=== PATIENT | male | born 1950 | race Caucasian/White ===

== ENCOUNTER 2017-12-26 21:49 | Inpatient (IN) | payer MEDICARE, MEDICAID ==
[2017-12-26 22:31] LABS: % BASOPHILS 0.9 % (0.0-2.0); % EOSINOPHILS 4.1 % (0.0-5.0); % LYMPHOCYTES 33.8 % (20.0-50.0); % MONOCYTES 10.3 % (2.0-10.0); % NEUTROPHILS 50.9 % (40.0-80.0); BASOPHILE ABSOLUTE 0.1 Th/cumm (0-0.2); EOSINOPHILE ABSOLUTE 0.2 Th/cmm (0.1-0.4); HEMATOCRIT 30.4 % (41.0-60); MEAN CORPUSCULAR HEMOGLOBIN 30.3 pg (27.0-31.0); MEAN PLATELET VOLUME 6.5 fl; MONOCYTE ABSOLUTE 0.6 Th/cmm (0.3-1.0); PLATELET COUNT 233 Th/cmm (150-400); RED CELL DISTRIBUTION WIDTH 15.2 % (11.5-20.0); WHITE BLOOD COUNT 5.9 Th/cmm (4.8-10.8)
[2017-12-26 22:47] LABS: ALB/GLOB RATIO 1.4 (1.0-1.8); ALBUMIN 3.8 gm/dL (4.2-5.5); ANION GAP 10.1 (7.0-16.0); BILIRUBIN,TOTAL 0.3 mg/dL (0.3-1.0); CALCIUM SERUM 9.2 mg/dL (8.6-10.3); CARBON DIOXIDE 28.3 mEq/L (21.0-31.0); CREATININE - SERUM 1.6 mg/dL (0.7-1.3); GFR AFRICAN-AMERICAN 55.7 ml/min (>90); GFR NON AFRICAN-AMERICAN 46.1 ml/min; POTASSIUM SERUM 4.4 mEq/L (3.5-5.1); TOTAL PROTEIN,SERUM 6.6 gm/dL (6.0-8.3)
[2017-12-26 22:50] LABS: INR 0.97 (0.5-1.4); PROTHROMBIN TIME (TEST) 10.1 SECONDS (9.5-11.5)
--- NOTE | 2017-12-26 23:07 | ED Physician Chart ---
ED Chief Complaint/HPI - Patient Information Date Seen:: 12/26/17 Time Seen:: 22:00 Chief Complaint:: AGITATION History of Present Illness:: THIS IS A 67 YO CHRONICALLY ILL MALE PSYCH PATIENT THAT WAS SENT HERE FOR AN EVALUATION OF HIS CONDITION BECAUSE HE HAS NOT BEEN COOPERATING AND COMBATIVE WITH THE STAFF. Allergies:: Allergies Allergy/AdvReac Type Severity Reaction Status Date / Time No Known Allergies Allergy Verified 12/26/17 22:44 Vitals:: Vital Signs - 8 hr 12/26/17 21:50 Temp 97.8 F HR 64 RR 20 BP 119/99 O2 Sat % 92 Historian:: EMS, Medical Records Review:: Nurse's Note Reviewed, Transfer documents Reviewed ED Review of Systems - Review of Systems General/Constitutional: No fever, No chills, No weight loss, No weakness, No diaphoresis, No edema, No loss of appetite, Other (THIS PATIENT IS UNABLE TO GIVE A REVIEW OF SYSTEMS.) Skin: No skin lesions, No rash, No bruising Head: No headache, No light-headedness Eyes: No loss of vision, No pain, No diplopia ENT: No earache, No nasal drainage, No sore throat, No tinnitus Neck: No neck pain, No swelling, No thyromegaly, No stiffness, No mass noted Cardio Vascular: No chest pain, No palpitations, No PND, No orthopnea, No edema Pulmonary: No SOB, No cough, No sputum, No wheezing GI: No nausea, No vomiting, No diarrhea, No pain, No melena, No hematochezia, No constipation, No hematemesis G/U: No dysuria, No frequency, No hematuria Musculoskeletal: No bone or joint pain, No back pain, No muscle pain Endocrine: No polyuria, No polydipsia Psychiatric: No prior psych history, No depression, No anxiety, No suicidal ideation Hematopoietic: No bruising, No lymphadenopathy Allergic/Immuno: No urticaria, No angioedema Neurological: No syncope, No focal symptoms, No weakness, No paresthesia, No headache, No seizure, No dizziness, No confusion, No vertigo ED Past Medical History - Past Medical History Obtainable: Yes Past Medical History: HTN, Dementia Family History: None Social History: Non Smoker, No Alcohol, No Drug Use, Care Facility Psychiatricy History: Depression, Schizophrenia, Dementia ED Physical Exam - Physical Examination General/Constitutional: Awake, Well-developed, well-nourished, Alert, No distress, GCS 15, Non-toxic appearing, Ambulatory Head: Atraumatic Eyes: Lids, conjuctiva normal, PERRL, EOMI Skin: Nl inspection, No rash, No skin lesions, No ecchymosis, Well hydrated, No lymphadenopathy ENMT: External ears, nose nl, Nasal exam nl, Lips, teeth, gums nl Neck: Nontender, Full ROM w/o pain, No JVD, No nuchal rigidity, No bruit, No mass, No stridor Respiratory: Nl effort/Exclusion, Clear to Auscultation, No Wheeze/Rhonchi/Rales Cardio Vascular: RRR, No murmur, gallop, rubs, NL S1 S2 GI: No tenderness/rebounding/guarding, No organomegaly, No hernia, Normal BS's, Nondistended, No mass/bruits, No McBurney tenderness : No CVA tenderness Extremities: No tenderness or effusion, Full ROM, normal strength in all extremities, No edema, Normal digits & nails Neuro/Psych: Alert/oriented, DTR's symmetric, Normal sensory exam, Normal motor strength, Judgement/insight normal, Mood normal, Normal gait, No focal deficits Misc: Normal back, No paraspinal tenderness ED Labs/Radiology/EKG Results - Lab Results Results: Laboratory Tests 12/26/17 12/26/17 12/26/17 22:20 22:20 22:20 WBC 5.9 RBC 3.30 L Hgb 10.0 L Hct 30.4 L MCV 92.0 MCH 30.3 MCHC Differential 33.0 RDW 15.2 Plt Count 233 MPV 6.5 Neutrophils % 50.9 Lymphocytes % 33.8 Monocytes % 10.3 H Eosinophils % 4.1 Basophils % 0.9 Sodium 134 L Potassium 4.4 Chloride 100 Carbon Dioxide 28.3 Anion Gap 10.1 BUN 42 H Creatinine 1.6 H Est GFR ( Amer) 55.7 Est GFR (Non-Af Amer) 46.1 BUN/Creatinine Ratio 26.3 Glucose 96 Calcium 9.2 Total Bilirubin 0.3 AST 10 L ALT 8 Alkaline Phosphatase 122 H Troponin I 0.01 Total Protein 6.6 Albumin 3.8 L Globulin 2.8 Albumin/Globulin Ratio 1.4 - Radiology Results Results: CHEST X-RAY = RIGHT MIDDLE LOBE AREA OF [place] - EKG Interpretations EKG Time:: 22:30 Rate & Rhythm: 67, SINUS [place]: RIGHT AXIS Intervals: NO ECTOPY SEEN ED Assessment - Assessment General Assessment: PSYCHOSIS ED Septic Shock - . Is Septic Shock (SBP<90, OR Lactate>4 mmol\L) present?: No - <6hrs of presentation: Vital Signs: Vital Signs - 8 hr 12/26/17 21:50 Temp 97.8 F HR 64 RR 20 BP 119/99 O2 Sat % 92 ED Reassessment (Disposition) - Reassessment Reassessment Condition:: Unchanged - Diagnosis Diagnosis:: PSYCHOSIS - Patient Disposition Discharge/Transfer:: Acute Care w/in this hosp Admitting Medical Physician:: Nica Ho Admitting Psych Physician:: Reilly Aldana Condition at Disposition:: Unchanged ED Discharge Plan - Patient Disposition Admit/Discharge/Transfer: Acute Care w/in this hosp Condition at Disposition: Unchanged
[2017-12-27] MEDS ORDERED: Maalox 30 mL Cup PO PRN (02:44)
[2017-12-27] MEDS ORDERED: Magnesium Hydroxide (MOM) 30 mL UDC PO PRN (02:44)
[2017-12-27 06:32] VITALS: BP 138/78
--- NOTE | 2017-12-27 08:59 | Diagnostic Imaging Report ---
Portable chest x-ray HISTORY: Pain Allowing for portable technique in a poor inspiration, the overall heart size is normal. Atherosclerotic calcification seen in the aorta. Density noted over the right mid chest. Findings may be associated with the ribs and old fractures. Question pleural calcification. No other acute focal pulmonary processes. No hilar or mediastinal abnormalities. IMPRESSION: 1. Density over the right mid chest appears chronic and may be related to old right rib fractures. If necessary, a CT scan would confirm. 2. Atherosclerotic vascular changes
[2017-12-27] MEDS: Ferrous Sulfate 325 MG TAB PO SCH (10:00)
[2017-12-27] MEDS: NIFEdipine 30 mg ER Tab PO SCH (10:00)
[2017-12-27] MEDS: Multivitamin Tab PO SCH (10:35)
[2017-12-27] MEDS: Magnesium Hydroxide (MOM) 30 mL UDC PO SCH (10:36)
--- NOTE | 2017-12-27 16:05 | History & Physical ---
ADMIT DATE: 12/27/2017 HISTORY OF PRESENT ILLNESS: The patient is a 67-year-old male with long history of hypertension, benign prostatic hypertrophy, chronic anemia, dementia, admitted to [facility] for more evaluation and treatment. The patient is a poor historian secondary to his dementia. PAST MEDICAL HISTORY: Significant for hypertension, benign prostatic hypertrophy, chronic anemia, dementia. PAST SURGICAL HISTORY: No recent surgery. ALLERGIES: None. MEDICATIONS: Follow admission reconciliation. SOCIAL HISTORY: No smoking, no alcohol, no drugs. FAMILY HISTORY: Noncontributory. REVIEW OF SYSTEMS: RENAL SYSTEM: No history of chronic renal disorder. CARDIOVASCULAR SYSTEM: He has history of hypertension. ENDOCRINE SYSTEM: No diabetes or thyroid problem. GASTROINTESTINAL SYSTEM: No upper or lower GI bleeding. NEUROLOGICAL SYSTEM: History of dementia. MUSCULOSKELETAL SYSTEM: No muscular dystrophy. HEMATOLOGIC SYSTEM: No bleeding tendencies. GENITOURINARY: No dysuria or hematuria. PHYSICAL EXAMINATION: GENERAL: He is awake, not coherent. VITAL SIGNS: His temperature 97.7, heart rate 63, blood pressure 141/80. HEENT: Normocephalic. Pupils reacting equal to light and accommodation. Sclerae clear. NECK: Supple. Negative for lymphadenopathy, JVD or bruit. CHEST: Bilaterally normal. No rhonchi or wheezing. HEART: S1, S2 normal. No murmur or gallop rhythm. ABDOMEN: Soft, bowel sounds positive. EXTREMITIES: No edema. BACK: Normal. SKIN: Intact. NEUROLOGIC: He is awake, alert, not fully oriented. No focal motor or sensory deficit. Cranial nerves 2-12 is intact. LABORATORY DATA: White blood 5.9, hemoglobin 10, hematocrit 30.4, platelet 233. Sodium 134, potassium 4.4, BUN 42, creatinine 0.6. ASSESSMENT: 1. Hypertension. 2. Benign prostatic hypertrophy. 3. Anemia. 4. Chronic kidney disease. 5. Dementia. PLAN: The patient in the hospital under Dr. Yanez's service. MEDICAL PROBLEMS ADDRESSED DURING HOSPITALIZATION: Dementia. MEDICAL PROBLEMS ADDRESSED AT DISCHARGE: Hypertension, benign prostatic hypertrophy, anemia. The patient is medically stable for activity. Thank you, Dr. Yanez for asking me to see your patient. JOB# [id number]
[2017-12-27] MEDS ORDERED: Non-Formulary Item 1 EA (Melatonin [Melatonin] 3 MG) PO SCH (21:00)
[2017-12-28] MEDS ORDERED: Haloperidol Lactate 5 mg/mL 1mL Vial ONE (07:15)
[2017-12-28] MEDS ORDERED: Haloperidol Lactate 5 mg/mL 1mL Vial IM ONE (07:35)
[2017-12-28] MEDS: Multivitamin Tab PO SCH (10:00)
[2017-12-28] MEDS: Magnesium Hydroxide (MOM) 30 mL UDC PO SCH (10:00)
[2017-12-28] MEDS: Ferrous Sulfate 325 MG TAB PO SCH (10:00)
[2017-12-28] MEDS: NIFEdipine 30 mg ER Tab PO SCH (10:00)
--- NOTE | 2017-12-28 21:29 | Internal Medicine Prog Note ---
Internal Medicine Subjective - Subjective Service Date: 12/28/17 Patient seen and examined:: with staff Patient is:: awake, talking, confused Per staff patient has:: no adverse event Internal Medicine Objective - Results Result Diagrams: 12/26/17 22:20 12/26/17 22:20 Recent Labs: Laboratory Last Values WBC 5.9 Th/cmm (4.8-10.8) 12/26/17 22:20 RBC 3.30 Mil/cmm (3.80-5.80) L 12/26/17 22:20 Hgb 10.0 gm/dL (12-16) L 12/26/17 22:20 Hct 30.4 % (41.0-60) L 12/26/17 22:20 MCV 92.0 fl (80-99) 12/26/17 22:20 MCH 30.3 pg (27.0-31.0) 12/26/17 22:20 MCHC Differential 33.0 pg (28.0-36.0) 12/26/17 22:20 RDW 15.2 % (11.5-20.0) 12/26/17 22:20 Plt Count 233 Th/cmm (150-400) 12/26/17 22:20 MPV 6.5 fl 12/26/17 22:20 Neutrophils % 50.9 % (40.0-80.0) 12/26/17 22:20 Lymphocytes % 33.8 % (20.0-50.0) 12/26/17 22:20 Monocytes % 10.3 % (2.0-10.0) H 12/26/17 22:20 Eosinophils % 4.1 % (0.0-5.0) 12/26/17 22:20 Basophils % 0.9 % (0.0-2.0) 12/26/17 22:20 PT 10.1 SECONDS (9.5-11.5) 12/26/17 22:20 INR 0.97 (0.5-1.4) 12/26/17 22:20 Sodium 134 mEq/L (136-145) L 12/26/17 22:20 Potassium 4.4 mEq/L (3.5-5.1) 12/26/17 22:20 Chloride 100 mEq/L (98-107) 12/26/17 22:20 Carbon Dioxide 28.3 mEq/L (21.0-31.0) 12/26/17 22:20 Anion Gap 10.1 (7.0-16.0) 12/26/17 22:20 BUN 42 mg/dL (7-25) H 12/26/17 22:20 Creatinine 1.6 mg/dL (0.7-1.3) H 12/26/17 22:20 Est GFR ( Amer) 55.7 ml/min (>90) 12/26/17 22:20 Est GFR (Non-Af Amer) 46.1 ml/min 12/26/17 22:20 BUN/Creatinine Ratio 26.3 12/26/17 22:20 Glucose 96 mg/dL (70-105) 12/26/17 22:20 Calcium 9.2 mg/dL (8.6-10.3) 12/26/17 22:20 Total Bilirubin 0.3 mg/dL (0.3-1.0) 12/26/17 22:20 AST 10 U/L (13-39) L 12/26/17 22:20 ALT 8 U/L (7-52) 12/26/17 22:20 Alkaline Phosphatase 122 U/L (34-104) H 12/26/17 22:20 Troponin I 0.01 ng/mL (0.01-0.05) 12/26/17 22:20 Total Protein 6.6 gm/dL (6.0-8.3) 12/26/17 22:20 Albumin 3.8 gm/dL (4.2-5.5) L 12/26/17 22:20 Globulin 2.8 gm/dL 12/26/17 22:20 Albumin/Globulin Ratio 1.4 (1.0-1.8) 12/26/17 22:20 TSH 1.97 uIU/ml (0.34-5.60) 12/26/17 22:20 - Physical Exam Vitals and I&O: Vital Signs Temp 97.5 F 12/28/17 21:12 Pulse 65 12/28/17 21:12 Resp 18 12/28/17 21:12 BP 115/58 12/28/17 21:12 Pulse Ox 95 12/28/17 21:12 Intake & Output 12/28/17 12/28/17 12/29/17 06:59 18:59 06:59 Intake Total 1880 1600 180 Balance 1880 1600 180 Intake: Oral 1880 1600 180 Other: # Voids 2 4 2 # Bowel Movements 1 1 0 Stool Characteristics Formed Active Medications: Current Medications Acetaminophen (Tylenol) 650 mg PO Q4HR PRN PRN Reason: Pain (Mild) Stop: 02/25/18 03:35 Al Hydrox/Mg Hydrox/Simethicone (Maalox) 30 ml PO Q4HR PRN PRN Reason: GI DISTRESS Stop: 02/25/18 02:43 Alprazolam (Xanax) 0.25 mg PO BID DORENE PRN Reason: Protocol Stop: 02/25/18 08:59 Last Admin: 12/28/17 16:21 Dose: 0.25 mg Docusate Sodium (Colace) 100 mg PO BID [facility] Stop: 02/25/18 08:59 Last Admin: 12/28/17 16:22 Dose: 100 mg Ferrous Sulfate (Iron) 325 mg PO DAILY [facility] Stop: 02/25/18 08:59 Last Admin: 12/28/17 10:00 Dose: Not Given Lorazepam (Ativan) 0.5 mg PO Q4HR PRN; Protocol PRN Reason: Anxiety Stop: 01/26/18 02:43 Last Admin: 12/28/17 20:30 Dose: 0.5 mg Magnesium Hydroxide (Milk Of Magnesia) 30 ml PO HS PRN PRN Reason: Constipation Magnesium Hydroxide (Milk Of Magnesia) 30 ml PO DAILY [facility] Stop: 02/25/18 08:59 Last Admin: 12/28/17 10:00 Dose: Not Given Metoprolol Tartrate (Lopressor) 25 mg PO DAILY [facility] Stop: 02/25/18 08:59 Last Admin: 12/28/17 10:00 Dose: 25 mg Multivitamins/Vitamin C (Theragran) 1 tab PO DAILY DORENE Stop: 02/25/18 08:59 Last Admin: 12/28/17 10:00 Dose: 1 tab Nifedipine (Procardia Xl) 30 mg PO DAILY [facility] Stop: 02/25/18 08:59 Last Admin: 12/28/17 10:00 Dose: 30 mg Quetiapine Fumarate (Seroquel) 25 mg PO BID DORENE PRN Reason: Protocol Stop: 02/26/18 11:32 Last Admin: 12/28/17 16:22 Dose: 25 mg Tamsulosin HCl (Flomax) 0.4 mg PO HS DORENE Stop: 02/25/18 20:59 Last Admin: 12/28/17 20:31 Dose: 0.4 mg Zolpidem Tartrate (Ambien) 5 mg PO HS PRN PRN Reason: Insomnia Stop: 02/25/18 02:43 Last Admin: 12/28/17 20:30 Dose: 5 mg General: demented HEENT: NC/AT, PERRLA, EOMI, anicteric sclerae, throat clear Neck: Supple, No JVD, No thyromegaly, +2 carotid pulse wo bruit, No LAD Lungs: CTAB Cardiovascular: RRR, Normal S1, Normal S2, without murmur Abdomen: non-tender, non-distended Extremities: clear Neurological: no change Internal Medicine Assmt/Plan - Assessment Assessment: 1.HTN. 2.BPH. 3.ANEMIA. 4.CKD. 5.DEMENTIA. - Plan Plan: CONTINUE ON CURRENT MEDICATION AND DIET.
--- NOTE | 2017-12-28 23:35 | Psychosocial Evaluation ---
DATE OF SERVICE: 12/27/2017 PSYCHIATRIC INITIAL EVALUATION AND MENTAL STATUS EXAM AGE: 67. SEX: Male. PHYSICIAN: Dr. Aldana. CHIEF COMPLAINT: Agitation and striking odd behavior. HISTORY OF PRESENT ILLNESS: The patient is a 67-year-old male who is admitted to the hospital because of increased agitation and aggressive behavior. The patient also has been confused and disruptive to others. The patient also still was not able to follow any of staff directions [facility] and was transferred to the hospital. The patient is still extremely irritable and is severely agitated and restless. The patient also is unable to follow directions or instructions from the staff. He also has episodes of combative behavior and severe aggression and agitation. He also was not able to follow any of directions. PAST PSYCHIATRIC HISTORY: History of psychosis as well as a history of dementia. The patient has been taking Xanax to calm him down. PAST MEDICAL HISTORY: The patient has history of hypertension and is taking Lasix. Also, has a history of anemia. SOCIAL HISTORY: The patient lives in [facility]. No known alcohol or drug use. ALLERGIES: No known allergies. MENTAL STATUS EXAMINATION: The patient appears older than stated age. Anxious. Irritable mood. Agitated and aggressive behavior. Disorganized thoughts. Unable to answer my questions currently because of agitation and because of irritability. Poor insight and poor judgment. ASSESSMENT: PRIMARY DIAGNOSIS: Unspecified psychosis. TREATMENT PLAN: Continue to monitor his behavior and condition closely. Also, we will start the patient on Seroquel 12.5 mg twice a day and will adjust the dose. ESTIMATED LENGTH OF STAY: 5-7 days. THE PATIENT'S STRENGTHS AND WEAKNESSES: The patient is cooperative with taking his medications. Weakness is his poor impulse control and agitation. AFTER DISCHARGE PLAN: The patient will return to [facility] with plans for outpatient treatment there. ITEM CRITERIA FOR DISCHARGE: Better impulse control and the patient will not be agitated. [facility]# [id number]
--- NOTE | 2017-12-29 00:09 | Progress Notes ---
DATE: SUBJECTIVE: Chart reviewed and the patient interviewed. Also discussed the patient's condition with the staff and reviewed records and labs. The patient remains agitated and in irritable mood. He also is still instigating arguments and fights with others. The patient also this morning has to be given emergency medication because of his agitation and paranoia and because of argumentative with staff and threatening. Otherwise, the patient is compliant with medications and easier to redirect him. ASSESSMENT: The patient is paranoid and still needs close monitoring. TREATMENT PLAN: Continue monitoring behavior and condition closely. Also, continue to work on poor insight and his poor impulse control. JOB# [id number]
[2017-12-29] MEDS: Ferrous Sulfate 325 MG TAB PO SCH (09:20)
[2017-12-29] MEDS: NIFEdipine 30 mg ER Tab PO SCH (09:20)
[2017-12-29] MEDS: Magnesium Hydroxide (MOM) 30 mL UDC PO SCH (09:20)
[2017-12-29] MEDS: Multivitamin Tab PO SCH (09:20)
--- NOTE | 2017-12-29 22:06 | Internal Medicine Prog Note ---
Internal Medicine Subjective - Subjective Service Date: 12/29/17 Patient seen and examined:: without staff Patient is:: awake, talking, confused Per staff patient has:: no adverse event Internal Medicine Objective - Results Result Diagrams: 12/26/17 22:20 12/26/17 22:20 Recent Labs: Laboratory Last Values WBC 5.9 Th/cmm (4.8-10.8) 12/26/17 22:20 RBC 3.30 Mil/cmm (3.80-5.80) L 12/26/17 22:20 Hgb 10.0 gm/dL (12-16) L 12/26/17 22:20 Hct 30.4 % (41.0-60) L 12/26/17 22:20 MCV 92.0 fl (80-99) 12/26/17 22:20 MCH 30.3 pg (27.0-31.0) 12/26/17 22:20 MCHC Differential 33.0 pg (28.0-36.0) 12/26/17 22:20 RDW 15.2 % (11.5-20.0) 12/26/17 22:20 Plt Count 233 Th/cmm (150-400) 12/26/17 22:20 MPV 6.5 fl 12/26/17 22:20 Neutrophils % 50.9 % (40.0-80.0) 12/26/17 22:20 Lymphocytes % 33.8 % (20.0-50.0) 12/26/17 22:20 Monocytes % 10.3 % (2.0-10.0) H 12/26/17 22:20 Eosinophils % 4.1 % (0.0-5.0) 12/26/17 22:20 Basophils % 0.9 % (0.0-2.0) 12/26/17 22:20 PT 10.1 SECONDS (9.5-11.5) 12/26/17 22:20 INR 0.97 (0.5-1.4) 12/26/17 22:20 Sodium 134 mEq/L (136-145) L 12/26/17 22:20 Potassium 4.4 mEq/L (3.5-5.1) 12/26/17 22:20 Chloride 100 mEq/L (98-107) 12/26/17 22:20 Carbon Dioxide 28.3 mEq/L (21.0-31.0) 12/26/17 22:20 Anion Gap 10.1 (7.0-16.0) 12/26/17 22:20 BUN 42 mg/dL (7-25) H 12/26/17 22:20 Creatinine 1.6 mg/dL (0.7-1.3) H 12/26/17 22:20 Est GFR ( Amer) 55.7 ml/min (>90) 12/26/17 22:20 Est GFR (Non-Af Amer) 46.1 ml/min 12/26/17 22:20 BUN/Creatinine Ratio 26.3 12/26/17 22:20 Glucose 96 mg/dL (70-105) 12/26/17 22:20 Calcium 9.2 mg/dL (8.6-10.3) 12/26/17 22:20 Total Bilirubin 0.3 mg/dL (0.3-1.0) 12/26/17 22:20 AST 10 U/L (13-39) L 12/26/17 22:20 ALT 8 U/L (7-52) 12/26/17 22:20 Alkaline Phosphatase 122 U/L (34-104) H 12/26/17 22:20 Troponin I 0.01 ng/mL (0.01-0.05) 12/26/17 22:20 Total Protein 6.6 gm/dL (6.0-8.3) 12/26/17 22:20 Albumin 3.8 gm/dL (4.2-5.5) L 12/26/17 22:20 Globulin 2.8 gm/dL 12/26/17 22:20 Albumin/Globulin Ratio 1.4 (1.0-1.8) 12/26/17 22:20 TSH 1.97 uIU/ml (0.34-5.60) 12/26/17 22:20 - Physical Exam Vitals and I&O: Vital Signs Temp 97.8 F 12/29/17 20:21 Pulse 73 12/29/17 20:21 Resp 20 12/29/17 20:21 BP 146/74 12/29/17 20:21 Pulse Ox 97 12/29/17 20:21 Intake & Output 12/29/17 12/29/17 12/30/17 06:59 18:59 06:59 Intake Total 300 480 Balance 300 480 Intake: Oral 300 480 Other: # Voids 2 2 # Bowel Movements 0 Stool Characteristics Formed Active Medications: Current Medications Acetaminophen (Tylenol) 650 mg PO Q4HR PRN PRN Reason: Pain (Mild) Stop: 02/25/18 03:35 Al Hydrox/Mg Hydrox/Simethicone (Maalox) 30 ml PO Q4HR PRN PRN Reason: GI DISTRESS Stop: 02/25/18 02:43 Alprazolam (Xanax) 0.25 mg PO BID DORENE PRN Reason: Protocol Stop: 02/25/18 08:59 Last Admin: 12/29/17 16:54 Dose: 0.25 mg Docusate Sodium (Colace) 100 mg PO BID [facility] Stop: 02/25/18 08:59 Last Admin: 12/29/17 16:54 Dose: 100 mg Ferrous Sulfate (Iron) 325 mg PO DAILY [facility] Stop: 02/25/18 08:59 Last Admin: 12/29/17 09:20 Dose: 325 mg Lorazepam (Ativan) 0.5 mg PO Q4HR PRN; Protocol PRN Reason: Anxiety Stop: 01/26/18 02:43 Last Admin: 12/29/17 21:12 Dose: 0.5 mg Magnesium Hydroxide (Milk Of Magnesia) 30 ml PO HS PRN PRN Reason: Constipation Magnesium Hydroxide (Milk Of Magnesia) 30 ml PO DAILY [facility] Stop: 02/25/18 08:59 Last Admin: 12/29/17 09:20 Dose: 30 ml Metoprolol Tartrate (Lopressor) 25 mg PO DAILY [facility] Stop: 02/25/18 08:59 Last Admin: 12/29/17 09:20 Dose: 25 mg Multivitamins/Vitamin C (Theragran) 1 tab PO DAILY [facility] Stop: 02/25/18 08:59 Last Admin: 12/29/17 09:20 Dose: 1 tab Nifedipine (Procardia Xl) 30 mg PO DAILY [facility] Stop: 02/25/18 08:59 Last Admin: 12/29/17 09:20 Dose: 30 mg Quetiapine Fumarate (Seroquel) 25 mg PO BID DORENE PRN Reason: Protocol Stop: 02/26/18 11:32 Last Admin: 12/29/17 16:54 Dose: 25 mg Tamsulosin HCl (Flomax) 0.4 mg PO HS DORENE Stop: 02/25/18 20:59 Last Admin: 12/29/17 21:12 Dose: 0.4 mg Zolpidem Tartrate (Ambien) 5 mg PO HS PRN PRN Reason: Insomnia Stop: 02/25/18 02:43 Last Admin: 12/29/17 21:12 Dose: 5 mg General: demented HEENT: NC/AT, PERRLA, EOMI, anicteric sclerae, throat clear Neck: Supple, No JVD, No thyromegaly, +2 carotid pulse wo bruit, No LAD Lungs: CTAB Cardiovascular: RRR, Normal S1, Normal S2, without murmur Abdomen: non-tender, non-distended Extremities: clear Neurological: no change Internal Medicine Assmt/Plan - Assessment Assessment: 1.HTN. 2.BPH. 3.ANEMIA. 4.CKD. 5.DEMENTIA. - Plan Plan: CONTINUE ON CURRENT MEDICATION AND DIET.
[2017-12-30] MEDS: Multivitamin Tab PO SCH (08:29)
[2017-12-30] MEDS: Magnesium Hydroxide (MOM) 30 mL UDC PO SCH (08:29)
[2017-12-30] MEDS: Ferrous Sulfate 325 MG TAB PO SCH (08:30)
[2017-12-30] MEDS: NIFEdipine 30 mg ER Tab PO SCH (08:31)
--- NOTE | 2017-12-30 19:28 | Progress Notes ---
DATE: SUBJECTIVE: Chart reviewed and the patient interviewed. Also discussed the patient's condition with the staff and reviewed records and labs. The patient is still agitated and in irritable mood. The patient is oriented to his self only. He also is still combative and agitated and also staff reporting that he has been yelling profanity and have difficult time listening and following their directions. He also has been striking out and yesterday, the patient has been given Haldol 5 mg and Ativan 1 mg and Benadryl 25 mg. Otherwise, the patient started on Seroquel that was increased to 25 mg twice a day yesterday. ASSESSMENT: The patient is still agitated and in irritable mood and psychotic. TREATMENT PLAN: Continue monitoring his behavior and his condition closely. Also, continue adjusting psychotropic medications and followup. JOB# [id number]
--- NOTE | 2017-12-30 22:18 | Internal Medicine Prog Note ---
Internal Medicine Subjective - Subjective Service Date: 12/30/17 Patient seen and examined:: without staff Patient is:: awake, talking, confused Per staff patient has:: no adverse event Internal Medicine Objective - Results Result Diagrams: 12/26/17 22:20 12/26/17 22:20 Recent Labs: Laboratory Last Values WBC 5.9 Th/cmm (4.8-10.8) 12/26/17 22:20 RBC 3.30 Mil/cmm (3.80-5.80) L 12/26/17 22:20 Hgb 10.0 gm/dL (12-16) L 12/26/17 22:20 Hct 30.4 % (41.0-60) L 12/26/17 22:20 MCV 92.0 fl (80-99) 12/26/17 22:20 MCH 30.3 pg (27.0-31.0) 12/26/17 22:20 MCHC Differential 33.0 pg (28.0-36.0) 12/26/17 22:20 RDW 15.2 % (11.5-20.0) 12/26/17 22:20 Plt Count 233 Th/cmm (150-400) 12/26/17 22:20 MPV 6.5 fl 12/26/17 22:20 Neutrophils % 50.9 % (40.0-80.0) 12/26/17 22:20 Lymphocytes % 33.8 % (20.0-50.0) 12/26/17 22:20 Monocytes % 10.3 % (2.0-10.0) H 12/26/17 22:20 Eosinophils % 4.1 % (0.0-5.0) 12/26/17 22:20 Basophils % 0.9 % (0.0-2.0) 12/26/17 22:20 PT 10.1 SECONDS (9.5-11.5) 12/26/17 22:20 INR 0.97 (0.5-1.4) 12/26/17 22:20 Sodium 134 mEq/L (136-145) L 12/26/17 22:20 Potassium 4.4 mEq/L (3.5-5.1) 12/26/17 22:20 Chloride 100 mEq/L (98-107) 12/26/17 22:20 Carbon Dioxide 28.3 mEq/L (21.0-31.0) 12/26/17 22:20 Anion Gap 10.1 (7.0-16.0) 12/26/17 22:20 BUN 42 mg/dL (7-25) H 12/26/17 22:20 Creatinine 1.6 mg/dL (0.7-1.3) H 12/26/17 22:20 Est GFR ( Amer) 55.7 ml/min (>90) 12/26/17 22:20 Est GFR (Non-Af Amer) 46.1 ml/min 12/26/17 22:20 BUN/Creatinine Ratio 26.3 12/26/17 22:20 Glucose 96 mg/dL (70-105) 12/26/17 22:20 Calcium 9.2 mg/dL (8.6-10.3) 12/26/17 22:20 Total Bilirubin 0.3 mg/dL (0.3-1.0) 12/26/17 22:20 AST 10 U/L (13-39) L 12/26/17 22:20 ALT 8 U/L (7-52) 12/26/17 22:20 Alkaline Phosphatase 122 U/L (34-104) H 12/26/17 22:20 Troponin I 0.01 ng/mL (0.01-0.05) 12/26/17 22:20 Total Protein 6.6 gm/dL (6.0-8.3) 12/26/17 22:20 Albumin 3.8 gm/dL (4.2-5.5) L 12/26/17 22:20 Globulin 2.8 gm/dL 12/26/17 22:20 Albumin/Globulin Ratio 1.4 (1.0-1.8) 12/26/17 22:20 TSH 1.97 uIU/ml (0.34-5.60) 12/26/17 22:20 - Physical Exam Vitals and I&O: Vital Signs Temp 98.2 F 12/30/17 21:24 Pulse 68 12/30/17 21:24 Resp 19 12/30/17 21:24 BP 118/61 12/30/17 21:24 Pulse Ox 97 12/30/17 21:24 Intake & Output 12/30/17 12/30/17 12/31/17 06:59 18:59 06:59 Intake Total 600 1000 480 Balance 600 1000 480 Intake: Oral 600 1000 480 Other: # Voids 2 4 1 # Bowel Movements 0 1 Active Medications: Current Medications Acetaminophen (Tylenol) 650 mg PO Q4HR PRN PRN Reason: Pain (Mild) Stop: 02/25/18 03:35 Al Hydrox/Mg Hydrox/Simethicone (Maalox) 30 ml PO Q4HR PRN PRN Reason: GI DISTRESS Stop: 02/25/18 02:43 Alprazolam (Xanax) 0.25 mg PO BID [facility] PRN Reason: Protocol Stop: 02/25/18 08:59 Last Admin: 12/30/17 16:34 Dose: 0.25 mg Docusate Sodium (Colace) [address] [facility] Stop: 02/25/18 08:59 Last Admin: 12/30/17 16:35 Dose: 100 mg Ferrous Sulfate (Iron) [address] [facility] Stop: 02/25/18 08:59 Last Admin: 12/30/17 08:30 Dose: 325 mg Lorazepam (Ativan) 0.5 mg PO Q4HR PRN; Protocol PRN Reason: Anxiety Stop: 01/26/18 02:43 Last Admin: 12/29/17 21:12 Dose: 0.5 mg Magnesium Hydroxide (Milk Of Magnesia) 30 ml PO HS PRN PRN Reason: Constipation Magnesium Hydroxide (Milk Of Magnesia) [address] [facility] Stop: 02/25/18 08:59 Last Admin: 12/30/17 08:29 Dose: 30 ml Metoprolol Tartrate (Lopressor) [address] [facility] Stop: 02/25/18 08:59 Last Admin: 12/30/17 08:31 Dose: 25 mg Multivitamins/Vitamin C (Theragran) [address] [facility] Stop: 02/25/18 08:59 Last Admin: 12/30/17 08:29 Dose: 1 tab Nifedipine (Procardia Xl) [address] [facility] Stop: 02/25/18 08:59 Last Admin: 12/30/17 08:31 Dose: 30 mg Quetiapine Fumarate (Seroquel) 25 mg PO BID [facility] PRN Reason: Protocol Stop: 02/26/18 11:32 Last Admin: 12/30/17 16:35 Dose: 25 mg Tamsulosin HCl (Flomax) 0.4 mg PO HS [facility] Stop: 02/25/18 20:59 Last Admin: 12/30/17 20:21 Dose: 0.4 mg Zolpidem Tartrate (Ambien) 5 mg PO HS PRN PRN Reason: Insomnia Stop: 02/25/18 02:43 Last Admin: 12/30/17 20:21 Dose: 5 mg General: demented HEENT: NC/AT, PERRLA, EOMI, anicteric sclerae, throat clear Neck: Supple, No JVD, No thyromegaly, +2 carotid pulse wo bruit, No LAD Lungs: CTAB Cardiovascular: RRR, Normal S1, Normal S2, without murmur Abdomen: non-tender, non-distended Extremities: clear Neurological: no change Internal Medicine Assmt/Plan - Assessment Assessment: 1.HTN. 2.BPH. 3.ANEMIA. 4.CKD. 5.DEMENTIA. - Plan Plan: CONTINUE ON CURRENT MEDICATION AND DIET. Nutritional Asmnt/Malnutr-PDOC - Dietary Evaluation Malnutrition Findings (Please click <Entered> for more info): Nutritional Asmnt/Malnutrition Start: 12/30/17 17: 06 Text: Status: Complete Freq: Document 12/30/17 17:06 CHRISTIANE (Rec: 12/30/17 17:11 CHRISTIANE [email or web address]) Nutritional Asmnt/Malnutrition Patient General Information Nutritional Screening Moderate Risk Diagnosis psychosis NOS Pertinent Medical Hx/Surgical Hx HTN, BPH, chronic anemia, dementia Subjective Information Per EMR, PO intake 100% Current Diet Order/ Nutrition Support regular Pertinent Medications coalce, iron, theragran, serqoeul Pertinent Labs 12/26 Na 134, BUN 42, Cr 1.5 Nutritional Hx/Data Height 1.85 m Height (Calculated Centimeters) 185.4 Current Weight (lbs) 83.915 kg Weight (Calculated Kilograms) 83.9 Weight (Calculated Grams) 16571.6 [place] Body Weight 184 Body Mass Index (BMI) 24.4 Weight Status Approriate GI Symptoms GI Symptoms None Last BM 5/6 Difficult in: None Skin Integrity/Comment: intact Current %PO Good (75-100%) Estimated Nutritional Goals BEE in Kcals: Using Current wt Calories/Kcals/Kg 25-30 Kcals Calculated 0890-9946 Protein: Using Current wt Protein g/k.8-1 Protein Calculated 67-84 Fluid: ml 2100-2520ml (1ml/kcal) Nutritional Problem 1. Problem Problem altered nutrition related labs Etiology renal dysfunction Signs/Symptoms: BUN 42, Cr 1.5 Malnutrition Alert Protein-Calorie Malnutrition N/A Is there a minimum of two criteria No selected? Query Text:Check all the applicable criteria. A minimum of two criteria are recommended for diagnosis of either severe or non-severe malnutrition. Intervention/Recommendation Comments 1. Continue with current diet as ordered. Monitor renal labs . 2. Monitor PO intake, wt, labs and skin integrity 3. F/U as moderate risk in 3-5 days, 01/02-01/04 Expected Outcomes/Goals Expected Outcomes/Goals 1. PO intake to meet at least 75% of nutritional needs. 2. Wt stability, skin to remain intact, labs to approach WNL.
[2017-12-31] MEDS: Ferrous Sulfate 325 MG TAB PO SCH (09:07)
[2017-12-31] MEDS: Multivitamin Tab PO SCH (09:07)
[2017-12-31] MEDS: NIFEdipine 30 mg ER Tab PO SCH (09:08)
[2017-12-31] MEDS: Magnesium Hydroxide (MOM) 30 mL UDC PO SCH (09:08)
--- NOTE | 2017-12-31 16:37 | Progress Notes ---
DATE: 12/30/2017 SUBJECTIVE: Chart reviewed and the patient interviewed. Also discussed the patient's condition with the staff and reviewed records and labs. The patient continued to be agitated and he is still pacing up and down the unit. The patient also still needs redirections. Also thought processes are circumstantial with flight of ideas and is still disorganized thoughts. The day before yesterday, the patient was extremely agitated. Because of patient's agitation the patient was given injection of emergency medications to calm him down. He seems to be slightly calmer today and slightly easier to redirections, but he is still responding to stimuli and agitated and needs lots of redirections. ASSESSMENT: The patient is still psychotic and agitated. TREATMENT PLAN: Continue to monitor his behavior and his condition closely. Also, continue to work on his irritability and disorganized thoughts and continue to follow up. JOB# [id number]
--- NOTE | 2017-12-31 21:02 | Internal Medicine Prog Note ---
Internal Medicine Subjective - Subjective Service Date: 12/31/17 Patient seen and examined:: without staff Patient is:: awake, talking, confused Per staff patient has:: no adverse event Internal Medicine Objective - Results Result Diagrams: 12/26/17 22:20 12/26/17 22:20 Recent Labs: Laboratory Last Values WBC 5.9 Th/cmm (4.8-10.8) 12/26/17 22:20 RBC 3.30 Mil/cmm (3.80-5.80) L 12/26/17 22:20 Hgb 10.0 gm/dL (12-16) L 12/26/17 22:20 Hct 30.4 % (41.0-60) L 12/26/17 22:20 MCV 92.0 fl (80-99) 12/26/17 22:20 MCH 30.3 pg (27.0-31.0) 12/26/17 22:20 MCHC Differential 33.0 pg (28.0-36.0) 12/26/17 22:20 RDW 15.2 % (11.5-20.0) 12/26/17 22:20 Plt Count 233 Th/cmm (150-400) 12/26/17 22:20 MPV 6.5 fl 12/26/17 22:20 Neutrophils % 50.9 % (40.0-80.0) 12/26/17 22:20 Lymphocytes % 33.8 % (20.0-50.0) 12/26/17 22:20 Monocytes % 10.3 % (2.0-10.0) H 12/26/17 22:20 Eosinophils % 4.1 % (0.0-5.0) 12/26/17 22:20 Basophils % 0.9 % (0.0-2.0) 12/26/17 22:20 PT 10.1 SECONDS (9.5-11.5) 12/26/17 22:20 INR 0.97 (0.5-1.4) 12/26/17 22:20 Sodium 134 mEq/L (136-145) L 12/26/17 22:20 Potassium 4.4 mEq/L (3.5-5.1) 12/26/17 22:20 Chloride 100 mEq/L (98-107) 12/26/17 22:20 Carbon Dioxide 28.3 mEq/L (21.0-31.0) 12/26/17 22:20 Anion Gap 10.1 (7.0-16.0) 12/26/17 22:20 BUN 42 mg/dL (7-25) H 12/26/17 22:20 Creatinine 1.6 mg/dL (0.7-1.3) H 12/26/17 22:20 Est GFR ( Amer) 55.7 ml/min (>90) 12/26/17 22:20 Est GFR (Non-Af Amer) 46.1 ml/min 12/26/17 22:20 BUN/Creatinine Ratio 26.3 12/26/17 22:20 Glucose 96 mg/dL (70-105) 12/26/17 22:20 Calcium 9.2 mg/dL (8.6-10.3) 12/26/17 22:20 Total Bilirubin 0.3 mg/dL (0.3-1.0) 12/26/17 22:20 AST 10 U/L (13-39) L 12/26/17 22:20 ALT 8 U/L (7-52) 12/26/17 22:20 Alkaline Phosphatase 122 U/L (34-104) H 12/26/17 22:20 Troponin I 0.01 ng/mL (0.01-0.05) 12/26/17 22:20 Total Protein 6.6 gm/dL (6.0-8.3) 12/26/17 22:20 Albumin 3.8 gm/dL (4.2-5.5) L 12/26/17 22:20 Globulin 2.8 gm/dL 12/26/17 22:20 Albumin/Globulin Ratio 1.4 (1.0-1.8) 12/26/17 22:20 TSH 1.97 uIU/ml (0.34-5.60) 12/26/17 22:20 - Physical Exam Vitals and I&O: Vital Signs Temp 96.9 F 12/31/17 19:51 Pulse 67 12/31/17 19:51 Resp 20 12/31/17 19:51 BP 138/70 12/31/17 19:51 Pulse Ox 97 12/31/17 19:51 Intake & Output 12/31/17 12/31/17 01/01/18 06:59 18:59 06:59 Intake Total 660 1200 Balance 660 1200 Intake: Oral 660 1200 Other: # Voids 2 # Bowel Movements 0 1 Active Medications: Current Medications Acetaminophen (Tylenol) 650 mg PO Q4HR PRN PRN Reason: Pain (Mild) Stop: 02/25/18 03:35 Last Admin: 12/31/17 16:44 Dose: 650 mg Al Hydrox/Mg Hydrox/Simethicone (Maalox) 30 ml PO Q4HR PRN PRN Reason: GI DISTRESS Stop: 02/25/18 02:43 Alprazolam (Xanax) 0.25 mg PO BID [facility] PRN Reason: Protocol Stop: 02/25/18 08:59 Last Admin: 12/31/17 16:41 Dose: 0.25 mg Docusate Sodium (Colace) 100 mg PO BID [facility] Stop: 02/25/18 08:59 Last Admin: 12/31/17 16:41 Dose: 100 mg Ferrous Sulfate (Iron) 325 mg PO DAILY [facility] Stop: 02/25/18 08:59 Last Admin: 12/31/17 09:07 Dose: 325 mg Lorazepam (Ativan) 0.5 mg PO Q4HR PRN; Protocol PRN Reason: Anxiety Stop: 01/26/18 02:43 Last Admin: 12/29/17 21:12 Dose: 0.5 mg Magnesium Hydroxide (Milk Of Magnesia) 30 ml PO HS PRN PRN Reason: Constipation Magnesium Hydroxide (Milk Of Magnesia) 30 ml PO DAILY [facility] Stop: 02/25/18 08:59 Last Admin: 12/31/17 09:08 Dose: 30 ml Metoprolol Tartrate (Lopressor) 25 mg PO DAILY [facility] Stop: 02/25/18 08:59 Last Admin: 12/31/17 09:07 Dose: Not Given Multivitamins/Vitamin C (Theragran) 1 tab PO DAILY [facility] Stop: 02/25/18 08:59 Last Admin: 12/31/17 09:07 Dose: 1 tab Nifedipine (Procardia Xl) 30 mg PO DAILY [facility] Stop: 02/25/18 08:59 Last Admin: 12/31/17 09:08 Dose: Not Given Quetiapine Fumarate (Seroquel) 50 mg PO BID [facility] PRN Reason: Protocol Stop: 03/01/18 06:47 Last Admin: 12/31/17 16:41 Dose: 50 mg Tamsulosin HCl (Flomax) 0.4 mg PO HS [facility] Stop: 02/25/18 20:59 Last Admin: 12/30/17 20:21 Dose: 0.4 mg Zolpidem Tartrate (Ambien) 5 mg PO HS PRN PRN Reason: Insomnia Stop: 02/25/18 02:43 Last Admin: 12/30/17 20:21 Dose: 5 mg General: demented HEENT: NC/AT, PERRLA, EOMI, anicteric sclerae, throat clear Neck: Supple, No JVD, No thyromegaly, +2 carotid pulse wo bruit, No LAD Lungs: CTAB Cardiovascular: RRR, Normal S1, Normal S2, without murmur Abdomen: non-tender, non-distended Extremities: clear Neurological: no change Internal Medicine Assmt/Plan - Assessment Assessment: 1.HTN. 2.BPH. 3.ANEMIA. 4.CKD. 5.DEMENTIA. - Plan Plan: CONTINUE ON CURRENT MEDICATION AND DIET. Nutritional Asmnt/Malnutr-PDOC - Dietary Evaluation Malnutrition Findings (Please click <Entered> for more info): Nutritional Asmnt/Malnutrition Start: 12/30/17 17: 06 Text: Status: Complete Freq: Document 12/30/17 17:06 CHRISTIANE (Rec: 12/30/17 17:11 KASSIE [email or web address]) Nutritional Asmnt/Malnutrition Patient General Information Nutritional Screening Moderate Risk Diagnosis psychosis NOS Pertinent Medical Hx/Surgical Hx HTN, BPH, chronic anemia, dementia Subjective Information Per EMR, PO intake 100% Current Diet Order/ Nutrition Support regular Pertinent Medications coalce, iron, theragran, serqoeul Pertinent Labs 12/26 Na 134, BUN 42, Cr 1.5 Nutritional Hx/Data Height 1.85 m Height (Calculated Centimeters) 185.4 Current Weight (lbs) 83.915 kg Weight (Calculated Kilograms) 83.9 Weight (Calculated Grams) 28346.6 [place] Body Weight 184 Body Mass Index (BMI) 24.4 Weight Status Approriate GI Symptoms GI Symptoms None Last BM 5/6 Difficult in: None Skin Integrity/Comment: intact Current %PO Good (75-100%) Estimated Nutritional Goals BEE in Kcals: Using Current wt Calories/Kcals/Kg 25-30 Kcals Calculated 9798-9871 Protein: Using Current wt Protein g/k.8-1 Protein Calculated 67-84 Fluid: ml 2100-2520ml (1ml/kcal) Nutritional Problem 1. Problem Problem altered nutrition related labs Etiology renal dysfunction Signs/Symptoms: BUN 42, Cr 1.5 Malnutrition Alert Protein-Calorie Malnutrition N/A Is there a minimum of two criteria No selected? Query Text:Check all the applicable criteria. A minimum of two criteria are recommended for diagnosis of either severe or non-severe malnutrition. Intervention/Recommendation Comments 1. Continue with current diet as ordered. Monitor renal labs . 2. Monitor PO intake, wt, labs and skin integrity 3. F/U as moderate risk in 3-5 days, 01/02-01/04 Expected Outcomes/Goals Expected Outcomes/Goals 1. PO intake to meet at least 75% of nutritional needs. 2. Wt stability, skin to remain intact, labs to approach WNL.
[2018-01-01] MEDS: Magnesium Hydroxide (MOM) 30 mL UDC PO SCH (08:10)
[2018-01-01] MEDS: NIFEdipine 30 mg ER Tab PO SCH (08:11)
[2018-01-01] MEDS: Ferrous Sulfate 325 MG TAB PO SCH (08:12)
[2018-01-01] MEDS: Multivitamin Tab PO SCH (08:12)
--- NOTE | 2018-01-01 22:05 | Internal Medicine Prog Note ---
Internal Medicine Subjective - Subjective Service Date: 01/01/18 Patient seen and examined:: with staff Patient is:: awake, talking, confused Per staff patient has:: no adverse event Internal Medicine Objective - Results Result Diagrams: 12/26/17 22:20 12/26/17 22:20 Recent Labs: Laboratory Last Values WBC 5.9 Th/cmm (4.8-10.8) 12/26/17 22:20 RBC 3.30 Mil/cmm (3.80-5.80) L 12/26/17 22:20 Hgb 10.0 gm/dL (12-16) L 12/26/17 22:20 Hct 30.4 % (41.0-60) L 12/26/17 22:20 MCV 92.0 fl (80-99) 12/26/17 22:20 MCH 30.3 pg (27.0-31.0) 12/26/17 22:20 MCHC Differential 33.0 pg (28.0-36.0) 12/26/17 22:20 RDW 15.2 % (11.5-20.0) 12/26/17 22:20 Plt Count 233 Th/cmm (150-400) 12/26/17 22:20 MPV 6.5 fl 12/26/17 22:20 Neutrophils % 50.9 % (40.0-80.0) 12/26/17 22:20 Lymphocytes % 33.8 % (20.0-50.0) 12/26/17 22:20 Monocytes % 10.3 % (2.0-10.0) H 12/26/17 22:20 Eosinophils % 4.1 % (0.0-5.0) 12/26/17 22:20 Basophils % 0.9 % (0.0-2.0) 12/26/17 22:20 PT 10.1 SECONDS (9.5-11.5) 12/26/17 22:20 INR 0.97 (0.5-1.4) 12/26/17 22:20 Sodium 134 mEq/L (136-145) L 12/26/17 22:20 Potassium 4.4 mEq/L (3.5-5.1) 12/26/17 22:20 Chloride 100 mEq/L (98-107) 12/26/17 22:20 Carbon Dioxide 28.3 mEq/L (21.0-31.0) 12/26/17 22:20 Anion Gap 10.1 (7.0-16.0) 12/26/17 22:20 BUN 42 mg/dL (7-25) H 12/26/17 22:20 Creatinine 1.6 mg/dL (0.7-1.3) H 12/26/17 22:20 Est GFR ( Amer) 55.7 ml/min (>90) 12/26/17 22:20 Est GFR (Non-Af Amer) 46.1 ml/min 12/26/17 22:20 BUN/Creatinine Ratio 26.3 12/26/17 22:20 Glucose 96 mg/dL (70-105) 12/26/17 22:20 Calcium 9.2 mg/dL (8.6-10.3) 12/26/17 22:20 Total Bilirubin 0.3 mg/dL (0.3-1.0) 12/26/17 22:20 AST 10 U/L (13-39) L 12/26/17 22:20 ALT 8 U/L (7-52) 12/26/17 22:20 Alkaline Phosphatase 122 U/L (34-104) H 12/26/17 22:20 Troponin I 0.01 ng/mL (0.01-0.05) 12/26/17 22:20 Total Protein 6.6 gm/dL (6.0-8.3) 12/26/17 22:20 Albumin 3.8 gm/dL (4.2-5.5) L 12/26/17 22:20 Globulin 2.8 gm/dL 12/26/17 22:20 Albumin/Globulin Ratio 1.4 (1.0-1.8) 12/26/17 22:20 TSH 1.97 uIU/ml (0.34-5.60) 12/26/17 22:20 - Physical Exam Vitals and I&O: Vital Signs Temp 97.2 F 01/01/18 20:00 Pulse 66 01/01/18 20:00 Resp 18 01/01/18 20:00 BP 141/74 01/01/18 20:00 Pulse Ox 99 01/01/18 20:00 Intake & Output 01/01/18 01/01/18 01/02/18 06:59 18:59 06:59 Intake Total 300 1100 Balance 300 1100 Intake: Oral 300 1100 Other: # Voids 2 3 # Bowel Movements 0 Active Medications: Current Medications Acetaminophen (Tylenol) 650 mg PO Q4HR PRN PRN Reason: Pain (Mild) Stop: 02/25/18 03:35 Last Admin: 12/31/17 16:44 Dose: 650 mg Al Hydrox/Mg Hydrox/Simethicone (Maalox) 30 ml PO Q4HR PRN PRN Reason: GI DISTRESS Stop: 02/25/18 02:43 Alprazolam (Xanax) 0.25 mg PO BID [facility] PRN Reason: Protocol Stop: 02/25/18 08:59 Last Admin: 01/01/18 16:05 Dose: 0.25 mg Docusate Sodium (Colace) 100 mg PO BID [facility] Stop: 02/25/18 08:59 Last Admin: 01/01/18 16:05 Dose: 100 mg Ferrous Sulfate (Iron) 325 mg PO DAILY [facility] Stop: 02/25/18 08:59 Last Admin: 01/01/18 08:12 Dose: 325 mg Lorazepam (Ativan) 0.5 mg PO Q4HR PRN; Protocol PRN Reason: Anxiety Stop: 01/26/18 02:43 Last Admin: 01/01/18 13:45 Dose: 0.5 mg Magnesium Hydroxide (Milk Of Magnesia) 30 ml PO HS PRN PRN Reason: Constipation Magnesium Hydroxide (Milk Of Magnesia) 30 ml PO DAILY [facility] Stop: 02/25/18 08:59 Last Admin: 01/01/18 08:10 Dose: 30 ml Metoprolol Tartrate (Lopressor) 25 mg PO DAILY [facility] Stop: 02/25/18 08:59 Last Admin: 01/01/18 08:11 Dose: 25 mg Multivitamins/Vitamin C (Theragran) 1 tab PO DAILY [facility] Stop: 02/25/18 08:59 Last Admin: 01/01/18 08:12 Dose: 1 tab Nifedipine (Procardia Xl) 30 mg PO DAILY [facility] Stop: 02/25/18 08:59 Last Admin: 01/01/18 08:11 Dose: 30 mg Quetiapine Fumarate (Seroquel) 50 mg PO BID [facility] PRN Reason: Protocol Stop: 03/01/18 06:47 Last Admin: 01/01/18 16:05 Dose: 50 mg Tamsulosin HCl (Flomax) 0.4 mg PO HS [facility] Stop: 02/25/18 20:59 Last Admin: 01/01/18 20:52 Dose: 0.4 mg Zolpidem Tartrate (Ambien) 5 mg PO HS PRN PRN Reason: Insomnia Stop: 02/25/18 02:43 Last Admin: 12/30/17 20:21 Dose: 5 mg General: demented HEENT: NC/AT, PERRLA, EOMI, anicteric sclerae, throat clear Neck: Supple, No JVD, No thyromegaly, +2 carotid pulse wo bruit, No LAD Lungs: CTAB Cardiovascular: RRR, Normal S1, Normal S2, without murmur Abdomen: non-tender, non-distended Extremities: clear Neurological: no change Internal Medicine Assmt/Plan - Assessment Assessment: 1.HTN. 2.BPH. 3.ANEMIA. 4.CKD. 5.DEMENTIA. - Plan Plan: CONTINUE ON CURRENT MEDICATION AND DIET. Nutritional Asmnt/Malnutr-PDOC - Dietary Evaluation Malnutrition Findings (Please click <Entered> for more info): Nutritional Asmnt/Malnutrition Start: 12/30/17 17: 06 Text: Status: Complete Freq: Document 12/30/17 17:06 CHRISTIANE (Rec: 12/30/17 17:11 KASSIE [email or web address]) Nutritional Asmnt/Malnutrition Patient General Information Nutritional Screening Moderate Risk Diagnosis psychosis NOS Pertinent Medical Hx/Surgical Hx HTN, BPH, chronic anemia, dementia Subjective Information Per EMR, PO intake 100% Current Diet Order/ Nutrition Support regular Pertinent Medications coalce, iron, theragran, serqoeul Pertinent Labs 12/26 Na 134, BUN 42, Cr 1.5 Nutritional Hx/Data Height 1.85 m Height (Calculated Centimeters) 185.4 Current Weight (lbs) 83.915 kg Weight (Calculated Kilograms) 83.9 Weight (Calculated Grams) 34991.6 [place] Body Weight 184 Body Mass Index (BMI) 24.4 Weight Status Approriate GI Symptoms GI Symptoms None Last BM 5/6 Difficult in: None Skin Integrity/Comment: intact Current %PO Good (75-100%) Estimated Nutritional Goals BEE in Kcals: Using Current wt Calories/Kcals/Kg 25-30 Kcals Calculated 5061-3794 Protein: Using Current wt Protein g/k.8-1 Protein Calculated 67-84 Fluid: ml 2100-2520ml (1ml/kcal) Nutritional Problem 1. Problem Problem altered nutrition related labs Etiology renal dysfunction Signs/Symptoms: BUN 42, Cr 1.5 Malnutrition Alert Protein-Calorie Malnutrition N/A Is there a minimum of two criteria No selected? Query Text:Check all the applicable criteria. A minimum of two criteria are recommended for diagnosis of either severe or non-severe malnutrition. Intervention/Recommendation Comments 1. Continue with current diet as ordered. Monitor renal labs . 2. Monitor PO intake, wt, labs and skin integrity 3. F/U as moderate risk in 3-5 days, 01/02-01/04 Expected Outcomes/Goals Expected Outcomes/Goals 1. PO intake to meet at least 75% of nutritional needs. 2. Wt stability, skin to remain intact, labs to approach WNL.
--- NOTE | 2018-01-02 08:16 | Progress Notes ---
DATE: 12/31/2017 SUBJECTIVE: Chart reviewed and the patient interviewed. Also discussed the patient's condition with the staff and reviewed records and labs. The patient is still confused and forgetful. The patient also still has episodes of agitation and striking out behavior continued. The patient also is impulsive and is still having difficulty following directions. ASSESSMENT: The patient is still agitated and still unpredictable. TREATMENT PLAN: We will increase Seroquel to 50 mg twice a day. Also, continue to work on his agitation and irritability and continue to follow up. JOB# [id number]
[2018-01-02] MEDS: NIFEdipine 30 mg ER Tab PO SCH (09:44)
[2018-01-02] MEDS: Ferrous Sulfate 325 MG TAB PO SCH (09:46)
[2018-01-02] MEDS: Multivitamin Tab PO SCH (09:46)
--- NOTE | 2018-01-02 10:13 | Progress Notes ---
DATE: 01/01/2018 SUBJECTIVE: Chart reviewed and the patient interviewed. Also discussed the patient's condition with the staff and reviewed records and labs. The patient is still having episodes of irritability and anxiety and easily agitated. The patient also is still suspicious and paranoid. He also is interacting minimally with others and when he is agitated and with disorganized thoughts. Also, is still pacing up and down and he is confused. Otherwise, the patient is compliant with taking his medications with no side effects. ASSESSMENT: The patient is still psychotic and agitated. TREATMENT PLAN: Continue to monitor his behavior and his condition closely and continue to follow up. [facility]# [id number]
[2018-01-02] MEDS: Magnesium Hydroxide (MOM) 30 mL UDC PO SCH (17:08)
--- NOTE | 2018-01-02 19:46 | Internal Medicine Prog Note ---
Internal Medicine Subjective - Subjective Service Date: 01/02/18 Patient seen and examined:: with staff (HE FEELS WELL) Patient is:: awake, talking, confused Per staff patient has:: no adverse event Internal Medicine Objective - Results Result Diagrams: 12/26/17 22:20 12/26/17 22:20 Recent Labs: Laboratory Last Values WBC 5.9 Th/cmm (4.8-10.8) 12/26/17 22:20 RBC 3.30 Mil/cmm (3.80-5.80) L 12/26/17 22:20 Hgb 10.0 gm/dL (12-16) L 12/26/17 22:20 Hct 30.4 % (41.0-60) L 12/26/17 22:20 MCV 92.0 fl (80-99) 12/26/17 22:20 MCH 30.3 pg (27.0-31.0) 12/26/17 22: MCHC Differential 33.0 pg (28.0-36.0) 12/26/17 22:20 RDW 15.2 % (11.5-20.0) 12/26/17 22:20 Plt Count 233 Th/cmm (150-400) 12/26/17 22:20 MPV 6.5 fl 12/26/17 22:20 Neutrophils % 50.9 % (40.0-80.0) 12/26/17 22:20 Lymphocytes % 33.8 % (20.0-50.0) 12/26/17 22:20 Monocytes % 10.3 % (2.0-10.0) H 12/26/17 22:20 Eosinophils % 4.1 % (0.0-5.0) 12/26/17 22:20 Basophils % 0.9 % (0.0-2.0) 12/26/17 22:20 PT 10.1 SECONDS (9.5-11.5) 12/26/17 22:20 INR 0.97 (0.5-1.4) 12/26/17 22:20 Sodium 134 mEq/L (136-145) L 12/26/17 22:20 Potassium 4.4 mEq/L (3.5-5.1) 12/26/17 22:20 Chloride 100 mEq/L (98-107) 12/26/17 22:20 Carbon Dioxide 28.3 mEq/L (21.0-31.0) 12/26/17 22:20 Anion Gap 10.1 (7.0-16.0) 12/26/17 22:20 BUN 42 mg/dL (7-25) H 12/26/17 22:20 Creatinine 1.6 mg/dL (0.7-1.3) H 12/26/17 22:20 Est GFR ( Amer) 55.7 ml/min (>90) 12/26/17 22:20 Est GFR (Non-Af Amer) 46.1 ml/min 12/26/17 22:20 BUN/Creatinine Ratio 26.3 12/26/17 22:20 Glucose 96 mg/dL (70-105) 12/26/17 22:20 Calcium 9.2 mg/dL (8.6-10.3) 12/26/17 22:20 Total Bilirubin 0.3 mg/dL (0.3-1.0) 12/26/17 22:20 AST 10 U/L (13-39) L 12/26/17 22:20 ALT 8 U/L (7-52) 12/26/17 22:20 Alkaline Phosphatase 122 U/L (34-104) H 12/26/17 22:20 Troponin I 0.01 ng/mL (0.01-0.05) 12/26/17 22:20 Total Protein 6.6 gm/dL (6.0-8.3) 12/26/17 22:20 Albumin 3.8 gm/dL (4.2-5.5) L 12/26/17 22:20 Globulin 2.8 gm/dL 12/26/17 22:20 Albumin/Globulin Ratio 1.4 (1.0-1.8) 12/26/17 22:20 TSH 1.97 uIU/ml (0.34-5.60) 12/26/17 22:20 - Physical Exam Vitals and I&O: Vital Signs Temp 98.0 F 01/02/18 14:00 Pulse 61 01/02/18 14:00 Resp 18 01/02/18 14:00 BP 134/78 01/02/18 14:00 Pulse Ox 98 01/02/18 14:00 Intake & Output 0501/02/18 01/03/18 06:59 18:59 06:59 Intake Total 150 1200 Balance 150 1200 Intake: Oral 150 1200 Other: # Voids 2 # Bowel Movements 1 Active Medications: Current Medications Acetaminophen (Tylenol) 650 mg PO Q4HR PRN PRN Reason: Pain (Mild) Stop: 02/25/18 03:35 Last Admin: 12/31/17 16:44 Dose: 650 mg Al Hydrox/Mg Hydrox/Simethicone (Maalox) 30 ml PO Q4HR PRN PRN Reason: GI DISTRESS Stop: 02/25/18 02:43 Alprazolam (Xanax) 0.25 mg PO BID [facility] PRN Reason: Protocol Stop: 02/25/18 08:59 Last Admin: 01/02/18 17:08 Dose: 0.25 mg Docusate Sodium (Colace) 100 mg PO BID [facility] Stop: 02/25/18 08:59 Last Admin: 01/02/18 17:08 Dose: Not Given Ferrous Sulfate (Iron) 325 mg PO DAILY [facility] Stop: 02/25/18 08:59 Last Admin: 01/02/18 09:46 Dose: 325 mg Lorazepam (Ativan) 0.5 mg PO Q4HR PRN; Protocol PRN Reason: Anxiety Stop: 01/26/18 02:43 Last Admin: 01/01/18 13:45 Dose: 0.5 mg Magnesium Hydroxide (Milk Of Magnesia) 30 ml PO HS PRN PRN Reason: Constipation Magnesium Hydroxide (Milk Of Magnesia) 30 ml PO DAILY [facility] Stop: 02/25/18 08:59 Last Admin: 01/02/18 17:08 Dose: Not Given Metoprolol Tartrate (Lopressor) 25 mg PO DAILY [facility] Stop: 02/25/18 08:59 Last Admin: 01/02/18 09:46 Dose: 25 mg Multivitamins/Vitamin C (Theragran) 1 tab PO DAILY [facility] Stop: 02/25/18 08:59 Last Admin: 01/02/18 09:46 Dose: 1 tab Nifedipine (Procardia Xl) 30 mg PO DAILY [facility] Stop: 02/25/18 08:59 Last Admin: 01/02/18 09:44 Dose: 30 mg Quetiapine Fumarate (Seroquel) 50 mg PO BID [facility] PRN Reason: Protocol Stop: 03/01/18 06:47 Last Admin: 01/02/18 17:07 Dose: 50 mg Tamsulosin HCl (Flomax) 0.4 mg PO HS [facility] Stop: 02/25/18 20:59 Last Admin: 01/01/18 20:52 Dose: 0.4 mg Zolpidem Tartrate (Ambien) 5 mg PO HS PRN PRN Reason: Insomnia Stop: 02/25/18 02:43 Last Admin: 12/30/17 20:21 Dose: 5 mg General: demented HEENT: NC/AT, PERRLA, EOMI, anicteric sclerae, throat clear Neck: Supple, No JVD, No thyromegaly, +2 carotid pulse wo bruit, No LAD Lungs: CTAB Cardiovascular: RRR, Normal S1, Normal S2, without murmur Abdomen: non-tender, non-distended Extremities: clear Neurological: no change Internal Medicine Assmt/Plan - Assessment Assessment: 1.HTN. 2.BPH. 3.ANEMIA. 4.CKD. 5.DEMENTIA. - Plan Plan: CONTINUE ON CURRENT MEDICATION AND DIET. Nutritional Asmnt/Malnutr-PDOC - Dietary Evaluation Malnutrition Findings (Please click <Entered> for more info): Nutritional Asmnt/Malnutrition Start: 12/30/17 17: 06 Text: Status: Complete Freq: Document 12/30/17 17:06 JERRELL (Rec: 12/30/17 17:11 JORGE ALBERTOG [email or web address]) Nutritional Asmnt/Malnutrition Patient General Information Nutritional Screening Moderate Risk Diagnosis psychosis NOS Pertinent Medical Hx/Surgical Hx HTN, BPH, chronic anemia, dementia Subjective Information Per EMR, PO intake 100% Current Diet Order/ Nutrition Support regular Pertinent Medications coalce, iron, theragran, serqoeul Pertinent Labs 12/26 Na 134, BUN 42, Cr 1.5 Nutritional Hx/Data Height 1.85 m Height (Calculated Centimeters) 185.4 Current Weight (lbs) 83.915 kg Weight (Calculated Kilograms) 83.9 Weight (Calculated Grams) 46827.6 [place] Body Weight 184 Body Mass Index (BMI) 24.4 Weight Status Approriate GI Symptoms GI Symptoms None Last BM 5/6 Difficult in: None Skin Integrity/Comment: intact Current %PO Good (75-100%) Estimated Nutritional Goals BEE in Kcals: Using Current wt Calories/Kcals/Kg 25-30 Kcals Calculated 4744-9566 Protein: Using Current wt Protein g/k.8-1 Protein Calculated 67-84 Fluid: ml 2100-2520ml (1ml/kcal) Nutritional Problem 1. Problem Problem altered nutrition related labs Etiology renal dysfunction Signs/Symptoms: BUN 42, Cr 1.5 Malnutrition Alert Protein-Calorie Malnutrition N/A Is there a minimum of two criteria No selected? Query Text:Check all the applicable criteria. A minimum of two criteria are recommended for diagnosis of either severe or non-severe malnutrition. Intervention/Recommendation Comments 1. Continue with current diet as ordered. Monitor renal labs . 2. Monitor PO intake, wt, labs and skin integrity 3. F/U as moderate risk in 3-5 days, 01/02-01/04 Expected Outcomes/Goals Expected Outcomes/Goals 1. PO intake to meet at least 75% of nutritional needs. 2. Wt stability, skin to remain intact, labs to approach WNL.
--- NOTE | 2018-01-02 23:19 | Progress Notes ---
DATE: 01/02/2018 SUBJECTIVE: This is a patient of mine whom I was seeing at [place]. Apparently he was admitted mistaking onto Dr. Aldana and then transferred [place]. He was referred because of agitation and striking out behavior. The patient has been aggressive, confused, disruptive, unable to follow directions with a history of dementia and psychosis. The patient continues to be paranoid, disruptive, irritable, continues to be unpredictable and impulsive. He is considered a high risk because of his dementia, agitation, and packing behavior. He is confused. He is on fall precaution. He has been compliant with the medication with no side effects, no sedation, no extrapyramidal symptoms. PLAN: He is currently on alprazolam 0.25 mg twice a day, iron 325 mg daily, Ativan 0.5 mg every 4 hours as needed, metoprolol 25 mg daily, multivitamin daily, nifedipine 30 mg daily, and Seroquel with Dr. Aldana initiated and increased the dose on 12/31/2017 to 50 mg twice a day and Flomax 0.4 mg at bedtime with no side effects, no sedation, no nausea, no extrapyramidal symptoms. The patient is diagnosed with psychosis, probably bipolar disorder. No side effects with the medication, no sedation, no nausea, no extrapyramidal symptoms. We will continue to work the patient in group therapy, milieu therapy, and adjust medications as needed. JOB# [id number]
[2018-01-03] MEDS: Multivitamin Tab PO SCH (09:09)
[2018-01-03] MEDS: NIFEdipine 30 mg ER Tab PO SCH (09:10)
[2018-01-03] MEDS: Ferrous Sulfate 325 MG TAB PO SCH (09:10)
[2018-01-03] MEDS: Magnesium Hydroxide (MOM) 30 mL UDC PO SCH (16:51)
--- NOTE | 2018-01-03 17:16 | General Progress Note ---
Subjective - Review of Systems Service Date: 01/03/18 Subjective: awake, sitting no distress Objective - Results Result Diagrams: 12/26/17 22:20 12/26/17 22:20 Recent Labs: Laboratory Last Values WBC 5.9 Th/cmm (4.8-10.8) 12/26/17 22:20 RBC 3.30 Mil/cmm (3.80-5.80) L 12/26/17 22:20 Hgb 10.0 gm/dL (12-16) L 12/26/17 22:20 Hct 30.4 % (41.0-60) L 12/26/17 22:20 MCV 92.0 fl (80-99) 12/26/17 22:20 MCH 30.3 pg (27.0-31.0) 12/26/17 22:20 MCHC Differential 33.0 pg (28.0-36.0) 12/26/17 22:20 RDW 15.2 % (11.5-20.0) 12/26/17 22:20 Plt Count 233 Th/cmm (150-400) 12/26/17 22:20 MPV 6.5 fl 12/26/17 22:20 Neutrophils % 50.9 % (40.0-80.0) 12/26/17 22:20 Lymphocytes % 33.8 % (20.0-50.0) 12/26/17 22:20 Monocytes % 10.3 % (2.0-10.0) H 12/26/17 22:20 Eosinophils % 4.1 % (0.0-5.0) 12/26/17 22:20 Basophils % 0.9 % (0.0-2.0) 12/26/17 22:20 PT 10.1 SECONDS (9.5-11.5) 12/26/17 22:20 INR 0.97 (0.5-1.4) 12/26/17 22:20 Sodium 134 mEq/L (136-145) L 12/26/17 22:20 Potassium 4.4 mEq/L (3.5-5.1) 12/26/17 22:20 Chloride 100 mEq/L (98-107) 12/26/17 22:20 Carbon Dioxide 28.3 mEq/L (21.0-31.0) 12/26/17 22:20 Anion Gap 10.1 (7.0-16.0) 12/26/17 22:20 BUN 42 mg/dL (7-25) H 12/26/17 22:20 Creatinine 1.6 mg/dL (0.7-1.3) H 12/26/17 22:20 Est GFR ( Amer) 55.7 ml/min (>90) 12/26/17 22:20 Est GFR (Non-Af Amer) 46.1 ml/min 12/26/17 22:20 BUN/Creatinine Ratio 26.3 12/26/17 22:20 Glucose 96 mg/dL (70-105) 12/26/17 22:20 Calcium 9.2 mg/dL (8.6-10.3) 12/26/17 22:20 Total Bilirubin 0.3 mg/dL (0.3-1.0) 12/26/17 22:20 AST 10 U/L (13-39) L 12/26/17 22:20 ALT 8 U/L (7-52) 12/26/17 22:20 Alkaline Phosphatase 122 U/L (34-104) H 12/26/17 22:20 Troponin I 0.01 ng/mL (0.01-0.05) 12/26/17 22:20 Total Protein 6.6 gm/dL (6.0-8.3) 12/26/17 22:20 Albumin 3.8 gm/dL (4.2-5.5) L 12/26/17 22:20 Globulin 2.8 gm/dL 12/26/17 22:20 Albumin/Globulin Ratio 1.4 (1.0-1.8) 12/26/17 22:20 TSH 1.97 uIU/ml (0.34-5.60) 12/26/17 22:20 - Physical Exam Vitals and I&O: Vital Signs Temp 97.7 F 01/03/18 15:20 Pulse 65 01/03/18 15:20 Resp 20 01/03/18 15:20 BP 125/77 01/03/18 15:20 Pulse Ox 98 01/03/18 15:20 Intake & Output 01/02/18 01/03/18 01/03/18 18:59 06:59 18:59 Intake Total 0820 848 0221 Output Total 4 Balance 3086 546 9141 Intake: Oral 9242 803 1324 Output: Urine 4 Other: # Voids 2 # Bowel Movements 1 2 Active Medications: Current Medications Acetaminophen (Tylenol) 650 mg PO Q4HR PRN PRN Reason: Pain (Mild) Stop: 02/25/18 03:35 Last Admin: 12/31/17 16:44 Dose: 650 mg Al Hydrox/Mg Hydrox/Simethicone (Maalox) 30 ml PO Q4HR PRN PRN Reason: GI DISTRESS Stop: 02/25/18 02:43 Alprazolam (Xanax) 0.25 mg PO BID [facility] PRN Reason: Protocol Stop: 02/25/18 08:59 Last Admin: 01/03/18 16:51 Dose: 0.25 mg Docusate Sodium (Colace) 100 mg PO BID [facility] Stop: 02/25/18 08:59 Last Admin: 01/03/18 16:52 Dose: Not Given Ferrous Sulfate (Iron) 325 mg PO DAILY [facility] Stop: 02/25/18 08:59 Last Admin: 01/03/18 09:10 Dose: 325 mg Lorazepam (Ativan) 0.5 mg PO Q4HR PRN; Protocol PRN Reason: Anxiety Stop: 01/26/18 02:43 Last Admin: 01/01/18 13:45 Dose: 0.5 mg Magnesium Hydroxide (Milk Of Magnesia) 30 ml PO HS PRN PRN Reason: Constipation Magnesium Hydroxide (Milk Of Magnesia) 30 ml PO DAILY [facility] Stop: 02/25/18 08:59 Last Admin: 01/03/18 16:51 Dose: Not Given Metoprolol Tartrate (Lopressor) 25 mg PO DAILY [facility] Stop: 02/25/18 08:59 Last Admin: 01/03/18 09:10 Dose: 25 mg Multivitamins/Vitamin C (Theragran) 1 tab PO DAILY [facility] Stop: 02/25/18 08:59 Last Admin: 01/03/18 09:09 Dose: 1 tab Nifedipine (Procardia Xl) 30 mg PO DAILY [facility] Stop: 02/25/18 08:59 Last Admin: 01/03/18 09:10 Dose: 30 mg Quetiapine Fumarate (Seroquel) 50 mg PO BID [facility] PRN Reason: Protocol Stop: 03/01/18 06:47 Last Admin: 01/03/18 16:52 Dose: 50 mg Tamsulosin HCl (Flomax) 0.4 mg PO HS [facility] Stop: 02/25/18 20:59 Last Admin: 01/02/18 20:46 Dose: 0.4 mg Zolpidem Tartrate (Ambien) 5 mg PO HS PRN PRN Reason: Insomnia Stop: 02/25/18 02:43 Last Admin: 12/30/17 20:21 Dose: 5 mg General: No acute distress HEENT: Atraumatic, PERRLA, EOMI Neck: Supple, JVD, Thyromegaly Cardiovascular: Regular rate, Normal S1, Normal S2 Lungs: Clear to auscultation Abdomen: Bowel sounds, Soft Assessment/Plan - Assessment Assessment: 1.HTN. 2.BPH. 3.ANEMIA. 4.CKD. 5.DEMENTIA. - Plan Plan: cont current treatment Nutritional Asmnt/Malnutr-PDOC - Dietary Evaluation Malnutrition Findings (Please click <Entered> for more info): Nutritional Asmnt/Malnutrition Start: 12/30/17 17: 06 Text: Status: Complete Freq: Document 12/30/17 17:06 JORGE ALBERTO (Rec: 12/30/17 17:11 [facility] [email or web address]) Nutritional Asmnt/Malnutrition Patient General Information Nutritional Screening Moderate Risk Diagnosis psychosis NOS Pertinent Medical Hx/Surgical Hx HTN, BPH, chronic anemia, dementia Subjective Information Per EMR, PO intake 100% Current Diet Order/ Nutrition Support regular Pertinent Medications coalce, iron, theragran, serqoeul Pertinent Labs 5/ Na 134, BUN 42, Cr 1.5 Nutritional Hx/Data Height 1.85 m Height (Calculated Centimeters) 185.4 Current Weight (lbs) 83.915 kg Weight (Calculated Kilograms) 83.9 Weight (Calculated Grams) 32980.6 [place] Body Weight 184 Body Mass Index (BMI) 24.4 Weight Status Approriate GI Symptoms GI Symptoms None Last BM 5/6 Difficult in: None Skin Integrity/Comment: intact Current %PO Good (75-100%) Estimated Nutritional Goals BEE in Kcals: Using Current wt Calories/Kcals/Kg 25-30 Kcals Calculated 8208-9617 Protein: Using Current wt Protein g/k.8-1 Protein Calculated 67-84 Fluid: ml 2100-2520ml (1ml/kcal) Nutritional Problem 1. Problem Problem altered nutrition related labs Etiology renal dysfunction Signs/Symptoms: BUN 42, Cr 1.5 Malnutrition Alert Protein-Calorie Malnutrition N/A Is there a minimum of two criteria No selected? Query Text:Check all the applicable criteria. A minimum of two criteria are recommended for diagnosis of either severe or non-severe malnutrition. Intervention/Recommendation Comments 1. Continue with current diet as ordered. Monitor renal labs . 2. Monitor PO intake, wt, labs and skin integrity 3. F/U as moderate risk in 3-5 days, 01/02-01/04 Expected Outcomes/Goals Expected Outcomes/Goals 1. PO intake to meet at least 75% of nutritional needs. 2. Wt stability, skin to remain intact, labs to approach WNL.
--- NOTE | 2018-01-03 22:20 | Progress Notes ---
DATE: 01/03/2018 SUBJECTIVE: The patient was seen and evaluated. The patient's chart reviewed. This is Dr. Reese Covering for Dr. Aldana. IDENTIFYING DATA: A 67-year-old male status post CVA with aphasia who was brought in here for confusion, altered mental status, and disruptive behaviors, agitated and aggressive towards others. Overnight, nursing staff reported the patient mostly withdrawn and disengaged in his room. Today on [id number] evaluation, the patient in his room, difficult to understand, but reports good sleep, observed to be irritable, confused, disruptive. disrupt, irritable, agitated. ASSESSMENT AND PLAN: The patient is status post severe CVA induced mood disorder who continues to feel psychotic turmoil. We will continue with primary psychiatrist's treatment plan and goals including Ativan as needed, milk of magnesia, Lopressor, , Procardia, Seroquel 50 mg p.o. b.i.d., Flomax and Ambien as needed. We will obtain more collateral baseline information. JOB# [id number]
[2018-01-04] MEDS: Ferrous Sulfate 325 MG TAB PO SCH (09:30)
[2018-01-04] MEDS: NIFEdipine 30 mg ER Tab PO SCH (09:30)
[2018-01-04] MEDS: Multivitamin Tab PO SCH (09:32)
[2018-01-04] MEDS: Magnesium Hydroxide (MOM) 30 mL UDC PO SCH (09:32)
--- NOTE | 2018-01-04 18:30 | General Progress Note ---
Subjective - Review of Systems Service Date: 01/04/18 Subjective: awake, sitting no distress Objective - Results Result Diagrams: 12/26/17 22:20 12/26/17 22:20 Recent Labs: Laboratory Last Values WBC 5.9 Th/cmm (4.8-10.8) 12/26/17 22:20 RBC 3.30 Mil/cmm (3.80-5.80) L 12/26/17 22:20 Hgb 10.0 gm/dL (12-16) L 12/26/17 22:20 Hct 30.4 % (41.0-60) L 12/26/17 22:20 MCV 92.0 fl (80-99) 12/26/17 22:20 MCH 30.3 pg (27.0-31.0) 12/26/17 22:20 MCHC Differential 33.0 pg (28.0-36.0) 12/26/17 22:20 RDW 15.2 % (11.5-20.0) 12/26/17 22:20 Plt Count 233 Th/cmm (150-400) 12/26/17 22:20 MPV 6.5 fl 12/26/17 22:20 Neutrophils % 50.9 % (40.0-80.0) 12/26/17 22:20 Lymphocytes % 33.8 % (20.0-50.0) 12/26/17 22:20 Monocytes % 10.3 % (2.0-10.0) H 12/26/17 22:20 Eosinophils % 4.1 % (0.0-5.0) 12/26/17 22:20 Basophils % 0.9 % (0.0-2.0) 12/26/17 22:20 PT 10.1 SECONDS (9.5-11.5) 12/26/17 22:20 INR 0.97 (0.5-1.4) 12/26/17 22:20 Sodium 134 mEq/L (136-145) L 12/26/17 22:20 Potassium 4.4 mEq/L (3.5-5.1) 12/26/17 22:20 Chloride 100 mEq/L (98-107) 12/26/17 22:20 Carbon Dioxide 28.3 mEq/L (21.0-31.0) 12/26/17 22:20 Anion Gap 10.1 (7.0-16.0) 12/26/17 22:20 BUN 42 mg/dL (7-25) H 12/26/17 22:20 Creatinine 1.6 mg/dL (0.7-1.3) H 12/26/17 22:20 Est GFR ( Amer) 55.7 ml/min (>90) 12/26/17 22:20 Est GFR (Non-Af Amer) 46.1 ml/min 12/26/17 22:20 BUN/Creatinine Ratio 26.3 12/26/17 22:20 Glucose 96 mg/dL (70-105) 12/26/17 22:20 Calcium 9.2 mg/dL (8.6-10.3) 12/26/17 22:20 Total Bilirubin 0.3 mg/dL (0.3-1.0) 12/26/17 22:20 AST 10 U/L (13-39) L 12/26/17 22:20 ALT 8 U/L (7-52) 12/26/17 22:20 Alkaline Phosphatase 122 U/L (34-104) H 12/26/17 22:20 Troponin I 0.01 ng/mL (0.01-0.05) 12/26/17 22:20 Total Protein 6.6 gm/dL (6.0-8.3) 12/26/17 22:20 Albumin 3.8 gm/dL (4.2-5.5) L 12/26/17 22:20 Globulin 2.8 gm/dL 12/26/17 22:20 Albumin/Globulin Ratio 1.4 (1.0-1.8) 12/26/17 22:20 TSH 1.97 uIU/ml (0.34-5.60) 12/26/17 22:20 - Physical Exam Vitals and I&O: Vital Signs Temp 97.6 F 01/04/18 16:30 Pulse 65 01/04/18 16:30 Resp 20 01/04/18 16:30 BP 146/73 01/04/18 16:30 Pulse Ox 97 01/04/18 16:30 Intake & Output 01/03/18 01/04/18 01/04/18 18:59 06:59 18:59 Intake Total 3557 705 2587 Output Total 4 Balance 4100 236 9363 Intake: Oral 6184 089 2113 Output: Urine 4 Other: # Voids 1 3 # Bowel Movements 2 1 Active Medications: Current Medications Acetaminophen (Tylenol) 650 mg PO Q4HR PRN PRN Reason: Pain (Mild) Stop: 02/25/18 03:35 Last Admin: 12/31/17 16:44 Dose: 650 mg Al Hydrox/Mg Hydrox/Simethicone (Maalox) 30 ml PO Q4HR PRN PRN Reason: GI DISTRESS Stop: 02/25/18 02:43 Alprazolam (Xanax) 0.25 mg PO BID [facility] PRN Reason: Protocol Stop: 02/25/18 08:59 Last Admin: 01/04/18 17:16 Dose: 0.25 mg Docusate Sodium (Colace) 100 mg PO BID [facility] Stop: 02/25/18 08:59 Last Admin: 01/04/18 17:16 Dose: 100 mg Ferrous Sulfate (Iron) 325 mg PO DAILY [facility] Stop: 02/25/18 08:59 Last Admin: 01/04/18 09:30 Dose: 325 mg Lorazepam (Ativan) 0.5 mg PO Q4HR PRN; Protocol PRN Reason: Anxiety Stop: 01/26/18 02:43 Last Admin: 01/01/18 13:45 Dose: 0.5 mg Magnesium Hydroxide (Milk Of Magnesia) 30 ml PO HS PRN PRN Reason: Constipation Magnesium Hydroxide (Milk Of Magnesia) 30 ml PO DAILY [facility] Stop: 02/25/18 08:59 Last Admin: 01/04/18 09:32 Dose: 30 ml Metoprolol Tartrate (Lopressor) 25 mg PO DAILY [facility] Stop: 02/25/18 08:59 Last Admin: 01/04/18 09:32 Dose: 25 mg Multivitamins/Vitamin C (Theragran) 1 tab PO DAILY [facility] Stop: 02/25/18 08:59 Last Admin: 01/04/18 09:32 Dose: 1 tab Nifedipine (Procardia Xl) 30 mg PO DAILY [facility] Stop: 02/25/18 08:59 Last Admin: 01/04/18 09:30 Dose: 30 mg Quetiapine Fumarate (Seroquel) 50 mg PO BID [facility] PRN Reason: Protocol Stop: 03/01/18 06:47 Last Admin: 01/04/18 17:17 Dose: 50 mg Tamsulosin HCl (Flomax) 0.4 mg PO HS [facility] Stop: 02/25/18 20:59 Last Admin: 01/03/18 20:47 Dose: 0.4 mg Zolpidem Tartrate (Ambien) 5 mg PO HS PRN PRN Reason: Insomnia Stop: 02/25/18 02:43 Last Admin: 12/30/17 20:21 Dose: 5 mg General: No acute distress HEENT: Atraumatic, PERRLA, EOMI Neck: Supple, JVD, Thyromegaly Cardiovascular: Regular rate, Normal S1, Normal S2 Lungs: Clear to auscultation Abdomen: Bowel sounds, Soft Assessment/Plan - Assessment Assessment: 1.HTN. 2.BPH. 3.ANEMIA. 4.CKD. 5.DEMENTIA. - Plan Plan: cont current treatment Nutritional Asmnt/Malnutr-PDOC - Dietary Evaluation Malnutrition Findings (Please click <Entered> for more info): Nutritional Asmnt/Malnutrition Start: 12/30/17 17: 06 Text: Status: Complete Freq: Document 12/30/17 17:06 JORGE ALBERTO (Rec: 12/30/17 17:11 [facility] [email or web address]) Nutritional Asmnt/Malnutrition Patient General Information Nutritional Screening Moderate Risk Diagnosis psychosis NOS Pertinent Medical Hx/Surgical Hx HTN, BPH, chronic anemia, dementia Subjective Information Per EMR, PO intake 100% Current Diet Order/ Nutrition Support regular Pertinent Medications coalce, iron, theragran, serqoeul Pertinent Labs 5/ Na 134, BUN 42, Cr 1.5 Nutritional Hx/Data Height 1.85 m Height (Calculated Centimeters) 185.4 Current Weight (lbs) 83.915 kg Weight (Calculated Kilograms) 83.9 Weight (Calculated Grams) 03162.6 [place] Body Weight 184 Body Mass Index (BMI) 24.4 Weight Status Approriate GI Symptoms GI Symptoms None Last BM 5/6 Difficult in: None Skin Integrity/Comment: intact Current %PO Good (75-100%) Estimated Nutritional Goals BEE in Kcals: Using Current wt Calories/Kcals/Kg 25-30 Kcals Calculated 6362-8275 Protein: Using Current wt Protein g/k.8-1 Protein Calculated 67-84 Fluid: ml 2100-2520ml (1ml/kcal) Nutritional Problem 1. Problem Problem altered nutrition related labs Etiology renal dysfunction Signs/Symptoms: BUN 42, Cr 1.5 Malnutrition Alert Protein-Calorie Malnutrition N/A Is there a minimum of two criteria No selected? Query Text:Check all the applicable criteria. A minimum of two criteria are recommended for diagnosis of either severe or non-severe malnutrition. Intervention/Recommendation Comments 1. Continue with current diet as ordered. Monitor renal labs . 2. Monitor PO intake, wt, labs and skin integrity 3. F/U as moderate risk in 3-5 days, 01/02-01/04 Expected Outcomes/Goals Expected Outcomes/Goals 1. PO intake to meet at least 75% of nutritional needs. 2. Wt stability, skin to remain intact, labs to approach WNL.
--- NOTE | 2018-01-05 03:32 | Progress Notes ---
DATE: The patient was seen, chart reviewed, and discussed with staff. The patient continues to be very confused, nonverbal, and generally disoriented, unable to answer questions in a coherent manner. He requires numerous redirections, often can be verbally aggressive towards staff. He has, however, been compliant with medications, denying any undue side effects. PLAN: The patient continues to be very unpredictable. It is felt that he will require continued inpatient care for stabilization and treatment. We will monitor patient on a daily basis for response to medications and titrate meds as needed. JOB# [id number]
[2018-01-05] MEDS: Ferrous Sulfate 325 MG TAB PO SCH (09:09)
[2018-01-05] MEDS: Multivitamin Tab PO SCH (09:09)
[2018-01-05] MEDS: Magnesium Hydroxide (MOM) 30 mL UDC PO SCH (09:10)
[2018-01-05] MEDS: NIFEdipine 30 mg ER Tab PO SCH (09:10)
--- NOTE | 2018-01-05 22:24 | Internal Medicine Prog Note ---
Internal Medicine Subjective - Subjective Service Date: 01/05/18 Patient seen and examined:: without staff Patient is:: awake, talking, confused Per staff patient has:: no adverse event Internal Medicine Objective - Results Result Diagrams: 12/26/17 22:20 12/26/17 22:20 Recent Labs: Laboratory Last Values WBC 5.9 Th/cmm (4.8-10.8) 12/26/17 22:20 RBC 3.30 Mil/cmm (3.80-5.80) L 12/26/17 22:20 Hgb 10.0 gm/dL (12-16) L 12/26/17 22:20 Hct 30.4 % (41.0-60) L 12/26/17 22:20 MCV 92.0 fl (80-99) 12/26/17 22:20 MCH 30.3 pg (27.0-31.0) 12/26/17 22:20 MCHC Differential 33.0 pg (28.0-36.0) 12/26/17 22:20 RDW 15.2 % (11.5-20.0) 12/26/17 22:20 Plt Count 233 Th/cmm (150-400) 12/26/17 22:20 MPV 6.5 fl 12/26/17 22:20 Neutrophils % 50.9 % (40.0-80.0) 12/26/17 22:20 Lymphocytes % 33.8 % (20.0-50.0) 12/26/17 22:20 Monocytes % 10.3 % (2.0-10.0) H 12/26/17 22:20 Eosinophils % 4.1 % (0.0-5.0) 12/26/17 22:20 Basophils % 0.9 % (0.0-2.0) 12/26/17 22:20 PT 10.1 SECONDS (9.5-11.5) 12/26/17 22:20 INR 0.97 (0.5-1.4) 12/26/17 22:20 Sodium 134 mEq/L (136-145) L 12/26/17 22:20 Potassium 4.4 mEq/L (3.5-5.1) 12/26/17 22:20 Chloride 100 mEq/L (98-107) 12/26/17 22:20 Carbon Dioxide 28.3 mEq/L (21.0-31.0) 12/26/17 22:20 Anion Gap 10.1 (7.0-16.0) 12/26/17 22:20 BUN 42 mg/dL (7-25) H 12/26/17 22:20 Creatinine 1.6 mg/dL (0.7-1.3) H 12/26/17 22:20 Est GFR ( Amer) 55.7 ml/min (>90) 12/26/17 22:20 Est GFR (Non-Af Amer) 46.1 ml/min 12/26/17 22:20 BUN/Creatinine Ratio 26.3 12/26/17 22:20 Glucose 96 mg/dL (70-105) 12/26/17 22:20 Calcium 9.2 mg/dL (8.6-10.3) 12/26/17 22:20 Total Bilirubin 0.3 mg/dL (0.3-1.0) 12/26/17 22:20 AST 10 U/L (13-39) L 12/26/17 22:20 ALT 8 U/L (7-52) 12/26/17 22:20 Alkaline Phosphatase 122 U/L (34-104) H 12/26/17 22:20 Troponin I 0.01 ng/mL (0.01-0.05) 12/26/17 22:20 Total Protein 6.6 gm/dL (6.0-8.3) 12/26/17 22:20 Albumin 3.8 gm/dL (4.2-5.5) L 12/26/17 22:20 Globulin 2.8 gm/dL 12/26/17 22:20 Albumin/Globulin Ratio 1.4 (1.0-1.8) 12/26/17 22:20 TSH 1.97 uIU/ml (0.34-5.60) 12/26/17 22:20 - Physical Exam Vitals and I&O: Vital Signs Temp 97.2 F 01/05/18 20:16 Pulse 75 01/05/18 20:16 Resp 18 01/05/18 20:16 BP 126/67 01/05/18 20:16 Pulse Ox 98 01/05/18 20:16 Intake & Output 01/05/18 01/05/18 01/06/18 06:59 18:59 06:59 Intake Total 660 1200 480 Balance 660 1200 480 Intake: Oral 660 1200 480 Other: # Voids 2 4 2 # Bowel Movements 1 1 Active Medications: Current Medications Acetaminophen (Tylenol) 650 mg PO Q4HR PRN PRN Reason: Pain (Mild) Stop: 02/25/18 03:35 Last Admin: 12/31/17 16:44 Dose: 650 mg Al Hydrox/Mg Hydrox/Simethicone (Maalox) 30 ml PO Q4HR PRN PRN Reason: GI DISTRESS Stop: 02/25/18 02:43 Alprazolam (Xanax) 0.25 mg PO BID DORENE PRN Reason: Protocol Stop: 02/25/18 08:59 Last Admin: 01/05/18 17:14 Dose: 0.25 mg Docusate Sodium (Colace) 100 mg PO BID [facility] Stop: 02/25/18 08:59 Last Admin: 01/05/18 17:14 Dose: 100 mg Ferrous Sulfate (Iron) 325 mg PO DAILY [facility] Stop: 02/25/18 08:59 Last Admin: 01/05/18 09:09 Dose: 325 mg Lorazepam (Ativan) 0.5 mg PO Q4HR PRN; Protocol PRN Reason: Anxiety Stop: 01/26/18 02:43 Last Admin: 01/01/18 13:45 Dose: 0.5 mg Magnesium Hydroxide (Milk Of Magnesia) 30 ml PO HS PRN PRN Reason: Constipation Magnesium Hydroxide (Milk Of Magnesia) 30 ml PO DAILY [facility] Stop: 02/25/18 08:59 Last Admin: 01/05/18 09:10 Dose: 30 ml Metoprolol Tartrate (Lopressor) 25 mg PO DAILY [facility] Stop: 02/25/18 08:59 Last Admin: 01/05/18 09:09 Dose: 25 mg Multivitamins/Vitamin C (Theragran) 1 tab PO DAILY [facility] Stop: 02/25/18 08:59 Last Admin: 01/05/18 09:09 Dose: 1 tab Nifedipine (Procardia Xl) 30 mg PO DAILY [facility] Stop: 02/25/18 08:59 Last Admin: 01/05/18 09:10 Dose: 30 mg Quetiapine Fumarate (Seroquel) 50 mg PO BID DORENE PRN Reason: Protocol Stop: 03/01/18 06:47 Last Admin: 01/05/18 17:14 Dose: 50 mg Tamsulosin HCl (Flomax) 0.4 mg PO HS DORENE Stop: 02/25/18 20:59 Last Admin: 01/05/18 20:58 Dose: 0.4 mg Zolpidem Tartrate (Ambien) 5 mg PO HS PRN PRN Reason: Insomnia Stop: 02/25/18 02:43 Last Admin: 01/05/18 20:58 Dose: 5 mg General: demented HEENT: NC/AT, PERRLA, EOMI, anicteric sclerae, throat clear Neck: Supple, No JVD, No thyromegaly, +2 carotid pulse wo bruit, No LAD Lungs: CTAB Cardiovascular: RRR, Normal S1, Normal S2, without murmur Abdomen: non-tender, non-distended Extremities: clear Neurological: no change Internal Medicine Assmt/Plan - Assessment Assessment: 1.HTN. 2.BPH. 3.ANEMIA. 4.CKD. 5.DEMENTIA. - Plan Plan: CONTINUE ON CURRENT MEDICATION AND DIET. Nutritional Asmnt/Malnutr-PDOC - Dietary Evaluation Malnutrition Findings (Please click <Entered> for more info): Nutritional Asmnt/Malnutrition Start: 12/30/17 17: 06 Text: Status: Complete Freq: Document 12/30/17 17:06 JERRELL (Rec: 12/30/17 17:11 JORGE ALBERTO [email or web address]) Nutritional Asmnt/Malnutrition Patient General Information Nutritional Screening Moderate Risk Diagnosis psychosis NOS Pertinent Medical Hx/Surgical Hx HTN, BPH, chronic anemia, dementia Subjective Information Per EMR, PO intake 100% Current Diet Order/ Nutrition Support regular Pertinent Medications coalce, iron, theragran, serqoeul Pertinent Labs 12/26 Na 134, BUN 42, Cr 1.5 Nutritional Hx/Data Height 1.85 m Height (Calculated Centimeters) 185.4 Current Weight (lbs) 83.915 kg Weight (Calculated Kilograms) 83.9 Weight (Calculated Grams) 87272.6 [place] Body Weight 184 Body Mass Index (BMI) 24.4 Weight Status Approriate GI Symptoms GI Symptoms None Last BM 5/6 Difficult in: None Skin Integrity/Comment: intact Current %PO Good (75-100%) Estimated Nutritional Goals BEE in Kcals: Using Current wt Calories/Kcals/Kg 25-30 Kcals Calculated 6365-9898 Protein: Using Current wt Protein g/k.8-1 Protein Calculated 67-84 Fluid: ml 2100-2520ml (1ml/kcal) Nutritional Problem 1. Problem Problem altered nutrition related labs Etiology renal dysfunction Signs/Symptoms: BUN 42, Cr 1.5 Malnutrition Alert Protein-Calorie Malnutrition N/A Is there a minimum of two criteria No selected? Query Text:Check all the applicable criteria. A minimum of two criteria are recommended for diagnosis of either severe or non-severe malnutrition. Intervention/Recommendation Comments 1. Continue with current diet as ordered. Monitor renal labs . 2. Monitor PO intake, wt, labs and skin integrity 3. F/U as moderate risk in 3-5 days, 01/02-01/04 Expected Outcomes/Goals Expected Outcomes/Goals 1. PO intake to meet at least 75% of nutritional needs. 2. Wt stability, skin to remain intact, labs to approach WNL.
--- NOTE | 2018-01-05 23:00 | Progress Notes ---
DATE: 01/05/2018 Case was discussed with staff of the patient, reviewed records. The patient continues to be confused with poor memory, unable to make a reasonable conversation. Continues to need redirection. Continues to be unable to make safe plan for self-care. Continues to be considered a high fall risk because of the medication, his age, and confusion. He is sleeping and eating better. He is compliant with the medication with no side effects, no sedation, no nausea, and no extrapyramidal symptoms. He is still in the same medications like on Friday. We will continue to work with the patient in group therapy, milieu therapy, and adjust the medications as needed. JOB# [id number]
[2018-01-06] MEDS: NIFEdipine 30 mg ER Tab PO SCH (10:00)
[2018-01-06] MEDS: Ferrous Sulfate 325 MG TAB PO SCH (10:02)
[2018-01-06] MEDS: Magnesium Hydroxide (MOM) 30 mL UDC PO SCH (10:02)
[2018-01-06] MEDS: Multivitamin Tab PO SCH (10:03)
--- NOTE | 2018-01-06 11:33 | Internal Medicine Prog Note ---
Internal Medicine Subjective - Subjective Service Date: 01/06/18 Patient seen and examined:: with staff (HE IS DOING BETTER,LESS AGITATED) Patient is:: awake, talking, confused Per staff patient has:: no adverse event Internal Medicine Objective - Results Result Diagrams: 12/26/17 22:20 12/26/17 22:20 Recent Labs: Laboratory Last Values WBC 5.9 Th/cmm (4.8-10.8) 12/26/17 22:20 RBC 3.30 Mil/cmm (3.80-5.80) L 12/26/17 22:20 Hgb 10.0 gm/dL (12-16) L 12/26/17 22:20 Hct 30.4 % (41.0-60) L 12/26/17 22:20 MCV 92.0 fl (80-99) 12/26/17 22:20 MCH 30.3 pg (27.0-31.0) 12/26/17 22:20 MCHC Differential 33.0 pg (28.0-36.0) 12/26/17 22:20 RDW 15.2 % (11.5-20.0) 12/26/17 22:20 Plt Count 233 Th/cmm (150-400) 12/26/17 22:20 MPV 6.5 fl 12/26/17 22:20 Neutrophils % 50.9 % (40.0-80.0) 12/26/17 22:20 Lymphocytes % 33.8 % (20.0-50.0) 12/26/17 22:20 Monocytes % 10.3 % (2.0-10.0) H 12/26/17 22:20 Eosinophils % 4.1 % (0.0-5.0) 12/26/17 22:20 Basophils % 0.9 % (0.0-2.0) 12/26/17 22:20 PT 10.1 SECONDS (9.5-11.5) 12/26/17 22:20 INR 0.97 (0.5-1.4) 12/26/17 22:20 Sodium 134 mEq/L (136-145) L 12/26/17 22:20 Potassium 4.4 mEq/L (3.5-5.1) 12/26/17 22:20 Chloride 100 mEq/L (98-107) 12/26/17 22:20 Carbon Dioxide 28.3 mEq/L (21.0-31.0) 12/26/17 22:20 Anion Gap 10.1 (7.0-16.0) 12/26/17 22:20 BUN 42 mg/dL (7-25) H 12/26/17 22:20 Creatinine 1.6 mg/dL (0.7-1.3) H 12/26/17 22:20 Est GFR ( Amer) 55.7 ml/min (>90) 12/26/17 22:20 Est GFR (Non-Af Amer) 46.1 ml/min 12/26/17 22:20 BUN/Creatinine Ratio 26.3 12/26/17 22:20 Glucose 96 mg/dL (70-105) 12/26/17 22:20 Calcium 9.2 mg/dL (8.6-10.3) 12/26/17 22:20 Total Bilirubin 0.3 mg/dL (0.3-1.0) 12/26/17 22:20 AST 10 U/L (13-39) L 12/26/17 22:20 ALT 8 U/L (7-52) 12/26/17 22:20 Alkaline Phosphatase 122 U/L (34-104) H 12/26/17 22:20 Troponin I 0.01 ng/mL (0.01-0.05) 12/26/17 22:20 Total Protein 6.6 gm/dL (6.0-8.3) 12/26/17 22:20 Albumin 3.8 gm/dL (4.2-5.5) L 12/26/17 22:20 Globulin 2.8 gm/dL 12/26/17 22:20 Albumin/Globulin Ratio 1.4 (1.0-1.8) 12/26/17 22:20 TSH 1.97 uIU/ml (0.34-5.60) 12/26/17 22:20 - Physical Exam Vitals and I&O: Vital Signs Temp 97.9 F 01/06/18 06:27 Pulse 73 01/06/18 10:00 Resp 20 01/06/18 06:27 BP 153/81 01/06/18 10:00 Pulse Ox 95 01/06/18 06:27 Intake & Output 01/05/18 01/06/18 01/06/18 18:59 06:59 18:59 Intake Total 1200 720 Balance 1200 720 Intake: Oral 1200 720 Other: # Voids 4 2 # Bowel Movements 1 Active Medications: Current Medications Acetaminophen (Tylenol) 650 mg PO Q4HR PRN PRN Reason: Pain (Mild) Stop: 02/25/18 03:35 Last Admin: 12/31/17 16:44 Dose: 650 mg Al Hydrox/Mg Hydrox/Simethicone (Maalox) 30 ml PO Q4HR PRN PRN Reason: GI DISTRESS Stop: 02/25/18 02:43 Alprazolam (Xanax) 0.25 mg PO BID DORENE PRN Reason: Protocol Stop: 02/25/18 08:59 Last Admin: 01/06/18 09:07 Dose: 0.25 mg Docusate Sodium (Colace) 100 mg PO BID [facility] Stop: 02/25/18 08:59 Last Admin: 01/06/18 10:02 Dose: Not Given Ferrous Sulfate (Iron) 325 mg PO DAILY [facility] Stop: 02/25/18 08:59 Last Admin: 01/06/18 10:02 Dose: Not Given Lorazepam (Ativan) 0.5 mg PO Q4HR PRN; Protocol PRN Reason: Anxiety Stop: 01/26/18 02:43 Last Admin: 01/01/18 13:45 Dose: 0.5 mg Magnesium Hydroxide (Milk Of Magnesia) 30 ml PO HS PRN PRN Reason: Constipation Magnesium Hydroxide (Milk Of Magnesia) 30 ml PO DAILY [facility] Stop: 02/25/18 08:59 Last Admin: 01/06/18 10:02 Dose: Not Given Metoprolol Tartrate (Lopressor) 25 mg PO DAILY [facility] Stop: 02/25/18 08:59 Last Admin: 01/06/18 09:59 Dose: 25 mg Multivitamins/Vitamin C (Theragran) 1 tab PO DAILY [facility] Stop: 02/25/18 08:59 Last Admin: 01/06/18 10:03 Dose: Not Given Nifedipine (Procardia Xl) 30 mg PO DAILY [facility] Stop: 02/25/18 08:59 Last Admin: 01/06/18 10:00 Dose: 30 mg Quetiapine Fumarate (Seroquel) 50 mg PO BID DORENE PRN Reason: Protocol Stop: 03/01/18 06:47 Last Admin: 01/06/18 09:59 Dose: 50 mg Tamsulosin HCl (Flomax) 0.4 mg PO HS DORENE Stop: 02/25/18 20:59 Last Admin: 01/05/18 20:58 Dose: 0.4 mg Zolpidem Tartrate (Ambien) 5 mg PO HS PRN PRN Reason: Insomnia Stop: 02/25/18 02:43 Last Admin: 01/05/18 20:58 Dose: 5 mg General: demented HEENT: NC/AT, PERRLA, EOMI, anicteric sclerae, throat clear Neck: Supple, No JVD, No thyromegaly, +2 carotid pulse wo bruit, No LAD Lungs: CTAB Cardiovascular: RRR, Normal S1, Normal S2, without murmur Abdomen: non-tender, non-distended Extremities: clear Neurological: no change Internal Medicine Assmt/Plan - Assessment Assessment: 1.HTN. 2.BPH. 3.ANEMIA. 4.CKD. 5.DEMENTIA. - Plan Plan: CONTINUE ON CURRENT MEDICATION AND DIET. Nutritional Asmnt/Malnutr-PDOC - Dietary Evaluation Malnutrition Findings (Please click <Entered> for more info): Nutritional Asmnt/Malnutrition Start: 12/30/17 17: 06 Text: Status: Complete Freq: Document 12/30/17 17:06 JERRELL (Rec: 12/30/17 17:11 JORGE ALBERTO [email or web address]) Nutritional Asmnt/Malnutrition Patient General Information Nutritional Screening Moderate Risk Diagnosis psychosis NOS Pertinent Medical Hx/Surgical Hx HTN, BPH, chronic anemia, dementia Subjective Information Per EMR, PO intake 100% Current Diet Order/ Nutrition Support regular Pertinent Medications coalce, iron, theragran, serqoeul Pertinent Labs 12/26 Na 134, BUN 42, Cr 1.5 Nutritional Hx/Data Height 1.85 m Height (Calculated Centimeters) 185.4 Current Weight (lbs) 83.915 kg Weight (Calculated Kilograms) 83.9 Weight (Calculated Grams) 82286.6 [place] Body Weight 184 Body Mass Index (BMI) 24.4 Weight Status Approriate GI Symptoms GI Symptoms None Last BM 5/6 Difficult in: None Skin Integrity/Comment: intact Current %PO Good (75-100%) Estimated Nutritional Goals BEE in Kcals: Using Current wt Calories/Kcals/Kg 25-30 Kcals Calculated 0799-1742 Protein: Using Current wt Protein g/k.8-1 Protein Calculated 67-84 Fluid: ml 2100-2520ml (1ml/kcal) Nutritional Problem 1. Problem Problem altered nutrition related labs Etiology renal dysfunction Signs/Symptoms: BUN 42, Cr 1.5 Malnutrition Alert Protein-Calorie Malnutrition N/A Is there a minimum of two criteria No selected? Query Text:Check all the applicable criteria. A minimum of two criteria are recommended for diagnosis of either severe or non-severe malnutrition. Intervention/Recommendation Comments 1. Continue with current diet as ordered. Monitor renal labs . 2. Monitor PO intake, wt, labs and skin integrity 3. F/U as moderate risk in 3-5 days, 01/02-01/04 Expected Outcomes/Goals Expected Outcomes/Goals 1. PO intake to meet at least 75% of nutritional needs. 2. Wt stability, skin to remain intact, labs to approach WNL.
--- NOTE | 2018-01-06 20:53 | Progress Notes ---
DATE: 01/06/2018 Case was discussed with staff of the patient. The patient today was unable to communicate, mumbling speech, continues to be unable to make safe plan for self-care, continues to be unpredictable and impulsive, looking disheveled; continues to have poor insight, and unable to participate in meaningful conversation or make safe plan for self-care. He is compliant with the medication with no side effects, no sedation, no nausea, and no extrapyramidal symptoms. We will continue to work with the patient in group therapy, milieu therapy, and adjust the medications as needed. JOB# [id number]
[2018-01-07] MEDS: NIFEdipine 30 mg ER Tab PO SCH (08:40)
--- NOTE | 2018-01-07 11:51 | Progress Notes ---
DATE: 01/06/2018 Case discussed with staff of the patient record. The patient is a smoker. He was out smoking. He believes this is 14th, but he does not know which month and what year. He continues to be unable to make safe plan for self-care. Continues to be unpredictable and impulsive, needing redirection. Continues to have poor insight. He is sleeping well and eating well. Continues to have episodes of irritability and agitation. Unable to take care of himself, looking disheveled, disorganized, internally preoccupied. No sedation. No nausea and we will continue to work with the patient in group therapy, milieu therapy, and adjust medications. JOB# [id number]
[2018-01-07] MEDS: Magnesium Hydroxide (MOM) 30 mL UDC PO SCH (18:16)
[2018-01-07] MEDS: Multivitamin Tab PO SCH (18:16)
[2018-01-07] MEDS: Ferrous Sulfate 325 MG TAB PO SCH (18:16)
--- NOTE | 2018-01-07 23:36 | Internal Medicine Prog Note ---
Internal Medicine Subjective - Subjective Service Date: 01/07/18 Patient seen and examined:: without staff Patient is:: awake, talking, confused Per staff patient has:: no adverse event Internal Medicine Objective - Results Result Diagrams: 12/26/17 22:20 12/26/17 22:20 Recent Labs: Laboratory Last Values WBC 5.9 Th/cmm (4.8-10.8) 12/26/17 22:20 RBC 3.30 Mil/cmm (3.80-5.80) L 12/26/17 22:20 Hgb 10.0 gm/dL (12-16) L 12/26/17 22:20 Hct 30.4 % (41.0-60) L 12/26/17 22:20 MCV 92.0 fl (80-99) 12/26/17 22:20 MCH 30.3 pg (27.0-31.0) 12/26/17 22:20 MCHC Differential 33.0 pg (28.0-36.0) 12/26/17 22:20 RDW 15.2 % (11.5-20.0) 12/26/17 22:20 Plt Count 233 Th/cmm (150-400) 12/26/17 22:20 MPV 6.5 fl 12/26/17 22:20 Neutrophils % 50.9 % (40.0-80.0) 12/26/17 22:20 Lymphocytes % 33.8 % (20.0-50.0) 12/26/17 22:20 Monocytes % 10.3 % (2.0-10.0) H 12/26/17 22:20 Eosinophils % 4.1 % (0.0-5.0) 12/26/17 22:20 Basophils % 0.9 % (0.0-2.0) 12/26/17 22:20 PT 10.1 SECONDS (9.5-11.5) 12/26/17 22:20 INR 0.97 (0.5-1.4) 12/26/17 22:20 Sodium 134 mEq/L (136-145) L 12/26/17 22:20 Potassium 4.4 mEq/L (3.5-5.1) 12/26/17 22:20 Chloride 100 mEq/L (98-107) 12/26/17 22:20 Carbon Dioxide 28.3 mEq/L (21.0-31.0) 12/26/17 22:20 Anion Gap 10.1 (7.0-16.0) 12/26/17 22:20 BUN 42 mg/dL (7-25) H 12/26/17 22:20 Creatinine 1.6 mg/dL (0.7-1.3) H 12/26/17 22:20 Est GFR ( Amer) 55.7 ml/min (>90) 12/26/17 22:20 Est GFR (Non-Af Amer) 46.1 ml/min 12/26/17 22:20 BUN/Creatinine Ratio 26.3 12/26/17 22:20 Glucose 96 mg/dL (70-105) 12/26/17 22:20 Calcium 9.2 mg/dL (8.6-10.3) 12/26/17 22:20 Total Bilirubin 0.3 mg/dL (0.3-1.0) 12/26/17 22:20 AST 10 U/L (13-39) L 12/26/17 22:20 ALT 8 U/L (7-52) 12/26/17 22:20 Alkaline Phosphatase 122 U/L (34-104) H 12/26/17 22:20 Troponin I 0.01 ng/mL (0.01-0.05) 12/26/17 22:20 Total Protein 6.6 gm/dL (6.0-8.3) 12/26/17 22:20 Albumin 3.8 gm/dL (4.2-5.5) L 12/26/17 22:20 Globulin 2.8 gm/dL 12/26/17 22:20 Albumin/Globulin Ratio 1.4 (1.0-1.8) 12/26/17 22:20 TSH 1.97 uIU/ml (0.34-5.60) 12/26/17 22:20 - Physical Exam Vitals and I&O: Vital Signs Temp 97.9 F 01/07/18 20:00 Pulse 68 01/07/18 20:00 Resp 19 01/07/18 20:00 BP 116/59 01/07/18 20:00 Pulse Ox 99 01/07/18 20:00 Intake & Output 01/07/18 01/07/18 01/08/18 06:59 18:59 06:59 Intake Total 360 1300 Balance 360 1300 Intake: Oral 360 1300 Other: # Voids 2 3 # Bowel Movements 1 1 Active Medications: Current Medications Acetaminophen (Tylenol) 650 mg PO Q4HR PRN PRN Reason: Pain (Mild) Stop: 02/25/18 03:35 Last Admin: 12/31/17 16:44 Dose: 650 mg Al Hydrox/Mg Hydrox/Simethicone (Maalox) 30 ml PO Q4HR PRN PRN Reason: GI DISTRESS Stop: 02/25/18 02:43 Alprazolam (Xanax) 0.25 mg PO BID DORENE PRN Reason: Protocol Stop: 02/25/18 08:59 Last Admin: 01/07/18 18:15 Dose: 0.25 mg Docusate Sodium (Colace) 100 mg PO BID [facility] Stop: 02/25/18 08:59 Last Admin: 01/07/18 18:16 Dose: 100 mg Ferrous Sulfate (Iron) 325 mg PO DAILY [facility] Stop: 02/25/18 08:59 Last Admin: 01/07/18 18:16 Dose: Not Given Lorazepam (Ativan) 0.5 mg PO Q4HR PRN; Protocol PRN Reason: Anxiety Stop: 01/26/18 02:43 Last Admin: 01/06/18 14:47 Dose: 0.5 mg Magnesium Hydroxide (Milk Of Magnesia) 30 ml PO HS PRN PRN Reason: Constipation Magnesium Hydroxide (Milk Of Magnesia) 30 ml PO DAILY [facility] Stop: 02/25/18 08:59 Last Admin: 01/07/18 18:16 Dose: Not Given Metoprolol Tartrate (Lopressor) 25 mg PO DAILY [facility] Stop: 02/25/18 08:59 Last Admin: 01/07/18 08:41 Dose: 25 mg Multivitamins/Vitamin C (Theragran) 1 tab PO DAILY [facility] Stop: 02/25/18 08:59 Last Admin: 01/07/18 18:16 Dose: Not Given Nifedipine (Procardia Xl) 30 mg PO DAILY [facility] Stop: 02/25/18 08:59 Last Admin: 01/07/18 08:40 Dose: 30 mg Quetiapine Fumarate (Seroquel) 50 mg PO BID DORENE PRN Reason: Protocol Stop: 03/01/18 06:47 Last Admin: 01/07/18 18:17 Dose: 50 mg Tamsulosin HCl (Flomax) 0.4 mg PO HS DORENE Stop: 02/25/18 20:59 Last Admin: 01/07/18 21:14 Dose: 0.4 mg Zolpidem Tartrate (Ambien) 5 mg PO HS PRN PRN Reason: Insomnia Stop: 02/25/18 02:43 Last Admin: 01/06/18 20:24 Dose: 5 mg General: demented HEENT: NC/AT, PERRLA, EOMI, anicteric sclerae, throat clear Neck: Supple, No JVD, No thyromegaly, +2 carotid pulse wo bruit, No LAD Lungs: CTAB Cardiovascular: RRR, Normal S1, Normal S2, without murmur Abdomen: non-tender, non-distended Extremities: clear Neurological: no change Internal Medicine Assmt/Plan - Assessment Assessment: 1.HTN. 2.BPH. 3.ANEMIA. 4.CKD. 5.DEMENTIA. - Plan Plan: CONTINUE ON CURRENT MEDICATION AND DIET. Nutritional Asmnt/Malnutr-PDOC - Dietary Evaluation Malnutrition Findings (Please click <Entered> for more info): Nutritional Asmnt/Malnutrition Start: 12/30/17 17: 06 Text: Status: Complete Freq: Document 12/30/17 17:06 JERRELL (Rec: 12/30/17 17:11 JORGE LABERTO [email or web address]) Nutritional Asmnt/Malnutrition Patient General Information Nutritional Screening Moderate Risk Diagnosis psychosis NOS Pertinent Medical Hx/Surgical Hx HTN, BPH, chronic anemia, dementia Subjective Information Per EMR, PO intake 100% Current Diet Order/ Nutrition Support regular Pertinent Medications coalce, iron, theragran, serqoeul Pertinent Labs 12/26 Na 134, BUN 42, Cr 1.5 Nutritional Hx/Data Height 1.85 m Height (Calculated Centimeters) 185.4 Current Weight (lbs) 83.915 kg Weight (Calculated Kilograms) 83.9 Weight (Calculated Grams) 50742.6 [place] Body Weight 184 Body Mass Index (BMI) 24.4 Weight Status Approriate GI Symptoms GI Symptoms None Last BM 5/6 Difficult in: None Skin Integrity/Comment: intact Current %PO Good (75-100%) Estimated Nutritional Goals BEE in Kcals: Using Current wt Calories/Kcals/Kg 25-30 Kcals Calculated 8184-3402 Protein: Using Current wt Protein g/k.8-1 Protein Calculated 67-84 Fluid: ml 2100-2520ml (1ml/kcal) Nutritional Problem 1. Problem Problem altered nutrition related labs Etiology renal dysfunction Signs/Symptoms: BUN 42, Cr 1.5 Malnutrition Alert Protein-Calorie Malnutrition N/A Is there a minimum of two criteria No selected? Query Text:Check all the applicable criteria. A minimum of two criteria are recommended for diagnosis of either severe or non-severe malnutrition. Intervention/Recommendation Comments 1. Continue with current diet as ordered. Monitor renal labs . 2. Monitor PO intake, wt, labs and skin integrity 3. F/U as moderate risk in 3-5 days, 01/02-01/04 Expected Outcomes/Goals Expected Outcomes/Goals 1. PO intake to meet at least 75% of nutritional needs. 2. Wt stability, skin to remain intact, labs to approach WNL.
[2018-01-08] MEDS: NIFEdipine 30 mg ER Tab PO SCH (09:00)
[2018-01-08] MEDS: Multivitamin Tab PO SCH (09:00)
[2018-01-08] MEDS: Ferrous Sulfate 325 MG TAB PO SCH (09:01)
[2018-01-08] MEDS: Magnesium Hydroxide (MOM) 30 mL UDC PO SCH (09:01)
--- NOTE | 2018-01-08 20:58 | Progress Notes ---
DATE: 01/08/2018 Case was discussed with staff of the patient, reviewed records. The patient is rambling. The patient is laughing inappropriately. Continues to have poor insight and ____ behavior. Continues to be unable to participate in meaningful conversation or make safe plan for self-care. Continues to be unpredictable, impulsive, and needing redirection. He is demented and confused. I will be initiating Aricept on him, so far no side effects with the medication, no sedation, no nausea, and no extrapyramidal symptoms. We will continue to work with the patient in group therapy, milieu therapy, and adjust the medications as needed. JOB# [id number]
--- NOTE | 2018-01-08 23:54 | Internal Medicine Prog Note ---
Internal Medicine Subjective - Subjective Service Date: 01/08/18 Patient seen and examined:: without staff Patient is:: awake, talking, confused Per staff patient has:: no adverse event Internal Medicine Objective - Results Result Diagrams: 12/26/17 22:20 12/26/17 22:20 Recent Labs: Laboratory Last Values WBC 5.9 Th/cmm (4.8-10.8) 12/26/17 22:20 RBC 3.30 Mil/cmm (3.80-5.80) L 12/26/17 22:20 Hgb 10.0 gm/dL (12-16) L 12/26/17 22:20 Hct 30.4 % (41.0-60) L 12/26/17 22:20 MCV 92.0 fl (80-99) 12/26/17 22:20 MCH 30.3 pg (27.0-31.0) 12/26/17 22:20 MCHC Differential 33.0 pg (28.0-36.0) 12/26/17 22:20 RDW 15.2 % (11.5-20.0) 12/26/17 22:20 Plt Count 233 Th/cmm (150-400) 12/26/17 22:20 MPV 6.5 fl 12/26/17 22:20 Neutrophils % 50.9 % (40.0-80.0) 12/26/17 22:20 Lymphocytes % 33.8 % (20.0-50.0) 12/26/17 22:20 Monocytes % 10.3 % (2.0-10.0) H 12/26/17 22:20 Eosinophils % 4.1 % (0.0-5.0) 12/26/17 22:20 Basophils % 0.9 % (0.0-2.0) 12/26/17 22:20 PT 10.1 SECONDS (9.5-11.5) 12/26/17 22:20 INR 0.97 (0.5-1.4) 12/26/17 22:20 Sodium 134 mEq/L (136-145) L 12/26/17 22:20 Potassium 4.4 mEq/L (3.5-5.1) 12/26/17 22:20 Chloride 100 mEq/L (98-107) 12/26/17 22:20 Carbon Dioxide 28.3 mEq/L (21.0-31.0) 12/26/17 22:20 Anion Gap 10.1 (7.0-16.0) 12/26/17 22:20 BUN 42 mg/dL (7-25) H 12/26/17 22:20 Creatinine 1.6 mg/dL (0.7-1.3) H 12/26/17 22:20 Est GFR ( Amer) 55.7 ml/min (>90) 12/26/17 22:20 Est GFR (Non-Af Amer) 46.1 ml/min 12/26/17 22:20 BUN/Creatinine Ratio 26.3 12/26/17 22:20 Glucose 96 mg/dL (70-105) 12/26/17 22:20 Calcium 9.2 mg/dL (8.6-10.3) 12/26/17 22:20 Total Bilirubin 0.3 mg/dL (0.3-1.0) 12/26/17 22:20 AST 10 U/L (13-39) L 12/26/17 22:20 ALT 8 U/L (7-52) 12/26/17 22:20 Alkaline Phosphatase 122 U/L (34-104) H 12/26/17 22:20 Troponin I 0.01 ng/mL (0.01-0.05) 12/26/17 22:20 Total Protein 6.6 gm/dL (6.0-8.3) 12/26/17 22:20 Albumin 3.8 gm/dL (4.2-5.5) L 12/26/17 22:20 Globulin 2.8 gm/dL 12/26/17 22:20 Albumin/Globulin Ratio 1.4 (1.0-1.8) 12/26/17 22:20 TSH 1.97 uIU/ml (0.34-5.60) 12/26/17 22:20 - Physical Exam Vitals and I&O: Vital Signs Temp 96.9 F 01/08/18 20:00 Pulse 76 01/08/18 20:00 Resp 18 01/08/18 20:00 BP 110/69 01/08/18 20:00 Pulse Ox 99 01/08/18 20:00 Intake & Output 01/08/18 01/08/18 01/09/18 06:59 18:59 06:59 Intake Total 120 1200 530 Balance 120 1200 530 Intake: Oral 120 1200 530 Other: # Voids 3 3 1 Active Medications: Current Medications Acetaminophen (Tylenol) 650 mg PO Q4HR PRN PRN Reason: Pain (Mild) Stop: 02/25/18 03:35 Last Admin: 12/31/17 16:44 Dose: 650 mg Al Hydrox/Mg Hydrox/Simethicone (Maalox) 30 ml PO Q4HR PRN PRN Reason: GI DISTRESS Stop: 02/25/18 02:43 Alprazolam (Xanax) 0.25 mg PO BID DORENE PRN Reason: Protocol Stop: 02/25/18 08:59 Last Admin: 01/08/18 16:27 Dose: 0.25 mg Docusate Sodium (Colace) 100 mg PO BID DORENE Stop: 02/25/18 08:59 Last Admin: 01/08/18 16:29 Dose: 100 mg Donepezil HCl (Aricept) 5 mg PO HS DORENE Stop: 03/09/18 20:59 Last Admin: 01/08/18 21:03 Dose: 5 mg Ferrous Sulfate (Iron) 325 mg PO DAILY [facility] Stop: 02/25/18 08:59 Last Admin: 01/08/18 09:01 Dose: 325 mg Lorazepam (Ativan) 0.5 mg PO Q4HR PRN; Protocol PRN Reason: Anxiety Stop: 01/26/18 02:43 Last Admin: 01/06/18 14:47 Dose: 0.5 mg Magnesium Hydroxide (Milk Of Magnesia) 30 ml PO HS PRN PRN Reason: Constipation Magnesium Hydroxide (Milk Of Magnesia) 30 ml PO DAILY [facility] Stop: 02/25/18 08:59 Last Admin: 01/08/18 09:01 Dose: 30 ml Metoprolol Tartrate (Lopressor) 25 mg PO DAILY [facility] Stop: 02/25/18 08:59 Last Admin: 01/08/18 08:58 Dose: 25 mg Multivitamins/Vitamin C (Theragran) 1 tab PO DAILY [facility] Stop: 02/25/18 08:59 Last Admin: 01/08/18 09:00 Dose: 1 tab Nifedipine (Procardia Xl) 30 mg PO DAILY [facility] Stop: 02/25/18 08:59 Last Admin: 01/08/18 09:00 Dose: 30 mg Quetiapine Fumarate (Seroquel) 50 mg PO BID DORENE PRN Reason: Protocol Stop: 03/01/18 06:47 Last Admin: 01/08/18 16:29 Dose: 50 mg Tamsulosin HCl (Flomax) 0.4 mg PO HS DORENE Stop: 02/25/18 20:59 Last Admin: 01/08/18 21:03 Dose: 0.4 mg Zolpidem Tartrate (Ambien) 5 mg PO HS PRN PRN Reason: Insomnia Stop: 02/25/18 02:43 Last Admin: 01/08/18 21:03 Dose: 5 mg General: demented HEENT: NC/AT, PERRLA, EOMI, anicteric sclerae, throat clear Neck: Supple, No JVD, No thyromegaly, +2 carotid pulse wo bruit, No LAD Lungs: CTAB Cardiovascular: RRR, Normal S1, Normal S2, without murmur Abdomen: non-tender, non-distended Extremities: clear Neurological: no change Internal Medicine Assmt/Plan - Assessment Assessment: 1.HTN. 2.BPH. 3.ANEMIA. 4.CKD. 5.DEMENTIA. - Plan Plan: CONTINUE ON CURRENT MEDICATION AND DIET. Nutritional Asmnt/Malnutr-PDOC - Dietary Evaluation Malnutrition Findings (Please click <Entered> for more info): Nutritional Asmnt/Malnutrition Start: 12/30/17 17: 06 Text: Status: Complete Freq: Document 12/30/17 17:06 LCJORGE ALBERTOG (Rec: 12/30/17 17:11 JORGE ALBERTOG [email or web address]) Nutritional Asmnt/Malnutrition Patient General Information Nutritional Screening Moderate Risk Diagnosis psychosis NOS Pertinent Medical Hx/Surgical Hx HTN, BPH, chronic anemia, dementia Subjective Information Per EMR, PO intake 100% Current Diet Order/ Nutrition Support regular Pertinent Medications coalce, iron, theragran, serqoeul Pertinent Labs 12/26 Na 134, BUN 42, Cr 1.5 Nutritional Hx/Data Height 1.85 m Height (Calculated Centimeters) 185.4 Current Weight (lbs) 83.915 kg Weight (Calculated Kilograms) 83.9 Weight (Calculated Grams) 45114.6 [place] Body Weight 184 Body Mass Index (BMI) 24.4 Weight Status Approriate GI Symptoms GI Symptoms None Last BM 5/6 Difficult in: None Skin Integrity/Comment: intact Current %PO Good (75-100%) Estimated Nutritional Goals BEE in Kcals: Using Current wt Calories/Kcals/Kg 25-30 Kcals Calculated 3281-7911 Protein: Using Current wt Protein g/k.8-1 Protein Calculated 67-84 Fluid: ml 2100-2520ml (1ml/kcal) Nutritional Problem 1. Problem Problem altered nutrition related labs Etiology renal dysfunction Signs/Symptoms: BUN 42, Cr 1.5 Malnutrition Alert Protein-Calorie Malnutrition N/A Is there a minimum of two criteria No selected? Query Text:Check all the applicable criteria. A minimum of two criteria are recommended for diagnosis of either severe or non-severe malnutrition. Intervention/Recommendation Comments 1. Continue with current diet as ordered. Monitor renal labs . 2. Monitor PO intake, wt, labs and skin integrity 3. F/U as moderate risk in 3-5 days, 01/02-01/04 Expected Outcomes/Goals Expected Outcomes/Goals 1. PO intake to meet at least 75% of nutritional needs. 2. Wt stability, skin to remain intact, labs to approach WNL.
[2018-01-09] MEDS: Magnesium Hydroxide (MOM) 30 mL UDC PO SCH (08:45)
[2018-01-09] MEDS: Multivitamin Tab PO SCH (08:45)
[2018-01-09] MEDS: NIFEdipine 30 mg ER Tab PO SCH (08:45)
[2018-01-09] MEDS: Ferrous Sulfate 325 MG TAB PO SCH (08:46)
--- NOTE | 2018-01-09 19:51 | Internal Medicine Prog Note ---
Internal Medicine Subjective - Subjective Service Date: 01/09/18 Patient seen and examined:: with staff Patient is:: awake, talking, confused Per staff patient has:: no adverse event Internal Medicine Objective - Results Result Diagrams: 12/26/17 22:20 12/26/17 22:20 Recent Labs: Laboratory Last Values WBC 5.9 Th/cmm (4.8-10.8) 12/26/17 22:20 RBC 3.30 Mil/cmm (3.80-5.80) L 12/26/17 22:20 Hgb 10.0 gm/dL (12-16) L 12/26/17 22:20 Hct 30.4 % (41.0-60) L 12/26/17 22:20 MCV 92.0 fl (80-99) 12/26/17 22:20 MCH 30.3 pg (27.0-31.0) 12/26/17 22:20 MCHC Differential 33.0 pg (28.0-36.0) 12/26/17 22:20 RDW 15.2 % (11.5-20.0) 12/26/17 22:20 Plt Count 233 Th/cmm (150-400) 12/26/17 22:20 MPV 6.5 fl 12/26/17 22:20 Neutrophils % 50.9 % (40.0-80.0) 12/26/17 22:20 Lymphocytes % 33.8 % (20.0-50.0) 12/26/17 22:20 Monocytes % 10.3 % (2.0-10.0) H 12/26/17 22:20 Eosinophils % 4.1 % (0.0-5.0) 12/26/17 22:20 Basophils % 0.9 % (0.0-2.0) 12/26/17 22:20 PT 10.1 SECONDS (9.5-11.5) 12/26/17 22:20 INR 0.97 (0.5-1.4) 12/26/17 22:20 Sodium 134 mEq/L (136-145) L 12/26/17 22:20 Potassium 4.4 mEq/L (3.5-5.1) 12/26/17 22:20 Chloride 100 mEq/L (98-107) 12/26/17 22:20 Carbon Dioxide 28.3 mEq/L (21.0-31.0) 12/26/17 22:20 Anion Gap 10.1 (7.0-16.0) 12/26/17 22:20 BUN 42 mg/dL (7-25) H 12/26/17 22:20 Creatinine 1.6 mg/dL (0.7-1.3) H 12/26/17 22:20 Est GFR ( Amer) 55.7 ml/min (>90) 12/26/17 22:20 Est GFR (Non-Af Amer) 46.1 ml/min 12/26/17 22:20 BUN/Creatinine Ratio 26.3 12/26/17 22:20 Glucose 96 mg/dL (70-105) 12/26/17 22:20 Calcium 9.2 mg/dL (8.6-10.3) 12/26/17 22:20 Total Bilirubin 0.3 mg/dL (0.3-1.0) 12/26/17 22:20 AST 10 U/L (13-39) L 12/26/17 22:20 ALT 8 U/L (7-52) 12/26/17 22:20 Alkaline Phosphatase 122 U/L (34-104) H 12/26/17 22:20 Troponin I 0.01 ng/mL (0.01-0.05) 12/26/17 22:20 Total Protein 6.6 gm/dL (6.0-8.3) 12/26/17 22:20 Albumin 3.8 gm/dL (4.2-5.5) L 12/26/17 22:20 Globulin 2.8 gm/dL 12/26/17 22:20 Albumin/Globulin Ratio 1.4 (1.0-1.8) 12/26/17 22:20 TSH 1.97 uIU/ml (0.34-5.60) 12/26/17 22:20 - Physical Exam Vitals and I&O: Vital Signs Temp 97.2 F 01/09/18 16:05 Pulse 66 01/09/18 16:05 Resp 20 01/09/18 16:05 BP 124/57 01/09/18 16:05 Pulse Ox 98 01/09/18 16:05 Intake & Output 01/09/18 01/09/18 01/10/18 06:59 18:59 06:59 Intake Total 530 1200 Balance 530 1200 Intake: Oral 530 1200 Other: # Voids 1 3 Active Medications: Current Medications Acetaminophen (Tylenol) 650 mg PO Q4HR PRN PRN Reason: Pain (Mild) Stop: 02/25/18 03:35 Last Admin: 12/31/17 16:44 Dose: 650 mg Al Hydrox/Mg Hydrox/Simethicone (Maalox) 30 ml PO Q4HR PRN PRN Reason: GI DISTRESS Stop: 02/25/18 02:43 Alprazolam (Xanax) 0.25 mg PO BID DORENE PRN Reason: Protocol Stop: 02/25/18 08:59 Last Admin: 01/09/18 16:18 Dose: 0.25 mg Docusate Sodium (Colace) 100 mg PO BID DORENE Stop: 02/25/18 08:59 Last Admin: 01/09/18 16:17 Dose: 100 mg Donepezil HCl (Aricept) 5 mg PO HS DORENE Stop: 03/09/18 20:59 Last Admin: 01/08/18 21:03 Dose: 5 mg Ferrous Sulfate (Iron) 325 mg PO DAILY [facility] Stop: 02/25/18 08:59 Last Admin: 01/09/18 08:46 Dose: 325 mg Lorazepam (Ativan) 0.5 mg PO Q4HR PRN; Protocol PRN Reason: Anxiety Stop: 01/26/18 02:43 Last Admin: 01/06/18 14:47 Dose: 0.5 mg Magnesium Hydroxide (Milk Of Magnesia) 30 ml PO HS PRN PRN Reason: Constipation Magnesium Hydroxide (Milk Of Magnesia) 30 ml PO DAILY [facility] Stop: 02/25/18 08:59 Last Admin: 01/09/18 08:45 Dose: 30 ml Metoprolol Tartrate (Lopressor) 25 mg PO DAILY [facility] Stop: 02/25/18 08:59 Last Admin: 01/09/18 08:46 Dose: 25 mg Multivitamins/Vitamin C (Theragran) 1 tab PO DAILY [facility] Stop: 02/25/18 08:59 Last Admin: 01/09/18 08:45 Dose: 1 tab Nifedipine (Procardia Xl) 30 mg PO DAILY [facility] Stop: 02/25/18 08:59 Last Admin: 01/09/18 08:45 Dose: 30 mg Quetiapine Fumarate (Seroquel) 50 mg PO BID DORENE PRN Reason: Protocol Stop: 03/01/18 06:47 Last Admin: 01/09/18 16:17 Dose: 50 mg Tamsulosin HCl (Flomax) 0.4 mg PO HS DORENE Stop: 02/25/18 20:59 Last Admin: 01/08/18 21:03 Dose: 0.4 mg Zolpidem Tartrate (Ambien) 5 mg PO HS PRN PRN Reason: Insomnia Stop: 02/25/18 02:43 Last Admin: 01/08/18 21:03 Dose: 5 mg General: demented HEENT: NC/AT, PERRLA, EOMI, anicteric sclerae, throat clear Neck: Supple, No JVD, No thyromegaly, +2 carotid pulse wo bruit, No LAD Lungs: CTAB Cardiovascular: RRR, Normal S1, Normal S2, without murmur Abdomen: non-tender, non-distended Extremities: clear Neurological: no change Internal Medicine Assmt/Plan - Assessment Assessment: 1.HTN. 2.BPH. 3.ANEMIA. 4.CKD. 5.DEMENTIA. - Plan Plan: CONTINUE ON CURRENT MEDICATION AND DIET. Nutritional Asmnt/Malnutr-PDOC - Dietary Evaluation Malnutrition Findings (Please click <Entered> for more info): Nutritional Asmnt/Malnutrition Start: 12/30/17 17: 06 Text: Status: Complete Freq: Document 12/30/17 17:06 LCJORGE ALBERTOG (Rec: 12/30/17 17:11 JORGE ALBERTOG [email or web address]) Nutritional Asmnt/Malnutrition Patient General Information Nutritional Screening Moderate Risk Diagnosis psychosis NOS Pertinent Medical Hx/Surgical Hx HTN, BPH, chronic anemia, dementia Subjective Information Per EMR, PO intake 100% Current Diet Order/ Nutrition Support regular Pertinent Medications coalce, iron, theragran, serqoeul Pertinent Labs 5 Na 134, BUN 42, Cr 1.5 Nutritional Hx/Data Height 1.85 m Height (Calculated Centimeters) 185.4 Current Weight (lbs) 83.915 kg Weight (Calculated Kilograms) 83.9 Weight (Calculated Grams) 43851.6 [place] Body Weight 184 Body Mass Index (BMI) 24.4 Weight Status Approriate GI Symptoms GI Symptoms None Last BM 5/6 Difficult in: None Skin Integrity/Comment: intact Current %PO Good (75-100%) Estimated Nutritional Goals BEE in Kcals: Using Current wt Calories/Kcals/Kg 25-30 Kcals Calculated 7900-8768 Protein: Using Current wt Protein g/k.8-1 Protein Calculated 67-84 Fluid: ml 2100-2520ml (1ml/kcal) Nutritional Problem 1. Problem Problem altered nutrition related labs Etiology renal dysfunction Signs/Symptoms: BUN 42, Cr 1.5 Malnutrition Alert Protein-Calorie Malnutrition N/A Is there a minimum of two criteria No selected? Query Text:Check all the applicable criteria. A minimum of two criteria are recommended for diagnosis of either severe or non-severe malnutrition. Intervention/Recommendation Comments 1. Continue with current diet as ordered. Monitor renal labs . 2. Monitor PO intake, wt, labs and skin integrity 3. F/U as moderate risk in 3-5 days, 01/02-01/04 Expected Outcomes/Goals Expected Outcomes/Goals 1. PO intake to meet at least 75% of nutritional needs. 2. Wt stability, skin to remain intact, labs to approach WNL.
--- NOTE | 2018-01-09 21:49 | Progress Notes ---
DATE: 01/09/2018 Case discussed with staff of the patient, reviewed records. The patient continues to be confused, irritable, continues to have poor insight. Continues to be unable to make safe plan for self-care. He is sleeping better, eating better. He is compliant with the medication with no side effects, no sedation, or nausea; however, ____ added Aricept for him yesterday and he is unable to participate in any conversation or make safe plan for self-care. We will continue with the patient in group therapy, milieu therapy, and adjust medication as needed. JOB# [id number]
[2018-01-10] MEDS: NIFEdipine 30 mg ER Tab PO SCH (09:46)
[2018-01-10] MEDS: Magnesium Hydroxide (MOM) 30 mL UDC PO SCH (09:46)
[2018-01-10] MEDS: Ferrous Sulfate 325 MG TAB PO SCH (09:47)
[2018-01-10] MEDS: Multivitamin Tab PO SCH (09:47)
--- NOTE | 2018-01-10 16:42 | Internal Medicine Prog Note ---
Internal Medicine Subjective - Subjective Service Date: 01/10/18 Patient seen and examined:: with staff Patient is:: awake, talking, confused Per staff patient has:: no adverse event Internal Medicine Objective - Results Result Diagrams: 12/26/17 22:20 12/26/17 22:20 Recent Labs: Laboratory Last Values WBC 5.9 Th/cmm (4.8-10.8) 12/26/17 22:20 RBC 3.30 Mil/cmm (3.80-5.80) L 12/26/17 22:20 Hgb 10.0 gm/dL (12-16) L 12/26/17 22:20 Hct 30.4 % (41.0-60) L 12/26/17 22:20 MCV 92.0 fl (80-99) 12/26/17 22:20 MCH 30.3 pg (27.0-31.0) 12/26/17 22:20 MCHC Differential 33.0 pg (28.0-36.0) 12/26/17 22:20 RDW 15.2 % (11.5-20.0) 12/26/17 22:20 Plt Count 233 Th/cmm (150-400) 12/26/17 22:20 MPV 6.5 fl 12/26/17 22:20 Neutrophils % 50.9 % (40.0-80.0) 12/26/17 22:20 Lymphocytes % 33.8 % (20.0-50.0) 12/26/17 22:20 Monocytes % 10.3 % (2.0-10.0) H 12/26/17 22:20 Eosinophils % 4.1 % (0.0-5.0) 12/26/17 22:20 Basophils % 0.9 % (0.0-2.0) 12/26/17 22:20 PT 10.1 SECONDS (9.5-11.5) 12/26/17 22:20 INR 0.97 (0.5-1.4) 12/26/17 22:20 Sodium 134 mEq/L (136-145) L 12/26/17 22:20 Potassium 4.4 mEq/L (3.5-5.1) 12/26/17 22:20 Chloride 100 mEq/L (98-107) 12/26/17 22:20 Carbon Dioxide 28.3 mEq/L (21.0-31.0) 12/26/17 22:20 Anion Gap 10.1 (7.0-16.0) 12/26/17 22:20 BUN 42 mg/dL (7-25) H 12/26/17 22:20 Creatinine 1.6 mg/dL (0.7-1.3) H 12/26/17 22:20 Est GFR ( Amer) 55.7 ml/min (>90) 12/26/17 22:20 Est GFR (Non-Af Amer) 46.1 ml/min 12/26/17 22:20 BUN/Creatinine Ratio 26.3 12/26/17 22:20 Glucose 96 mg/dL (70-105) 12/26/17 22:20 Calcium 9.2 mg/dL (8.6-10.3) 12/26/17 22:20 Total Bilirubin 0.3 mg/dL (0.3-1.0) 12/26/17 22:20 AST 10 U/L (13-39) L 12/26/17 22:20 ALT 8 U/L (7-52) 12/26/17 22:20 Alkaline Phosphatase 122 U/L (34-104) H 12/26/17 22:20 Troponin I 0.01 ng/mL (0.01-0.05) 12/26/17 22:20 Total Protein 6.6 gm/dL (6.0-8.3) 12/26/17 22:20 Albumin 3.8 gm/dL (4.2-5.5) L 12/26/17 22:20 Globulin 2.8 gm/dL 12/26/17 22:20 Albumin/Globulin Ratio 1.4 (1.0-1.8) 12/26/17 22:20 TSH 1.97 uIU/ml (0.34-5.60) 12/26/17 22:20 - Physical Exam Vitals and I&O: Vital Signs Temp 97.4 F 01/10/18 14:00 Pulse 72 01/10/18 14:00 Resp 20 01/10/18 14:00 BP 145/69 01/10/18 14:00 Pulse Ox 94 01/10/18 14:00 Intake & Output 01/09/18 01/10/18 01/10/18 18:59 06:59 18:59 Intake Total 1200 Balance 1200 Intake: Oral 1200 Other: # Voids 3 Active Medications: Current Medications Acetaminophen (Tylenol) 650 mg PO Q4HR PRN PRN Reason: Pain (Mild) Stop: 02/25/18 03:35 Last Admin: 12/31/17 16:44 Dose: 650 mg Al Hydrox/Mg Hydrox/Simethicone (Maalox) 30 ml PO Q4HR PRN PRN Reason: GI DISTRESS Stop: 02/25/18 02:43 Alprazolam (Xanax) 0.25 mg PO BID DORENE PRN Reason: Protocol Stop: 02/25/18 08:59 Last Admin: 01/10/18 16:27 Dose: 0.25 mg Docusate Sodium (Colace) 100 mg PO BID [facility] Stop: 02/25/18 08:59 Last Admin: 01/10/18 16:27 Dose: 100 mg Donepezil HCl (Aricept) 5 mg PO HS [facility] Stop: 03/09/18 20:59 Last Admin: 01/09/18 21:33 Dose: 5 mg Ferrous Sulfate (Iron) 325 mg PO DAILY [facility] Stop: 02/25/18 08:59 Last Admin: 01/10/18 09:47 Dose: 325 mg Lorazepam (Ativan) 0.5 mg PO Q4HR PRN; Protocol PRN Reason: Anxiety Stop: 01/26/18 02:43 Last Admin: 01/06/18 14:47 Dose: 0.5 mg Magnesium Hydroxide (Milk Of Magnesia) 30 ml PO HS PRN PRN Reason: Constipation Magnesium Hydroxide (Milk Of Magnesia) 30 ml PO DAILY [facility] Stop: 02/25/18 08:59 Last Admin: 01/10/18 09:46 Dose: 30 ml Metoprolol Tartrate (Lopressor) 25 mg PO DAILY [facility] Stop: 02/25/18 08:59 Last Admin: 01/10/18 09:47 Dose: 25 mg Multivitamins/Vitamin C (Theragran) 1 tab PO DAILY [facility] Stop: 02/25/18 08:59 Last Admin: 01/10/18 09:47 Dose: 1 tab Nifedipine (Procardia Xl) 30 mg PO DAILY [facility] Stop: 02/25/18 08:59 Last Admin: 01/10/18 09:46 Dose: 30 mg Quetiapine Fumarate (Seroquel) 50 mg PO BID DORENE PRN Reason: Protocol Stop: 03/01/18 06:47 Last Admin: 01/10/18 16:27 Dose: 50 mg Tamsulosin HCl (Flomax) 0.4 mg PO HS [facility]ENE Stop: 02/25/18 20:59 Last Admin: 01/09/18 21:32 Dose: 0.4 mg Zolpidem Tartrate (Ambien) 5 mg PO HS PRN PRN Reason: Insomnia Stop: 02/25/18 02:43 Last Admin: 01/08/18 21:03 Dose: 5 mg General: demented HEENT: NC/AT, PERRLA, EOMI, anicteric sclerae, throat clear Neck: Supple, No JVD, No thyromegaly, +2 carotid pulse wo bruit, No LAD Lungs: CTAB Cardiovascular: RRR, Normal S1, Normal S2, without murmur Abdomen: non-tender, non-distended Extremities: clear Neurological: no change Internal Medicine Assmt/Plan - Assessment Assessment: 1.HTN. 2.BPH. 3.ANEMIA. 4.CKD. 5.DEMENTIA. - Plan Plan: CONTINUE ON CURRENT MEDICATION AND DIET. Nutritional Asmnt/Malnutr-PDOC - Dietary Evaluation Malnutrition Findings (Please click <Entered> for more info): Nutritional Asmnt/Malnutrition Start: 12/30/17 17: 06 Text: Status: Complete Freq: Document 12/30/17 17:06 JORGE ALBERTO (Rec: 12/30/17 17:11 JORGE ALBERTO [email or web address]) Nutritional Asmnt/Malnutrition Patient General Information Nutritional Screening Moderate Risk Diagnosis psychosis NOS Pertinent Medical Hx/Surgical Hx HTN, BPH, chronic anemia, dementia Subjective Information Per EMR, PO intake 100% Current Diet Order/ Nutrition Support regular Pertinent Medications coalce, iron, theragran, serqoeul Pertinent Labs 12/26 Na 134, BUN 42, Cr 1.5 Nutritional Hx/Data Height 1.85 m Height (Calculated Centimeters) 185.4 Current Weight (lbs) 83.915 kg Weight (Calculated Kilograms) 83.9 Weight (Calculated Grams) 75436.6 [place] Body Weight 184 Body Mass Index (BMI) 24.4 Weight Status Approriate GI Symptoms GI Symptoms None Last BM 5/6 Difficult in: None Skin Integrity/Comment: intact Current %PO Good (75-100%) Estimated Nutritional Goals BEE in Kcals: Using Current wt Calories/Kcals/Kg 25-30 Kcals Calculated 0614-9742 Protein: Using Current wt Protein g/k.8-1 Protein Calculated 67-84 Fluid: ml 2100-2520ml (1ml/kcal) Nutritional Problem 1. Problem Problem altered nutrition related labs Etiology renal dysfunction Signs/Symptoms: BUN 42, Cr 1.5 Malnutrition Alert Protein-Calorie Malnutrition N/A Is there a minimum of two criteria No selected? Query Text:Check all the applicable criteria. A minimum of two criteria are recommended for diagnosis of either severe or non-severe malnutrition. Intervention/Recommendation Comments 1. Continue with current diet as ordered. Monitor renal labs . 2. Monitor PO intake, wt, labs and skin integrity 3. F/U as moderate risk in 3-5 days, 01/02-01/04 Expected Outcomes/Goals Expected Outcomes/Goals 1. PO intake to meet at least 75% of nutritional needs. 2. Wt stability, skin to remain intact, labs to approach WNL.
--- NOTE | 2018-01-10 21:08 | Progress Notes ---
DATE: 01/10/2018 Case was discussed with staff of the patient, reviewed records. The patient continues to be confused, demented, continues to be unable to make safe plan for self-care. Continues to be unpredictable, impulsive with episodes of agitation and irritability. He is compliant with the medication with no side effects, no sedation, no nausea, and no extrapyramidal symptoms. We will continue to work with the patient in group therapy, milieu therapy, and adjust the medications as needed. JOB# [id number]
[2018-01-11] MEDS: Multivitamin Tab PO SCH (08:42)
[2018-01-11] MEDS: Magnesium Hydroxide (MOM) 30 mL UDC PO SCH (08:43)
[2018-01-11] MEDS: Ferrous Sulfate 325 MG TAB PO SCH (08:43)
[2018-01-11] MEDS: NIFEdipine 30 mg ER Tab PO SCH (08:44)
--- NOTE | 2018-01-11 20:32 | Internal Medicine Prog Note ---
Internal Medicine Subjective - Subjective Service Date: 01/11/18 Patient seen and examined:: without staff Patient is:: awake, talking, confused Per staff patient has:: no adverse event Internal Medicine Objective - Results Result Diagrams: 12/26/17 22:20 12/26/17 22:20 Recent Labs: Laboratory Last Values WBC 5.9 Th/cmm (4.8-10.8) 12/26/17 22:20 RBC 3.30 Mil/cmm (3.80-5.80) L 12/26/17 22:20 Hgb 10.0 gm/dL (12-16) L 12/26/17 22:20 Hct 30.4 % (41.0-60) L 12/26/17 22:20 MCV 92.0 fl (80-99) 12/26/17 22:20 MCH 30.3 pg (27.0-31.0) 12/26/17 22:20 MCHC Differential 33.0 pg (28.0-36.0) 12/26/17 22:20 RDW 15.2 % (11.5-20.0) 12/26/17 22:20 Plt Count 233 Th/cmm (150-400) 12/26/17 22:20 MPV 6.5 fl 12/26/17 22:20 Neutrophils % 50.9 % (40.0-80.0) 12/26/17 22:20 Lymphocytes % 33.8 % (20.0-50.0) 12/26/17 22:20 Monocytes % 10.3 % (2.0-10.0) H 12/26/17 22:20 Eosinophils % 4.1 % (0.0-5.0) 12/26/17 22:20 Basophils % 0.9 % (0.0-2.0) 12/26/17 22:20 PT 10.1 SECONDS (9.5-11.5) 12/26/17 22:20 INR 0.97 (0.5-1.4) 12/26/17 22:20 Sodium 134 mEq/L (136-145) L 12/26/17 22:20 Potassium 4.4 mEq/L (3.5-5.1) 12/26/17 22:20 Chloride 100 mEq/L (98-107) 12/26/17 22:20 Carbon Dioxide 28.3 mEq/L (21.0-31.0) 12/26/17 22:20 Anion Gap 10.1 (7.0-16.0) 12/26/17 22:20 BUN 42 mg/dL (7-25) H 12/26/17 22:20 Creatinine 1.6 mg/dL (0.7-1.3) H 12/26/17 22:20 Est GFR ( Amer) 55.7 ml/min (>90) 12/26/17 22:20 Est GFR (Non-Af Amer) 46.1 ml/min 12/26/17 22:20 BUN/Creatinine Ratio 26.3 12/26/17 22:20 Glucose 96 mg/dL (70-105) 12/26/17 22:20 Calcium 9.2 mg/dL (8.6-10.3) 12/26/17 22:20 Total Bilirubin 0.3 mg/dL (0.3-1.0) 12/26/17 22:20 AST 10 U/L (13-39) L 12/26/17 22:20 ALT 8 U/L (7-52) 12/26/17 22:20 Alkaline Phosphatase 122 U/L (34-104) H 12/26/17 22:20 Troponin I 0.01 ng/mL (0.01-0.05) 12/26/17 22:20 Total Protein 6.6 gm/dL (6.0-8.3) 12/26/17 22:20 Albumin 3.8 gm/dL (4.2-5.5) L 12/26/17 22:20 Globulin 2.8 gm/dL 12/26/17 22:20 Albumin/Globulin Ratio 1.4 (1.0-1.8) 12/26/17 22:20 TSH 1.97 uIU/ml (0.34-5.60) 12/26/17 22:20 - Physical Exam Vitals and I&O: Vital Signs Temp 97.7 F 01/11/18 20:00 Pulse 72 01/11/18 20:00 Resp 20 01/11/18 20:00 BP 131/65 01/11/18 20:00 Pulse Ox 97 01/11/18 20:00 Intake & Output 01/11/18 01/11/18 01/12/18 06:59 18:59 06:59 Intake Total 120 1200 Balance 120 1200 Intake: Oral 120 1200 Other: # Voids 3 3 Active Medications: Current Medications Acetaminophen (Tylenol) 650 mg PO Q4HR PRN PRN Reason: Pain (Mild) Stop: 02/25/18 03:35 Last Admin: 12/31/17 16:44 Dose: 650 mg Al Hydrox/Mg Hydrox/Simethicone (Maalox) 30 ml PO Q4HR PRN PRN Reason: GI DISTRESS Stop: 02/25/18 02:43 Alprazolam (Xanax) 0.25 mg PO BID DORENE PRN Reason: Protocol Stop: 02/25/18 08:59 Last Admin: 01/11/18 16:24 Dose: 0.25 mg Docusate Sodium (Colace) 100 mg PO BID [facility] Stop: 02/25/18 08:59 Last Admin: 01/11/18 16:24 Dose: 100 mg Donepezil HCl (Aricept) 5 mg PO HS [facility] Stop: 03/09/18 20:59 Last Admin: 01/10/18 20:46 Dose: 5 mg Ferrous Sulfate (Iron) 325 mg PO DAILY [facility] Stop: 02/25/18 08:59 Last Admin: 01/11/18 08:43 Dose: 325 mg Lorazepam (Ativan) 0.5 mg PO Q4HR PRN; Protocol PRN Reason: Anxiety Stop: 01/26/18 02:43 Last Admin: 01/06/18 14:47 Dose: 0.5 mg Magnesium Hydroxide (Milk Of Magnesia) 30 ml PO DAILY [facility] Stop: 02/25/18 08:59 Last Admin: 01/11/18 08:43 Dose: 30 ml Metoprolol Tartrate (Lopressor) 25 mg PO DAILY [facility] Stop: 02/25/18 08:59 Last Admin: 01/11/18 08:42 Dose: 25 mg Multivitamins/Vitamin C (Theragran) 1 tab PO DAILY [facility] Stop: 02/25/18 08:59 Last Admin: 01/11/18 08:42 Dose: 1 tab Nifedipine (Procardia Xl) 30 mg PO DAILY [facility] Stop: 02/25/18 08:59 Last Admin: 01/11/18 08:44 Dose: 30 mg Quetiapine Fumarate (Seroquel) 50 mg PO BID [facility]ORENE PRN Reason: Protocol Stop: 03/01/18 06:47 Last Admin: 01/11/18 16:25 Dose: 50 mg Tamsulosin HCl (Flomax) 0.4 mg PO HS [facility] Stop: 02/25/18 20:59 Last Admin: 01/10/18 20:46 Dose: 0.4 mg Zolpidem Tartrate (Ambien) 5 mg PO HS PRN PRN Reason: Insomnia Stop: 02/25/18 02:43 Last Admin: 01/08/18 21:03 Dose: 5 mg General: demented HEENT: NC/AT, PERRLA, EOMI, anicteric sclerae, throat clear Neck: Supple, No JVD, No thyromegaly, +2 carotid pulse wo bruit, No LAD Lungs: CTAB Cardiovascular: RRR, Normal S1, Normal S2, without murmur Abdomen: non-tender, non-distended Extremities: clear Neurological: no change Internal Medicine Assmt/Plan - Assessment Assessment: 1.HTN. 2.BPH. 3.ANEMIA. 4.CKD. 5.DEMENTIA. - Plan Plan: CONTINUE ON CURRENT MEDICATION AND DIET. Nutritional Asmnt/Malnutr-PDOC - Dietary Evaluation Malnutrition Findings (Please click <Entered> for more info): Nutritional Asmnt/Malnutrition Start: 12/30/17 17: 06 Text: Status: Complete Freq: Document 12/30/17 17:06 JOREG ALBERTO (Rec: 12/30/17 17:11 JORGE ALBERTO [email or web address]) Nutritional Asmnt/Malnutrition Patient General Information Nutritional Screening Moderate Risk Diagnosis psychosis NOS Pertinent Medical Hx/Surgical Hx HTN, BPH, chronic anemia, dementia Subjective Information Per EMR, PO intake 100% Current Diet Order/ Nutrition Support regular Pertinent Medications coalce, iron, theragran, serqoeul Pertinent Labs 5 Na 134, BUN 42, Cr 1.5 Nutritional Hx/Data Height 1.85 m Height (Calculated Centimeters) 185.4 Current Weight (lbs) 83.915 kg Weight (Calculated Kilograms) 83.9 Weight (Calculated Grams) 81867.6 [place] Body Weight 184 Body Mass Index (BMI) 24.4 Weight Status Approriate GI Symptoms GI Symptoms None Last BM 5/6 Difficult in: None Skin Integrity/Comment: intact Current %PO Good (75-100%) Estimated Nutritional Goals BEE in Kcals: Using Current wt Calories/Kcals/Kg 25-30 Kcals Calculated 4005-4769 Protein: Using Current wt Protein g/k.8-1 Protein Calculated 67-84 Fluid: ml 2100-2520ml (1ml/kcal) Nutritional Problem 1. Problem Problem altered nutrition related labs Etiology renal dysfunction Signs/Symptoms: BUN 42, Cr 1.5 Malnutrition Alert Protein-Calorie Malnutrition N/A Is there a minimum of two criteria No selected? Query Text:Check all the applicable criteria. A minimum of two criteria are recommended for diagnosis of either severe or non-severe malnutrition. Intervention/Recommendation Comments 1. Continue with current diet as ordered. Monitor renal labs . 2. Monitor PO intake, wt, labs and skin integrity 3. F/U as moderate risk in 3-5 days, 01/02-01/04 Expected Outcomes/Goals Expected Outcomes/Goals 1. PO intake to meet at least 75% of nutritional needs. 2. Wt stability, skin to remain intact, labs to approach WNL.
--- NOTE | 2018-01-11 20:53 | Progress Notes ---
DATE: 01/11/2018 Case was discussed with staff of the patient, reviewed records. The patient continues to be disorganized. Continues to have poor insight. Continues to be internally preoccupied, unable to express himself clearly, rambling speech, demented, confused, compliant with the medication with no side effects, no sedation, no nausea, no extrapyramidal symptoms. We will continue to work with the patient group therapy, milieu therapy, and adjust the medications as needed. JOB# [id number]
[2018-01-12] MEDS: Magnesium Hydroxide (MOM) 30 mL UDC PO SCH (09:31)
[2018-01-12] MEDS: NIFEdipine 30 mg ER Tab PO SCH (09:31)
[2018-01-12] MEDS: Ferrous Sulfate 325 MG TAB PO SCH (09:31)
[2018-01-12] MEDS: Multivitamin Tab PO SCH (09:31)
--- NOTE | 2018-01-12 13:56 | Internal Medicine Prog Note ---
Internal Medicine Subjective - Subjective Service Date: 01/12/18 Patient seen and examined:: with staff (he is doing better,eating well.) Patient is:: awake, talking, confused Per staff patient has:: no adverse event Internal Medicine Objective - Results Result Diagrams: 12/26/17 22:20 12/26/17 22:20 Recent Labs: Laboratory Last Values WBC 5.9 Th/cmm (4.8-10.8) 12/26/17 22:20 RBC 3.30 Mil/cmm (3.80-5.80) L 12/26/17 22:20 Hgb 10.0 gm/dL (12-16) L 12/26/17 22:20 Hct 30.4 % (41.0-60) L 12/26/17 22:20 MCV 92.0 fl (80-99) 12/26/17 22:20 MCH 30.3 pg (27.0-31.0) 12/26/17 22:20 MCHC Differential 33.0 pg (28.0-36.0) 12/26/17 22:20 RDW 15.2 % (11.5-20.0) 12/26/17 22:20 Plt Count 233 Th/cmm (150-400) 12/26/17 22:20 MPV 6.5 fl 12/26/17 22:20 Neutrophils % 50.9 % (40.0-80.0) 12/26/17 22:20 Lymphocytes % 33.8 % (20.0-50.0) 12/26/17 22:20 Monocytes % 10.3 % (2.0-10.0) H 12/26/17 22:20 Eosinophils % 4.1 % (0.0-5.0) 12/26/17 22:20 Basophils % 0.9 % (0.0-2.0) 12/26/17 22:20 PT 10.1 SECONDS (9.5-11.5) 12/26/17 22:20 INR 0.97 (0.5-1.4) 12/26/17 22:20 Sodium 134 mEq/L (136-145) L 12/26/17 22:20 Potassium 4.4 mEq/L (3.5-5.1) 12/26/17 22:20 Chloride 100 mEq/L (98-107) 12/26/17 22:20 Carbon Dioxide 28.3 mEq/L (21.0-31.0) 12/26/17 22:20 Anion Gap 10.1 (7.0-16.0) 12/26/17 22:20 BUN 42 mg/dL (7-25) H 12/26/17 22:20 Creatinine 1.6 mg/dL (0.7-1.3) H 12/26/17 22:20 Est GFR ( Amer) 55.7 ml/min (>90) 12/26/17 22:20 Est GFR (Non-Af Amer) 46.1 ml/min 12/26/17 22:20 BUN/Creatinine Ratio 26.3 12/26/17 22:20 Glucose 96 mg/dL (70-105) 12/26/17 22:20 Calcium 9.2 mg/dL (8.6-10.3) 12/26/17 22:20 Total Bilirubin 0.3 mg/dL (0.3-1.0) 12/26/17 22:20 AST 10 U/L (13-39) L 12/26/17 22:20 ALT 8 U/L (7-52) 12/26/17 22:20 Alkaline Phosphatase 122 U/L (34-104) H 12/26/17 22:20 Troponin I 0.01 ng/mL (0.01-0.05) 12/26/17 22:20 Total Protein 6.6 gm/dL (6.0-8.3) 12/26/17 22:20 Albumin 3.8 gm/dL (4.2-5.5) L 12/26/17 22:20 Globulin 2.8 gm/dL 12/26/17 22:20 Albumin/Globulin Ratio 1.4 (1.0-1.8) 12/26/17 22:20 TSH 1.97 uIU/ml (0.34-5.60) 12/26/17 22:20 - Physical Exam Vitals and I&O: Vital Signs Temp 97.6 F 01/12/18 06:25 Pulse 69 01/12/18 11:31 Resp 20 01/12/18 06:25 BP 143/84 01/12/18 11:31 Pulse Ox 97 01/12/18 06:25 Intake & Output 01/11/18 01/12/18 01/12/18 18:59 06:59 18:59 Intake Total 1200 120 Balance 1200 120 Intake: Oral 1200 120 Other: # Voids 3 3 Active Medications: Current Medications Acetaminophen (Tylenol) 650 mg PO Q4HR PRN PRN Reason: Pain (Mild) Stop: 02/25/18 03:35 Last Admin: 12/31/17 16:44 Dose: 650 mg Al Hydrox/Mg Hydrox/Simethicone (Maalox) 30 ml PO Q4HR PRN PRN Reason: GI DISTRESS Stop: 02/25/18 02:43 Alprazolam (Xanax) 0.25 mg PO BID [facility] PRN Reason: Protocol Stop: 02/25/18 08:59 Last Admin: 01/12/18 09:31 Dose: 0.25 mg Docusate Sodium (Colace) 100 mg PO BID [facility] Stop: 02/25/18 08:59 Last Admin: 01/12/18 09:31 Dose: 100 mg Donepezil HCl (Aricept) 5 mg PO HS [facility] Stop: 03/09/18 20:59 Last Admin: 01/11/18 20:54 Dose: 5 mg Ferrous Sulfate (Iron) 325 mg PO DAILY [facility] Stop: 02/25/18 08:59 Last Admin: 01/12/18 09:31 Dose: 325 mg Lorazepam (Ativan) 0.5 mg PO Q4HR PRN; Protocol PRN Reason: Anxiety Stop: 01/26/18 02:43 Last Admin: 01/06/18 14:47 Dose: 0.5 mg Magnesium Hydroxide (Milk Of Magnesia) 30 ml PO DAILY [facility] Stop: 02/25/18 08:59 Last Admin: 01/12/18 09:31 Dose: 30 ml Metoprolol Tartrate (Lopressor) 25 mg PO DAILY [facility] Stop: 02/25/18 08:59 Last Admin: 01/12/18 11:31 Dose: 25 mg Multivitamins/Vitamin C (Theragran) 1 tab PO DAILY [facility] Stop: 02/25/18 08:59 Last Admin: 01/12/18 09:31 Dose: 1 tab Nifedipine (Procardia Xl) 30 mg PO DAILY [facility] Stop: 02/25/18 08:59 Last Admin: 01/12/18 09:31 Dose: 30 mg Quetiapine Fumarate (Seroquel) 50 mg PO BID [facility] PRN Reason: Protocol Stop: 03/01/18 06:47 Last Admin: 01/12/18 09:31 Dose: 50 mg Tamsulosin HCl (Flomax) 0.4 mg PO HS [facility] Stop: 02/25/18 20:59 Last Admin: 01/11/18 20:54 Dose: 0.4 mg Zolpidem Tartrate (Ambien) 5 mg PO HS PRN PRN Reason: Insomnia Stop: 02/25/18 02:43 Last Admin: 01/11/18 20:54 Dose: 5 mg General: demented HEENT: NC/AT, PERRLA, EOMI, anicteric sclerae, throat clear Neck: Supple, No JVD, No thyromegaly, +2 carotid pulse wo bruit, No LAD Lungs: CTAB Cardiovascular: RRR, Normal S1, Normal S2, without murmur Abdomen: non-tender, non-distended Extremities: clear Neurological: no change Internal Medicine Assmt/Plan - Assessment Assessment: 1.HTN. 2.BPH. 3.ANEMIA. 4.CKD. 5.DEMENTIA. - Plan Plan: CONTINUE ON CURRENT MEDICATION AND DIET. Nutritional Asmnt/Malnutr-PDOC - Dietary Evaluation Malnutrition Findings (Please click <Entered> for more info): Nutritional Asmnt/Malnutrition Start: 12/30/17 17: 06 Text: Status: Complete Freq: Document 12/30/17 17:06 LCJORGE ALBERTOG (Rec: 12/30/17 17:11 HENG [email or web address]) Nutritional Asmnt/Malnutrition Patient General Information Nutritional Screening Moderate Risk Diagnosis psychosis NOS Pertinent Medical Hx/Surgical Hx HTN, BPH, chronic anemia, dementia Subjective Information Per EMR, PO intake 100% Current Diet Order/ Nutrition Support regular Pertinent Medications coalce, iron, theragran, serqoeul Pertinent Labs 12/26 Na 134, BUN 42, Cr 1.5 Nutritional Hx/Data Height 1.85 m Height (Calculated Centimeters) 185.4 Current Weight (lbs) 83.915 kg Weight (Calculated Kilograms) 83.9 Weight (Calculated Grams) 80957.6 [place] Body Weight 184 Body Mass Index (BMI) 24.4 Weight Status Approriate GI Symptoms GI Symptoms None Last BM 5/6 Difficult in: None Skin Integrity/Comment: intact Current %PO Good (75-100%) Estimated Nutritional Goals BEE in Kcals: Using Current wt Calories/Kcals/Kg 25-30 Kcals Calculated 6254-7519 Protein: Using Current wt Protein g/k.8-1 Protein Calculated 67-84 Fluid: ml 2100-2520ml (1ml/kcal) Nutritional Problem 1. Problem Problem altered nutrition related labs Etiology renal dysfunction Signs/Symptoms: BUN 42, Cr 1.5 Malnutrition Alert Protein-Calorie Malnutrition N/A Is there a minimum of two criteria No selected? Query Text:Check all the applicable criteria. A minimum of two criteria are recommended for diagnosis of either severe or non-severe malnutrition. Intervention/Recommendation Comments 1. Continue with current diet as ordered. Monitor renal labs . 2. Monitor PO intake, wt, labs and skin integrity 3. F/U as moderate risk in 3-5 days, 01/02-01/04 Expected Outcomes/Goals Expected Outcomes/Goals 1. PO intake to meet at least 75% of nutritional needs. 2. Wt stability, skin to remain intact, labs to approach WNL.
--- NOTE | 2018-01-13 01:00 | Progress Notes ---
DATE: 01/12/2018 Case discussed with staff of the patient and reviewed records. The patient continues to be confused, demented. He continues to have poor insight. Unable to make safe plan for self-care and is easily agitated, getting aggressive sometimes. He is sleeping better, eating better, compliant with the medication with no side effects, no sedation, no nausea, no extrapyramidal symptoms. We will continue to work with the patient in group therapy, milieu therapy, and adjust medications as needed. JOB# [id number]
[2018-01-13] MEDS: Multivitamin Tab PO SCH (08:47)
[2018-01-13] MEDS: Ferrous Sulfate 325 MG TAB PO SCH (08:47)
[2018-01-13] MEDS: Magnesium Hydroxide (MOM) 30 mL UDC PO SCH (08:47)
[2018-01-13] MEDS: NIFEdipine 30 mg ER Tab PO SCH (08:47)
--- NOTE | 2018-01-13 23:50 | Internal Medicine Prog Note ---
Internal Medicine Subjective - Subjective Service Date: 01/13/18 Patient seen and examined:: without staff Patient is:: awake, talking, confused Per staff patient has:: no adverse event Internal Medicine Objective - Results Result Diagrams: 12/26/17 22:20 12/26/17 22:20 Recent Labs: Laboratory Last Values WBC 5.9 Th/cmm (4.8-10.8) 12/26/17 22:20 RBC 3.30 Mil/cmm (3.80-5.80) L 12/26/17 22:20 Hgb 10.0 gm/dL (12-16) L 12/26/17 22:20 Hct 30.4 % (41.0-60) L 12/26/17 22:20 MCV 92.0 fl (80-99) 12/26/17 22:20 MCH 30.3 pg (27.0-31.0) 12/26/17 22:20 MCHC Differential 33.0 pg (28.0-36.0) 12/26/17 22:20 RDW 15.2 % (11.5-20.0) 12/26/17 22:20 Plt Count 233 Th/cmm (150-400) 12/26/17 22:20 MPV 6.5 fl 12/26/17 22:20 Neutrophils % 50.9 % (40.0-80.0) 12/26/17 22:20 Lymphocytes % 33.8 % (20.0-50.0) 12/26/17 22:20 Monocytes % 10.3 % (2.0-10.0) H 12/26/17 22:20 Eosinophils % 4.1 % (0.0-5.0) 12/26/17 22:20 Basophils % 0.9 % (0.0-2.0) 12/26/17 22:20 PT 10.1 SECONDS (9.5-11.5) 12/26/17 22:20 INR 0.97 (0.5-1.4) 12/26/17 22:20 Sodium 134 mEq/L (136-145) L 12/26/17 22:20 Potassium 4.4 mEq/L (3.5-5.1) 12/26/17 22:20 Chloride 100 mEq/L (98-107) 12/26/17 22:20 Carbon Dioxide 28.3 mEq/L (21.0-31.0) 12/26/17 22:20 Anion Gap 10.1 (7.0-16.0) 12/26/17 22:20 BUN 42 mg/dL (7-25) H 12/26/17 22:20 Creatinine 1.6 mg/dL (0.7-1.3) H 12/26/17 22:20 Est GFR ( Amer) 55.7 ml/min (>90) 12/26/17 22:20 Est GFR (Non-Af Amer) 46.1 ml/min 12/26/17 22:20 BUN/Creatinine Ratio 26.3 12/26/17 22:20 Glucose 96 mg/dL (70-105) 12/26/17 22:20 Calcium 9.2 mg/dL (8.6-10.3) 12/26/17 22:20 Total Bilirubin 0.3 mg/dL (0.3-1.0) 12/26/17 22:20 AST 10 U/L (13-39) L 12/26/17 22:20 ALT 8 U/L (7-52) 12/26/17 22:20 Alkaline Phosphatase 122 U/L (34-104) H 12/26/17 22:20 Troponin I 0.01 ng/mL (0.01-0.05) 12/26/17 22:20 Total Protein 6.6 gm/dL (6.0-8.3) 12/26/17 22:20 Albumin 3.8 gm/dL (4.2-5.5) L 12/26/17 22:20 Globulin 2.8 gm/dL 12/26/17 22:20 Albumin/Globulin Ratio 1.4 (1.0-1.8) 12/26/17 22:20 TSH 1.97 uIU/ml (0.34-5.60) 12/26/17 22:20 - Physical Exam Vitals and I&O: Vital Signs Temp 97.8 F 01/13/18 20:39 Pulse 60 01/13/18 20:39 Resp 18 01/13/18 20:39 BP 153/76 01/13/18 20:39 Pulse Ox 96 01/13/18 20:39 Intake & Output 01/13/18 01/13/18 01/14/18 06:59 18:59 06:59 Intake Total 480 1700 240 Balance 480 1700 240 Intake: Oral 480 1700 240 Other: # Voids 3 3 3 # Bowel Movements 0 1 1 Active Medications: Current Medications Acetaminophen (Tylenol) 650 mg PO Q4HR PRN PRN Reason: Pain (Mild) Stop: 02/25/18 03:35 Last Admin: 12/31/17 16:44 Dose: 650 mg Al Hydrox/Mg Hydrox/Simethicone (Maalox) 30 ml PO Q4HR PRN PRN Reason: GI DISTRESS Stop: 02/25/18 02:43 Alprazolam (Xanax) 0.25 mg PO BID [facility]ORENE PRN Reason: Protocol Stop: 02/25/18 08:59 Last Admin: 01/13/18 16:57 Dose: 0.25 mg Docusate Sodium (Colace) 100 mg PO BID [facility] Stop: 02/25/18 08:59 Last Admin: 01/13/18 16:57 Dose: 100 mg Donepezil HCl (Aricept) 5 mg PO HS [facility] Stop: 03/09/18 20:59 Last Admin: 01/13/18 20:36 Dose: 5 mg Ferrous Sulfate (Iron) 325 mg PO DAILY [facility] Stop: 02/25/18 08:59 Last Admin: 01/13/18 08:47 Dose: 325 mg Lorazepam (Ativan) 0.5 mg PO Q4HR PRN; Protocol PRN Reason: Anxiety Stop: 01/26/18 02:43 Last Admin: 01/13/18 20:35 Dose: 0.5 mg Magnesium Hydroxide (Milk Of Magnesia) 30 ml PO DAILY [facility] Stop: 02/25/18 08:59 Last Admin: 01/13/18 08:47 Dose: 30 ml Metoprolol Tartrate (Lopressor) 25 mg PO DAILY [facility] Stop: 02/25/18 08:59 Last Admin: 01/13/18 08:46 Dose: 25 mg Multivitamins/Vitamin C (Theragran) 1 tab PO DAILY [facility] Stop: 02/25/18 08:59 Last Admin: 01/13/18 08:47 Dose: 1 tab Nifedipine (Procardia Xl) 30 mg PO DAILY [facility] Stop: 02/25/18 08:59 Last Admin: 01/13/18 08:47 Dose: 30 mg Quetiapine Fumarate (Seroquel) 50 mg PO BID [facility] PRN Reason: Protocol Stop: 03/01/18 06:47 Last Admin: 01/13/18 16:57 Dose: 50 mg Tamsulosin HCl (Flomax) 0.4 mg PO HS [facility] Stop: 02/25/18 20:59 Last Admin: 01/13/18 20:35 Dose: 0.4 mg Zolpidem Tartrate (Ambien) 5 mg PO HS PRN PRN Reason: Insomnia Stop: 02/25/18 02:43 Last Admin: 01/13/18 20:36 Dose: 5 mg General: demented HEENT: NC/AT, PERRLA, EOMI, anicteric sclerae, throat clear Neck: Supple, No JVD, No thyromegaly, +2 carotid pulse wo bruit, No LAD Lungs: CTAB Cardiovascular: RRR, Normal S1, Normal S2, without murmur Abdomen: non-tender, non-distended Extremities: clear Neurological: no change Internal Medicine Assmt/Plan - Assessment Assessment: 1.HTN. 2.BPH. 3.ANEMIA. 4.CKD. 5.DEMENTIA. - Plan Plan: CONTINUE ON CURRENT MEDICATION AND DIET. Nutritional Asmnt/Malnutr-PDOC - Dietary Evaluation Malnutrition Findings (Please click <Entered> for more info): Nutritional Asmnt/Malnutrition Start: 12/30/17 17: 06 Text: Status: Complete Freq: Document 12/30/17 17:06 LCJORGE ALBERTOG (Rec: 12/30/17 17:11 JORGE ALBERTOG [email or web address]) Nutritional Asmnt/Malnutrition Patient General Information Nutritional Screening Moderate Risk Diagnosis psychosis NOS Pertinent Medical Hx/Surgical Hx HTN, BPH, chronic anemia, dementia Subjective Information Per EMR, PO intake 100% Current Diet Order/ Nutrition Support regular Pertinent Medications coalce, iron, theragran, serqoeul Pertinent Labs 12/26 Na 134, BUN 42, Cr 1.5 Nutritional Hx/Data Height 1.85 m Height (Calculated Centimeters) 185.4 Current Weight (lbs) 83.915 kg Weight (Calculated Kilograms) 83.9 Weight (Calculated Grams) 08143.6 [place] Body Weight 184 Body Mass Index (BMI) 24.4 Weight Status Approriate GI Symptoms GI Symptoms None Last BM 5/6 Difficult in: None Skin Integrity/Comment: intact Current %PO Good (75-100%) Estimated Nutritional Goals BEE in Kcals: Using Current wt Calories/Kcals/Kg 25-30 Kcals Calculated 2920-9333 Protein: Using Current wt Protein g/k.8-1 Protein Calculated 67-84 Fluid: ml 2100-2520ml (1ml/kcal) Nutritional Problem 1. Problem Problem altered nutrition related labs Etiology renal dysfunction Signs/Symptoms: BUN 42, Cr 1.5 Malnutrition Alert Protein-Calorie Malnutrition N/A Is there a minimum of two criteria No selected? Query Text:Check all the applicable criteria. A minimum of two criteria are recommended for diagnosis of either severe or non-severe malnutrition. Intervention/Recommendation Comments 1. Continue with current diet as ordered. Monitor renal labs . 2. Monitor PO intake, wt, labs and skin integrity 3. F/U as moderate risk in 3-5 days, 01/02-01/04 Expected Outcomes/Goals Expected Outcomes/Goals 1. PO intake to meet at least 75% of nutritional needs. 2. Wt stability, skin to remain intact, labs to approach WNL.
--- NOTE | 2018-01-14 00:20 | Progress Notes ---
DATE: 01/13/2018 SUBJECTIVE: Case discussed with staff of the patient, reviewed records. The patient continues to be unpredictable, impulsive, needing redirection. Continues to have poor insight. Continues to be unable to make safe plan for self-care, easily agitated at times. He is compliant to the medication with no side effects, no sedation, no nausea, no extrapyramidal symptoms and we will continue outpatient group therapy, milieu therapy, and adjust the medications as needed. JOB# [id number]
[2018-01-14] MEDS: NIFEdipine 30 mg ER Tab PO SCH (08:35)
[2018-01-14] MEDS: Ferrous Sulfate 325 MG TAB PO SCH (08:35)
[2018-01-14] MEDS: Multivitamin Tab PO SCH (08:36)
[2018-01-14] MEDS: Magnesium Hydroxide (MOM) 30 mL UDC PO SCH (08:37)
--- NOTE | 2018-01-14 18:07 | Progress Notes ---
DATE: 01/14/2018 Case was discussed with staff of the patient, reviewed records. The patient continues to have poor insight. Unable to make safe plan for self-care. Continues to be unpredictable, impulsive, needing redirection, demented, confused, very poor insight. He is compliant with the medication with no side effects, no sedation or nausea, no extrapyramidal symptoms. We will continue to work with the patient in group therapy, milieu therapy, adjust medication as needed. JOB# [id number]
--- NOTE | 2018-01-14 22:29 | Internal Medicine Prog Note ---
Internal Medicine Subjective - Subjective Service Date: 01/14/18 Patient seen and examined:: with staff (HE FEELS WELL) Patient is:: awake, talking, confused Per staff patient has:: no adverse event Internal Medicine Objective - Results Result Diagrams: 12/26/17 22:20 12/26/17 22:20 Recent Labs: Laboratory Last Values WBC 5.9 Th/cmm (4.8-10.8) 12/26/17 22:20 RBC 3.30 Mil/cmm (3.80-5.80) L 12/26/17 22:20 Hgb 10.0 gm/dL (12-16) L 12/26/17 22:20 Hct 30.4 % (41.0-60) L 12/26/17 22:20 MCV 92.0 fl (80-99) 12/26/17 22:20 MCH 30.3 pg (27.0-31.0) 12/26/17 22: MCHC Differential 33.0 pg (28.0-36.0) 12/26/17 22:20 RDW 15.2 % (11.5-20.0) 12/26/17 22:20 Plt Count 233 Th/cmm (150-400) 12/26/17 22:20 MPV 6.5 fl 12/26/17 22:20 Neutrophils % 50.9 % (40.0-80.0) 12/26/17 22:20 Lymphocytes % 33.8 % (20.0-50.0) 12/26/17 22:20 Monocytes % 10.3 % (2.0-10.0) H 12/26/17 22:20 Eosinophils % 4.1 % (0.0-5.0) 12/26/17 22:20 Basophils % 0.9 % (0.0-2.0) 12/26/17 22:20 PT 10.1 SECONDS (9.5-11.5) 12/26/17 22:20 INR 0.97 (0.5-1.4) 12/26/17 22:20 Sodium 134 mEq/L (136-145) L 12/26/17 22:20 Potassium 4.4 mEq/L (3.5-5.1) 12/26/17 22:20 Chloride 100 mEq/L (98-107) 12/26/17 22:20 Carbon Dioxide 28.3 mEq/L (21.0-31.0) 12/26/17 22:20 Anion Gap 10.1 (7.0-16.0) 12/26/17 22:20 BUN 42 mg/dL (7-25) H 12/26/17 22:20 Creatinine 1.6 mg/dL (0.7-1.3) H 12/26/17 22:20 Est GFR ( Amer) 55.7 ml/min (>90) 12/26/17 22:20 Est GFR (Non-Af Amer) 46.1 ml/min 12/26/17 22:20 BUN/Creatinine Ratio 26.3 12/26/17 22:20 Glucose 96 mg/dL (70-105) 12/26/17 22:20 Calcium 9.2 mg/dL (8.6-10.3) 12/26/17 22:20 Total Bilirubin 0.3 mg/dL (0.3-1.0) 12/26/17 22:20 AST 10 U/L (13-39) L 12/26/17 22:20 ALT 8 U/L (7-52) 12/26/17 22:20 Alkaline Phosphatase 122 U/L (34-104) H 12/26/17 22:20 Troponin I 0.01 ng/mL (0.01-0.05) 12/26/17 22:20 Total Protein 6.6 gm/dL (6.0-8.3) 12/26/17 22:20 Albumin 3.8 gm/dL (4.2-5.5) L 12/26/17 22:20 Globulin 2.8 gm/dL 12/26/17 22:20 Albumin/Globulin Ratio 1.4 (1.0-1.8) 12/26/17 22:20 TSH 1.97 uIU/ml (0.34-5.60) 12/26/17 22:20 - Physical Exam Vitals and I&O: Vital Signs Temp 97.8 F 01/14/18 20:00 Pulse 63 01/14/18 20:00 Resp 18 01/14/18 20:00 BP 120/59 01/14/18 20:00 Pulse Ox 98 01/14/18 20:00 Intake & Output 0501/14/18 01/15/18 06:59 18:59 06:59 Intake Total 420 1200 Balance 420 1200 Intake: Oral 420 1200 Other: # Voids 3 4 # Bowel Movements 0 1 Active Medications: Current Medications Acetaminophen (Tylenol) 650 mg PO Q4HR PRN PRN Reason: Pain (Mild) Stop: 02/25/18 03:35 Last Admin: 12/31/17 16:44 Dose: 650 mg Al Hydrox/Mg Hydrox/Simethicone (Maalox) 30 ml PO Q4HR PRN PRN Reason: GI DISTRESS Stop: 02/25/18 02:43 Alprazolam (Xanax) 0.25 mg PO BID DORENE PRN Reason: Protocol Stop: 02/25/18 08:59 Last Admin: 01/14/18 17:40 Dose: 0.25 mg Docusate Sodium (Colace) 100 mg PO BID DORENE Stop: 02/25/18 08:59 Last Admin: 01/14/18 17:40 Dose: 100 mg Donepezil HCl (Aricept) 5 mg PO HS [facility] Stop: 03/09/18 20:59 Last Admin: 01/14/18 20:48 Dose: 5 mg Ferrous Sulfate (Iron) 325 mg PO DAILY [facility] Stop: 02/25/18 08:59 Last Admin: 01/14/18 08:35 Dose: 325 mg Lorazepam (Ativan) 0.5 mg PO Q4HR PRN; Protocol PRN Reason: Anxiety Stop: 01/26/18 02:43 Last Admin: 01/14/18 20:48 Dose: 0.5 mg Magnesium Hydroxide (Milk Of Magnesia) 30 ml PO DAILY [facility] Stop: 02/25/18 08:59 Last Admin: 01/14/18 08:37 Dose: Not Given Metoprolol Tartrate (Lopressor) 25 mg PO DAILY [facility] Stop: 02/25/18 08:59 Last Admin: 01/14/18 08:36 Dose: 25 mg Multivitamins/Vitamin C (Theragran) 1 tab PO DAILY [facility] Stop: 02/25/18 08:59 Last Admin: 01/14/18 08:36 Dose: 1 tab Nifedipine (Procardia Xl) 30 mg PO DAILY [facility] Stop: 02/25/18 08:59 Last Admin: 01/14/18 08:35 Dose: 30 mg Quetiapine Fumarate (Seroquel) 50 mg PO BID [facility] PRN Reason: Protocol Stop: 03/01/18 06:47 Last Admin: 01/14/18 17:40 Dose: 50 mg Tamsulosin HCl (Flomax) 0.4 mg PO HS [facility] Stop: 02/25/18 20:59 Last Admin: 01/14/18 20:48 Dose: 0.4 mg Zolpidem Tartrate (Ambien) 5 mg PO HS PRN PRN Reason: Insomnia Stop: 02/25/18 02:43 Last Admin: 01/14/18 20:48 Dose: 5 mg General: demented HEENT: NC/AT, PERRLA, EOMI, anicteric sclerae, throat clear Neck: Supple, No JVD, No thyromegaly, +2 carotid pulse wo bruit, No LAD Lungs: CTAB Cardiovascular: RRR, Normal S1, Normal S2, without murmur Abdomen: non-tender, non-distended Extremities: clear Neurological: no change Internal Medicine Assmt/Plan - Assessment Assessment: 1.HTN. 2.BPH. 3.ANEMIA. 4.CKD. 5.DEMENTIA. - Plan Plan: CONTINUE ON CURRENT MEDICATION AND DIET. Nutritional Asmnt/Malnutr-PDOC - Dietary Evaluation Malnutrition Findings (Please click <Entered> for more info): Nutritional Asmnt/Malnutrition Start: 12/30/17 17: 06 Text: Status: Complete Freq: Document 12/30/17 17:06 LCJORGE ALBERTOG (Rec: 12/30/17 17:11 JORGE ALBERTOG [email or web address]) Nutritional Asmnt/Malnutrition Patient General Information Nutritional Screening Moderate Risk Diagnosis psychosis NOS Pertinent Medical Hx/Surgical Hx HTN, BPH, chronic anemia, dementia Subjective Information Per EMR, PO intake 100% Current Diet Order/ Nutrition Support regular Pertinent Medications coalce, iron, theragran, serqoeul Pertinent Labs 12/26 Na 134, BUN 42, Cr 1.5 Nutritional Hx/Data Height 1.85 m Height (Calculated Centimeters) 185.4 Current Weight (lbs) 83.915 kg Weight (Calculated Kilograms) 83.9 Weight (Calculated Grams) 28870.6 [place] Body Weight 184 Body Mass Index (BMI) 24.4 Weight Status Approriate GI Symptoms GI Symptoms None Last BM 5/6 Difficult in: None Skin Integrity/Comment: intact Current %PO Good (75-100%) Estimated Nutritional Goals BEE in Kcals: Using Current wt Calories/Kcals/Kg 25-30 Kcals Calculated 6783-3180 Protein: Using Current wt Protein g/k.8-1 Protein Calculated 67-84 Fluid: ml 2100-2520ml (1ml/kcal) Nutritional Problem 1. Problem Problem altered nutrition related labs Etiology renal dysfunction Signs/Symptoms: BUN 42, Cr 1.5 Malnutrition Alert Protein-Calorie Malnutrition N/A Is there a minimum of two criteria No selected? Query Text:Check all the applicable criteria. A minimum of two criteria are recommended for diagnosis of either severe or non-severe malnutrition. Intervention/Recommendation Comments 1. Continue with current diet as ordered. Monitor renal labs . 2. Monitor PO intake, wt, labs and skin integrity 3. F/U as moderate risk in 3-5 days, 01/02-01/04 Expected Outcomes/Goals Expected Outcomes/Goals 1. PO intake to meet at least 75% of nutritional needs. 2. Wt stability, skin to remain intact, labs to approach WNL.
[2018-01-15] MEDS: Magnesium Hydroxide (MOM) 30 mL UDC PO SCH (08:36)
[2018-01-15] MEDS: NIFEdipine 30 mg ER Tab PO SCH (08:59)
[2018-01-15] MEDS: Multivitamin Tab PO SCH (09:00)
[2018-01-15] MEDS: Ferrous Sulfate 325 MG TAB PO SCH (09:00)
--- NOTE | 2018-01-15 15:46 | Discharge Summary ---
DATE OF DISCHARGE: 01/15/2018 Case was discussed with staff of the patient, reviewed records. The patient is doing well, stable. Sleeping well, eating well. No suicidal ideation, homicidal ideation, no paranoia, no side effects with the medication and easy to redirect. The patient will be discharged back to [place]. JOB# [id number]
--- NOTE | 2018-01-15 15:52 | Internal Medicine Prog Note ---
Internal Medicine Subjective - Subjective Service Date: 01/15/18 Patient seen and examined:: with staff Patient is:: awake, talking, confused Per staff patient has:: no adverse event Internal Medicine Objective - Results Result Diagrams: 12/26/17 22:20 12/26/17 22:20 Recent Labs: Laboratory Last Values WBC 5.9 Th/cmm (4.8-10.8) 12/26/17 22:20 RBC 3.30 Mil/cmm (3.80-5.80) L 12/26/17 22:20 Hgb 10.0 gm/dL (12-16) L 12/26/17 22:20 Hct 30.4 % (41.0-60) L 12/26/17 22:20 MCV 92.0 fl (80-99) 12/26/17 22:20 MCH 30.3 pg (27.0-31.0) 12/26/17 22:20 MCHC Differential 33.0 pg (28.0-36.0) 12/26/17 22:20 RDW 15.2 % (11.5-20.0) 12/26/17 22:20 Plt Count 233 Th/cmm (150-400) 12/26/17 22:20 MPV 6.5 fl 12/26/17 22:20 Neutrophils % 50.9 % (40.0-80.0) 12/26/17 22:20 Lymphocytes % 33.8 % (20.0-50.0) 12/26/17 22:20 Monocytes % 10.3 % (2.0-10.0) H 12/26/17 22:20 Eosinophils % 4.1 % (0.0-5.0) 12/26/17 22:20 Basophils % 0.9 % (0.0-2.0) 12/26/17 22:20 PT 10.1 SECONDS (9.5-11.5) 12/26/17 22:20 INR 0.97 (0.5-1.4) 12/26/17 22:20 Sodium 134 mEq/L (136-145) L 12/26/17 22:20 Potassium 4.4 mEq/L (3.5-5.1) 12/26/17 22:20 Chloride 100 mEq/L (98-107) 12/26/17 22:20 Carbon Dioxide 28.3 mEq/L (21.0-31.0) 12/26/17 22:20 Anion Gap 10.1 (7.0-16.0) 12/26/17 22:20 BUN 42 mg/dL (7-25) H 12/26/17 22:20 Creatinine 1.6 mg/dL (0.7-1.3) H 12/26/17 22:20 Est GFR ( Amer) 55.7 ml/min (>90) 12/26/17 22:20 Est GFR (Non-Af Amer) 46.1 ml/min 12/26/17 22:20 BUN/Creatinine Ratio 26.3 12/26/17 22:20 Glucose 96 mg/dL (70-105) 12/26/17 22:20 Calcium 9.2 mg/dL (8.6-10.3) 12/26/17 22:20 Total Bilirubin 0.3 mg/dL (0.3-1.0) 12/26/17 22:20 AST 10 U/L (13-39) L 12/26/17 22:20 ALT 8 U/L (7-52) 12/26/17 22:20 Alkaline Phosphatase 122 U/L (34-104) H 12/26/17 22:20 Troponin I 0.01 ng/mL (0.01-0.05) 12/26/17 22:20 Total Protein 6.6 gm/dL (6.0-8.3) 12/26/17 22:20 Albumin 3.8 gm/dL (4.2-5.5) L 12/26/17 22:20 Globulin 2.8 gm/dL 12/26/17 22:20 Albumin/Globulin Ratio 1.4 (1.0-1.8) 12/26/17 22:20 TSH 1.97 uIU/ml (0.34-5.60) 12/26/17 22:20 - Physical Exam Vitals and I&O: Vital Signs Temp 96.9 F 01/15/18 14:01 Pulse 74 01/15/18 14:01 Resp 20 01/15/18 14:01 BP 135/70 01/15/18 14:01 Pulse Ox 97 01/15/18 14:01 Intake & Output 01/14/18 01/15/18 01/15/18 18:59 06:59 18:59 Intake Total 1200 120 Balance 1200 120 Intake: Oral 1200 120 Other: # Voids 4 3 # Bowel Movements 1 Active Medications: Current Medications Acetaminophen (Tylenol) 650 mg PO Q4HR PRN PRN Reason: Pain (Mild) Stop: 02/25/18 03:35 Last Admin: 01/15/18 14:35 Dose: 650 mg Al Hydrox/Mg Hydrox/Simethicone (Maalox) 30 ml PO Q4HR PRN PRN Reason: GI DISTRESS Stop: 02/25/18 02:43 Alprazolam (Xanax) 0.25 mg PO BID [facility]ERNE PRN Reason: Protocol Stop: 02/25/18 08:59 Last Admin: 01/15/18 08:59 Dose: 0.25 mg Docusate Sodium (Colace) 100 mg PO BID [facility] Stop: 02/25/18 08:59 Last Admin: 01/15/18 08:59 Dose: 100 mg Donepezil HCl (Aricept) 5 mg PO HS [facility] Stop: 03/09/18 20:59 Last Admin: 01/14/18 20:48 Dose: 5 mg Ferrous Sulfate (Iron) 325 mg PO DAILY [facility] Stop: 02/25/18 08:59 Last Admin: 01/15/18 09:00 Dose: 325 mg Lorazepam (Ativan) 0.5 mg PO Q4HR PRN; Protocol PRN Reason: Anxiety Stop: 01/26/18 02:43 Last Admin: 01/14/18 20:48 Dose: 0.5 mg Magnesium Hydroxide (Milk Of Magnesia) 30 ml PO DAILY [facility] Stop: 02/25/18 08:59 Last Admin: 01/15/18 08:36 Dose: Not Given Metoprolol Tartrate (Lopressor) 25 mg PO DAILY [facility] Stop: 02/25/18 08:59 Last Admin: 01/15/18 09:00 Dose: 25 mg Multivitamins/Vitamin C (Theragran) 1 tab PO DAILY [facility] Stop: 02/25/18 08:59 Last Admin: 01/15/18 09:00 Dose: 1 tab Nifedipine (Procardia Xl) 30 mg PO DAILY [facility] Stop: 02/25/18 08:59 Last Admin: 01/15/18 08:59 Dose: 30 mg Quetiapine Fumarate (Seroquel) 50 mg PO BID [facility] PRN Reason: Protocol Stop: 03/01/18 06:47 Last Admin: 01/15/18 09:00 Dose: 50 mg Tamsulosin HCl (Flomax) 0.4 mg PO HS [facility] Stop: 02/25/18 20:59 Last Admin: 01/14/18 20:48 Dose: 0.4 mg Zolpidem Tartrate (Ambien) 5 mg PO HS PRN PRN Reason: Insomnia Stop: 02/25/18 02:43 Last Admin: 01/14/18 20:48 Dose: 5 mg General: demented HEENT: NC/AT, PERRLA, EOMI, anicteric sclerae, throat clear Neck: Supple, No JVD, No thyromegaly, +2 carotid pulse wo bruit, No LAD Lungs: CTAB Cardiovascular: RRR, Normal S1, Normal S2, without murmur Abdomen: non-tender, non-distended Extremities: clear Neurological: no change Internal Medicine Assmt/Plan - Assessment Assessment: 1.HTN. 2.BPH. 3.ANEMIA. 4.CKD. 5.DEMENTIA. - Plan Plan: CONTINUE ON CURRENT MEDICATION AND DIET. Nutritional Asmnt/Malnutr-PDOC - Dietary Evaluation Malnutrition Findings (Please click <Entered> for more info): Nutritional Asmnt/Malnutrition Start: 12/30/17 17: 06 Text: Status: Complete Freq: Document 12/30/17 17:06 LCHENG (Rec: 12/30/17 17:11 LCHENG [email or web address]) Nutritional Asmnt/Malnutrition Patient General Information Nutritional Screening Moderate Risk Diagnosis psychosis NOS Pertinent Medical Hx/Surgical Hx HTN, BPH, chronic anemia, dementia Subjective Information Per EMR, PO intake 100% Current Diet Order/ Nutrition Support regular Pertinent Medications coalce, iron, theragran, serqoeul Pertinent Labs 12/26 Na 134, BUN 42, Cr 1.5 Nutritional Hx/Data Height 1.85 m Height (Calculated Centimeters) 185.4 Current Weight (lbs) 83.915 kg Weight (Calculated Kilograms) 83.9 Weight (Calculated Grams) 21179.6 [place] Body Weight 184 Body Mass Index (BMI) 24.4 Weight Status Approriate GI Symptoms GI Symptoms None Last BM 5/6 Difficult in: None Skin Integrity/Comment: intact Current %PO Good (75-100%) Estimated Nutritional Goals BEE in Kcals: Using Current wt Calories/Kcals/Kg 25-30 Kcals Calculated 4273-5890 Protein: Using Current wt Protein g/k.8-1 Protein Calculated 67-84 Fluid: ml 2100-2520ml (1ml/kcal) Nutritional Problem 1. Problem Problem altered nutrition related labs Etiology renal dysfunction Signs/Symptoms: BUN 42, Cr 1.5 Malnutrition Alert Protein-Calorie Malnutrition N/A Is there a minimum of two criteria No selected? Query Text:Check all the applicable criteria. A minimum of two criteria are recommended for diagnosis of either severe or non-severe malnutrition. Intervention/Recommendation Comments 1. Continue with current diet as ordered. Monitor renal labs . 2. Monitor PO intake, wt, labs and skin integrity 3. F/U as moderate risk in 3-5 days, 01/02-01/04 Expected Outcomes/Goals Expected Outcomes/Goals 1. PO intake to meet at least 75% of nutritional needs. 2. Wt stability, skin to remain intact, labs to approach WNL.
[2018-01-16] MEDS: NIFEdipine 30 mg ER Tab PO SCH (08:29)
[2018-01-16] MEDS: Multivitamin Tab PO SCH (08:29)
[2018-01-16] MEDS: Ferrous Sulfate 325 MG TAB PO SCH (08:30)
[2018-01-16] MEDS: Magnesium Hydroxide (MOM) 30 mL UDC PO SCH (08:31)
--- NOTE | 2018-01-16 13:04 | Discharge Summary ---
DATE OF DISCHARGE: 01/16/2018 IDENTIFYING INFORMATION: The patient is a 67-year-old male. HISTORY OF PRESENT ILLNESS: The patient was admitted to the hospital because of increasing agitation and aggressive behavior. The patient also has been confused, disruptive to others. He is still unable to follow staff direction in [facility], was transferred to the hospital. The patient was very irritable, agitated, restless, unable to follow directions or instructions from the staff, has been combative. History of psychosis, dementia. COURSE IN THE HOSPITAL: The patient was seen first by Dr. Aldana who managed his medication. He was on Xanax 0.5 mg twice a day, Aricept was initiated by hi on 01/08/2018 5 mg at bedtime, iron 325 mg daily, metoprolol 25 mg daily, multivitamin 1 tablet daily. He was on nifedipine [address] Aldana added Seroquel 50 mg twice a day as well as Flomax ____ mg daily. The patient progressively got better. He was sleeping well, eating well. He was no longer acting in anyway dangerous or disruptive. So, as he improved, he was doing well, sleeping well, eating well, no acting out behavior. He is still demented, confused. We felt he could be discharged to a lesser level of care. FINAL DIAGNOSES: 1. Psychosis, not otherwise specified. 2. Dementia. MEDICAL DIAGNOSES: 1. Hypertension. 2. Benign prostatic hypertrophy. 3. Chronic anemia. DISPOSITION AND INSTRUCTIONS: The patient will be discharged to [facility]. He will follow up with the psychiatrist and Dr. Ho. EXPECTED OUTCOME: Stable if the patient complies with the above. [facility]# [id number]
== END 2018-01-16 12:15 | DRG 885 ==
LOC: ER 21:49 → GERO2 12-27 00:40 → GERO 12-27 20:36
PROVIDERS: ADMIT Psychiatry & Neurology Psychiatry; ATTEND Psychiatry & Neurology Psychiatry
DX: F29 Unspecified psychosis not due to a substance or known physiological condition (principal); N18.9 Chronic kidney disease, unspecified; N40.0 Benign prostatic hyperplasia without lower urinary tract symptoms; D64.9 Anemia, unspecified; F03.90 Unspecified dementia, unspecified severity, without behavioral disturbance, psychotic disturbance, mood disturbance, and anxiety; I12.9 Hypertensive chronic kidney disease with stage 1 through stage 4 chronic kidney disease, or unspecified chronic kidney disease
CPT/HCPCS: 36415-UA; 71045-TC; 80053-TC; 84443-TC; 84484-TC; 85025-TC; 85610-TC; 93005; G0410; J1200; J1630; J2060; Z7610

== ENCOUNTER 2018-05-01 20:48 | Inpatient (IN) | payer MEDICARE, MEDICAID ==
[2018-05-01 21:29] LABS: URINE SOURCE CLEAN C
[2018-05-01 21:30] LABS: % BASOPHILS 0.6 % (0.0-2.0); % EOSINOPHILS 4.8 % (0.0-5.0); % LYMPHOCYTES 37.4 % (20.0-50.0); % MONOCYTES 8.3 % (2.0-10.0); % NEUTROPHILS 48.9 % (40.0-80.0); EOSINOPHILE ABSOLUTE 0.3 Th/cmm (0.1-0.4); HEMATOCRIT 35.1 % (41.0-60); HEMOGLOBIN 11.7 gm/dL (12-16); LYMPHOCYTE ABSOLUTE 2.1 Th/cmm (1.5-3.0); MEAN CELL VOLUME 91.8 fl (80-99); MEAN CORPUSCULAR HEMOGLOBIN 30.5 pg (27.0-31.0); MEAN CORPUSCULAR HGB CONC 33.2 pg (28.0-36.0); MEAN PLATELET VOLUME 6.9 fl; MONOCYTE ABSOLUTE 0.5 Th/cmm (0.3-1.0); NEUTROPHILE ABSOLUTE 2.8 Th/cmm (1.8-8.0); PLATELET COUNT 181 Th/cmm (150-400); RED BLOOD COUNT 3.83 Mil/cmm (3.80-5.80); RED CELL DISTRIBUTION WIDTH 14.3 % (11.5-20.0); WHITE BLOOD COUNT 5.7 Th/cmm (4.8-10.8)
[2018-05-01 21:39] LABS: URINE BILIRUBIN NEGATIVE (NEGATIVE); URINE BLOOD NEGATIVE (NEGATIVE); URINE CLARITY CLEAR (CLEAR); URINE COLOR YELLOW; URINE GLUCOSE (UA) NEGATIVE (NEGATIVE); URINE KETONE NEGATIVE (NEGATIVE); URINE LEUKOCYTE ESTERASE NEGATIVE (NEGATIVE); URINE MICROSCOPIC INDICATED? YES; URINE NITRATE NEGATIVE (NEGATIVE); URINE PROTEIN NEGATIVE (NEGATIVE); URINE UROBILINOGEN 0.2 E.U./dL (0.2 - 1.0)
[2018-05-01 21:44] LABS: URINE BACTERIA OCCASIONAL /hpf (NONE SEEN); URINE EPITHELIAL CELLS FEW /lpf (FEW); URINE RBC NONE SEEN /hpf (0-5); URINE WBC 0-2 /hpf (0-5)
[2018-05-01 21:51] LABS: AMPHETAMINE URINE NEGATIVE (NEGATIVE); BARBITURATES URINE NEGATIVE (NEGATIVE); BENZODIAZEPINES QUAL URINE NEGATIVE (NEGATIVE); CANNABINOID THC NEGATIVE (NEGATIVE); COCAINE METABOLITE QUAL URINE NEGATIVE (NEGATIVE); METHADONE URINE NEGATIVE (NEGATIVE); METHAMPHETAMINES QUAL URINE NEGATIVE (NEGATIVE); OPIATES (MORPHINE) QUAL. URINE NEGATIVE (NEGATIVE); PHENCYCLIDINE (PCP) URINE NEGATIVE (NEGATIVE); TRICYCLICS (TCA) QUAL. URINE NEGATIVE (NEGATIVE)
[2018-05-01 22:05] LABS: ACETAMINOPHEN < 10.0 ug/mL (10.0-30.0); ALB/GLOB RATIO 1.4 (1.0-1.8); ALBUMIN 3.9 gm/dL (4.2-5.5); ALKALINE PHOSPHATASE 133 U/L (34-104); ANION GAP 10.5 (7.0-16.0); BILIRUBIN,TOTAL 0.3 mg/dL (0.3-1.0); BUN - UREA NITROGEN 39 mg/dL (7-25); CALCIUM SERUM 9.6 mg/dL (8.6-10.3); CARBON DIOXIDE 27.9 mEq/L (21.0-31.0); CHLORIDE 102 mEq/L (98-107); CREATININE - SERUM 1.4 mg/dL (0.7-1.3); GFR AFRICAN-AMERICAN > 60.0 ml/min (>90); GFR NON AFRICAN-AMERICAN 53.7 ml/min; GLUCOSE 97 mg/dL (70-105); MAGNESIUM 2.2 mg/dL (1.9-2.7); PHOSPHOROUS 3.9 mg/dL (2.5-5.0); POTASSIUM SERUM 4.4 mEq/L (3.5-5.1); SGOT 13 U/L (13-39); SGPT/ALT 8 U/L (7-52); SODIUM SERUM 136 mEq/L (136-145); TOTAL PROTEIN,SERUM 6.6 gm/dL (6.0-8.3)
--- NOTE | 2018-05-01 22:15 | ED Physician Chart ---
ED Chief Complaint/HPI - Patient Information Date Seen:: 05/01/18 Time Seen:: 20:50 Chief Complaint:: increased agitation History of Present Illness:: increased agitation Allergies:: Allergies Allergy/AdvReac Type Severity Reaction Status Date / Time No Known Allergies Allergy Verified 12/26/17 22:44 Vitals:: Vital Signs - 8 hr 05/01/18 20:49 HR 64 RR 18 BP 161/62 O2 Sat % 97 Historian:: Medical Records Review:: Nurse's Note Reviewed, Transfer documents Reviewed ED Review of Systems - Review of Systems General/Constitutional: No fever, No chills, No weight loss, No weakness, No diaphoresis, No edema, No loss of appetite Skin: No skin lesions, No rash, No bruising Head: No headache, No light-headedness Eyes: No loss of vision, No pain, No diplopia ENT: No earache, No nasal drainage, No sore throat, No tinnitus Neck: No neck pain, No swelling, No thyromegaly, No stiffness, No mass noted Cardio Vascular: No chest pain, No palpitations, No PND, No orthopnea, No edema Pulmonary: No SOB, No cough, No sputum, No wheezing GI: No nausea, No vomiting, No diarrhea, No pain, No melena, No hematochezia, No constipation, No hematemesis G/U: No dysuria, No frequency, No hematuria Musculoskeletal: No bone or joint pain, No back pain, No muscle pain Endocrine: No polyuria, No polydipsia Psychiatric: Prior psych history, Other (increased agitation and psychosis) Hematopoietic: No bruising, No lymphadenopathy Allergic/Immuno: No urticaria, No angioedema Neurological: No syncope, No focal symptoms, No weakness, No paresthesia, No headache, No seizure, No dizziness, No confusion, No vertigo ED Past Medical History - Past Medical History Past Medical History: HTN, Arthritis, Dementia, Other (anemia; BPH, obstructive uropathy) Psychiatricy History: Depression, Schizophrenia, Dementia, Other (anxiety disorder) Family Medical History - Family Member Mother History Unknown: Yes ED Physical Exam - Physical Examination General/Constitutional: Awake, Well-developed, well-nourished, Alert, Non-toxic appearing, Ambulatory Head: Atraumatic Eyes: Lids, conjuctiva normal, PERRL, EOMI Skin: Nl inspection, No rash, No skin lesions, No ecchymosis, Well hydrated, No lymphadenopathy Other Skin comments:: forehead and scalp scar near midline ENMT: External ears, nose nl Neck: Nontender, Full ROM w/o pain, No JVD, No nuchal rigidity, No bruit, No mass, No stridor Respiratory: Nl effort/Exclusion, Clear to Auscultation, No Wheeze/Rhonchi/Rales Cardio Vascular: RRR, No murmur, gallop, rubs, NL S1 S2 GI: No tenderness/rebounding/guarding, No organomegaly, No hernia, Normal BS's, Nondistended, No mass/bruits, No McBurney tenderness : No CVA tenderness Extremities: No tenderness or effusion, Full ROM, normal strength in all extremities, No edema, Normal digits & nails Neuro/Psych: Alert/oriented, Normal sensory exam, Normal motor strength, Judgement/insight normal, Mood normal, Normal gait, No focal deficits Misc: Normal back, No paraspinal tenderness ED Labs/Radiology/EKG Results - Lab Results Results: Laboratory Tests 05/01/18 05/01/18 05/01/18 21:25 21:25 21:25 WBC 5.7 RBC 3.83 Hgb 11.7 L Hct 35.1 L MCV 91.8 MCH 30.5 MCHC Differential 33.2 RDW 14.3 Plt Count 181 MPV 6.9 Neutrophils % 48.9 Lymphocytes % 37.4 Monocytes % 8.3 Eosinophils % 4.8 Basophils % 0.6 Sodium 136 Potassium 4.4 Chloride 102 Carbon Dioxide 27.9 Anion Gap 10.5 BUN 39 H Creatinine 1.4 H Est GFR ( Amer) > 60.0 Est GFR (Non-Af Amer) 53.7 BUN/Creatinine Ratio 27.9 Glucose 97 Calcium 9.6 Phosphorus 3.9 Magnesium 2.2 Total Bilirubin 0.3 AST 13 ALT 8 Alkaline Phosphatase 133 H Total Protein 6.6 Albumin 3.9 L Globulin 2.7 Albumin/Globulin Ratio 1.4 Urine Source CLEAN C Urine Color YELLOW Urine Clarity CLEAR Urine pH 6.0 Ur Specific [place] <= 1.005 Urine Protein NEGATIVE Urine Glucose (UA) NEGATIVE Urine Ketones NEGATIVE Urine Blood NEGATIVE Urine Nitrate NEGATIVE Urine Bilirubin NEGATIVE Urine Urobilinogen 0.2 Ur Leukocyte Esterase NEGATIVE Urine RBC NONE SEEN Urine WBC 0-2 Ur Epithelial Cells FEW Urine Bacteria OCCASIONAL Urine Mucus FEW Urine Opiates Screen Urine Methadone Screen Acetaminophen < 10.0 L Ur Barbiturates Screen Ur Tricyclics Screen Ur Phencyclidine Scrn Amphetamines Screen U Methamphetamines Scrn U Benzodiazepines Scrn U Cocaine Metab Screen U Cannabinoids Screen 05/01/18 21:25 WBC RBC Hgb Hct MCV MCH MCHC Differential RDW Plt Count MPV Neutrophils % Lymphocytes % Monocytes % Eosinophils % Basophils % Sodium Potassium Chloride Carbon Dioxide Anion Gap BUN Creatinine Est GFR ( Amer) Est GFR (Non-Af Amer) BUN/Creatinine Ratio Glucose Calcium Phosphorus Magnesium Total Bilirubin AST ALT Alkaline Phosphatase Total Protein Albumin Globulin Albumin/Globulin Ratio Urine Source Urine Color Urine Clarity Urine pH Ur Specific [place] Urine Protein Urine Glucose (UA) Urine Ketones Urine Blood Urine Nitrate Urine Bilirubin Urine Urobilinogen Ur Leukocyte Esterase Urine RBC Urine WBC Ur Epithelial Cells Urine Bacteria Urine Mucus Urine Opiates Screen NEGATIVE Urine Methadone Screen NEGATIVE Acetaminophen Ur Barbiturates Screen NEGATIVE Ur Tricyclics Screen NEGATIVE Ur Phencyclidine Scrn NEGATIVE Amphetamines Screen NEGATIVE U Methamphetamines Scrn NEGATIVE U Benzodiazepines Scrn NEGATIVE U Cocaine Metab Screen NEGATIVE U Cannabinoids Screen NEGATIVE ED Assessment - Assessment General Assessment: resting comfortably. very cooperative. Assessment/Comments:: patient cleared medically to go to the geropsych unit. ED Septic Shock - . Is Septic Shock (SBP<90, OR Lactate>4 mmol\L) present?: No - <6hrs of presentation: Vital Signs: Vital Signs - 8 hr 05/01/18 20:49 HR 64 RR 18 BP 161/62 O2 Sat % 97 ED Reassessment (Disposition) - Reassessment Reassessment Condition:: Unchanged - Diagnosis Diagnosis:: Psychosis paranoid schizophrenia Major depressive disorder Generalized anxiety disorder Increased agitation Unspecified dementia with behavioral disturbance Chronic kidney disease, unspecified Obstructive and reflux uropathy, unspecified Benign prostatic hyperplasia without lower urinary tract symptoms Hypertension Muscle wasting and atrophy Unspecified abnormalies of gait and mobility Unsteadiness on feet Dysphagia, oropharyngeal phase Anemia, unspecified Alcohol abuse, uncomplicated - Patient Disposition Discharge/Transfer:: Acute Care w/in this hosp Admitted to:: [facility] Condition at Disposition:: Stable, Unchanged
[2018-05-02 00:11] VITALS: BP 147/98
[2018-05-02 07:49] LABS: CHOLESTEROL 168 mg/dL (<200); HDL -HIGH DENSITY LIPOPROTEIN 51 mg/dL (23-92); TRIGLYCERIDES 70 mg/dL (<150)
[2018-05-02] MEDS: Ferrous Sulfate 325 MG TAB PO SCH (09:00)
[2018-05-02] MEDS ORDERED: NIFEDIPINE 30 MG PO SCH (09:00)
[2018-05-02] MEDS: NIFEdipine 30 mg ER Tab PO SCH (09:00)
[2018-05-02] MEDS: Magnesium Hydroxide (MOM) 30 mL UDC PO SCH (09:00)
[2018-05-02] MEDS: Multivitamin Tab PO SCH (09:00)
--- NOTE | 2018-05-02 19:44 | History & Physical ---
ADMIT DATE: 05/02/2018 HISTORY OF PRESENT ILLNESS: The patient is a 67-year-old male with long history of hypertension, benign prostatic hypertrophy, mild anemia, dementia, admitted to [facility] under Dr. Yanez's service for evaluation and treatment. The patient admitted to [facility]. The patient denies any chest pain, shortness of breath, nausea, vomiting, fever or chills. PAST MEDICAL HISTORY: Significant for hypertension, benign prostatic hypertrophy, mild anemia and dementia. PAST SURGICAL HISTORY: No recent surgery. ALLERGIES: None. MEDICATIONS: He is on acetaminophen, melatonin, ascorbic acid, Flomax, Seroquel, nifedipine, multivitamin, metoprolol and magnesium hydroxide. SOCIAL HISTORY: No smoking, no alcohol. FAMILY HISTORY: Noncontributory. REVIEW OF SYSTEMS: IMMUNE SYSTEM: No history of chronic immune disorder. CARDIOVASCULAR SYSTEM: He has history of hypertension. ENDOCRINE SYSTEM: No diabetes or thyroid problem. GASTROINTESTINAL SYSTEM: No upper or lower gastrointestinal bleed. NEUROLOGICAL SYSTEM: No seizure disorder. SKELETOMUSCULOSKELETAL SYSTEM: No muscular dystrophy. HEMATOLOGICAL SYSTEM: No bleeding tendency. RESPIRATORY SYSTEM: No asthma. GENITOURINARY SYSTEM: Has benign prostatic hypertrophy. PHYSICAL EXAMINATION: GENERAL: He is awake, alert, mildly confused. VITAL SIGNS: Temperature 98.5, heart rate 61 and blood pressure 137/58. HEENT: Normocephalic. Pupils reacting equal to light and accommodation. Sclerae clear. NECK: Supple. Negative for lymphadenopathy, JVD or bruit. CHEST: Air bilateral normal. No rhonchi or wheezing. HEART: S1 and S2 normal. No murmur or gallop rhythm. ABDOMEN: Soft, bowel sounds positive. EXTREMITIES: No edema. NEUROLOGIC: He is awake, alert, not fully oriented. No focal motor or sensory deficits. LABORATORY DATA: White blood cell 5.7, hemoglobin 11.7, hematocrit 35 and platelets 181. Sodium 136, potassium 4.4, BUN 39, creatinine 0.4 and glucose 97. ASSESSMENT: 1. Hypertension. 2. Benign prostatic hypertrophy. 3. Anemia. 4. Dementia. PLAN: The patient admitted to the hospital under Dr. Yanez's service. Medical problems addressed during hospitalization are dementia and psychosis. Medical problems addressed at discharge are hypertension and benign prostatic hypertrophy. The patient is medically stable for activity. Thank you, Dr. Yanez, for asking me to see your patient. JOB# [id number]
[2018-05-03] MEDS: Multivitamin Tab PO SCH (08:44)
[2018-05-03] MEDS: Magnesium Hydroxide (MOM) 30 mL UDC PO SCH (08:44)
[2018-05-03] MEDS: NIFEdipine 30 mg ER Tab PO SCH (08:44)
[2018-05-03] MEDS: Ferrous Sulfate 325 MG TAB PO SCH (08:45)
--- NOTE | 2018-05-03 09:16 | Psychiatric Evaluation ---
DATE OF SERVICE: 05/02/2018 The patient was seen and evaluated. The patient's chart reviewed. This is Dr. Reese covering for Dr. Yanez during initial psychiatric evaluation. CHIEF COMPLAINT: Disorganized thought process. JUSTIFICATION FOR ADMISSION: Brought in here for increased disorganized thought process and increased agitation, medically cleared. HISTORY OF PRESENT ILLNESS: The patient is a 67-year-old male with a previous history of chronic schizophrenia, presents very disorganized, brought in here for agitated behavior, medically cleared. Upon [id number] evaluation, he is very difficult to be interviewed, he has disorganized thought processes, makes it very difficult and needs a lot of redirections. Upon interview when attempted to initiate conversation, the patient just walks away and then comes back, mumbles and then walks away and unable to formulate much more information beyond that. ALLERGIES TO MEDICATIONS: NKDA. ____ stable. CURRENT MEDICAL PROBLEMS: Include dementia, CKD, COPD, BPH, hypertension, abnormalities of gait and mobility, unsteadiness, dysphagia. PAST PSYCHIATRIC HISTORY: History of depression, generalized anxiety, dementia and psychosis. MEDICATIONS: [place] current medication regimen includes Aricept 5 mg a day, bacitracin, Colace, ferrous sulfate, Flomax, melatonin, metoprolol, ____, multivitamin, Seroquel 50 mg twice a day. LEGAL HISTORY: Unknown. FAMILY PSYCHIATRIC HISTORY: Unknown. PSYCHOSOCIAL ENVIRONMENTAL HISTORY: Denies any history of alcohol or drug use. LABORATORY DATA: Reviewed. MENTAL STATUS EXAMINATION: He is irritable, is isolated, pacing, distraught, walking in and out, disorganized thought process, delusional, unable to assess his fund of information, fund of knowledge. Recent and remote memory, the patient continues to easily be irritated and refusing to be interviewed. PRIMARY DIAGNOSIS: Unspecified psychosis, rule out schizophrenia. SECONDARY DIAGNOSES: History of alcohol use in the past. MEDICAL DIAGNOSES: As noted above. ASSESSMENT AND PLAN: A 67-year-old male with a history of schizophrenia, who presented disorganized and delusional, medically cleared ____ and continued treating the patient appropriately. We will continue monitoring and evaluate. We will continue with the current medication regimen and continue adjusted as needed. Estimated stay between 5-10 days. DISCHARGE CRITERIA: Demonstrate euthymic mood. No suicidal or homicidal ideation. Good psychiatric followup. Good [id number] interaction. [facility]# [id number]
--- NOTE | 2018-05-03 13:42 | Internal Medicine Prog Note ---
Internal Medicine Subjective - Subjective Service Date: 05/03/18 Patient seen and examined:: with staff Patient is:: awake, verbal, in bed, confused Per staff patient has:: no adverse event Internal Medicine Objective - Results Result Diagrams: 05/01/18 21:25 05/01/18 21:25 Recent Labs: Laboratory Last Values WBC 5.7 Th/cmm (4.8-10.8) 05/01/18 21:25 RBC 3.83 Mil/cmm (3.80-5.80) 05/01/18 21:25 Hgb 11.7 gm/dL (12-16) L 05/01/18 21:25 Hct 35.1 % (41.0-60) L 05/01/18 21:25 MCV 91.8 fl (80-99) 05/01/18 21:25 MCH 30.5 pg (27.0-31.0) 05/01/18: MCHC Differential 33.2 pg (28.0-36.0) 05/01/18:25 RDW 14.3 % (11.5-20.0) 05/01/18 21:25 Plt Count 181 Th/cmm (150-400) 05/01/18 21: MPV 6.9 fl 05/01/18 21:25 Neutrophils % 48.9 % (40.0-80.0) 05/01/18 21:25 Lymphocytes % 37.4 % (20.0-50.0) 05/01/18 21: Monocytes % 8.3 % (2.0-10.0) 05/01/18 21:25 Eosinophils % 4.8 % (0.0-5.0) 05/01/18 21:25 Basophils % 0.6 % (0.0-2.0) 05/01/18 21:25 Sodium 136 mEq/L (136-145) 05/01/18 21:25 Potassium 4.4 mEq/L (3.5-5.1) 05/01/18 21:25 Chloride 102 mEq/L (98-107) 05/01/18 21:25 Carbon Dioxide 27.9 mEq/L (21.0-31.0) 05/01/18 21:25 Anion Gap 10.5 (7.0-16.0) 05/01/18 21:25 BUN 39 mg/dL (7-25) H 05/01/18 21:25 Creatinine 1.4 mg/dL (0.7-1.3) H 05/01/18 21:25 Est GFR ( Amer) > 60.0 ml/min (>90) 05/01/18 21:25 Est GFR (Non-Af Amer) 53.7 ml/min 05/01/18 21:25 BUN/Creatinine Ratio 27.9 05/01/18 21:25 Glucose 97 mg/dL (70-105) 05/01/18 21:25 POC Glucose 312 MG/DL (70 - 105) H 05/02/18 20:37 Calcium 9.6 mg/dL (8.6-10.3) 05/01/18 21:25 Phosphorus 3.9 mg/dL (2.5-5.0) 05/01/18 21:25 Magnesium 2.2 mg/dL (1.9-2.7) 05/01/18 21:25 Total Bilirubin 0.3 mg/dL (0.3-1.0) 05/01/18 21:25 AST 13 U/L (13-39) 05/01/18 21:25 ALT 8 U/L (7-52) 05/01/18 21:25 Alkaline Phosphatase 133 U/L (34-104) H 05/01/18 21:25 Total Protein 6.6 gm/dL (6.0-8.3) 05/01/18 21:25 Albumin 3.9 gm/dL (4.2-5.5) L 05/01/18 21:25 Globulin 2.7 gm/dL 05/01/18 21:25 Albumin/Globulin Ratio 1.4 (1.0-1.8) 05/01/18 21:25 Triglycerides 70 mg/dL (<150) 05/02/18 07:16 Cholesterol 168 mg/dL (<200) 05/02/18 07:16 LDL Cholesterol Direct 97 mg/dL (75-193) 05/02/18 07:16 HDL Cholesterol 51 mg/dL (23-92) 05/02/18 07:16 Urine Source CLEAN C 05/01/18 21:25 Urine Color YELLOW 05/01/18 21:25 Urine Clarity CLEAR (CLEAR) 05/01/18 21:25 Urine pH 6.0 (4.6 - 8.0) 05/01/18 21:25 Ur Specific [place] <= 1.005 (1.005-1.030) 05/01/18 21:25 Urine Protein NEGATIVE mg/dL (NEGATIVE) 05/01/18 21:25 Urine Glucose (UA) NEGATIVE mg/dL (NEGATIVE) 05/01/18 21:25 Urine Ketones NEGATIVE mg/dL (NEGATIVE) 05/01/18 21:25 Urine Blood NEGATIVE (NEGATIVE) 05/01/18 21:25 Urine Nitrate NEGATIVE (NEGATIVE) 05/01/18 21:25 Urine Bilirubin NEGATIVE (NEGATIVE) 05/01/18 21:25 Urine Urobilinogen 0.2 E.U./dL (0.2 - 1.0) 05/01/18 21:25 Ur Leukocyte Esterase NEGATIVE (NEGATIVE) 05/01/18 21:25 Urine RBC NONE SEEN /hpf (0-5) 05/01/18 21:25 Urine WBC 0-2 /hpf (0-5) 05/01/18 21:25 Ur Epithelial Cells FEW /lpf (FEW) 05/01/18 21:25 Urine Bacteria OCCASIONAL /hpf (NONE SEEN) 05/01/18 21:25 Urine Mucus FEW /lpf (FEW) 05/01/18 21:25 Urine Opiates Screen NEGATIVE (NEGATIVE) 05/01/18 21:25 Urine Methadone Screen NEGATIVE (NEGATIVE) 05/01/18 21:25 Acetaminophen < 10.0 ug/mL (10.0-30.0) L 05/01/18 21:25 Ur Barbiturates Screen NEGATIVE (NEGATIVE) 05/01/18 21:25 Ur Tricyclics Screen NEGATIVE (NEGATIVE) 05/01/18 21:25 Ur Phencyclidine Scrn NEGATIVE (NEGATIVE) 05/01/18 21:25 Amphetamines Screen NEGATIVE (NEGATIVE) 05/01/18 21:25 U Methamphetamines Scrn NEGATIVE (NEGATIVE) 05/01/18 21:25 U Benzodiazepines Scrn NEGATIVE (NEGATIVE) 05/01/18 21:25 U Cocaine Metab Screen NEGATIVE (NEGATIVE) 05/01/18 21:25 U Cannabinoids Screen NEGATIVE (NEGATIVE) 05/01/18 21:25 - Physical Exam Vitals and I&O: Vital Signs Temp 97.4 F 05/02/18 20:00 Pulse 69 05/03/18 08:45 Resp 18 05/03/18 05:38 BP 143/80 05/03/18 08:45 Pulse Ox 98 05/03/18 05:38 Intake & Output 05/02/18 05/03/18 05/03/18 18:59 06:59 18:59 Intake Total 120 Balance 120 Intake: Oral 120 Other: # Voids 3 Active Medications: Current Medications Ascorbic Acid (Vitamin C) 500 mg PO BID [facility] Stop: 07/01/18 08:59 Last Admin: 05/03/18 08:44 Dose: 500 mg Docusate Sodium (Colace) 250 mg PO DAILY [facility] Stop: 07/01/18 08:59 Last Admin: 05/03/18 08:44 Dose: 250 mg Donepezil HCl (Aricept) 5 mg PO HS [facility] Stop: 07/01/18 20:59 Last Admin: 05/02/18 20:55 Dose: 5 mg Ferrous Sulfate (Iron) 325 mg PO DAILY [facility] Stop: 07/01/18 08:59 Last Admin: 05/03/18 08:45 Dose: 325 mg Lorazepam (Ativan) 0.5 mg PO Q4HR PRN; Protocol PRN Reason: Anxiety Stop: 05/31/18 23:31 Last Admin: 05/02/18 20:55 Dose: 0.5 mg Magnesium Hydroxide (Milk Of Magnesia) 30 ml PO DAILY [facility] Stop: 07/01/18 08:59 Last Admin: 05/03/18 08:44 Dose: 30 ml Metoprolol Tartrate (Lopressor) 25 mg PO DAILY [facility] Stop: 07/01/18 08:59 Last Admin: 05/03/18 08:45 Dose: 25 mg Multivitamins/Vitamin C (Theragran) 1 tab PO DAILY [facility] Stop: 07/01/18 08:59 Last Admin: 05/03/18 08:44 Dose: 1 tab Nifedipine (Procardia Xl) 30 mg PO DAILY [facility] Stop: 07/01/18 08:59 Last Admin: 05/03/18 08:44 Dose: 30 mg Quetiapine Fumarate (Seroquel) 50 mg PO BID [facility]; Protocol Stop: 07/01/18 08:59 Last Admin: 05/03/18 08:44 Dose: 50 mg Tamsulosin HCl (Flomax) 0.4 mg PO HS [facility] Stop: 07/01/18 20:59 Last Admin: 05/02/18 20:56 Dose: 0.4 mg General: demented HEENT: NC/AT, PERRLA, EOMI, anicteric sclerae, throat clear Neck: Supple, No JVD, No thyromegaly, +2 carotid pulse wo bruit, No LAD, + JVD Cardiovascular: RRR, Normal S1, Normal S2, without murmur Abdomen: non-tender, non-distended Extremities: clear Neurological: no change Internal Medicine Assmt/Plan - Assessment Assessment: 1.HTN. 2.BPH. 3.ANEMIA.. 4.DEMENTIA.
--- NOTE | 2018-05-04 06:40 | Progress Notes ---
DATE: 05/03/2018 SUBJECTIVE: The patient was seen and evaluated. The patient ____ overnight. The patient continues to ____ disorganized. Today on [id number] evaluation, the patient presents delusional, disorganized thought process, derailment conversation, difficult to engage in a linear conversation. MENTAL STATUS EXAMINATION: Disorganized and delusional. ASSESSMENT AND PLAN: The patient is a 67-year-old male with a history of schizophrenia, chronic. We will continue with the current medication of Seroquel which she is able to tolerate after re-initiating that 50 mg twice a day without complications or side effects of medications. JOB# [id number]
[2018-05-04] MEDS: Multivitamin Tab PO SCH (08:31)
[2018-05-04] MEDS: Ferrous Sulfate 325 MG TAB PO SCH (08:31)
[2018-05-04] MEDS: Magnesium Hydroxide (MOM) 30 mL UDC PO SCH (08:31)
[2018-05-04] MEDS: NIFEdipine 30 mg ER Tab PO SCH (08:32)
--- NOTE | 2018-05-04 19:50 | Internal Medicine Prog Note ---
Internal Medicine Subjective - Subjective Service Date: 05/04/18 Patient seen and examined:: with staff Patient is:: awake, verbal, in bed, confused Per staff patient has:: no adverse event Internal Medicine Objective - Results Result Diagrams: 05/01/18 21:25 05/01/18 21:25 Recent Labs: Laboratory Last Values WBC 5.7 Th/cmm (4.8-10.8) 05/01/18 21:25 RBC 3.83 Mil/cmm (3.80-5.80) 05/01/18 21:25 Hgb 11.7 gm/dL (12-16) L 05/01/18 21:25 Hct 35.1 % (41.0-60) L 05/01/18 21:25 MCV 91.8 fl (80-99) 05/01/18 21:25 MCH 30.5 pg (27.0-31.0) 05/01/18: MCHC Differential 33.2 pg (28.0-36.0) 05/01/18:25 RDW 14.3 % (11.5-20.0) 05/01/18 21:25 Plt Count 181 Th/cmm (150-400) 05/01/18 21: MPV 6.9 fl 05/01/18 21:25 Neutrophils % 48.9 % (40.0-80.0) 05/01/18 21:25 Lymphocytes % 37.4 % (20.0-50.0) 05/01/18 21: Monocytes % 8.3 % (2.0-10.0) 05/01/18 21:25 Eosinophils % 4.8 % (0.0-5.0) 05/01/18 21:25 Basophils % 0.6 % (0.0-2.0) 05/01/18 21:25 Sodium 136 mEq/L (136-145) 05/01/18 21:25 Potassium 4.4 mEq/L (3.5-5.1) 05/01/18 21:25 Chloride 102 mEq/L (98-107) 05/01/18 21:25 Carbon Dioxide 27.9 mEq/L (21.0-31.0) 05/01/18 21:25 Anion Gap 10.5 (7.0-16.0) 05/01/18 21:25 BUN 39 mg/dL (7-25) H 05/01/18 21:25 Creatinine 1.4 mg/dL (0.7-1.3) H 05/01/18 21:25 Est GFR ( Amer) > 60.0 ml/min (>90) 05/01/18 21:25 Est GFR (Non-Af Amer) 53.7 ml/min 05/01/18 21:25 BUN/Creatinine Ratio 27.9 05/01/18 21:25 Glucose 97 mg/dL (70-105) 05/01/18 21:25 POC Glucose 312 MG/DL (70 - 105) H 05/02/18 20:37 Calcium 9.6 mg/dL (8.6-10.3) 05/01/18 21:25 Phosphorus 3.9 mg/dL (2.5-5.0) 05/01/18 21:25 Magnesium 2.2 mg/dL (1.9-2.7) 05/01/18 21:25 Total Bilirubin 0.3 mg/dL (0.3-1.0) 05/01/18 21:25 AST 13 U/L (13-39) 05/01/18 21:25 ALT 8 U/L (7-52) 05/01/18 21:25 Alkaline Phosphatase 133 U/L (34-104) H 05/01/18 21:25 Total Protein 6.6 gm/dL (6.0-8.3) 05/01/18 21:25 Albumin 3.9 gm/dL (4.2-5.5) L 05/01/18 21:25 Globulin 2.7 gm/dL 05/01/18 21:25 Albumin/Globulin Ratio 1.4 (1.0-1.8) 05/01/18 21:25 Triglycerides 70 mg/dL (<150) 05/02/18 07:16 Cholesterol 168 mg/dL (<200) 05/02/18 07:16 LDL Cholesterol Direct 97 mg/dL (75-193) 05/02/18 07:16 HDL Cholesterol 51 mg/dL (23-92) 05/02/18 07:16 Urine Source CLEAN C 05/01/18 21:25 Urine Color YELLOW 05/01/18 21:25 Urine Clarity CLEAR (CLEAR) 05/01/18 21:25 Urine pH 6.0 (4.6 - 8.0) 05/01/18 21:25 Ur Specific [place] <= 1.005 (1.005-1.030) 05/01/18 21:25 Urine Protein NEGATIVE mg/dL (NEGATIVE) 05/01/18 21:25 Urine Glucose (UA) NEGATIVE mg/dL (NEGATIVE) 05/01/18 21:25 Urine Ketones NEGATIVE mg/dL (NEGATIVE) 05/01/18 21:25 Urine Blood NEGATIVE (NEGATIVE) 05/01/18 21:25 Urine Nitrate NEGATIVE (NEGATIVE) 05/01/18 21:25 Urine Bilirubin NEGATIVE (NEGATIVE) 05/01/18 21:25 Urine Urobilinogen 0.2 E.U./dL (0.2 - 1.0) 05/01/18 21:25 Ur Leukocyte Esterase NEGATIVE (NEGATIVE) 05/01/18 21:25 Urine RBC NONE SEEN /hpf (0-5) 05/01/18 21:25 Urine WBC 0-2 /hpf (0-5) 05/01/18 21:25 Ur Epithelial Cells FEW /lpf (FEW) 05/01/18 21:25 Urine Bacteria OCCASIONAL /hpf (NONE SEEN) 05/01/18 21:25 Urine Mucus FEW /lpf (FEW) 05/01/18 21:25 Urine Opiates Screen NEGATIVE (NEGATIVE) 05/01/18 21:25 Urine Methadone Screen NEGATIVE (NEGATIVE) 05/01/18 21:25 Acetaminophen < 10.0 ug/mL (10.0-30.0) L 05/01/18 21:25 Ur Barbiturates Screen NEGATIVE (NEGATIVE) 05/01/18 21:25 Ur Tricyclics Screen NEGATIVE (NEGATIVE) 05/01/18 21:25 Ur Phencyclidine Scrn NEGATIVE (NEGATIVE) 05/01/18 21:25 Amphetamines Screen NEGATIVE (NEGATIVE) 05/01/18 21:25 U Methamphetamines Scrn NEGATIVE (NEGATIVE) 05/01/18 21:25 U Benzodiazepines Scrn NEGATIVE (NEGATIVE) 05/01/18 21:25 U Cocaine Metab Screen NEGATIVE (NEGATIVE) 05/01/18 21:25 U Cannabinoids Screen NEGATIVE (NEGATIVE) 05/01/18 21:25 - Physical Exam Vitals and I&O: Vital Signs Temp 98.4 F 05/04/18 14:00 Pulse 59 05/04/18 14:00 Resp 20 05/04/18 14:00 BP 130/70 05/04/18 14:00 Pulse Ox 97 05/04/18 14:00 Intake & Output 05/04/18 05/04/18 05/05/18 06:59 18:59 06:59 Intake Total 120 900 Balance 120 900 Intake: Oral 120 900 Other: # Voids 3 4 # Bowel Movements 0 1 Active Medications: Current Medications Ascorbic Acid (Vitamin C) 500 mg PO BID [facility] Stop: 07/01/18 08:59 Last Admin: 05/04/18 16:52 Dose: 500 mg Docusate Sodium (Colace) 250 mg PO DAILY [facility] Stop: 07/01/18 08:59 Last Admin: 05/04/18 08:31 Dose: 250 mg Donepezil HCl (Aricept) 5 mg PO HS [facility] Stop: 07/01/18 20:59 Last Admin: 05/03/18 21:20 Dose: 5 mg Ferrous Sulfate (Iron) 325 mg PO DAILY [facility] Stop: 07/01/18 08:59 Last Admin: 05/04/18 08:31 Dose: 325 mg Lorazepam (Ativan) 0.5 mg PO Q4HR PRN; Protocol PRN Reason: Anxiety Stop: 05/31/18 23:31 Last Admin: 05/03/18 21:20 Dose: 0.5 mg Magnesium Hydroxide (Milk Of Magnesia) 30 ml PO DAILY [facility] Stop: 07/01/18 08:59 Last Admin: 05/04/18 08:31 Dose: 30 ml Metoprolol Tartrate (Lopressor) 25 mg PO DAILY [facility] Stop: 07/01/18 08:59 Last Admin: 05/04/18 08:31 Dose: 25 mg Multivitamins/Vitamin C (Theragran) 1 tab PO DAILY [facility] Stop: 07/01/18 08:59 Last Admin: 05/04/18 08:31 Dose: 1 tab Nifedipine (Procardia Xl) 30 mg PO DAILY [facility] Stop: 07/01/18 08:59 Last Admin: 05/04/18 08:32 Dose: 30 mg Quetiapine Fumarate (Seroquel) 50 mg PO BID [facility]; Protocol Stop: 07/01/18 08:59 Last Admin: 05/04/18 16:52 Dose: 50 mg Tamsulosin HCl (Flomax) 0.4 mg PO HS [facility] Stop: 07/01/18 20:59 Last Admin: 05/03/18 21:20 Dose: 0.4 mg General: demented HEENT: NC/AT, PERRLA, EOMI, anicteric sclerae, throat clear Neck: Supple, No JVD, No thyromegaly, +2 carotid pulse wo bruit, No LAD, + JVD Cardiovascular: RRR, Normal S1, Normal S2, without murmur Abdomen: non-tender, non-distended Extremities: clear Neurological: no change Internal Medicine Assmt/Plan - Assessment Assessment: 1.HTN. 2.BPH. 3.ANEMIA.. 4.DEMENTIA. - Plan Plan: CONTINUE ON CURRENT MEDICATION AND DIET.
--- NOTE | 2018-05-04 22:29 | Progress Notes ---
DATE: 05/04/2018 Case was discussed with staff of the patient, reviewed records. This is a well-known case to me from [place], 67-year-old male who was admitted on 05/01/2018. He was very disorganized. He was agitated. The patient is very difficult to understand, needs a lot of redirection, mumbling to himself, unpredictable, impulsive with a history of dementia. He has benign prostatic hypertrophy, COPD, dysphagia. He was restarted on the Seroquel 50 mg twice a day, Aricept 5 mg at bedtime with no side effects, no sedation, no nausea, no extrapyramidal symptoms. We will continue outpatient group therapy, milieu therapy, adjust the medications as needed. JOB# [id number]
[2018-05-05] MEDS: Magnesium Hydroxide (MOM) 30 mL UDC PO SCH (09:16)
[2018-05-05] MEDS: NIFEdipine 30 mg ER Tab PO SCH (09:17)
[2018-05-05] MEDS: Multivitamin Tab PO SCH (09:17)
[2018-05-05] MEDS: Ferrous Sulfate 325 MG TAB PO SCH (09:17)
--- NOTE | 2018-05-05 17:30 | Progress Notes ---
DATE: 05/05/2018 PROGRESS ON THE UNIT: Case was discussed with staff of the patient, reviewed records. The patient continues to be disorganized, internally preoccupied, rambling speech, unable to participate in meaningful conversation and make a safe plan for self-care, unpredictable, impulsive, needing redirection. He is compliant with the medication with no side effects, no sedation, no nausea, no extrapyramidal symptoms. Lab work showed low hemoglobin of 11.7, low hematocrit, the rest within normal range. Chemistry panel with high BUN, high creatinine, high blood sugar, high alkaline phosphatase and albumin. His urinalysis is within normal range. Toxicology screen was negative. PLAN: We will work with the patient in group therapy and milieu therapy, adjust the medications as needed. JOB# [id number]
--- NOTE | 2018-05-05 20:58 | Internal Medicine Prog Note ---
Internal Medicine Subjective - Subjective Service Date: 05/05/18 Patient seen and examined:: without staff Patient is:: awake, verbal, in bed, confused Per staff patient has:: no adverse event Internal Medicine Objective - Results Result Diagrams: 05/01/18 21:25 05/01/18 21:25 Recent Labs: Laboratory Last Values WBC 5.7 Th/cmm (4.8-10.8) 05/01/18 21:25 RBC 3.83 Mil/cmm (3.80-5.80) 05/01/18 21:25 Hgb 11.7 gm/dL (12-16) L 05/01/18 21:25 Hct 35.1 % (41.0-60) L 05/01/18 21:25 MCV 91.8 fl (80-99) 05/01/18 21:25 MCH 30.5 pg (27.0-31.0) 05/01/18: MCHC Differential 33.2 pg (28.0-36.0) 05/01/18: RDW 14.3 % (11.5-20.0) 05/01/18 21:25 Plt Count 181 Th/cmm (150-400) 05/01/18 21: MPV 6.9 fl 05/01/18 21:25 Neutrophils % 48.9 % (40.0-80.0) 05/01/18 21:25 Lymphocytes % 37.4 % (20.0-50.0) 05/01/18 21: Monocytes % 8.3 % (2.0-10.0) 05/01/18 21:25 Eosinophils % 4.8 % (0.0-5.0) 05/01/18 21:25 Basophils % 0.6 % (0.0-2.0) 05/01/18 21:25 Sodium 136 mEq/L (136-145) 05/01/18 21:25 Potassium 4.4 mEq/L (3.5-5.1) 05/01/18 21:25 Chloride 102 mEq/L (98-107) 05/01/18 21:25 Carbon Dioxide 27.9 mEq/L (21.0-31.0) 05/01/18 21:25 Anion Gap 10.5 (7.0-16.0) 05/01/18 21:25 BUN 39 mg/dL (7-25) H 05/01/18 21:25 Creatinine 1.4 mg/dL (0.7-1.3) H 05/01/18 21:25 Est GFR ( Amer) > 60.0 ml/min (>90) 05/01/18 21:25 Est GFR (Non-Af Amer) 53.7 ml/min 05/01/18 21:25 BUN/Creatinine Ratio 27.9 05/01/18 21:25 Glucose 97 mg/dL (70-105) 05/01/18 21:25 POC Glucose 312 MG/DL (70 - 105) H 05/02/18 20:37 Calcium 9.6 mg/dL (8.6-10.3) 05/01/18 21:25 Phosphorus 3.9 mg/dL (2.5-5.0) 05/01/18 21:25 Magnesium 2.2 mg/dL (1.9-2.7) 05/01/18 21:25 Total Bilirubin 0.3 mg/dL (0.3-1.0) 05/01/18 21:25 AST 13 U/L (13-39) 05/01/18 21:25 ALT 8 U/L (7-52) 05/01/18 21:25 Alkaline Phosphatase 133 U/L (34-104) H 05/01/18 21:25 Total Protein 6.6 gm/dL (6.0-8.3) 05/01/18 21:25 Albumin 3.9 gm/dL (4.2-5.5) L 05/01/18 21:25 Globulin 2.7 gm/dL 05/01/18 21:25 Albumin/Globulin Ratio 1.4 (1.0-1.8) 05/01/18 21:25 Triglycerides 70 mg/dL (<150) 05/02/18 07:16 Cholesterol 168 mg/dL (<200) 05/02/18 07:16 LDL Cholesterol Direct 97 mg/dL (75-193) 05/02/18 07:16 HDL Cholesterol 51 mg/dL (23-92) 05/02/18 07:16 Urine Source CLEAN C 05/01/18 21:25 Urine Color YELLOW 05/01/18 21:25 Urine Clarity CLEAR (CLEAR) 05/01/18 21:25 Urine pH 6.0 (4.6 - 8.0) 05/01/18 21:25 Ur Specific [place] <= 1.005 (1.005-1.030) 05/01/18 21:25 Urine Protein NEGATIVE mg/dL (NEGATIVE) 05/01/18 21:25 Urine Glucose (UA) NEGATIVE mg/dL (NEGATIVE) 05/01/18 21:25 Urine Ketones NEGATIVE mg/dL (NEGATIVE) 05/01/18 21:25 Urine Blood NEGATIVE (NEGATIVE) 05/01/18 21:25 Urine Nitrate NEGATIVE (NEGATIVE) 05/01/18 21:25 Urine Bilirubin NEGATIVE (NEGATIVE) 05/01/18 21:25 Urine Urobilinogen 0.2 E.U./dL (0.2 - 1.0) 05/01/18 21:25 Ur Leukocyte Esterase NEGATIVE (NEGATIVE) 05/01/18 21:25 Urine RBC NONE SEEN /hpf (0-5) 05/01/18 21:25 Urine WBC 0-2 /hpf (0-5) 05/01/18 21:25 Ur Epithelial Cells FEW /lpf (FEW) 05/01/18 21:25 Urine Bacteria OCCASIONAL /hpf (NONE SEEN) 05/01/18 21:25 Urine Mucus FEW /lpf (FEW) 05/01/18 21:25 Urine Opiates Screen NEGATIVE (NEGATIVE) 05/01/18 21:25 Urine Methadone Screen NEGATIVE (NEGATIVE) 05/01/18 21:25 Acetaminophen < 10.0 ug/mL (10.0-30.0) L 05/01/18 21:25 Ur Barbiturates Screen NEGATIVE (NEGATIVE) 05/01/18 21:25 Ur Tricyclics Screen NEGATIVE (NEGATIVE) 05/01/18 21:25 Ur Phencyclidine Scrn NEGATIVE (NEGATIVE) 05/01/18 21:25 Amphetamines Screen NEGATIVE (NEGATIVE) 05/01/18 21:25 U Methamphetamines Scrn NEGATIVE (NEGATIVE) 05/01/18 21:25 U Benzodiazepines Scrn NEGATIVE (NEGATIVE) 05/01/18 21:25 U Cocaine Metab Screen NEGATIVE (NEGATIVE) 05/01/18 21:25 U Cannabinoids Screen NEGATIVE (NEGATIVE) 05/01/18 21:25 - Physical Exam Vitals and I&O: Vital Signs Temp 98.2 F 05/05/18 20:22 Pulse 67 05/05/18 20:22 Resp 19 05/05/18 20:22 BP 104/54 05/05/18 20:22 Pulse Ox 94 05/05/18 20:22 Intake & Output 05/05/18 05/05/18 05/06/18 06:59 18:59 06:59 Intake Total 240 1200 240 Balance 240 1200 240 Intake: Oral 240 1200 240 Other: # Voids 3 4 1 # Bowel Movements 0 1 Active Medications: Current Medications Ascorbic Acid (Vitamin C) 500 mg PO BID [facility] Stop: 07/01/18 08:59 Last Admin: 05/05/18 17:08 Dose: 500 mg Docusate Sodium (Colace) 250 mg PO DAILY [facility] Stop: 07/01/18 08:59 Last Admin: 05/05/18 09:17 Dose: 250 mg Donepezil HCl (Aricept) 5 mg PO HS [facility] Stop: 07/01/18 20:59 Last Admin: 05/04/18 20:49 Dose: 5 mg Ferrous Sulfate (Iron) 325 mg PO DAILY [facility] Stop: 07/01/18 08:59 Last Admin: 05/05/18 09:17 Dose: 325 mg Lorazepam (Ativan) 0.5 mg PO Q4HR PRN; Protocol PRN Reason: Anxiety Stop: 05/31/18 23:31 Last Admin: 05/04/18 20:49 Dose: 0.5 mg Magnesium Hydroxide (Milk Of Magnesia) 30 ml PO DAILY [facility] Stop: 07/01/18 08:59 Last Admin: 05/05/18 09:16 Dose: 30 ml Metoprolol Tartrate (Lopressor) 25 mg PO DAILY [facility] Stop: 07/01/18 08:59 Last Admin: 05/05/18 09:17 Dose: 25 mg Multivitamins/Vitamin C (Theragran) 1 tab PO DAILY [facility] Stop: 07/01/18 08:59 Last Admin: 05/05/18 09:17 Dose: 1 tab Nifedipine (Procardia Xl) 30 mg PO DAILY [facility] Stop: 07/01/18 08:59 Last Admin: 05/05/18 09:17 Dose: 30 mg Quetiapine Fumarate (Seroquel) 50 mg PO BID [facility]; Protocol Stop: 07/01/18 08:59 Last Admin: 05/05/18 17:08 Dose: 50 mg Tamsulosin HCl (Flomax) 0.4 mg PO HS [facility] Stop: 07/01/18 20:59 Last Admin: 05/04/18 20:49 Dose: 0.4 mg General: demented HEENT: NC/AT, PERRLA, EOMI, anicteric sclerae, throat clear Neck: Supple, No JVD, No thyromegaly, +2 carotid pulse wo bruit, No LAD, + JVD Cardiovascular: RRR, Normal S1, Normal S2, without murmur Abdomen: non-tender, non-distended Extremities: clear Neurological: no change Internal Medicine Assmt/Plan - Assessment Assessment: 1.HTN. 2.BPH. 3.ANEMIA.. 4.DEMENTIA. - Plan Plan: CONTINUE ON CURRENT MEDICATION AND DIET.
[2018-05-06] MEDS: NIFEdipine 30 mg ER Tab PO SCH (08:29)
[2018-05-06] MEDS: Magnesium Hydroxide (MOM) 30 mL UDC PO SCH (08:29)
[2018-05-06] MEDS: Multivitamin Tab PO SCH (08:29)
[2018-05-06] MEDS: Ferrous Sulfate 325 MG TAB PO SCH (08:30)
--- NOTE | 2018-05-06 13:04 | Internal Medicine Prog Note ---
Internal Medicine Subjective - Subjective Service Date: 05/06/18 Patient is:: awake, verbal, in bed, confused Per staff patient has:: no adverse event Internal Medicine Objective - Results Result Diagrams: 05/01/18 21:25 05/01/18 21:25 Recent Labs: Laboratory Last Values WBC 5.7 Th/cmm (4.8-10.8) 05/01/18 21:25 RBC 3.83 Mil/cmm (3.80-5.80) 05/01/18 21:25 Hgb 11.7 gm/dL (12-16) L 05/01/18 21:25 Hct 35.1 % (41.0-60) L 05/01/18 21:25 MCV 91.8 fl (80-99) 05/01/18 21:25 MCH 30.5 pg (27.0-31.0) 05/01/18 21: MCHC Differential 33.2 pg (28.0-36.0) 05/01/18 21:25 RDW 14.3 % (11.5-20.0) 05/01/18 21:25 Plt Count 181 Th/cmm (150-400) 05/01/18 21:25 MPV 6.9 fl 05/01/18 21:25 Neutrophils % 48.9 % (40.0-80.0) 05/01/18 21:25 Lymphocytes % 37.4 % (20.0-50.0) 05/01/18 21: Monocytes % 8.3 % (2.0-10.0) 05/01/18 21:25 Eosinophils % 4.8 % (0.0-5.0) 05/01/18 21:25 Basophils % 0.6 % (0.0-2.0) 05/01/18 21:25 Sodium 136 mEq/L (136-145) 05/01/18 21:25 Potassium 4.4 mEq/L (3.5-5.1) 05/01/18 21:25 Chloride 102 mEq/L (98-107) 05/01/18 21:25 Carbon Dioxide 27.9 mEq/L (21.0-31.0) 05/01/18 21:25 Anion Gap 10.5 (7.0-16.0) 05/01/18 21:25 BUN 39 mg/dL (7-25) H 05/01/18 21:25 Creatinine 1.4 mg/dL (0.7-1.3) H 05/01/18 21:25 Est GFR ( Amer) > 60.0 ml/min (>90) 05/01/18 21:25 Est GFR (Non-Af Amer) 53.7 ml/min 05/01/18 21:25 BUN/Creatinine Ratio 27.9 05/01/18 21:25 Glucose 97 mg/dL (70-105) 05/01/18 21:25 POC Glucose 312 MG/DL (70 - 105) H 05/02/18 20:37 Calcium 9.6 mg/dL (8.6-10.3) 05/01/18 21:25 Phosphorus 3.9 mg/dL (2.5-5.0) 05/01/18 21:25 Magnesium 2.2 mg/dL (1.9-2.7) 05/01/18 21:25 Total Bilirubin 0.3 mg/dL (0.3-1.0) 05/01/18 21:25 AST 13 U/L (13-39) 05/01/18 21:25 ALT 8 U/L (7-52) 05/01/18 21:25 Alkaline Phosphatase 133 U/L (34-104) H 05/01/18 21:25 Total Protein 6.6 gm/dL (6.0-8.3) 05/01/18 21:25 Albumin 3.9 gm/dL (4.2-5.5) L 05/01/18 21:25 Globulin 2.7 gm/dL 05/01/18 21:25 Albumin/Globulin Ratio 1.4 (1.0-1.8) 05/01/18 21:25 Triglycerides 70 mg/dL (<150) 05/02/18 07:16 Cholesterol 168 mg/dL (<200) 05/02/18 07:16 LDL Cholesterol Direct 97 mg/dL (75-193) 05/02/18 07:16 HDL Cholesterol 51 mg/dL (23-92) 05/02/18 07:16 Urine Source CLEAN C 05/01/18 21:25 Urine Color YELLOW 05/01/18 21:25 Urine Clarity CLEAR (CLEAR) 05/01/18 21:25 Urine pH 6.0 (4.6 - 8.0) 05/01/18 21:25 Ur Specific [place] <= 1.005 (1.005-1.030) 05/01/18 21:25 Urine Protein NEGATIVE mg/dL (NEGATIVE) 05/01/18 21:25 Urine Glucose (UA) NEGATIVE mg/dL (NEGATIVE) 05/01/18 21:25 Urine Ketones NEGATIVE mg/dL (NEGATIVE) 05/01/18 21:25 Urine Blood NEGATIVE (NEGATIVE) 05/01/18 21:25 Urine Nitrate NEGATIVE (NEGATIVE) 05/01/18 21:25 Urine Bilirubin NEGATIVE (NEGATIVE) 05/01/18 21:25 Urine Urobilinogen 0.2 E.U./dL (0.2 - 1.0) 05/01/18 21:25 Ur Leukocyte Esterase NEGATIVE (NEGATIVE) 05/01/18 21:25 Urine RBC NONE SEEN /hpf (0-5) 05/01/18 21:25 Urine WBC 0-2 /hpf (0-5) 05/01/18 21:25 Ur Epithelial Cells FEW /lpf (FEW) 05/01/18 21:25 Urine Bacteria OCCASIONAL /hpf (NONE SEEN) 05/01/18 21:25 Urine Mucus FEW /lpf (FEW) 05/01/18 21:25 Urine Opiates Screen NEGATIVE (NEGATIVE) 05/01/18 21:25 Urine Methadone Screen NEGATIVE (NEGATIVE) 05/01/18 21:25 Acetaminophen < 10.0 ug/mL (10.0-30.0) L 05/01/18 21:25 Ur Barbiturates Screen NEGATIVE (NEGATIVE) 05/01/18 21:25 Ur Tricyclics Screen NEGATIVE (NEGATIVE) 05/01/18 21:25 Ur Phencyclidine Scrn NEGATIVE (NEGATIVE) 05/01/18 21:25 Amphetamines Screen NEGATIVE (NEGATIVE) 05/01/18 21:25 U Methamphetamines Scrn NEGATIVE (NEGATIVE) 05/01/18 21:25 U Benzodiazepines Scrn NEGATIVE (NEGATIVE) 05/01/18 21:25 U Cocaine Metab Screen NEGATIVE (NEGATIVE) 05/01/18 21:25 U Cannabinoids Screen NEGATIVE (NEGATIVE) 05/01/18 21:25 - Physical Exam Vitals and I&O: Vital Signs Temp 98 F 05/06/18 06:12 Pulse 7 05/06/18 08:30 Resp 20 05/06/18 06:12 BP 157/101 05/06/18 08:30 Pulse Ox 93 05/06/18 06:12 Intake & Output 05/05/18 05/06/18 05/06/18 18:59 06:59 18:59 Intake Total 1200 240 Balance 1200 240 Intake: Oral 1200 240 Other: # Voids 4 3 # Bowel Movements 1 0 Active Medications: Current Medications Ascorbic Acid (Vitamin C) 500 mg PO BID [facility] Stop: 07/01/18 08:59 Last Admin: 05/06/18 08:30 Dose: 500 mg Docusate Sodium (Colace) 250 mg PO DAILY [facility] Stop: 07/01/18 08:59 Last Admin: 05/06/18 08:30 Dose: 250 mg Donepezil HCl (Aricept) 5 mg PO HS [facility] Stop: 07/01/18 20:59 Last Admin: 05/05/18 21:13 Dose: 5 mg Ferrous Sulfate (Iron) 325 mg PO DAILY [facility] Stop: 07/01/18 08:59 Last Admin: 05/06/18 08:30 Dose: 325 mg Lorazepam (Ativan) 0.5 mg PO Q4HR PRN; Protocol PRN Reason: Anxiety Stop: 05/31/18 23:31 Last Admin: 05/06/18 06:19 Dose: 0.5 mg Magnesium Hydroxide (Milk Of Magnesia) 30 ml PO DAILY [facility] Stop: 07/01/18 08:59 Last Admin: 05/06/18 08:29 Dose: 30 ml Metoprolol Tartrate (Lopressor) 25 mg PO DAILY [facility] Stop: 07/01/18 08:59 Last Admin: 05/06/18 08:30 Dose: 25 mg Multivitamins/Vitamin C (Theragran) 1 tab PO DAILY [facility] Stop: 07/01/18 08:59 Last Admin: 05/06/18 08:29 Dose: 1 tab Nifedipine (Procardia Xl) 30 mg PO DAILY [facility] Stop: 07/01/18 08:59 Last Admin: 05/06/18 08:29 Dose: 30 mg Quetiapine Fumarate (Seroquel) 50 mg PO BID [facility]; Protocol Stop: 07/01/18 08:59 Last Admin: 05/06/18 08:29 Dose: 50 mg Tamsulosin HCl (Flomax) 0.4 mg PO HS [facility] Stop: 07/01/18 20:59 Last Admin: 05/05/18 21:13 Dose: 0.4 mg General: demented HEENT: NC/AT, PERRLA, EOMI, anicteric sclerae, throat clear Neck: Supple, No JVD, No thyromegaly, +2 carotid pulse wo bruit, No LAD, + JVD Cardiovascular: RRR, Normal S1, Normal S2, without murmur Abdomen: non-tender, non-distended Extremities: clear Neurological: no change Internal Medicine Assmt/Plan - Assessment Assessment: 1.HTN. 2.BPH. 3.ANEMIA.. 4.DEMENTIA. - Plan Plan: CONTINUE ON CURRENT MEDICATION AND DIET.
--- NOTE | 2018-05-06 23:47 | Progress Notes ---
DATE: 05/06/2018 Case was discussed with staff of the patient, reviewed records. The patient continues to have rambling speech. Continues to be unable to make safe plan for self-care. Continues to be easily agitated. He is compliant with the medication with no side effects, no sedation, no nausea, no extrapyramidal symptoms. I will continue to work with the patient in group therapy, milieu therapy, and adjust the medication as needed. JOB# [id number]
[2018-05-07] MEDS: Magnesium Hydroxide (MOM) 30 mL UDC PO SCH (08:08)
[2018-05-07] MEDS: NIFEdipine 30 mg ER Tab PO SCH (08:09)
[2018-05-07] MEDS: Ferrous Sulfate 325 MG TAB PO SCH (08:10)
[2018-05-07] MEDS: Multivitamin Tab PO SCH (08:11)
--- NOTE | 2018-05-07 17:06 | Progress Notes ---
DATE: 05/07/2018 Case was discussed with staff of the patient, reviewed records. The patient continues to have rambling speech. Continues to have poor insight, confused, unable to participate in meaningful conversation, make safe plan for self-care, unpredictable, impulsive, very poor insight. I will be increasing his Seroquel dose to 75 mg twice a day. His lab work showed low hemoglobin, low hematocrit, and the rest within normal range. Chemistry panel shows high creatinine, high BUN and high blood sugar and high alkaline phosphatase and low albumin, the rest within normal range. Urinalysis is within normal range. Toxicology screen was negative. We will continue outpatient group therapy, milieu therapy, and adjust medication as needed. [facility]# [id number]
--- NOTE | 2018-05-07 22:34 | Internal Medicine Prog Note ---
Internal Medicine Subjective - Subjective Service Date: 05/07/18 Patient seen and examined:: with staff Patient is:: awake, verbal, in bed, confused Per staff patient has:: no adverse event Internal Medicine Objective - Results Result Diagrams: 05/01/18 21:25 05/01/18 21:25 Recent Labs: Laboratory Last Values WBC 5.7 Th/cmm (4.8-10.8) 05/01/18 21:25 RBC 3.83 Mil/cmm (3.80-5.80) 05/01/18 21:25 Hgb 11.7 gm/dL (12-16) L 05/01/18 21:25 Hct 35.1 % (41.0-60) L 05/01/18 21: MCV 91.8 fl (80-99) 05/01/18 21:25 MCH 30.5 pg (27.0-31.0) 05/01/18: MCHC Differential 33.2 pg (28.0-36.0) 05/01/18: RDW 14.3 % (11.5-20.0) 05/01/18 21:25 Plt Count 181 Th/cmm (150-400) 05/01/18 21: MPV 6.9 fl 05/01/18 21:25 Neutrophils % 48.9 % (40.0-80.0) 05/01/18 21:25 Lymphocytes % 37.4 % (20.0-50.0) 05/01/18: Monocytes % 8.3 % (2.0-10.0) 05/01/18 21:25 Eosinophils % 4.8 % (0.0-5.0) 05/01/18 21:25 Basophils % 0.6 % (0.0-2.0) 05/01/18 21:25 Sodium 136 mEq/L (136-145) 05/01/18 21:25 Potassium 4.4 mEq/L (3.5-5.1) 05/01/18 21:25 Chloride 102 mEq/L (98-107) 05/01/18 21:25 Carbon Dioxide 27.9 mEq/L (21.0-31.0) 05/01/18 21:25 Anion Gap 10.5 (7.0-16.0) 05/01/18 21:25 BUN 39 mg/dL (7-25) H 05/01/18 21:25 Creatinine 1.4 mg/dL (0.7-1.3) H 05/01/18 21:25 Est GFR ( Amer) > 60.0 ml/min (>90) 05/01/18 21:25 Est GFR (Non-Af Amer) 53.7 ml/min 05/01/18 21:25 BUN/Creatinine Ratio 27.9 05/01/18 21:25 Glucose 97 mg/dL (70-105) 05/01/18 21:25 POC Glucose 312 MG/DL (70 - 105) H 05/02/18 20:37 Calcium 9.6 mg/dL (8.6-10.3) 05/01/18 21:25 Phosphorus 3.9 mg/dL (2.5-5.0) 05/01/18 21:25 Magnesium 2.2 mg/dL (1.9-2.7) 05/01/18 21:25 Total Bilirubin 0.3 mg/dL (0.3-1.0) 05/01/18 21:25 AST 13 U/L (13-39) 05/01/18 21:25 ALT 8 U/L (7-52) 05/01/18 21:25 Alkaline Phosphatase 133 U/L (34-104) H 05/01/18 21:25 Total Protein 6.6 gm/dL (6.0-8.3) 05/01/18 21:25 Albumin 3.9 gm/dL (4.2-5.5) L 05/01/18 21:25 Globulin 2.7 gm/dL 05/01/18 21:25 Albumin/Globulin Ratio 1.4 (1.0-1.8) 05/01/18 21:25 Triglycerides 70 mg/dL (<150) 05/02/18 07:16 Cholesterol 168 mg/dL (<200) 05/02/18 07:16 LDL Cholesterol Direct 97 mg/dL (75-193) 05/02/18 07:16 HDL Cholesterol 51 mg/dL (23-92) 05/02/18 07:16 Urine Source CLEAN C 05/01/18 21:25 Urine Color YELLOW 05/01/18 21:25 Urine Clarity CLEAR (CLEAR) 05/01/18 21:25 Urine pH 6.0 (4.6 - 8.0) 05/01/18 21:25 Ur Specific [place] <= 1.005 (1.005-1.030) 05/01/18 21:25 Urine Protein NEGATIVE mg/dL (NEGATIVE) 05/01/18 21:25 Urine Glucose (UA) NEGATIVE mg/dL (NEGATIVE) 05/01/18 21:25 Urine Ketones NEGATIVE mg/dL (NEGATIVE) 05/01/18 21:25 Urine Blood NEGATIVE (NEGATIVE) 05/01/18 21:25 Urine Nitrate NEGATIVE (NEGATIVE) 05/01/18 21:25 Urine Bilirubin NEGATIVE (NEGATIVE) 05/01/18 21:25 Urine Urobilinogen 0.2 E.U./dL (0.2 - 1.0) 05/01/18 21:25 Ur Leukocyte Esterase NEGATIVE (NEGATIVE) 05/01/18 21:25 Urine RBC NONE SEEN /hpf (0-5) 05/01/18 21:25 Urine WBC 0-2 /hpf (0-5) 05/01/18 21:25 Ur Epithelial Cells FEW /lpf (FEW) 05/01/18 21:25 Urine Bacteria OCCASIONAL /hpf (NONE SEEN) 05/01/18 21:25 Urine Mucus FEW /lpf (FEW) 05/01/18 21:25 Urine Opiates Screen NEGATIVE (NEGATIVE) 05/01/18 21:25 Urine Methadone Screen NEGATIVE (NEGATIVE) 05/01/18 21:25 Acetaminophen < 10.0 ug/mL (10.0-30.0) L 05/01/18 21:25 Ur Barbiturates Screen NEGATIVE (NEGATIVE) 05/01/18 21:25 Ur Tricyclics Screen NEGATIVE (NEGATIVE) 05/01/18 21:25 Ur Phencyclidine Scrn NEGATIVE (NEGATIVE) 05/01/18 21:25 Amphetamines Screen NEGATIVE (NEGATIVE) 05/01/18 21:25 U Methamphetamines Scrn NEGATIVE (NEGATIVE) 05/01/18 21:25 U Benzodiazepines Scrn NEGATIVE (NEGATIVE) 05/01/18 21:25 U Cocaine Metab Screen NEGATIVE (NEGATIVE) 05/01/18 21:25 U Cannabinoids Screen NEGATIVE (NEGATIVE) 05/01/18 21:25 - Physical Exam Vitals and I&O: Vital Signs Temp 98.0 F 05/07/18 14:00 Pulse 72 05/07/18 14:00 Resp 19 05/07/18 20:00 BP 149/77 05/07/18 14:00 Pulse Ox 94 05/07/18 14:00 Intake & Output 05/07/18 05/07/18 05/08/18 06:59 18:59 06:59 Intake Total 120 2400 Balance 120 2400 Intake: Oral 120 2400 Other: # Voids 3 4 # Bowel Movements 0 0 Active Medications: Current Medications Ascorbic Acid (Vitamin C) 500 mg PO BID [facility] Stop: 07/01/18 08:59 Last Admin: 05/07/18 16:51 Dose: 500 mg Docusate Sodium (Colace) 250 mg PO DAILY [facility] Stop: 07/01/18 08:59 Last Admin: 05/07/18 08:10 Dose: 250 mg Donepezil HCl (Aricept) 5 mg PO HS [facility] Stop: 07/01/18 20:59 Last Admin: 05/07/18 20:59 Dose: 5 mg Ferrous Sulfate (Iron) 325 mg PO DAILY [facility] Stop: 07/01/18 08:59 Last Admin: 05/07/18 08:10 Dose: 325 mg Lorazepam (Ativan) 0.5 mg PO Q4HR PRN; Protocol PRN Reason: Anxiety Stop: 05/31/18 23:31 Last Admin: 05/06/18 06:19 Dose: 0.5 mg Magnesium Hydroxide (Milk Of Magnesia) 30 ml PO DAILY [facility] Stop: 07/01/18 08:59 Last Admin: 05/07/18 08:08 Dose: 30 ml Metoprolol Tartrate (Lopressor) 25 mg PO DAILY [facility] Stop: 07/01/18 08:59 Last Admin: 05/07/18 08:10 Dose: 25 mg Multivitamins/Vitamin C (Theragran) 1 tab PO DAILY [facility] Stop: 07/01/18 08:59 Last Admin: 05/07/18 08:11 Dose: 1 tab Nifedipine (Procardia Xl) 30 mg PO DAILY [facility] Stop: 07/01/18 08:59 Last Admin: 05/07/18 08:09 Dose: 30 mg Quetiapine Fumarate 50 mg/ (Quetiapine Fumarate 25 mg) 75 mg PO BID [facility] Stop: 07/06/18 16:59 Last Admin: 05/07/18 16:51 Dose: 75 mg Tamsulosin HCl (Flomax) 0.4 mg PO HS [facility] Stop: 07/01/18 20:59 Last Admin: 05/07/18 20:59 Dose: 0.4 mg General: demented HEENT: NC/AT, PERRLA, EOMI, anicteric sclerae, throat clear Neck: Supple, No JVD, No thyromegaly, +2 carotid pulse wo bruit, No LAD, + JVD Cardiovascular: RRR, Normal S1, Normal S2, without murmur Abdomen: non-tender, non-distended Extremities: clear Neurological: no change Internal Medicine Assmt/Plan - Assessment Assessment: 1.HTN. 2.BPH. 3.ANEMIA.. 4.DEMENTIA. - Plan Plan: CONTINUE ON CURRENT MEDICATION AND DIET. Nutritional Asmnt/Malnutr-PDOC - Dietary Evaluation Malnutrition Findings (Please click <Entered> for more info): Nutritional Asmnt/Malnutrition Start: 05/06/18 13: 55 Text: Status: Complete Freq: Protocol: Document 05/06/18 14:29 CHRISTIANE (Rec: 05/06/18 14:41 CHRISTIANE [email or web address]) Nutritional Asmnt/Malnutrition Patient General Information Nutritional Screening Moderate Risk Diagnosis psychosis Pertinent Medical Hx/Surgical Hx HTN, BPH, anemia, dementia Subjective Information pt seen in his room, confused. Per EMR, PO intake 100%. Current Diet Order/ Nutrition Support low sodium, mech soft chopped Pertinent Medications vit C, colace, iron, theragran , seroquel Pertinent Labs 05/01 BUN 39, Cr 1.4, glucose 97 , alb 3.9 05/02 POC 312 Nutritional Hx/Data Height 1.85 m Height (Calculated Centimeters) 185.4 Current Weight (lbs) 76.204 kg Weight (Calculated Kilograms) 76.2 Weight (Calculated Grams) 31617.5 [place] Body Weight 184 Body Mass Index (BMI) 22.1 Weight Status Approriate GI Symptoms GI Symptoms None Last BM 05/05 Difficult in: None Skin Integrity/Comment: intact Current %PO Good (75-100%) Estimated Nutritional Goals BEE in Kcals: Using Current wt Calories/Kcals/Kg 25-30 Kcals Calculated 3469-6237 Protein: Using Current wt Protein g/k Protein Calculated 76 Fluid: ml 1900-2280ml (1ml/kcal) Nutritional Problem No current Nutrition Prob Problem N/A Malnutrition Alert Is there a minimum of two criteria No selected? Query Text:Check all the applicable criteria. A minimum of two criteria are recommended for diagnosis of either severe or non-severe malnutrition. Malnutrition Related to Morbid Obesity Malnutrition related to morbid obesity No Intervention/Recommendation Comments 1. Continue with current diet as ordered. 2. Monitor PO intake, wt, labs and skin integrity 3. F/U as low risk in 7 days, 05/13 Expected Outcomes/Goals Expected Outcomes/Goals 1. PO intake to meet at least 75% of nutritional needs. 2. Wt stability, skin to remain intact, labs to approach WNL.
[2018-05-08] MEDS: Magnesium Hydroxide (MOM) 30 mL UDC PO SCH (08:23)
[2018-05-08] MEDS: Multivitamin Tab PO SCH (08:24)
[2018-05-08] MEDS: Ferrous Sulfate 325 MG TAB PO SCH (08:24)
[2018-05-08] MEDS: NIFEdipine 30 mg ER Tab PO SCH (08:24)
--- NOTE | 2018-05-08 21:11 | Progress Notes ---
DATE: 05/08/2018 Case was discussed with staff of the patient, reviewed records. The patient continues to be confused, irritable, disorganized, rambling speech, mumbles to himself, looking disheveled, disorganized, internally preoccupied. He tolerated the increase in Seroquel with no side effects, no sedation, no nausea and no extrapyramidal symptoms. We will continue to work with the patient in group therapy, milieu therapy and adjust the medications as needed. JOB# [id number]
--- NOTE | 2018-05-08 21:49 | Internal Medicine Prog Note ---
Internal Medicine Subjective - Subjective Service Date: 05/08/18 Patient seen and examined:: with staff Patient is:: awake, verbal, in bed, confused Per staff patient has:: no adverse event Internal Medicine Objective - Results Result Diagrams: 05/01/18 21:25 05/01/18 21:25 Recent Labs: Laboratory Last Values WBC 5.7 Th/cmm (4.8-10.8) 05/01/18 21:25 RBC 3.83 Mil/cmm (3.80-5.80) 05/01/18 21:25 Hgb 11.7 gm/dL (12-16) L 05/01/18 21:25 Hct 35.1 % (41.0-60) L 05/01/18 21:25 MCV 91.8 fl (80-99) 05/01/18 21:25 MCH 30.5 pg (27.0-31.0) 05/01/18: MCHC Differential 33.2 pg (28.0-36.0) 05/01/18:25 RDW 14.3 % (11.5-20.0) 05/01/18 21:25 Plt Count 181 Th/cmm (150-400) 05/01/18 21: MPV 6.9 fl 05/01/18 21:25 Neutrophils % 48.9 % (40.0-80.0) 05/01/18 21:25 Lymphocytes % 37.4 % (20.0-50.0) 05/01/18 21: Monocytes % 8.3 % (2.0-10.0) 05/01/18 21:25 Eosinophils % 4.8 % (0.0-5.0) 05/01/18 21:25 Basophils % 0.6 % (0.0-2.0) 05/01/18 21:25 Sodium 136 mEq/L (136-145) 05/01/18 21:25 Potassium 4.4 mEq/L (3.5-5.1) 05/01/18 21:25 Chloride 102 mEq/L (98-107) 05/01/18 21:25 Carbon Dioxide 27.9 mEq/L (21.0-31.0) 05/01/18 21:25 Anion Gap 10.5 (7.0-16.0) 05/01/18 21:25 BUN 39 mg/dL (7-25) H 05/01/18 21:25 Creatinine 1.4 mg/dL (0.7-1.3) H 05/01/18 21:25 Est GFR ( Amer) > 60.0 ml/min (>90) 05/01/18 21:25 Est GFR (Non-Af Amer) 53.7 ml/min 05/01/18 21:25 BUN/Creatinine Ratio 27.9 05/01/18 21:25 Glucose 97 mg/dL (70-105) 05/01/18 21:25 POC Glucose 312 MG/DL (70 - 105) H 05/02/18 20:37 Calcium 9.6 mg/dL (8.6-10.3) 05/01/18 21:25 Phosphorus 3.9 mg/dL (2.5-5.0) 05/01/18 21:25 Magnesium 2.2 mg/dL (1.9-2.7) 05/01/18 21:25 Total Bilirubin 0.3 mg/dL (0.3-1.0) 05/01/18 21:25 AST 13 U/L (13-39) 05/01/18 21:25 ALT 8 U/L (7-52) 05/01/18 21:25 Alkaline Phosphatase 133 U/L (34-104) H 05/01/18 21:25 Total Protein 6.6 gm/dL (6.0-8.3) 05/01/18 21:25 Albumin 3.9 gm/dL (4.2-5.5) L 05/01/18 21:25 Globulin 2.7 gm/dL 05/01/18 21:25 Albumin/Globulin Ratio 1.4 (1.0-1.8) 05/01/18 21:25 Triglycerides 70 mg/dL (<150) 05/02/18 07:16 Cholesterol 168 mg/dL (<200) 05/02/18 07:16 LDL Cholesterol Direct 97 mg/dL (75-193) 05/02/18 07:16 HDL Cholesterol 51 mg/dL (23-92) 05/02/18 07:16 Urine Source CLEAN C 05/01/18 21:25 Urine Color YELLOW 05/01/18 21:25 Urine Clarity CLEAR (CLEAR) 05/01/18 21:25 Urine pH 6.0 (4.6 - 8.0) 05/01/18 21:25 Ur Specific [place] <= 1.005 (1.005-1.030) 05/01/18 21:25 Urine Protein NEGATIVE mg/dL (NEGATIVE) 05/01/18 21:25 Urine Glucose (UA) NEGATIVE mg/dL (NEGATIVE) 05/01/18 21:25 Urine Ketones NEGATIVE mg/dL (NEGATIVE) 05/01/18 21:25 Urine Blood NEGATIVE (NEGATIVE) 05/01/18 21:25 Urine Nitrate NEGATIVE (NEGATIVE) 05/01/18 21:25 Urine Bilirubin NEGATIVE (NEGATIVE) 05/01/18 21:25 Urine Urobilinogen 0.2 E.U./dL (0.2 - 1.0) 05/01/18 21:25 Ur Leukocyte Esterase NEGATIVE (NEGATIVE) 05/01/18 21:25 Urine RBC NONE SEEN /hpf (0-5) 05/01/18 21:25 Urine WBC 0-2 /hpf (0-5) 05/01/18 21:25 Ur Epithelial Cells FEW /lpf (FEW) 05/01/18 21:25 Urine Bacteria OCCASIONAL /hpf (NONE SEEN) 05/01/18 21:25 Urine Mucus FEW /lpf (FEW) 05/01/18 21:25 Urine Opiates Screen NEGATIVE (NEGATIVE) 05/01/18 21:25 Urine Methadone Screen NEGATIVE (NEGATIVE) 05/01/18 21:25 Acetaminophen < 10.0 ug/mL (10.0-30.0) L 05/01/18 21:25 Ur Barbiturates Screen NEGATIVE (NEGATIVE) 05/01/18 21:25 Ur Tricyclics Screen NEGATIVE (NEGATIVE) 05/01/18 21:25 Ur Phencyclidine Scrn NEGATIVE (NEGATIVE) 05/01/18 21:25 Amphetamines Screen NEGATIVE (NEGATIVE) 05/01/18 21:25 U Methamphetamines Scrn NEGATIVE (NEGATIVE) 05/01/18 21:25 U Benzodiazepines Scrn NEGATIVE (NEGATIVE) 05/01/18 21:25 U Cocaine Metab Screen NEGATIVE (NEGATIVE) 05/01/18 21:25 U Cannabinoids Screen NEGATIVE (NEGATIVE) 05/01/18 21:25 - Physical Exam Vitals and I&O: Vital Signs Temp 98.4 F 05/08/18 14:00 Pulse 69 05/08/18 14:00 Resp 19 05/08/18 20:00 BP 120/77 05/08/18 14:00 Pulse Ox 98 05/08/18 14:00 Intake & Output 05/08/18 05/08/18 05/09/18 06:59 18:59 06:59 Intake Total 1200 Balance 1200 Intake: Oral 1200 Other: # Bowel Movements 1 Active Medications: Current Medications Ascorbic Acid (Vitamin C) 500 mg PO BID DORENE Stop: 07/01/18 08:59 Last Admin: 05/08/18 17:02 Dose: 500 mg Docusate Sodium (Colace) 250 mg PO DAILY DORENE Stop: 07/01/18 08:59 Last Admin: 05/08/18 08:24 Dose: 250 mg Donepezil HCl (Aricept) 5 mg PO HS DORENE Stop: 07/01/18 20:59 Last Admin: 05/08/18 20:42 Dose: 5 mg Ferrous Sulfate (Iron) 325 mg PO DAILY DORENE Stop: 07/01/18 08:59 Last Admin: 05/08/18 08:24 Dose: 325 mg Lorazepam (Ativan) 0.5 mg PO Q4HR PRN; Protocol PRN Reason: Anxiety Stop: 05/31/18 23:31 Last Admin: 05/08/18 17:02 Dose: 0.5 mg Magnesium Hydroxide (Milk Of Magnesia) 30 ml PO DAILY DORENE Stop: 07/01/18 08:59 Last Admin: 05/08/18 08:23 Dose: 30 ml Metoprolol Tartrate (Lopressor) 25 mg PO DAILY DORENE Stop: 07/01/18 08:59 Last Admin: 05/08/18 08:23 Dose: 25 mg Multivitamins/Vitamin C (Theragran) 1 tab PO DAILY DORENE Stop: 07/01/18 08:59 Last Admin: 05/08/18 08:24 Dose: 1 tab Nifedipine (Procardia Xl) 30 mg PO DAILY DORENE Stop: 07/01/18 08:59 Last Admin: 05/08/18 08:24 Dose: 30 mg Quetiapine Fumarate 50 mg/ (Quetiapine Fumarate 25 mg) 75 mg PO BID DORENE Stop: 07/06/18 16:59 Last Admin: 05/08/18 17:02 Dose: 75 mg Tamsulosin HCl (Flomax) 0.4 mg PO HS DORENE Stop: 07/01/18 20:59 Last Admin: 05/08/18 20:42 Dose: 0.4 mg General: demented HEENT: NC/AT, PERRLA, EOMI, anicteric sclerae, throat clear Neck: Supple, No JVD, No thyromegaly, +2 carotid pulse wo bruit, No LAD, + JVD Cardiovascular: RRR, Normal S1, Normal S2, without murmur Abdomen: non-tender, non-distended Extremities: clear Neurological: no change Internal Medicine Assmt/Plan - Assessment Assessment: 1.HTN. 2.BPH. 3.ANEMIA.. 4.DEMENTIA. - Plan Plan: CONTINUE ON CURRENT MEDICATION AND DIET. Nutritional Asmnt/Malnutr-PDOC - Dietary Evaluation Malnutrition Findings (Please click <Entered> for more info): Nutritional Asmnt/Malnutrition Start: 05/06/18 13: 55 Text: Status: Complete Freq: Protocol: Document 05/06/18 14:29 CHRISTIANE (Rec: 05/06/18 14:41 KASSIE [email or web address]) Nutritional Asmnt/Malnutrition Patient General Information Nutritional Screening Moderate Risk Diagnosis psychosis Pertinent Medical Hx/Surgical Hx HTN, BPH, anemia, dementia Subjective Information pt seen in his room, confused. Per EMR, PO intake 100%. Current Diet Order/ Nutrition Support low sodium, mech soft chopped Pertinent Medications vit C, colace, iron, theragran , seroquel Pertinent Labs 05/01 BUN 39, Cr 1.4, glucose 97 , alb 3.9 05/02 POC 312 Nutritional Hx/Data Height 1.85 m Height (Calculated Centimeters) 185.4 Current Weight (lbs) 76.204 kg Weight (Calculated Kilograms) 76.2 Weight (Calculated Grams) 96932.5 [place] Body Weight 184 Body Mass Index (BMI) 22.1 Weight Status Approriate GI Symptoms GI Symptoms None Last BM 05/05 Difficult in: None Skin Integrity/Comment: intact Current %PO Good (75-100%) Estimated Nutritional Goals BEE in Kcals: Using Current wt Calories/Kcals/Kg 25-30 Kcals Calculated 1853-4003 Protein: Using Current wt Protein g/k Protein Calculated 76 Fluid: ml 1900-2280ml (1ml/kcal) Nutritional Problem No current Nutrition Prob Problem N/A Malnutrition Alert Is there a minimum of two criteria No selected? Query Text:Check all the applicable criteria. A minimum of two criteria are recommended for diagnosis of either severe or non-severe malnutrition. Malnutrition Related to Morbid Obesity Malnutrition related to morbid obesity No Intervention/Recommendation Comments 1. Continue with current diet as ordered. 2. Monitor PO intake, wt, labs and skin integrity 3. F/U as low risk in 7 days, 05/13 Expected Outcomes/Goals Expected Outcomes/Goals 1. PO intake to meet at least 75% of nutritional needs. 2. Wt stability, skin to remain intact, labs to approach WNL.
[2018-05-09] MEDS: NIFEdipine 30 mg ER Tab PO SCH (08:39)
[2018-05-09] MEDS: Multivitamin Tab PO SCH (08:40)
[2018-05-09] MEDS: Ferrous Sulfate 325 MG TAB PO SCH (08:40)
[2018-05-09] MEDS: Magnesium Hydroxide (MOM) 30 mL UDC PO SCH (08:41)
--- NOTE | 2018-05-09 17:01 | General Progress Note ---
Subjective - Review of Systems Service Date: 05/09/18 Subjective: ambulation comfortably no distress Objective - Results Result Diagrams: 05/01/18 21:25 05/01/18 21:25 Recent Labs: Laboratory Last Values WBC 5.7 Th/cmm (4.8-10.8) 05/01/18 21:25 RBC 3.83 Mil/cmm (3.80-5.80) 05/01/18 21:25 Hgb 11.7 gm/dL (12-16) L 05/01/18 21:25 Hct 35.1 % (41.0-60) L 05/01/18 21:25 MCV 91.8 fl (80-99) 05/01/18 21:25 MCH 30.5 pg (27.0-31.0) 05/01/18 21:25 MCHC Differential 33.2 pg (28.0-36.0) 05/01/18 21:25 RDW 14.3 % (11.5-20.0) 05/01/18 21:25 Plt Count 181 Th/cmm (150-400) 05/01/18 21:25 MPV 6.9 fl 05/01/18 21:25 Neutrophils % 48.9 % (40.0-80.0) 05/01/18 21:25 Lymphocytes % 37.4 % (20.0-50.0) 05/01/18 21:25 Monocytes % 8.3 % (2.0-10.0) 05/01/18 21:25 Eosinophils % 4.8 % (0.0-5.0) 05/01/18 21:25 Basophils % 0.6 % (0.0-2.0) 05/01/18 21:25 Sodium 136 mEq/L (136-145) 05/01/18 21:25 Potassium 4.4 mEq/L (3.5-5.1) 05/01/18 21:25 Chloride 102 mEq/L (98-107) 05/01/18 21:25 Carbon Dioxide 27.9 mEq/L (21.0-31.0) 05/01/18 21:25 Anion Gap 10.5 (7.0-16.0) 05/01/18 21:25 BUN 39 mg/dL (7-25) H 05/01/18 21:25 Creatinine 1.4 mg/dL (0.7-1.3) H 05/01/18 21:25 Est GFR ( Amer) > 60.0 ml/min (>90) 05/01/18 21:25 Est GFR (Non-Af Amer) 53.7 ml/min 05/01/18 21:25 BUN/Creatinine Ratio 27.9 05/01/18 21:25 Glucose 97 mg/dL (70-105) 05/01/18 21:25 POC Glucose 312 MG/DL (70 - 105) H 05/02/18 20:37 Calcium 9.6 mg/dL (8.6-10.3) 05/01/18 21:25 Phosphorus 3.9 mg/dL (2.5-5.0) 05/01/18 21:25 Magnesium 2.2 mg/dL (1.9-2.7) 05/01/18 21:25 Total Bilirubin 0.3 mg/dL (0.3-1.0) 05/01/18 21:25 AST 13 U/L (13-39) 05/01/18 21:25 ALT 8 U/L (7-52) 05/01/18 21:25 Alkaline Phosphatase 133 U/L (34-104) H 05/01/18 21:25 Total Protein 6.6 gm/dL (6.0-8.3) 05/01/18 21:25 Albumin 3.9 gm/dL (4.2-5.5) L 05/01/18 21:25 Globulin 2.7 gm/dL 05/01/18 21:25 Albumin/Globulin Ratio 1.4 (1.0-1.8) 05/01/18 21:25 Triglycerides 70 mg/dL (<150) 05/02/18 07:16 Cholesterol 168 mg/dL (<200) 05/02/18 07:16 LDL Cholesterol Direct 97 mg/dL (75-193) 05/02/18 07:16 HDL Cholesterol 51 mg/dL (23-92) 05/02/18 07:16 Urine Source CLEAN C 05/01/18 21:25 Urine Color YELLOW 05/01/18 21:25 Urine Clarity CLEAR (CLEAR) 05/01/18 21:25 Urine pH 6.0 (4.6 - 8.0) 05/01/18 21:25 Ur Specific [place] <= 1.005 (1.005-1.030) 05/01/18 21:25 Urine Protein NEGATIVE mg/dL (NEGATIVE) 05/01/18 21:25 Urine Glucose (UA) NEGATIVE mg/dL (NEGATIVE) 05/01/18 21:25 Urine Ketones NEGATIVE mg/dL (NEGATIVE) 05/01/18 21:25 Urine Blood NEGATIVE (NEGATIVE) 05/01/18 21:25 Urine Nitrate NEGATIVE (NEGATIVE) 05/01/18 21:25 Urine Bilirubin NEGATIVE (NEGATIVE) 05/01/18 21:25 Urine Urobilinogen 0.2 E.U./dL (0.2 - 1.0) 05/01/18 21:25 Ur Leukocyte Esterase NEGATIVE (NEGATIVE) 05/01/18 21:25 Urine RBC NONE SEEN /hpf (0-5) 05/01/18 21:25 Urine WBC 0-2 /hpf (0-5) 05/01/18 21:25 Ur Epithelial Cells FEW /lpf (FEW) 05/01/18 21:25 Urine Bacteria OCCASIONAL /hpf (NONE SEEN) 05/01/18 21:25 Urine Mucus FEW /lpf (FEW) 05/01/18 21:25 Urine Opiates Screen NEGATIVE (NEGATIVE) 05/01/18 21:25 Urine Methadone Screen NEGATIVE (NEGATIVE) 05/01/18 21:25 Acetaminophen < 10.0 ug/mL (10.0-30.0) L 05/01/18 21:25 Ur Barbiturates Screen NEGATIVE (NEGATIVE) 05/01/18 21:25 Ur Tricyclics Screen NEGATIVE (NEGATIVE) 05/01/18 21:25 Ur Phencyclidine Scrn NEGATIVE (NEGATIVE) 05/01/18 21:25 Amphetamines Screen NEGATIVE (NEGATIVE) 05/01/18 21:25 U Methamphetamines Scrn NEGATIVE (NEGATIVE) 05/01/18 21:25 U Benzodiazepines Scrn NEGATIVE (NEGATIVE) 05/01/18 21:25 U Cocaine Metab Screen NEGATIVE (NEGATIVE) 05/01/18 21:25 U Cannabinoids Screen NEGATIVE (NEGATIVE) 05/01/18 21:25 - Physical Exam Vitals and I&O: Vital Signs Temp 98.4 F 05/09/18 15:00 Pulse 65 05/09/18 15:00 Resp 20 05/09/18 15:00 BP 141/73 05/09/18 15:00 Pulse Ox 97 05/09/18 15:00 Intake & Output 05/08/18 05/09/18 05/09/18 18:59 06:59 18:59 Intake Total 1200 240 Balance 1200 240 Intake: Oral 1200 240 Other: # Voids 2 # Bowel Movements 1 Stool Characteristics Formed Active Medications: Current Medications Ascorbic Acid (Vitamin C) 500 mg PO BID DORENE Stop: 07/01/18 08:59 Last Admin: 05/09/18 16:41 Dose: 500 mg Docusate Sodium (Colace) 250 mg PO DAILY DORENE Stop: 07/01/18 08:59 Last Admin: 05/09/18 08:39 Dose: 250 mg Donepezil HCl (Aricept) 5 mg PO HS DORENE Stop: 07/01/18 20:59 Last Admin: 05/08/18 20:42 Dose: 5 mg Ferrous Sulfate (Iron) 325 mg PO DAILY DORENE Stop: 07/01/18 08:59 Last Admin: 05/09/18 08:40 Dose: 325 mg Lorazepam (Ativan) 0.5 mg PO Q4HR PRN; Protocol PRN Reason: Anxiety Stop: 05/31/18 23:31 Last Admin: 05/09/18 08:40 Dose: 0.5 mg Magnesium Hydroxide (Milk Of Magnesia) 30 ml PO DAILY DORENE Stop: 07/01/18 08:59 Last Admin: 05/09/18 08:41 Dose: 30 ml Metoprolol Tartrate (Lopressor) 25 mg PO DAILY DORENE Stop: 07/01/18 08:59 Last Admin: 05/09/18 08:40 Dose: 25 mg Multivitamins/Vitamin C (Theragran) 1 tab PO DAILY DORENE Stop: 07/01/18 08:59 Last Admin: 05/09/18 08:40 Dose: 1 tab Nifedipine (Procardia Xl) 30 mg PO DAILY DORENE Stop: 07/01/18 08:59 Last Admin: 05/09/18 08:39 Dose: 30 mg Quetiapine Fumarate 50 mg/ (Quetiapine Fumarate 25 mg) 75 mg PO BID DORENE Stop: 07/06/18 16:59 Last Admin: 05/09/18 16:41 Dose: 75 mg Tamsulosin HCl (Flomax) 0.4 mg PO HS DORENE Stop: 07/01/18 20:59 Last Admin: 05/08/18 20:42 Dose: 0.4 mg General: No acute distress HEENT: Atraumatic, PERRLA, EOMI Neck: Supple, JVD, Thyromegaly Cardiovascular: Regular rate, Normal S1, Normal S2 Lungs: Clear to auscultation Abdomen: Bowel sounds, Soft Assessment/Plan - Assessment Assessment: 1.HTN. 2.BPH. 3.ANEMIA.. 4.DEMENTIA. - Plan Plan: continue current treatment Nutritional Asmnt/Malnutr-PDOC - Dietary Evaluation Malnutrition Findings (Please click <Entered> for more info): Nutritional Asmnt/Malnutrition Start: 05/06/18 13: 55 Text: Status: Complete Freq: Protocol: Document 05/06/18 14:29 JERRELLG (Rec: 05/06/18 14:41 CHRISTIANE [email or web address]) Nutritional Asmnt/Malnutrition Patient General Information Nutritional Screening Moderate Risk Diagnosis psychosis Pertinent Medical Hx/Surgical Hx HTN, BPH, anemia, dementia Subjective Information pt seen in his room, confused. Per EMR, PO intake 100%. Current Diet Order/ Nutrition Support low sodium, mech soft chopped Pertinent Medications vit C, colace, iron, theragran , seroquel Pertinent Labs 05/01 BUN 39, Cr 1.4, glucose 97 , alb 3.9 05/02 POC 312 Nutritional Hx/Data Height 1.85 m Height (Calculated Centimeters) 185.4 Current Weight (lbs) 76.204 kg Weight (Calculated Kilograms) 76.2 Weight (Calculated Grams) 14619.5 [place] Body Weight 184 Body Mass Index (BMI) 22.1 Weight Status Approriate GI Symptoms GI Symptoms None Last BM 05/05 Difficult in: None Skin Integrity/Comment: intact Current %PO Good (75-100%) Estimated Nutritional Goals BEE in Kcals: Using Current wt Calories/Kcals/Kg 25-30 Kcals Calculated 1371-1475 Protein: Using Current wt Protein g/k Protein Calculated 76 Fluid: ml 1900-2280ml (1ml/kcal) Nutritional Problem No current Nutrition Prob Problem N/A Malnutrition Alert Is there a minimum of two criteria No selected? Query Text:Check all the applicable criteria. A minimum of two criteria are recommended for diagnosis of either severe or non-severe malnutrition. Malnutrition Related to Morbid Obesity Malnutrition related to morbid obesity No Intervention/Recommendation Comments 1. Continue with current diet as ordered. 2. Monitor PO intake, wt, labs and skin integrity 3. F/U as low risk in 7 days, 05/13 Expected Outcomes/Goals Expected Outcomes/Goals 1. PO intake to meet at least 75% of nutritional needs. 2. Wt stability, skin to remain intact, labs to approach WNL.
--- NOTE | 2018-05-10 07:47 | Progress Notes ---
DATE: SUBJECTIVE: The patient was seen and evaluated. The patient's chart reviewed. This is Dr. Reese covering for Dr. Yanez. IDENTIFYING DATA: He is a 67-year-old male, who continues to observe to be irritable, confused and disorganized. Today on [id number] evaluation, the patient continues difficulty engaging in a linear conversation as he mumbles to himself and looks disheveled and disorganized. MENTAL STATUS EXAMINATION: Internally preoccupied, disorganized. ASSESSMENT AND PLAN: We will continue with the recent increase in Seroquel to target the patient's disorganized thought process and impaired ability to find food, prison and clothing outside of a structured environment. [facility]# [id number]
[2018-05-10] MEDS: Magnesium Hydroxide (MOM) 30 mL UDC PO SCH (08:44)
[2018-05-10] MEDS: NIFEdipine 30 mg ER Tab PO SCH (08:46)
[2018-05-10] MEDS: Multivitamin Tab PO SCH (08:46)
[2018-05-10] MEDS: Ferrous Sulfate 325 MG TAB PO SCH (08:46)
--- NOTE | 2018-05-10 20:27 | General Progress Note ---
Subjective - Review of Systems Service Date: 05/10/18 Subjective: ambulation comfortably no distress Objective - Results Result Diagrams: 05/01/18 21:25 05/01/18 21:25 Recent Labs: Laboratory Last Values WBC 5.7 Th/cmm (4.8-10.8) 05/01/18 21:25 RBC 3.83 Mil/cmm (3.80-5.80) 05/01/18 21:25 Hgb 11.7 gm/dL (12-16) L 05/01/18 21:25 Hct 35.1 % (41.0-60) L 05/01/18 21:25 MCV 91.8 fl (80-99) 05/01/18 21:25 MCH 30.5 pg (27.0-31.0) 05/01/18 21:25 MCHC Differential 33.2 pg (28.0-36.0) 05/01/18 21:25 RDW 14.3 % (11.5-20.0) 05/01/18 21:25 Plt Count 181 Th/cmm (150-400) 05/01/18 21:25 MPV 6.9 fl 05/01/18 21:25 Neutrophils % 48.9 % (40.0-80.0) 05/01/18 21:25 Lymphocytes % 37.4 % (20.0-50.0) 05/01/18 21:25 Monocytes % 8.3 % (2.0-10.0) 05/01/18 21:25 Eosinophils % 4.8 % (0.0-5.0) 05/01/18 21:25 Basophils % 0.6 % (0.0-2.0) 05/01/18 21:25 Sodium 136 mEq/L (136-145) 05/01/18 21:25 Potassium 4.4 mEq/L (3.5-5.1) 05/01/18 21:25 Chloride 102 mEq/L (98-107) 05/01/18 21:25 Carbon Dioxide 27.9 mEq/L (21.0-31.0) 05/01/18 21:25 Anion Gap 10.5 (7.0-16.0) 05/01/18 21:25 BUN 39 mg/dL (7-25) H 05/01/18 21:25 Creatinine 1.4 mg/dL (0.7-1.3) H 05/01/18 21:25 Est GFR ( Amer) > 60.0 ml/min (>90) 05/01/18 21:25 Est GFR (Non-Af Amer) 53.7 ml/min 05/01/18 21:25 BUN/Creatinine Ratio 27.9 05/01/18 21:25 Glucose 97 mg/dL (70-105) 05/01/18 21:25 POC Glucose 312 MG/DL (70 - 105) H 05/02/18 20:37 Calcium 9.6 mg/dL (8.6-10.3) 05/01/18 21:25 Phosphorus 3.9 mg/dL (2.5-5.0) 05/01/18 21:25 Magnesium 2.2 mg/dL (1.9-2.7) 05/01/18 21:25 Total Bilirubin 0.3 mg/dL (0.3-1.0) 05/01/18 21:25 AST 13 U/L (13-39) 05/01/18 21:25 ALT 8 U/L (7-52) 05/01/18 21:25 Alkaline Phosphatase 133 U/L (34-104) H 05/01/18 21:25 Total Protein 6.6 gm/dL (6.0-8.3) 05/01/18 21:25 Albumin 3.9 gm/dL (4.2-5.5) L 05/01/18 21:25 Globulin 2.7 gm/dL 05/01/18 21:25 Albumin/Globulin Ratio 1.4 (1.0-1.8) 05/01/18 21:25 Triglycerides 70 mg/dL (<150) 05/02/18 07:16 Cholesterol 168 mg/dL (<200) 05/02/18 07:16 LDL Cholesterol Direct 97 mg/dL (75-193) 05/02/18 07:16 HDL Cholesterol 51 mg/dL (23-92) 05/02/18 07:16 Urine Source CLEAN C 05/01/18 21:25 Urine Color YELLOW 05/01/18 21:25 Urine Clarity CLEAR (CLEAR) 05/01/18 21:25 Urine pH 6.0 (4.6 - 8.0) 05/01/18 21:25 Ur Specific [place] <= 1.005 (1.005-1.030) 05/01/18 21:25 Urine Protein NEGATIVE mg/dL (NEGATIVE) 05/01/18 21:25 Urine Glucose (UA) NEGATIVE mg/dL (NEGATIVE) 05/01/18 21:25 Urine Ketones NEGATIVE mg/dL (NEGATIVE) 05/01/18 21:25 Urine Blood NEGATIVE (NEGATIVE) 05/01/18 21:25 Urine Nitrate NEGATIVE (NEGATIVE) 05/01/18 21:25 Urine Bilirubin NEGATIVE (NEGATIVE) 05/01/18 21:25 Urine Urobilinogen 0.2 E.U./dL (0.2 - 1.0) 05/01/18 21:25 Ur Leukocyte Esterase NEGATIVE (NEGATIVE) 05/01/18 21:25 Urine RBC NONE SEEN /hpf (0-5) 05/01/18 21:25 Urine WBC 0-2 /hpf (0-5) 05/01/18 21:25 Ur Epithelial Cells FEW /lpf (FEW) 05/01/18 21:25 Urine Bacteria OCCASIONAL /hpf (NONE SEEN) 05/01/18 21:25 Urine Mucus FEW /lpf (FEW) 05/01/18 21:25 Urine Opiates Screen NEGATIVE (NEGATIVE) 05/01/18 21:25 Urine Methadone Screen NEGATIVE (NEGATIVE) 05/01/18 21:25 Acetaminophen < 10.0 ug/mL (10.0-30.0) L 05/01/18 21:25 Ur Barbiturates Screen NEGATIVE (NEGATIVE) 05/01/18 21:25 Ur Tricyclics Screen NEGATIVE (NEGATIVE) 05/01/18 21:25 Ur Phencyclidine Scrn NEGATIVE (NEGATIVE) 05/01/18 21:25 Amphetamines Screen NEGATIVE (NEGATIVE) 05/01/18 21:25 U Methamphetamines Scrn NEGATIVE (NEGATIVE) 05/01/18 21:25 U Benzodiazepines Scrn NEGATIVE (NEGATIVE) 05/01/18 21:25 U Cocaine Metab Screen NEGATIVE (NEGATIVE) 05/01/18 21:25 U Cannabinoids Screen NEGATIVE (NEGATIVE) 05/01/18 21:25 - Physical Exam Vitals and I&O: Vital Signs Temp 98 F 05/10/18 20:09 Pulse 72 05/10/18 20:09 Resp 18 05/10/18 20:09 BP 108/60 05/10/18 20:09 Pulse Ox 95 05/10/18 20:09 Intake & Output 05/10/18 05/10/18 05/11/18 06:59 18:59 06:59 Intake Total 480 1200 480 Balance 480 1200 480 Intake: Oral 480 1200 480 Other: # Voids 1 4 2 # Bowel Movements 1 Stool Characteristics Formed Active Medications: Current Medications Ascorbic Acid (Vitamin C) 500 mg PO BID DORENE Stop: 07/01/18 08:59 Last Admin: 05/10/18 16:22 Dose: 500 mg Docusate Sodium (Colace) 250 mg PO DAILY DORENE Stop: 07/01/18 08:59 Last Admin: 05/10/18 08:45 Dose: 250 mg Donepezil HCl (Aricept) 5 mg PO HS DORENE Stop: 07/01/18 20:59 Last Admin: 05/09/18 20:52 Dose: 5 mg Ferrous Sulfate (Iron) 325 mg PO DAILY DORENE Stop: 07/01/18 08:59 Last Admin: 05/10/18 08:46 Dose: 325 mg Lorazepam (Ativan) 0.5 mg PO Q4HR PRN; Protocol PRN Reason: Anxiety Stop: 05/31/18 23:31 Last Admin: 05/10/18 16:22 Dose: 0.5 mg Magnesium Hydroxide (Milk Of Magnesia) 30 ml PO DAILY DORENE Stop: 07/01/18 08:59 Last Admin: 05/10/18 08:44 Dose: 30 ml Metoprolol Tartrate (Lopressor) 25 mg PO DAILY DORENE Stop: 07/01/18 08:59 Last Admin: 05/10/18 08:47 Dose: 25 mg Multivitamins/Vitamin C (Theragran) 1 tab PO DAILY DORENE Stop: 07/01/18 08:59 Last Admin: 05/10/18 08:46 Dose: 1 tab Nifedipine (Procardia Xl) 30 mg PO DAILY DORENE Stop: 07/01/18 08:59 Last Admin: 05/10/18 08:46 Dose: 30 mg Quetiapine Fumarate 50 mg/ (Quetiapine Fumarate 25 mg) 75 mg PO BID DORENE Stop: 07/06/18 16:59 Last Admin: 05/10/18 16:22 Dose: 75 mg Tamsulosin HCl (Flomax) 0.4 mg PO HS DORENE Stop: 07/01/18 20:59 Last Admin: 05/09/18 20:52 Dose: 0.4 mg General: No acute distress HEENT: Atraumatic, PERRLA, EOMI Neck: Supple, JVD, Thyromegaly Cardiovascular: Regular rate, Normal S1, Normal S2 Lungs: Clear to auscultation Abdomen: Bowel sounds, Soft Assessment/Plan - Assessment Assessment: 1.HTN. 2.BPH. 3.ANEMIA.. 4.DEMENTIA. - Plan Plan: continue current treatment Nutritional Asmnt/Malnutr-PDOC - Dietary Evaluation Malnutrition Findings (Please click <Entered> for more info): Nutritional Asmnt/Malnutrition Start: 05/06/18 13: 55 Text: Status: Complete Freq: Protocol: Document 05/06/18 14:29 JERRELLG (Rec: 05/06/18 14:41 CHRISTIANE [email or web address]) Nutritional Asmnt/Malnutrition Patient General Information Nutritional Screening Moderate Risk Diagnosis psychosis Pertinent Medical Hx/Surgical Hx HTN, BPH, anemia, dementia Subjective Information pt seen in his room, confused. Per EMR, PO intake 100%. Current Diet Order/ Nutrition Support low sodium, mech soft chopped Pertinent Medications vit C, colace, iron, theragran , seroquel Pertinent Labs 05/01 BUN 39, Cr 1.4, glucose 97 , alb 3.9 05/02 POC 312 Nutritional Hx/Data Height 1.85 m Height (Calculated Centimeters) 185.4 Current Weight (lbs) 76.204 kg Weight (Calculated Kilograms) 76.2 Weight (Calculated Grams) 02067.5 [place] Body Weight 184 Body Mass Index (BMI) 22.1 Weight Status Approriate GI Symptoms GI Symptoms None Last BM 05/05 Difficult in: None Skin Integrity/Comment: intact Current %PO Good (75-100%) Estimated Nutritional Goals BEE in Kcals: Using Current wt Calories/Kcals/Kg 25-30 Kcals Calculated 2901-6661 Protein: Using Current wt Protein g/k Protein Calculated 76 Fluid: ml 1900-2280ml (1ml/kcal) Nutritional Problem No current Nutrition Prob Problem N/A Malnutrition Alert Is there a minimum of two criteria No selected? Query Text:Check all the applicable criteria. A minimum of two criteria are recommended for diagnosis of either severe or non-severe malnutrition. Malnutrition Related to Morbid Obesity Malnutrition related to morbid obesity No Intervention/Recommendation Comments 1. Continue with current diet as ordered. 2. Monitor PO intake, wt, labs and skin integrity 3. F/U as low risk in 7 days, 05/13 Expected Outcomes/Goals Expected Outcomes/Goals 1. PO intake to meet at least 75% of nutritional needs. 2. Wt stability, skin to remain intact, labs to approach WNL.
[2018-05-11] MEDS: NIFEdipine 30 mg ER Tab PO SCH (09:19)
[2018-05-11] MEDS: Multivitamin Tab PO SCH (09:19)
[2018-05-11] MEDS: Ferrous Sulfate 325 MG TAB PO SCH (09:19)
[2018-05-11] MEDS: Magnesium Hydroxide (MOM) 30 mL UDC PO SCH (09:20)
--- NOTE | 2018-05-11 09:49 | Progress Notes ---
DATE: SUBJECTIVE: The patient was seen and evaluated. The patient's chart reviewed. Nursing staff reported the patient continues to need redirection to maintain a linear conversation. ____ Today on [id number] evaluation, the patient difficult to engage in any meaningful conversation. He continues to do on own. MENTAL STATUS EXAMINATION: Some noted internal thought blocking and internally preoccupied. ASSESSMENT AND PLAN: We will continue to monitor and evaluating with recently increase of Seroquel. the patient's severe disorganized thought process and still be thought blocking. JOB# [id number]
--- NOTE | 2018-05-11 19:44 | Internal Medicine Prog Note ---
Internal Medicine Subjective - Subjective Service Date: 05/11/18 Patient seen and examined:: with staff Patient is:: awake, verbal, in bed, confused Per staff patient has:: no adverse event Internal Medicine Objective - Results Result Diagrams: 05/01/18 21:25 05/01/18 21:25 Recent Labs: Laboratory Last Values WBC 5.7 Th/cmm (4.8-10.8) 05/01/18 21:25 RBC 3.83 Mil/cmm (3.80-5.80) 05/01/18 21:25 Hgb 11.7 gm/dL (12-16) L 05/01/18 21:25 Hct 35.1 % (41.0-60) L 05/01/18 21:25 MCV 91.8 fl (80-99) 05/01/18 21:25 MCH 30.5 pg (27.0-31.0) 05/01/18: MCHC Differential 33.2 pg (28.0-36.0) 05/01/18:25 RDW 14.3 % (11.5-20.0) 05/01/18 21:25 Plt Count 181 Th/cmm (150-400) 05/01/18 21: MPV 6.9 fl 05/01/18 21:25 Neutrophils % 48.9 % (40.0-80.0) 05/01/18 21:25 Lymphocytes % 37.4 % (20.0-50.0) 05/01/18 21: Monocytes % 8.3 % (2.0-10.0) 05/01/18 21:25 Eosinophils % 4.8 % (0.0-5.0) 05/01/18 21:25 Basophils % 0.6 % (0.0-2.0) 05/01/18 21:25 Sodium 136 mEq/L (136-145) 05/01/18 21:25 Potassium 4.4 mEq/L (3.5-5.1) 05/01/18 21:25 Chloride 102 mEq/L (98-107) 05/01/18 21:25 Carbon Dioxide 27.9 mEq/L (21.0-31.0) 05/01/18 21:25 Anion Gap 10.5 (7.0-16.0) 05/01/18 21:25 BUN 39 mg/dL (7-25) H 05/01/18 21:25 Creatinine 1.4 mg/dL (0.7-1.3) H 05/01/18 21:25 Est GFR ( Amer) > 60.0 ml/min (>90) 05/01/18 21:25 Est GFR (Non-Af Amer) 53.7 ml/min 05/01/18 21:25 BUN/Creatinine Ratio 27.9 05/01/18 21:25 Glucose 97 mg/dL (70-105) 05/01/18 21:25 POC Glucose 312 MG/DL (70 - 105) H 05/02/18 20:37 Calcium 9.6 mg/dL (8.6-10.3) 05/01/18 21:25 Phosphorus 3.9 mg/dL (2.5-5.0) 05/01/18 21:25 Magnesium 2.2 mg/dL (1.9-2.7) 05/01/18 21:25 Total Bilirubin 0.3 mg/dL (0.3-1.0) 05/01/18 21:25 AST 13 U/L (13-39) 05/01/18 21:25 ALT 8 U/L (7-52) 05/01/18 21:25 Alkaline Phosphatase 133 U/L (34-104) H 05/01/18 21:25 Total Protein 6.6 gm/dL (6.0-8.3) 05/01/18 21:25 Albumin 3.9 gm/dL (4.2-5.5) L 05/01/18 21:25 Globulin 2.7 gm/dL 05/01/18 21:25 Albumin/Globulin Ratio 1.4 (1.0-1.8) 05/01/18 21:25 Triglycerides 70 mg/dL (<150) 05/02/18 07:16 Cholesterol 168 mg/dL (<200) 05/02/18 07:16 LDL Cholesterol Direct 97 mg/dL (75-193) 05/02/18 07:16 HDL Cholesterol 51 mg/dL (23-92) 05/02/18 07:16 Urine Source CLEAN C 05/01/18 21:25 Urine Color YELLOW 05/01/18 21:25 Urine Clarity CLEAR (CLEAR) 05/01/18 21:25 Urine pH 6.0 (4.6 - 8.0) 05/01/18 21:25 Ur Specific [place] <= 1.005 (1.005-1.030) 05/01/18 21:25 Urine Protein NEGATIVE mg/dL (NEGATIVE) 05/01/18 21:25 Urine Glucose (UA) NEGATIVE mg/dL (NEGATIVE) 05/01/18 21:25 Urine Ketones NEGATIVE mg/dL (NEGATIVE) 05/01/18 21:25 Urine Blood NEGATIVE (NEGATIVE) 05/01/18 21:25 Urine Nitrate NEGATIVE (NEGATIVE) 05/01/18 21:25 Urine Bilirubin NEGATIVE (NEGATIVE) 05/01/18 21:25 Urine Urobilinogen 0.2 E.U./dL (0.2 - 1.0) 05/01/18 21:25 Ur Leukocyte Esterase NEGATIVE (NEGATIVE) 05/01/18 21:25 Urine RBC NONE SEEN /hpf (0-5) 05/01/18 21:25 Urine WBC 0-2 /hpf (0-5) 05/01/18 21:25 Ur Epithelial Cells FEW /lpf (FEW) 05/01/18 21:25 Urine Bacteria OCCASIONAL /hpf (NONE SEEN) 05/01/18 21:25 Urine Mucus FEW /lpf (FEW) 05/01/18 21:25 Urine Opiates Screen NEGATIVE (NEGATIVE) 05/01/18 21:25 Urine Methadone Screen NEGATIVE (NEGATIVE) 05/01/18 21:25 Acetaminophen < 10.0 ug/mL (10.0-30.0) L 05/01/18 21:25 Ur Barbiturates Screen NEGATIVE (NEGATIVE) 05/01/18 21:25 Ur Tricyclics Screen NEGATIVE (NEGATIVE) 05/01/18 21:25 Ur Phencyclidine Scrn NEGATIVE (NEGATIVE) 05/01/18 21:25 Amphetamines Screen NEGATIVE (NEGATIVE) 05/01/18 21:25 U Methamphetamines Scrn NEGATIVE (NEGATIVE) 05/01/18 21:25 U Benzodiazepines Scrn NEGATIVE (NEGATIVE) 05/01/18 21:25 U Cocaine Metab Screen NEGATIVE (NEGATIVE) 05/01/18 21:25 U Cannabinoids Screen NEGATIVE (NEGATIVE) 05/01/18 21:25 - Physical Exam Vitals and I&O: Vital Signs Temp 97.9 F 05/11/18 14:34 Pulse 64 05/11/18 14:34 Resp 19 05/11/18 14:34 BP 149/78 05/11/18 14:34 Pulse Ox 97 05/11/18 14:34 Intake & Output 05/11/18 05/11/1818 06:59 18:59 06:59 Intake Total 480 Balance 480 Intake: Oral 480 Other: # Voids 3 3 # Bowel Movements 0 1 Active Medications: Current Medications Ascorbic Acid (Vitamin C) 500 mg PO BID [facility] Stop: 07/01/18 08:59 Last Admin: 05/11/18 18:27 Dose: Not Given Docusate Sodium (Colace) 250 mg PO DAILY [facility] Stop: 07/01/18 08:59 Last Admin: 05/11/18 09:20 Dose: 250 mg Donepezil HCl (Aricept) 10 mg PO HS [facility] Stop: 07/10/18 20:59 Ferrous Sulfate (Iron) 325 mg PO DAILY [facility] Stop: 07/01/18 08:59 Last Admin: 05/11/18 09:19 Dose: 325 mg Lorazepam (Ativan) 0.5 mg PO Q4HR PRN; Protocol PRN Reason: Anxiety Stop: 05/31/18 23:31 Last Admin: 05/11/18 16:13 Dose: 0.5 mg Magnesium Hydroxide (Milk Of Magnesia) 30 ml PO DAILY [facility] Stop: 07/01/18 08:59 Last Admin: 05/11/18 09:20 Dose: 30 ml Metoprolol Tartrate (Lopressor) 25 mg PO DAILY [facility] Stop: 07/01/18 08:59 Last Admin: 05/11/18 09:19 Dose: 25 mg Multivitamins/Vitamin C (Theragran) 1 tab PO DAILY [facility] Stop: 07/01/18 08:59 Last Admin: 05/11/18 09:19 Dose: 1 tab Nifedipine (Procardia Xl) 30 mg PO DAILY [facility] Stop: 07/01/18 08:59 Last Admin: 05/11/18 09:19 Dose: 30 mg Quetiapine Fumarate 50 mg/ (Quetiapine Fumarate 25 mg) 75 mg PO BID [facility] Stop: 07/06/18 16:59 Last Admin: 05/11/18 16:14 Dose: 75 mg Tamsulosin HCl (Flomax) 0.4 mg PO HS [facility] Stop: 07/01/18 20:59 Last Admin: 05/10/18 21:10 Dose: 0.4 mg General: demented HEENT: NC/AT, PERRLA, EOMI, anicteric sclerae, throat clear Neck: Supple, No JVD, No thyromegaly, +2 carotid pulse wo bruit, No LAD, + JVD Cardiovascular: RRR, Normal S1, Normal S2, without murmur Abdomen: non-tender, non-distended Extremities: clear Neurological: no change Internal Medicine Assmt/Plan - Assessment Assessment: 1.HTN. 2.BPH. 3.ANEMIA.. 4.DEMENTIA. - Plan Plan: CONTINUE ON CURRENT MEDICATION AND DIET. Nutritional Asmnt/Malnutr-PDOC - Dietary Evaluation Malnutrition Findings (Please click <Entered> for more info): Nutritional Asmnt/Malnutrition Start: 05/06/18 13: 55 Text: Status: Complete Freq: Protocol: Document 05/06/18 14:29 LCHENG (Rec: 05/06/18 14:41 LCJORGE ALBERTOG [email or web address]) Nutritional Asmnt/Malnutrition Patient General Information Nutritional Screening Moderate Risk Diagnosis psychosis Pertinent Medical Hx/Surgical Hx HTN, BPH, anemia, dementia Subjective Information pt seen in his room, confused. Per EMR, PO intake 100%. Current Diet Order/ Nutrition Support low sodium, mech soft chopped Pertinent Medications vit C, colace, iron, theragran , seroquel Pertinent Labs 05/01 BUN 39, Cr 1.4, glucose 97 , alb 3.9 05/02 POC 312 Nutritional Hx/Data Height 1.85 m Height (Calculated Centimeters) 185.4 Current Weight (lbs) 76.204 kg Weight (Calculated Kilograms) 76.2 Weight (Calculated Grams) [address].[address] [place] Body Weight 184 Body Mass Index (BMI) 22.1 Weight Status Approriate GI Symptoms GI Symptoms None Last BM 05/05 Difficult in: None Skin Integrity/Comment: intact Current %PO Good (75-100%) Estimated Nutritional Goals BEE in Kcals: Using Current wt Calories/Kcals/Kg 25-30 Kcals Calculated 4053-4193 Protein: Using Current wt Protein g/k Protein Calculated 76 Fluid: ml 1900-2280ml (1ml/kcal) Nutritional Problem No current Nutrition Prob Problem N/A Malnutrition Alert Is there a minimum of two criteria No selected? Query Text:Check all the applicable criteria. A minimum of two criteria are recommended for diagnosis of either severe or non-severe malnutrition. Malnutrition Related to Morbid Obesity Malnutrition related to morbid obesity No Intervention/Recommendation Comments 1. Continue with current diet as ordered. 2. Monitor PO intake, wt, labs and skin integrity 3. F/U as low risk in 7 days, 05/13 Expected Outcomes/Goals Expected Outcomes/Goals 1. PO intake to meet at least 75% of nutritional needs. 2. Wt stability, skin to remain intact, labs to approach WNL.
--- NOTE | 2018-05-11 20:50 | Progress Notes ---
DATE: 05/11/2018 Case was discussed with staff of the patient, reviewed records. The patient continues to have rambling speech. Continues to be confused, unpredictable, impulsive, unable to make safe plan for self-care or participate in a meaningful conversation. Continues to have poor insight about the whole process. I will be increasing his Aricept to 10 mg at bedtime. I will continue with outpatient group therapy, milieu therapy, and adjust medication as needed. [facility]# [id number]
[2018-05-12] MEDS: Multivitamin Tab PO SCH (08:48)
[2018-05-12] MEDS: NIFEdipine 30 mg ER Tab PO SCH (08:50)
[2018-05-12] MEDS: Ferrous Sulfate 325 MG TAB PO SCH (08:51)
[2018-05-12] MEDS: Magnesium Hydroxide (MOM) 30 mL UDC PO SCH (08:51)
--- NOTE | 2018-05-12 13:29 | Internal Medicine Prog Note ---
Internal Medicine Subjective - Subjective Service Date: 05/12/18 Patient seen and examined:: with staff Patient is:: awake, verbal, in bed, confused Per staff patient has:: no adverse event Internal Medicine Objective - Results Result Diagrams: 05/01/18 21:25 05/01/18 21:25 Recent Labs: Laboratory Last Values WBC 5.7 Th/cmm (4.8-10.8) 05/01/18 21:25 RBC 3.83 Mil/cmm (3.80-5.80) 05/01/18 21:25 Hgb 11.7 gm/dL (12-16) L 05/01/18 21:25 Hct 35.1 % (41.0-60) L 05/01/18 21: MCV 91.8 fl (80-99) 05/01/18 21:25 MCH 30.5 pg (27.0-31.0) 05/01/18: MCHC Differential 33.2 pg (28.0-36.0) 05/01/18: RDW 14.3 % (11.5-20.0) 05/01/18 21:25 Plt Count 181 Th/cmm (150-400) 05/01/18 21: MPV 6.9 fl 05/01/18 21:25 Neutrophils % 48.9 % (40.0-80.0) 05/01/18 21:25 Lymphocytes % 37.4 % (20.0-50.0) 05/01/18: Monocytes % 8.3 % (2.0-10.0) 05/01/18 21:25 Eosinophils % 4.8 % (0.0-5.0) 05/01/18 21:25 Basophils % 0.6 % (0.0-2.0) 05/01/18 21:25 Sodium 136 mEq/L (136-145) 05/01/18 21:25 Potassium 4.4 mEq/L (3.5-5.1) 05/01/18 21:25 Chloride 102 mEq/L (98-107) 05/01/18 21:25 Carbon Dioxide 27.9 mEq/L (21.0-31.0) 05/01/18 21:25 Anion Gap 10.5 (7.0-16.0) 05/01/18 21:25 BUN 39 mg/dL (7-25) H 05/01/18 21:25 Creatinine 1.4 mg/dL (0.7-1.3) H 05/01/18 21:25 Est GFR ( Amer) > 60.0 ml/min (>90) 05/01/18 21:25 Est GFR (Non-Af Amer) 53.7 ml/min 05/01/18 21:25 BUN/Creatinine Ratio 27.9 05/01/18 21:25 Glucose 97 mg/dL (70-105) 05/01/18 21:25 POC Glucose 312 MG/DL (70 - 105) H 05/02/18 20:37 Calcium 9.6 mg/dL (8.6-10.3) 05/01/18 21:25 Phosphorus 3.9 mg/dL (2.5-5.0) 05/01/18 21:25 Magnesium 2.2 mg/dL (1.9-2.7) 05/01/18 21:25 Total Bilirubin 0.3 mg/dL (0.3-1.0) 05/01/18 21:25 AST 13 U/L (13-39) 05/01/18 21:25 ALT 8 U/L (7-52) 05/01/18 21:25 Alkaline Phosphatase 133 U/L (34-104) H 05/01/18 21:25 Total Protein 6.6 gm/dL (6.0-8.3) 05/01/18 21:25 Albumin 3.9 gm/dL (4.2-5.5) L 05/01/18 21:25 Globulin 2.7 gm/dL 05/01/18 21:25 Albumin/Globulin Ratio 1.4 (1.0-1.8) 05/01/18 21:25 Triglycerides 70 mg/dL (<150) 05/02/18 07:16 Cholesterol 168 mg/dL (<200) 05/02/18 07:16 LDL Cholesterol Direct 97 mg/dL (75-193) 05/02/18 07:16 HDL Cholesterol 51 mg/dL (23-92) 05/02/18 07:16 Urine Source CLEAN C 05/01/18 21:25 Urine Color YELLOW 05/01/18 21:25 Urine Clarity CLEAR (CLEAR) 05/01/18 21:25 Urine pH 6.0 (4.6 - 8.0) 05/01/18 21:25 Ur Specific [place] <= 1.005 (1.005-1.030) 05/01/18 21:25 Urine Protein NEGATIVE mg/dL (NEGATIVE) 05/01/18 21:25 Urine Glucose (UA) NEGATIVE mg/dL (NEGATIVE) 05/01/18 21:25 Urine Ketones NEGATIVE mg/dL (NEGATIVE) 05/01/18 21:25 Urine Blood NEGATIVE (NEGATIVE) 05/01/18 21:25 Urine Nitrate NEGATIVE (NEGATIVE) 05/01/18 21:25 Urine Bilirubin NEGATIVE (NEGATIVE) 05/01/18 21:25 Urine Urobilinogen 0.2 E.U./dL (0.2 - 1.0) 05/01/18 21:25 Ur Leukocyte Esterase NEGATIVE (NEGATIVE) 05/01/18 21:25 Urine RBC NONE SEEN /hpf (0-5) 05/01/18 21:25 Urine WBC 0-2 /hpf (0-5) 05/01/18 21:25 Ur Epithelial Cells FEW /lpf (FEW) 05/01/18 21:25 Urine Bacteria OCCASIONAL /hpf (NONE SEEN) 05/01/18 21:25 Urine Mucus FEW /lpf (FEW) 05/01/18 21:25 Urine Opiates Screen NEGATIVE (NEGATIVE) 05/01/18 21:25 Urine Methadone Screen NEGATIVE (NEGATIVE) 05/01/18 21:25 Acetaminophen < 10.0 ug/mL (10.0-30.0) L 05/01/18 21:25 Ur Barbiturates Screen NEGATIVE (NEGATIVE) 05/01/18 21:25 Ur Tricyclics Screen NEGATIVE (NEGATIVE) 05/01/18 21:25 Ur Phencyclidine Scrn NEGATIVE (NEGATIVE) 05/01/18 21:25 Amphetamines Screen NEGATIVE (NEGATIVE) 05/01/18 21:25 U Methamphetamines Scrn NEGATIVE (NEGATIVE) 05/01/18 21:25 U Benzodiazepines Scrn NEGATIVE (NEGATIVE) 05/01/18 21:25 U Cocaine Metab Screen NEGATIVE (NEGATIVE) 05/01/18 21:25 U Cannabinoids Screen NEGATIVE (NEGATIVE) 05/01/18 21:25 - Physical Exam Vitals and I&O: Vital Signs Temp 97.6 F 05/12/18 06:08 Pulse 70 05/12/18 08:50 Resp 20 05/12/18 06:08 BP 153/96 05/12/18 08:50 Pulse Ox 96 05/12/18 06:08 Intake & Output 05/11/18 05/12/18 05/12/18 18:59 06:59 18:59 Intake Total 180 Balance 180 Intake: Oral 180 Other: # Voids 3 3 # Bowel Movements 1 0 Active Medications: Current Medications Ascorbic Acid (Vitamin C) 500 mg PO BID [facility] Stop: 07/01/18 08:59 Last Admin: 05/12/18 08:49 Dose: 500 mg Docusate Sodium (Colace) 250 mg PO DAILY [facility] Stop: 07/01/18 08:59 Last Admin: 05/12/18 08:51 Dose: 250 mg Donepezil HCl (Aricept) 10 mg PO HS [facility] Stop: 07/10/18 20:59 Last Admin: 05/11/18 21:20 Dose: 10 mg Ferrous Sulfate (Iron) 325 mg PO DAILY [facility]ENE Stop: 07/01/18 08:59 Last Admin: 05/12/18 08:51 Dose: 325 mg Lorazepam (Ativan) 0.5 mg PO Q4HR PRN; Protocol PRN Reason: Anxiety Stop: 05/31/18 23:31 Last Admin: 05/12/18 09:42 Dose: 0.5 mg Magnesium Hydroxide (Milk Of Magnesia) 30 ml PO DAILY [facility]ORENE Stop: 07/01/18 08:59 Last Admin: 05/12/18 08:51 Dose: Not Given Metoprolol Tartrate (Lopressor) 25 mg PO DAILY [facility] Stop: 07/01/18 08:59 Last Admin: 05/12/18 08:50 Dose: 25 mg Multivitamins/Vitamin C (Theragran) 1 tab PO DAILY [facility]ENE Stop: 07/01/18 08:59 Last Admin: 05/12/18 08:48 Dose: 1 tab Nifedipine (Procardia Xl) 30 mg PO DAILY [facility] Stop: 07/01/18 08:59 Last Admin: 05/12/18 08:50 Dose: 30 mg Quetiapine Fumarate (Seroquel) 100 mg PO BID [facility] Stop: 07/11/18 16:59 Tamsulosin HCl (Flomax) 0.4 mg PO HS [facility] Stop: 07/01/18 20:59 Last Admin: 05/11/18 21:20 Dose: 0.4 mg General: demented HEENT: NC/AT, PERRLA, EOMI, anicteric sclerae, throat clear Neck: Supple, No JVD, No thyromegaly, +2 carotid pulse wo bruit, No LAD, + JVD Cardiovascular: RRR, Normal S1, Normal S2, without murmur Abdomen: non-tender, non-distended Extremities: clear Neurological: no change Internal Medicine Assmt/Plan - Assessment Assessment: 1.HTN. 2.BPH. 3.ANEMIA.. 4.DEMENTIA. - Plan Plan: CONTINUE ON CURRENT MEDICATION AND DIET. Nutritional Asmnt/Malnutr-PDOC - Dietary Evaluation Malnutrition Findings (Please click <Entered> for more info): Nutritional Asmnt/Malnutrition Start: 05/06/18 13: 55 Text: Status: Complete Freq: Protocol: Document 05/06/18 14:29 LCHENG (Rec: 05/06/18 14:41 LCJORGE ALBERTOG [email or web address]) Nutritional Asmnt/Malnutrition Patient General Information Nutritional Screening Moderate Risk Diagnosis psychosis Pertinent Medical Hx/Surgical Hx HTN, BPH, anemia, dementia Subjective Information pt seen in his room, confused. Per EMR, PO intake 100%. Current Diet Order/ Nutrition Support low sodium, mech soft chopped Pertinent Medications vit C, colace, iron, theragran , seroquel Pertinent Labs 05/01 BUN 39, Cr 1.4, glucose 97 , alb 3.9 05/02 POC 312 Nutritional Hx/Data Height 1.85 m Height (Calculated Centimeters) 185.4 Current Weight (lbs) 76.204 kg Weight (Calculated Kilograms) 76.2 Weight (Calculated Grams) 98660.5 [place] Body Weight 184 Body Mass Index (BMI) 22.1 Weight Status Approriate GI Symptoms GI Symptoms None Last BM 05/05 Difficult in: None Skin Integrity/Comment: intact Current %PO Good (75-100%) Estimated Nutritional Goals BEE in Kcals: Using Current wt Calories/Kcals/Kg 25-30 Kcals Calculated 1098-5928 Protein: Using Current wt Protein g/k Protein Calculated 76 Fluid: ml 1900-2280ml (1ml/kcal) Nutritional Problem No current Nutrition Prob Problem N/A Malnutrition Alert Is there a minimum of two criteria No selected? Query Text:Check all the applicable criteria. A minimum of two criteria are recommended for diagnosis of either severe or non-severe malnutrition. Malnutrition Related to Morbid Obesity Malnutrition related to morbid obesity No Intervention/Recommendation Comments 1. Continue with current diet as ordered. 2. Monitor PO intake, wt, labs and skin integrity 3. F/U as low risk in 7 days, 05/13 Expected Outcomes/Goals Expected Outcomes/Goals 1. PO intake to meet at least 75% of nutritional needs. 2. Wt stability, skin to remain intact, labs to approach WNL.
--- NOTE | 2018-05-12 15:48 | Progress Notes ---
DATE: 05/12/2018 Case was discussed with staff of the patient, reviewed the records. The patient continues to be confused, demented. Continues to be unable to make safe plan for self-care with episodes of acting out. He had to be medicated this morning. No side effects with the medication, no sedation, no nausea, no extrapyramidal symptoms. I will be increasing Seroquel to 100 mg twice a day and continues to be unable to adjust reality, very confused and we will continue to work with the patient in group therapy, milieu therapy, and adjust the medication as needed. JOB# [id number]
[2018-05-13] MEDS: Ferrous Sulfate 325 MG TAB PO SCH (08:25)
[2018-05-13] MEDS: Multivitamin Tab PO SCH (08:26)
[2018-05-13] MEDS: NIFEdipine 30 mg ER Tab PO SCH (08:26)
[2018-05-13] MEDS: Magnesium Hydroxide (MOM) 30 mL UDC PO SCH (08:31)
--- NOTE | 2018-05-13 14:10 | Progress Notes ---
DATE: 05/13/2018 Case was discussed with staff of the patient and reviewed records. The patient continues to be confused, rambling, mumbling to himself, hard to redirect, unpredictable and impulsive. I increased his Seroquel dose yesterday to 100 mg twice a day. No side effects, no sedation, no nausea and no extrapyramidal symptoms. Continued to be unable to make safe plan for self-care or participate in meaningful conversation and we will continue outpatient group therapy, milieu therapy, adjust medication as needed. JOB# [id number]
--- NOTE | 2018-05-13 22:38 | Internal Medicine Prog Note ---
Internal Medicine Subjective - Subjective Service Date: 05/13/18 Patient seen and examined:: with staff Patient is:: awake, verbal, in bed, confused Per staff patient has:: no adverse event Internal Medicine Objective - Results Result Diagrams: 05/01/18 21:25 05/01/18 21:25 Recent Labs: Laboratory Last Values WBC 5.7 Th/cmm (4.8-10.8) 05/01/18 21:25 RBC 3.83 Mil/cmm (3.80-5.80) 05/01/18 21:25 Hgb 11.7 gm/dL (12-16) L 05/01/18 21:25 Hct 35.1 % (41.0-60) L 05/01/18 21:25 MCV 91.8 fl (80-99) 05/01/18 21:25 MCH 30.5 pg (27.0-31.0) 05/01/18: MCHC Differential 33.2 pg (28.0-36.0) 05/01/18:25 RDW 14.3 % (11.5-20.0) 05/01/18 21:25 Plt Count 181 Th/cmm (150-400) 05/01/18 21: MPV 6.9 fl 05/01/18 21:25 Neutrophils % 48.9 % (40.0-80.0) 05/01/18 21:25 Lymphocytes % 37.4 % (20.0-50.0) 05/01/18 21: Monocytes % 8.3 % (2.0-10.0) 05/01/18 21:25 Eosinophils % 4.8 % (0.0-5.0) 05/01/18 21:25 Basophils % 0.6 % (0.0-2.0) 05/01/18 21:25 Sodium 136 mEq/L (136-145) 05/01/18 21:25 Potassium 4.4 mEq/L (3.5-5.1) 05/01/18 21:25 Chloride 102 mEq/L (98-107) 05/01/18 21:25 Carbon Dioxide 27.9 mEq/L (21.0-31.0) 05/01/18 21:25 Anion Gap 10.5 (7.0-16.0) 05/01/18 21:25 BUN 39 mg/dL (7-25) H 05/01/18 21:25 Creatinine 1.4 mg/dL (0.7-1.3) H 05/01/18 21:25 Est GFR ( Amer) > 60.0 ml/min (>90) 05/01/18 21:25 Est GFR (Non-Af Amer) 53.7 ml/min 05/01/18 21:25 BUN/Creatinine Ratio 27.9 05/01/18 21:25 Glucose 97 mg/dL (70-105) 05/01/18 21:25 POC Glucose 312 MG/DL (70 - 105) H 05/02/18 20:37 Calcium 9.6 mg/dL (8.6-10.3) 05/01/18 21:25 Phosphorus 3.9 mg/dL (2.5-5.0) 05/01/18 21:25 Magnesium 2.2 mg/dL (1.9-2.7) 05/01/18 21:25 Total Bilirubin 0.3 mg/dL (0.3-1.0) 05/01/18 21:25 AST 13 U/L (13-39) 05/01/18 21:25 ALT 8 U/L (7-52) 05/01/18 21:25 Alkaline Phosphatase 133 U/L (34-104) H 05/01/18 21:25 Total Protein 6.6 gm/dL (6.0-8.3) 05/01/18 21:25 Albumin 3.9 gm/dL (4.2-5.5) L 05/01/18 21:25 Globulin 2.7 gm/dL 05/01/18 21:25 Albumin/Globulin Ratio 1.4 (1.0-1.8) 05/01/18 21:25 Triglycerides 70 mg/dL (<150) 05/02/18 07:16 Cholesterol 168 mg/dL (<200) 05/02/18 07:16 LDL Cholesterol Direct 97 mg/dL (75-193) 05/02/18 07:16 HDL Cholesterol 51 mg/dL (23-92) 05/02/18 07:16 Urine Source CLEAN C 05/01/18 21:25 Urine Color YELLOW 05/01/18 21:25 Urine Clarity CLEAR (CLEAR) 05/01/18 21:25 Urine pH 6.0 (4.6 - 8.0) 05/01/18 21:25 Ur Specific [place] <= 1.005 (1.005-1.030) 05/01/18 21:25 Urine Protein NEGATIVE mg/dL (NEGATIVE) 05/01/18 21:25 Urine Glucose (UA) NEGATIVE mg/dL (NEGATIVE) 05/01/18 21:25 Urine Ketones NEGATIVE mg/dL (NEGATIVE) 05/01/18 21:25 Urine Blood NEGATIVE (NEGATIVE) 05/01/18 21:25 Urine Nitrate NEGATIVE (NEGATIVE) 05/01/18 21:25 Urine Bilirubin NEGATIVE (NEGATIVE) 05/01/18 21:25 Urine Urobilinogen 0.2 E.U./dL (0.2 - 1.0) 05/01/18 21:25 Ur Leukocyte Esterase NEGATIVE (NEGATIVE) 05/01/18 21:25 Urine RBC NONE SEEN /hpf (0-5) 05/01/18 21:25 Urine WBC 0-2 /hpf (0-5) 05/01/18 21:25 Ur Epithelial Cells FEW /lpf (FEW) 05/01/18 21:25 Urine Bacteria OCCASIONAL /hpf (NONE SEEN) 05/01/18 21:25 Urine Mucus FEW /lpf (FEW) 05/01/18 21:25 Urine Opiates Screen NEGATIVE (NEGATIVE) 05/01/18 21:25 Urine Methadone Screen NEGATIVE (NEGATIVE) 05/01/18 21:25 Acetaminophen < 10.0 ug/mL (10.0-30.0) L 05/01/18 21:25 Ur Barbiturates Screen NEGATIVE (NEGATIVE) 05/01/18 21:25 Ur Tricyclics Screen NEGATIVE (NEGATIVE) 05/01/18 21:25 Ur Phencyclidine Scrn NEGATIVE (NEGATIVE) 05/01/18 21:25 Amphetamines Screen NEGATIVE (NEGATIVE) 05/01/18 21:25 U Methamphetamines Scrn NEGATIVE (NEGATIVE) 05/01/18 21:25 U Benzodiazepines Scrn NEGATIVE (NEGATIVE) 05/01/18 21:25 U Cocaine Metab Screen NEGATIVE (NEGATIVE) 05/01/18 21:25 U Cannabinoids Screen NEGATIVE (NEGATIVE) 05/01/18 21:25 - Physical Exam Vitals and I&O: Vital Signs Temp 97 F 05/13/18 20:00 Pulse 64 05/13/18 20:00 Resp 20 05/13/18 20:00 BP 138/75 05/13/18 20:00 Pulse Ox 96 05/13/18 20:00 Intake & Output 05/13/18 05/13/18 05/14/18 06:59 18:59 06:59 Intake Total 120 1200 Balance 120 1200 Intake: Oral 120 1200 Other: # Voids 2 Active Medications: Current Medications Ascorbic Acid (Vitamin C) 500 mg PO BID DORENE Stop: 07/01/18 08:59 Last Admin: 05/13/18 17:12 Dose: 500 mg Docusate Sodium (Colace) 250 mg PO DAILY DORENE Stop: 07/01/18 08:59 Last Admin: 05/13/18 08:26 Dose: 250 mg Donepezil HCl (Aricept) 10 mg PO HS DORENE Stop: 07/10/18 20:59 Last Admin: 05/13/18 20:58 Dose: 10 mg Ferrous Sulfate (Iron) 325 mg PO DAILY DORENE Stop: 07/01/18 08:59 Last Admin: 05/13/18 08:25 Dose: 325 mg Lorazepam (Ativan) 0.5 mg PO Q4HR PRN; Protocol PRN Reason: Anxiety Stop: 05/31/18 23:31 Last Admin: 05/13/18 17:12 Dose: 0.5 mg Magnesium Hydroxide (Milk Of Magnesia) 30 ml PO DAILY DORENE Stop: 07/01/18 08:59 Last Admin: 05/13/18 08:31 Dose: Not Given Metoprolol Tartrate (Lopressor) 25 mg PO DAILY DORENE Stop: 07/01/18 08:59 Last Admin: 05/13/18 08:25 Dose: 25 mg Multivitamins/Vitamin C (Theragran) 1 tab PO DAILY DORENE Stop: 07/01/18 08:59 Last Admin: 05/13/18 08:26 Dose: 1 tab Nifedipine (Procardia Xl) 30 mg PO DAILY DORENE Stop: 07/01/18 08:59 Last Admin: 05/13/18 08:26 Dose: 30 mg Quetiapine Fumarate (Seroquel) 100 mg PO BID DORENE Stop: 07/11/18 16:59 Last Admin: 05/13/18 17:13 Dose: 100 mg Tamsulosin HCl (Flomax) 0.4 mg PO HS DORENE Stop: 07/01/18 20:59 Last Admin: 05/13/18 20:58 Dose: 0.4 mg General: demented HEENT: NC/AT, PERRLA, EOMI, anicteric sclerae, throat clear Neck: Supple, No JVD, No thyromegaly, +2 carotid pulse wo bruit, No LAD, + JVD Cardiovascular: RRR, Normal S1, Normal S2, without murmur Abdomen: non-tender, non-distended Extremities: clear Neurological: no change Internal Medicine Assmt/Plan - Assessment Assessment: 1.HTN. 2.BPH. 3.ANEMIA.. 4.DEMENTIA. - Plan Plan: CONTINUE ON CURRENT MEDICATION AND DIET. Nutritional Asmnt/Malnutr-PDOC - Dietary Evaluation Malnutrition Findings (Please click <Entered> for more info): Nutritional Asmnt/Malnutrition Start: 05/06/18 13: 55 Text: Status: Complete Freq: Protocol: Document 05/06/18 14:29 CHRISTIANE (Rec: 05/06/18 14:41 CHRISTIANE [email or web address]) Nutritional Asmnt/Malnutrition Patient General Information Nutritional Screening Moderate Risk Diagnosis psychosis Pertinent Medical Hx/Surgical Hx HTN, BPH, anemia, dementia Subjective Information pt seen in his room, confused. Per EMR, PO intake 100%. Current Diet Order/ Nutrition Support low sodium, mech soft chopped Pertinent Medications vit C, colace, iron, theragran , seroquel Pertinent Labs 05/01 BUN 39, Cr 1.4, glucose 97 , alb 3.9 05/02 POC 312 Nutritional Hx/Data Height 1.85 m Height (Calculated Centimeters) 185.4 Current Weight (lbs) 76.204 kg Weight (Calculated Kilograms) 76.2 Weight (Calculated Grams) 16729.5 [place] Body Weight 184 Body Mass Index (BMI) 22.1 Weight Status Approriate GI Symptoms GI Symptoms None Last BM 05/05 Difficult in: None Skin Integrity/Comment: intact Current %PO Good (75-100%) Estimated Nutritional Goals BEE in Kcals: Using Current wt Calories/Kcals/Kg 25-30 Kcals Calculated 6444-2141 Protein: Using Current wt Protein g/k Protein Calculated 76 Fluid: ml 1900-2280ml (1ml/kcal) Nutritional Problem No current Nutrition Prob Problem N/A Malnutrition Alert Is there a minimum of two criteria No selected? Query Text:Check all the applicable criteria. A minimum of two criteria are recommended for diagnosis of either severe or non-severe malnutrition. Malnutrition Related to Morbid Obesity Malnutrition related to morbid obesity No Intervention/Recommendation Comments 1. Continue with current diet as ordered. 2. Monitor PO intake, wt, labs and skin integrity 3. F/U as low risk in 7 days, 05/13 Expected Outcomes/Goals Expected Outcomes/Goals 1. PO intake to meet at least 75% of nutritional needs. 2. Wt stability, skin to remain intact, labs to approach WNL.
[2018-05-14] MEDS: NIFEdipine 30 mg ER Tab PO SCH (08:08)
[2018-05-14] MEDS: Magnesium Hydroxide (MOM) 30 mL UDC PO SCH (08:08)
[2018-05-14] MEDS: Multivitamin Tab PO SCH (08:08)
[2018-05-14] MEDS: Ferrous Sulfate 325 MG TAB PO SCH (08:10)
--- NOTE | 2018-05-14 11:33 | Progress Notes ---
DATE: 05/14/2018 Case was discussed with staff of the patient, reviewed records. The patient continues to be internally preoccupied. Continues to have poor insight, rambling, mumbling speech, looking disorganized, disheveled, and hard to follow direction at the time. He is sleeping well, eating well. He is compliant with the medication with no side effects. No sedation. No nausea. No extrapyramidal symptoms. We will continue outpatient group therapy, milieu therapy, and adjust medication as needed. JOB# [id number]
--- NOTE | 2018-05-14 23:38 | Internal Medicine Prog Note ---
Internal Medicine Subjective - Subjective Service Date: 05/14/18 Patient seen and examined:: without staff Patient is:: awake, verbal, in bed, confused Per staff patient has:: no adverse event Internal Medicine Objective - Results Result Diagrams: 05/01/18 21:25 05/01/18 21:25 Recent Labs: Laboratory Last Values WBC 5.7 Th/cmm (4.8-10.8) 05/01/18 21:25 RBC 3.83 Mil/cmm (3.80-5.80) 05/01/18 21:25 Hgb 11.7 gm/dL (12-16) L 05/01/18 21:25 Hct 35.1 % (41.0-60) L 05/01/18 21: MCV 91.8 fl (80-99) 05/01/18 21:25 MCH 30.5 pg (27.0-31.0) 05/01/18: MCHC Differential 33.2 pg (28.0-36.0) 05/01/18: RDW 14.3 % (11.5-20.0) 05/01/18 21: Plt Count 181 Th/cmm (150-400) 05/01/18 21: MPV 6.9 fl 05/01/18 21:25 Neutrophils % 48.9 % (40.0-80.0) 05/01/18 21:25 Lymphocytes % 37.4 % (20.0-50.0) 05/01/18: Monocytes % 8.3 % (2.0-10.0) 05/01/18 21: Eosinophils % 4.8 % (0.0-5.0) 05/01/18 21:25 Basophils % 0.6 % (0.0-2.0) 05/01/18 21:25 Sodium 136 mEq/L (136-145) 05/01/18 21:25 Potassium 4.4 mEq/L (3.5-5.1) 05/01/18 21:25 Chloride 102 mEq/L (98-107) 05/01/18 21:25 Carbon Dioxide 27.9 mEq/L (21.0-31.0) 05/01/18 21:25 Anion Gap 10.5 (7.0-16.0) 05/01/18 21:25 BUN 39 mg/dL (7-25) H 05/01/18 21:25 Creatinine 1.4 mg/dL (0.7-1.3) H 05/01/18 21:25 Est GFR ( Amer) > 60.0 ml/min (>90) 05/01/18 21:25 Est GFR (Non-Af Amer) 53.7 ml/min 05/01/18 21:25 BUN/Creatinine Ratio 27.9 05/01/18 21:25 Glucose 97 mg/dL (70-105) 05/01/18 21:25 POC Glucose 312 MG/DL (70 - 105) H 05/02/18 20:37 Calcium 9.6 mg/dL (8.6-10.3) 05/01/18 21:25 Phosphorus 3.9 mg/dL (2.5-5.0) 05/01/18 21:25 Magnesium 2.2 mg/dL (1.9-2.7) 05/01/18 21:25 Total Bilirubin 0.3 mg/dL (0.3-1.0) 05/01/18 21:25 AST 13 U/L (13-39) 05/01/18 21:25 ALT 8 U/L (7-52) 05/01/18 21:25 Alkaline Phosphatase 133 U/L (34-104) H 05/01/18 21:25 Total Protein 6.6 gm/dL (6.0-8.3) 05/01/18 21:25 Albumin 3.9 gm/dL (4.2-5.5) L 05/01/18 21:25 Globulin 2.7 gm/dL 05/01/18 21:25 Albumin/Globulin Ratio 1.4 (1.0-1.8) 05/01/18 21:25 Triglycerides 70 mg/dL (<150) 05/02/18 07:16 Cholesterol 168 mg/dL (<200) 05/02/18 07:16 LDL Cholesterol Direct 97 mg/dL (75-193) 05/02/18 07:16 HDL Cholesterol 51 mg/dL (23-92) 05/02/18 07:16 Urine Source CLEAN C 05/01/18 21:25 Urine Color YELLOW 05/01/18 21:25 Urine Clarity CLEAR (CLEAR) 05/01/18 21:25 Urine pH 6.0 (4.6 - 8.0) 05/01/18 21:25 Ur Specific [place] <= 1.005 (1.005-1.030) 05/01/18 21:25 Urine Protein NEGATIVE mg/dL (NEGATIVE) 05/01/18 21:25 Urine Glucose (UA) NEGATIVE mg/dL (NEGATIVE) 05/01/18 21:25 Urine Ketones NEGATIVE mg/dL (NEGATIVE) 05/01/18 21:25 Urine Blood NEGATIVE (NEGATIVE) 05/01/18 21:25 Urine Nitrate NEGATIVE (NEGATIVE) 05/01/18 21:25 Urine Bilirubin NEGATIVE (NEGATIVE) 05/01/18 21:25 Urine Urobilinogen 0.2 E.U./dL (0.2 - 1.0) 05/01/18 21:25 Ur Leukocyte Esterase NEGATIVE (NEGATIVE) 05/01/18 21:25 Urine RBC NONE SEEN /hpf (0-5) 05/01/18 21:25 Urine WBC 0-2 /hpf (0-5) 05/01/18 21:25 Ur Epithelial Cells FEW /lpf (FEW) 05/01/18 21:25 Urine Bacteria OCCASIONAL /hpf (NONE SEEN) 05/01/18 21:25 Urine Mucus FEW /lpf (FEW) 05/01/18 21:25 Urine Opiates Screen NEGATIVE (NEGATIVE) 05/01/18 21:25 Urine Methadone Screen NEGATIVE (NEGATIVE) 05/01/18 21:25 Acetaminophen < 10.0 ug/mL (10.0-30.0) L 05/01/18 21:25 Ur Barbiturates Screen NEGATIVE (NEGATIVE) 05/01/18 21:25 Ur Tricyclics Screen NEGATIVE (NEGATIVE) 05/01/18 21:25 Ur Phencyclidine Scrn NEGATIVE (NEGATIVE) 05/01/18 21:25 Amphetamines Screen NEGATIVE (NEGATIVE) 05/01/18 21:25 U Methamphetamines Scrn NEGATIVE (NEGATIVE) 05/01/18 21:25 U Benzodiazepines Scrn NEGATIVE (NEGATIVE) 05/01/18 21:25 U Cocaine Metab Screen NEGATIVE (NEGATIVE) 05/01/18 21:25 U Cannabinoids Screen NEGATIVE (NEGATIVE) 05/01/18 21:25 - Physical Exam Vitals and I&O: Vital Signs Temp 97.8 F 05/14/18 14:00 Pulse 68 05/14/18 14:00 Resp 18 05/14/18 20:00 BP 128/70 05/14/18 14:00 Pulse Ox 97 05/14/18 14:00 Intake & Output 05/14/18 05/14/18 05/15/18 06:59 18:59 06:59 Intake Total 120 1200 Balance 120 1200 Intake: Oral 120 1200 Other: # Voids 3 # Bowel Movements 1 Active Medications: Current Medications Ascorbic Acid (Vitamin C) 500 mg PO BID DORENE Stop: 07/01/18 08:59 Last Admin: 05/14/18 17:41 Dose: 500 mg Docusate Sodium (Colace) 250 mg PO DAILY DORENE Stop: 07/01/18 08:59 Last Admin: 05/14/18 08:08 Dose: 250 mg Donepezil HCl (Aricept) 10 mg PO HS DORENE Stop: 07/10/18 20:59 Last Admin: 05/14/18 20:29 Dose: 10 mg Ferrous Sulfate (Iron) 325 mg PO DAILY DORENE Stop: 07/01/18 08:59 Last Admin: 05/14/18 08:10 Dose: 325 mg Lorazepam (Ativan) 0.5 mg PO Q4HR PRN; Protocol PRN Reason: Anxiety Stop: 05/31/18 23:31 Last Admin: 05/13/18 17:12 Dose: 0.5 mg Magnesium Hydroxide (Milk Of Magnesia) 30 ml PO DAILY DORENE Stop: 07/01/18 08:59 Last Admin: 05/14/18 08:08 Dose: 30 ml Metoprolol Tartrate (Lopressor) 25 mg PO DAILY DORENE Stop: 07/01/18 08:59 Last Admin: 05/14/18 08:09 Dose: 25 mg Multivitamins/Vitamin C (Theragran) 1 tab PO DAILY DORENE Stop: 07/01/18 08:59 Last Admin: 05/14/18 08:08 Dose: 1 tab Nifedipine (Procardia Xl) 30 mg PO DAILY DORENE Stop: 07/01/18 08:59 Last Admin: 05/14/18 08:08 Dose: 30 mg Quetiapine Fumarate (Seroquel) 100 mg PO BID DORENE Stop: 07/11/18 16:59 Last Admin: 05/14/18 17:41 Dose: 100 mg Tamsulosin HCl (Flomax) 0.4 mg PO HS [facility] Stop: 07/01/18 20:59 Last Admin: 05/14/18 20:29 Dose: 0.4 mg General: demented HEENT: NC/AT, PERRLA, EOMI, anicteric sclerae, throat clear Neck: Supple, No JVD, No thyromegaly, +2 carotid pulse wo bruit, No LAD, + JVD Cardiovascular: RRR, Normal S1, Normal S2, without murmur Abdomen: non-tender, non-distended Extremities: clear Neurological: no change Internal Medicine Assmt/Plan - Assessment Assessment: 1.HTN. 2.BPH. 3.ANEMIA.. 4.DEMENTIA. - Plan Plan: CONTINUE ON CURRENT MEDICATION AND DIET. Nutritional Asmnt/Malnutr-PDOC - Dietary Evaluation Malnutrition Findings (Please click <Entered> for more info): Nutritional Asmnt/Malnutrition Start: 05/06/18 13: 55 Text: Status: Complete Freq: Protocol: Document 05/06/18 14:29 CHRISTIANE (Rec: 05/06/18 14:41 KASSIE [email or web address]) Nutritional Asmnt/Malnutrition Patient General Information Nutritional Screening Moderate Risk Diagnosis psychosis Pertinent Medical Hx/Surgical Hx HTN, BPH, anemia, dementia Subjective Information pt seen in his room, confused. Per EMR, PO intake 100%. Current Diet Order/ Nutrition Support low sodium, mech soft chopped Pertinent Medications vit C, colace, iron, theragran , seroquel Pertinent Labs 05/01 BUN 39, Cr 1.4, glucose 97 , alb 3.9 05/02 POC 312 Nutritional Hx/Data Height 1.85 m Height (Calculated Centimeters) 185.4 Current Weight (lbs) 76.204 kg Weight (Calculated Kilograms) 76.2 Weight (Calculated Grams) 75096.5 [place] Body Weight 184 Body Mass Index (BMI) 22.1 Weight Status Approriate GI Symptoms GI Symptoms None Last BM 05/05 Difficult in: None Skin Integrity/Comment: intact Current %PO Good (75-100%) Estimated Nutritional Goals BEE in Kcals: Using Current wt Calories/Kcals/Kg 25-30 Kcals Calculated 8698-5537 Protein: Using Current wt Protein g/k Protein Calculated 76 Fluid: ml 1900-2280ml (1ml/kcal) Nutritional Problem No current Nutrition Prob Problem N/A Malnutrition Alert Is there a minimum of two criteria No selected? Query Text:Check all the applicable criteria. A minimum of two criteria are recommended for diagnosis of either severe or non-severe malnutrition. Malnutrition Related to Morbid Obesity Malnutrition related to morbid obesity No Intervention/Recommendation Comments 1. Continue with current diet as ordered. 2. Monitor PO intake, wt, labs and skin integrity 3. F/U as low risk in 7 days, 05/13 Expected Outcomes/Goals Expected Outcomes/Goals 1. PO intake to meet at least 75% of nutritional needs. 2. Wt stability, skin to remain intact, labs to approach WNL.
[2018-05-15] MEDS: Magnesium Hydroxide (MOM) 30 mL UDC PO SCH (08:56)
[2018-05-15] MEDS: Ferrous Sulfate 325 MG TAB PO SCH (08:59)
[2018-05-15] MEDS: NIFEdipine 30 mg ER Tab PO SCH (08:59)
[2018-05-15] MEDS: Multivitamin Tab PO SCH (08:59)
--- NOTE | 2018-05-15 12:45 | Progress Notes ---
DATE: 05/15/2018 FOLLOW-UP PROGRESS NOTE PROGRESS ON THE UNIT: Case was discussed with staff of the patient, reviewed records. The patient continues to be confused, rambling, mumbling to himself, unpredictable, impulsive, needing redirection. He continues to have poor insight. Tolerating increase in Seroquel with no side effects, no sedation, no nausea, no extrapyramidal symptoms. He is also on Aricept 10 mg at bedtime. PLAN: I will be adding Namenda to his medications. We will continue to work with the patient in group therapy and milieu therapy, adjust the medications as needed. JOB# [id number]
--- NOTE | 2018-05-15 22:25 | Internal Medicine Prog Note ---
Internal Medicine Subjective - Subjective Service Date: 05/15/18 Patient seen and examined:: with staff Patient is:: awake, verbal, in bed, confused Per staff patient has:: no adverse event Internal Medicine Objective - Results Result Diagrams: 05/01/18 21:25 05/01/18 21:25 Recent Labs: Laboratory Last Values WBC 5.7 Th/cmm (4.8-10.8) 05/01/18 21:25 RBC 3.83 Mil/cmm (3.80-5.80) 05/01/18 21:25 Hgb 11.7 gm/dL (12-16) L 05/01/18 21:25 Hct 35.1 % (41.0-60) L 05/01/18: MCV 91.8 fl (80-99) 05/01/18 21:25 MCH 30.5 pg (27.0-31.0) 05/01/18: MCHC Differential 33.2 pg (28.0-36.0) 05/01/18: RDW 14.3 % (11.5-20.0) 05/01/18 21: Plt Count 181 Th/cmm (150-400) 05/01/18 21: MPV 6.9 fl 05/01/18 21:25 Neutrophils % 48.9 % (40.0-80.0) 05/01/18 21: Lymphocytes % 37.4 % (20.0-50.0) 05/01/18: Monocytes % 8.3 % (2.0-10.0) 05/01/18: Eosinophils % 4.8 % (0.0-5.0) 05/01/18 21:25 Basophils % 0.6 % (0.0-2.0) 05/01/18 21:25 Sodium 136 mEq/L (136-145) 05/01/18 21:25 Potassium 4.4 mEq/L (3.5-5.1) 05/01/18 21:25 Chloride 102 mEq/L (98-107) 05/01/18 21:25 Carbon Dioxide 27.9 mEq/L (21.0-31.0) 05/01/18 21:25 Anion Gap 10.5 (7.0-16.0) 05/01/18 21:25 BUN 39 mg/dL (7-25) H 05/01/18 21:25 Creatinine 1.4 mg/dL (0.7-1.3) H 05/01/18 21:25 Est GFR ( Amer) > 60.0 ml/min (>90) 05/01/18 21:25 Est GFR (Non-Af Amer) 53.7 ml/min 05/01/18 21:25 BUN/Creatinine Ratio 27.9 05/01/18 21:25 Glucose 97 mg/dL (70-105) 05/01/18 21:25 POC Glucose 312 MG/DL (70 - 105) H 05/02/18 20:37 Calcium 9.6 mg/dL (8.6-10.3) 05/01/18 21:25 Phosphorus 3.9 mg/dL (2.5-5.0) 05/01/18 21:25 Magnesium 2.2 mg/dL (1.9-2.7) 05/01/18 21:25 Total Bilirubin 0.3 mg/dL (0.3-1.0) 05/01/18 21:25 AST 13 U/L (13-39) 05/01/18 21:25 ALT 8 U/L (7-52) 05/01/18 21:25 Alkaline Phosphatase 133 U/L (34-104) H 05/01/18 21:25 Total Protein 6.6 gm/dL (6.0-8.3) 05/01/18 21:25 Albumin 3.9 gm/dL (4.2-5.5) L 05/01/18 21:25 Globulin 2.7 gm/dL 05/01/18 21:25 Albumin/Globulin Ratio 1.4 (1.0-1.8) 05/01/18 21:25 Triglycerides 70 mg/dL (<150) 05/02/18 07:16 Cholesterol 168 mg/dL (<200) 05/02/18 07:16 LDL Cholesterol Direct 97 mg/dL (75-193) 05/02/18 07:16 HDL Cholesterol 51 mg/dL (23-92) 05/02/18 07:16 Urine Source CLEAN C 05/01/18 21:25 Urine Color YELLOW 05/01/18 21:25 Urine Clarity CLEAR (CLEAR) 05/01/18 21:25 Urine pH 6.0 (4.6 - 8.0) 05/01/18 21:25 Ur Specific [place] <= 1.005 (1.005-1.030) 05/01/18 21:25 Urine Protein NEGATIVE mg/dL (NEGATIVE) 05/01/18 21:25 Urine Glucose (UA) NEGATIVE mg/dL (NEGATIVE) 05/01/18 21:25 Urine Ketones NEGATIVE mg/dL (NEGATIVE) 05/01/18 21:25 Urine Blood NEGATIVE (NEGATIVE) 05/01/18 21:25 Urine Nitrate NEGATIVE (NEGATIVE) 05/01/18 21:25 Urine Bilirubin NEGATIVE (NEGATIVE) 05/01/18 21:25 Urine Urobilinogen 0.2 E.U./dL (0.2 - 1.0) 05/01/18 21:25 Ur Leukocyte Esterase NEGATIVE (NEGATIVE) 05/01/18 21:25 Urine RBC NONE SEEN /hpf (0-5) 05/01/18 21:25 Urine WBC 0-2 /hpf (0-5) 05/01/18 21:25 Ur Epithelial Cells FEW /lpf (FEW) 05/01/18 21:25 Urine Bacteria OCCASIONAL /hpf (NONE SEEN) 05/01/18 21:25 Urine Mucus FEW /lpf (FEW) 05/01/18 21:25 Urine Opiates Screen NEGATIVE (NEGATIVE) 05/01/18 21:25 Urine Methadone Screen NEGATIVE (NEGATIVE) 05/01/18 21:25 Acetaminophen < 10.0 ug/mL (10.0-30.0) L 05/01/18 21:25 Ur Barbiturates Screen NEGATIVE (NEGATIVE) 05/01/18 21:25 Ur Tricyclics Screen NEGATIVE (NEGATIVE) 05/01/18 21:25 Ur Phencyclidine Scrn NEGATIVE (NEGATIVE) 05/01/18 21:25 Amphetamines Screen NEGATIVE (NEGATIVE) 05/01/18 21:25 U Methamphetamines Scrn NEGATIVE (NEGATIVE) 05/01/18 21:25 U Benzodiazepines Scrn NEGATIVE (NEGATIVE) 05/01/18 21:25 U Cocaine Metab Screen NEGATIVE (NEGATIVE) 05/01/18 21:25 U Cannabinoids Screen NEGATIVE (NEGATIVE) 05/01/18 21:25 - Physical Exam Vitals and I&O: Vital Signs Temp 98.1 F 05/15/18 14:00 Pulse 66 05/15/18 14:00 Resp 20 05/15/18 14:00 BP 143/84 05/15/18 14:00 Pulse Ox 98 05/15/18 14:00 Intake & Output 05/15/18 05/15/18 05/16/18 06:59 18:59 06:59 Intake Total 1200 Balance 1200 Intake: Oral 1200 Other: # Bowel Movements 1 Active Medications: Current Medications Ascorbic Acid (Vitamin C) 500 mg PO BID DORENE Stop: 07/01/18 08:59 Last Admin: 05/15/18 16:16 Dose: 500 mg Docusate Sodium (Colace) 250 mg PO DAILY [facility] Stop: 07/01/18 08:59 Last Admin: 05/15/18 09:00 Dose: 250 mg Donepezil HCl (Aricept) 10 mg PO HS DORENE Stop: 07/10/18 20:59 Last Admin: 05/15/18 20:39 Dose: 10 mg Ferrous Sulfate (Iron) 325 mg PO DAILY DORENE Stop: 07/01/18 08:59 Last Admin: 05/15/18 08:59 Dose: 325 mg Lorazepam (Ativan) 0.5 mg PO Q4HR PRN; Protocol PRN Reason: Anxiety Stop: 05/31/18 23:31 Last Admin: 05/15/18 16:16 Dose: 0.5 mg Magnesium Hydroxide (Milk Of Magnesia) 30 ml PO DAILY DORENE Stop: 07/01/18 08:59 Last Admin: 05/15/18 08:56 Dose: 30 ml Memantine (Namenda) 5 mg PO DAILY [facility]ENE Stop: 07/14/18 16:59 Last Admin: 05/15/18 16:16 Dose: 5 mg Metoprolol Tartrate (Lopressor) 25 mg PO DAILY [facility]ENE Stop: 07/01/18 08:59 Last Admin: 05/15/18 08:57 Dose: 25 mg Multivitamins/Vitamin C (Theragran) 1 tab PO DAILY [facility]ENE Stop: 07/01/18 08:59 Last Admin: 05/15/18 08:59 Dose: 1 tab Nifedipine (Procardia Xl) 30 mg PO DAILY [facility] Stop: 07/01/18 08:59 Last Admin: 05/15/18 08:59 Dose: 30 mg Quetiapine Fumarate (Seroquel) 100 mg PO BID [facility] Stop: 07/11/18 16:59 Last Admin: 05/15/18 16:16 Dose: 100 mg Tamsulosin HCl (Flomax) 0.4 mg PO HS DORENE Stop: 07/01/18 20:59 Last Admin: 05/15/18 20:39 Dose: 0.4 mg General: demented HEENT: NC/AT, PERRLA, EOMI, anicteric sclerae, throat clear Neck: Supple, No JVD, No thyromegaly, +2 carotid pulse wo bruit, No LAD, + JVD Cardiovascular: RRR, Normal S1, Normal S2, without murmur Abdomen: non-tender, non-distended Extremities: clear Neurological: no change Internal Medicine Assmt/Plan - Assessment Assessment: 1.HTN. 2.BPH. 3.ANEMIA.. 4.DEMENTIA. - Plan Plan: CONTINUE ON CURRENT MEDICATION AND DIET. Nutritional Asmnt/Malnutr-PDOC - Dietary Evaluation Malnutrition Findings (Please click <Entered> for more info): Nutritional Asmnt/Malnutrition Start: 05/06/18 13: 55 Text: Status: Complete Freq: Protocol: Document 05/06/18 14:29 LCHENG (Rec: 05/06/18 14:41 LCHENG [email or web address]) Nutritional Asmnt/Malnutrition Patient General Information Nutritional Screening Moderate Risk Diagnosis psychosis Pertinent Medical Hx/Surgical Hx HTN, BPH, anemia, dementia Subjective Information pt seen in his room, confused. Per EMR, PO intake 100%. Current Diet Order/ Nutrition Support low sodium, mech soft chopped Pertinent Medications vit C, colace, iron, theragran , seroquel Pertinent Labs 05/01 BUN 39, Cr 1.4, glucose 97 , alb 3.9 05/02 POC 312 Nutritional Hx/Data Height 1.85 m Height (Calculated Centimeters) 185.4 Current Weight (lbs) 76.204 kg Weight (Calculated Kilograms) 76.2 Weight (Calculated Grams) 24416.5 [place] Body Weight 184 Body Mass Index (BMI) 22.1 Weight Status Approriate GI Symptoms GI Symptoms None Last BM 05/05 Difficult in: None Skin Integrity/Comment: intact Current %PO Good (75-100%) Estimated Nutritional Goals BEE in Kcals: Using Current wt Calories/Kcals/Kg 25-30 Kcals Calculated 4079-1035 Protein: Using Current wt Protein g/k Protein Calculated 76 Fluid: ml 1900-2280ml (1ml/kcal) Nutritional Problem No current Nutrition Prob Problem N/A Malnutrition Alert Is there a minimum of two criteria No selected? Query Text:Check all the applicable criteria. A minimum of two criteria are recommended for diagnosis of either severe or non-severe malnutrition. Malnutrition Related to Morbid Obesity Malnutrition related to morbid obesity No Intervention/Recommendation Comments 1. Continue with current diet as ordered. 2. Monitor PO intake, wt, labs and skin integrity 3. F/U as low risk in 7 days, 05/13 Expected Outcomes/Goals Expected Outcomes/Goals 1. PO intake to meet at least 75% of nutritional needs. 2. Wt stability, skin to remain intact, labs to approach WNL.
--- NOTE | 2018-05-16 06:38 | Progress Notes ---
DATE: 05/16/2018 SUBJECTIVE: The patient was seen 05/16/2018. The patient naked, wandering around his room naked, knows the year is 2017, does not know the month, has no idea why he is here, came in because he was agitated, disorganized, difficulty following directions. Over the past few days, Dr. Yanez noting patient rambling, mumbling to self, unpredictable, impulsive. ASSESSMENT: The patient remains symptomatic, walking around naked, agitated, mumbling to self, very confused, disoriented. PLAN: We will continue to monitor, titrate and adjust medications. The patient will likely need increasing doses of medications, there will be increasing the dosing of Seroquel to target disorganized thought processes and psychosis. JOB# [id number]
[2018-05-16] MEDS: Ferrous Sulfate 325 MG TAB PO SCH (08:54)
[2018-05-16] MEDS: Multivitamin Tab PO SCH (08:54)
[2018-05-16] MEDS: Magnesium Hydroxide (MOM) 30 mL UDC PO SCH (08:55)
[2018-05-16] MEDS: NIFEdipine 30 mg ER Tab PO SCH (08:56)
--- NOTE | 2018-05-16 18:01 | Internal Medicine Prog Note ---
Internal Medicine Subjective - Subjective Patient seen and examined:: with staff Patient is:: awake, verbal, in bed, confused Per staff patient has:: no adverse event Internal Medicine Objective - Results Result Diagrams: 05/01/18 21:25 05/01/18 21:25 Recent Labs: Laboratory Last Values WBC 5.7 Th/cmm (4.8-10.8) 05/01/18 21:25 RBC 3.83 Mil/cmm (3.80-5.80) 05/01/18 21:25 Hgb 11.7 gm/dL (12-16) L 05/01/18 21:25 Hct 35.1 % (41.0-60) L 05/01/18 21:25 MCV 91.8 fl (80-99) 05/01/18 21:25 MCH 30.5 pg (27.0-31.0) 05/01/18 21: MCHC Differential 33.2 pg (28.0-36.0) 05/01/18:25 RDW 14.3 % (11.5-20.0) 05/01/18 21:25 Plt Count 181 Th/cmm (150-400) 05/01/18 21:25 MPV 6.9 fl 05/01/18 21:25 Neutrophils % 48.9 % (40.0-80.0) 05/01/18 21: Lymphocytes % 37.4 % (20.0-50.0) 05/01/18 21: Monocytes % 8.3 % (2.0-10.0) 05/01/18 21: Eosinophils % 4.8 % (0.0-5.0) 05/01/18 21:25 Basophils % 0.6 % (0.0-2.0) 05/01/18 21:25 Sodium 136 mEq/L (136-145) 05/01/18 21:25 Potassium 4.4 mEq/L (3.5-5.1) 05/01/18 21:25 Chloride 102 mEq/L (98-107) 05/01/18 21:25 Carbon Dioxide 27.9 mEq/L (21.0-31.0) 05/01/18 21:25 Anion Gap 10.5 (7.0-16.0) 05/01/18 21:25 BUN 39 mg/dL (7-25) H 05/01/18 21:25 Creatinine 1.4 mg/dL (0.7-1.3) H 05/01/18 21:25 Est GFR ( Amer) > 60.0 ml/min (>90) 05/01/18 21:25 Est GFR (Non-Af Amer) 53.7 ml/min 05/01/18 21:25 BUN/Creatinine Ratio 27.9 05/01/18 21:25 Glucose 97 mg/dL (70-105) 05/01/18 21:25 POC Glucose 312 MG/DL (70 - 105) H 05/02/18 20:37 Calcium 9.6 mg/dL (8.6-10.3) 05/01/18 21:25 Phosphorus 3.9 mg/dL (2.5-5.0) 05/01/18 21:25 Magnesium 2.2 mg/dL (1.9-2.7) 05/01/18 21:25 Total Bilirubin 0.3 mg/dL (0.3-1.0) 05/01/18 21:25 AST 13 U/L (13-39) 05/01/18 21:25 ALT 8 U/L (7-52) 05/01/18 21:25 Alkaline Phosphatase 133 U/L (34-104) H 05/01/18 21:25 Total Protein 6.6 gm/dL (6.0-8.3) 05/01/18 21:25 Albumin 3.9 gm/dL (4.2-5.5) L 05/01/18 21:25 Globulin 2.7 gm/dL 05/01/18 21:25 Albumin/Globulin Ratio 1.4 (1.0-1.8) 05/01/18 21:25 Triglycerides 70 mg/dL (<150) 05/02/18 07:16 Cholesterol 168 mg/dL (<200) 05/02/18 07:16 LDL Cholesterol Direct 97 mg/dL (75-193) 05/02/18 07:16 HDL Cholesterol 51 mg/dL (23-92) 05/02/18 07:16 Urine Source CLEAN C 05/01/18 21:25 Urine Color YELLOW 05/01/18 21:25 Urine Clarity CLEAR (CLEAR) 05/01/18 21:25 Urine pH 6.0 (4.6 - 8.0) 05/01/18 21:25 Ur Specific [place] <= 1.005 (1.005-1.030) 05/01/18 21:25 Urine Protein NEGATIVE mg/dL (NEGATIVE) 05/01/18 21:25 Urine Glucose (UA) NEGATIVE mg/dL (NEGATIVE) 05/01/18 21:25 Urine Ketones NEGATIVE mg/dL (NEGATIVE) 05/01/18 21:25 Urine Blood NEGATIVE (NEGATIVE) 05/01/18 21:25 Urine Nitrate NEGATIVE (NEGATIVE) 05/01/18 21:25 Urine Bilirubin NEGATIVE (NEGATIVE) 05/01/18 21:25 Urine Urobilinogen 0.2 E.U./dL (0.2 - 1.0) 05/01/18 21:25 Ur Leukocyte Esterase NEGATIVE (NEGATIVE) 05/01/18 21:25 Urine RBC NONE SEEN /hpf (0-5) 05/01/18 21:25 Urine WBC 0-2 /hpf (0-5) 05/01/18 21:25 Ur Epithelial Cells FEW /lpf (FEW) 05/01/18 21:25 Urine Bacteria OCCASIONAL /hpf (NONE SEEN) 05/01/18 21:25 Urine Mucus FEW /lpf (FEW) 05/01/18 21:25 Urine Opiates Screen NEGATIVE (NEGATIVE) 05/01/18 21:25 Urine Methadone Screen NEGATIVE (NEGATIVE) 05/01/18 21:25 Acetaminophen < 10.0 ug/mL (10.0-30.0) L 05/01/18 21:25 Ur Barbiturates Screen NEGATIVE (NEGATIVE) 05/01/18 21:25 Ur Tricyclics Screen NEGATIVE (NEGATIVE) 05/01/18 21:25 Ur Phencyclidine Scrn NEGATIVE (NEGATIVE) 05/01/18 21:25 Amphetamines Screen NEGATIVE (NEGATIVE) 05/01/18 21:25 U Methamphetamines Scrn NEGATIVE (NEGATIVE) 05/01/18 21:25 U Benzodiazepines Scrn NEGATIVE (NEGATIVE) 05/01/18 21:25 U Cocaine Metab Screen NEGATIVE (NEGATIVE) 05/01/18 21:25 U Cannabinoids Screen NEGATIVE (NEGATIVE) 05/01/18 21:25 - Physical Exam Vitals and I&O: Vital Signs Temp 98.4 F 05/16/18 14:00 Pulse 75 05/16/18 14:00 Resp 20 05/16/18 14:00 BP 151/75 05/16/18 14:00 Pulse Ox 96 05/16/18 14:00 Intake & Output 05/15/18 05/16/18 05/16/18 18:59 06:59 18:59 Intake Total 1200 Balance 1200 Intake: Oral 1200 Other: # Bowel Movements 1 Active Medications: Current Medications Ascorbic Acid (Vitamin C) 500 mg PO BID DORENE Stop: 07/01/18 08:59 Last Admin: 05/16/18 17:05 Dose: 500 mg Docusate Sodium (Colace) 250 mg PO DAILY DORENE Stop: 07/01/18 08:59 Last Admin: 05/16/18 08:54 Dose: 250 mg Donepezil HCl (Aricept) 10 mg PO HS DORENE Stop: 07/10/18 20:59 Last Admin: 05/15/18 20:39 Dose: 10 mg Ferrous Sulfate (Iron) 325 mg PO DAILY DORENE Stop: 07/01/18 08:59 Last Admin: 05/16/18 08:54 Dose: 325 mg Lorazepam (Ativan) 0.5 mg PO Q4HR PRN; Protocol PRN Reason: Anxiety Stop: 05/31/18 23:31 Last Admin: 05/16/18 02:49 Dose: 0.5 mg Magnesium Hydroxide (Milk Of Magnesia) 30 ml PO DAILY DORENE Stop: 07/01/18 08:59 Last Admin: 05/16/18 08:55 Dose: 30 ml Memantine (Namenda) 5 mg PO DAILY DORENE Stop: 07/14/18 16:59 Last Admin: 05/16/18 08:54 Dose: 5 mg Metoprolol Tartrate (Lopressor) 25 mg PO DAILY DORENE Stop: 07/01/18 08:59 Last Admin: 05/16/18 08:55 Dose: 25 mg Multivitamins/Vitamin C (Theragran) 1 tab PO DAILY DORENE Stop: 07/01/18 08:59 Last Admin: 05/16/18 08:54 Dose: 1 tab Nifedipine (Procardia Xl) 30 mg PO DAILY [facility] Stop: 07/01/18 08:59 Last Admin: 05/16/18 08:56 Dose: 30 mg Quetiapine Fumarate 100 mg/ (Quetiapine Fumarate 25 mg) 125 mg PO BID [facility] Stop: 07/15/18 11:29 Last Admin: 05/16/18 17:46 Dose: 125 mg Tamsulosin HCl (Flomax) 0.4 mg PO HS DORENE Stop: 07/01/18 20:59 Last Admin: 05/15/18 20:39 Dose: 0.4 mg General: demented HEENT: NC/AT, PERRLA, EOMI, anicteric sclerae, throat clear Neck: Supple, No JVD, No thyromegaly, +2 carotid pulse wo bruit, No LAD, + JVD Cardiovascular: RRR, Normal S1, Normal S2, without murmur Abdomen: non-tender, non-distended Extremities: clear Neurological: no change Internal Medicine Assmt/Plan - Assessment Assessment: 1.HTN. 2.BPH. 3.ANEMIA.. 4.DEMENTIA. - Plan Plan: CONTINUE ON CURRENT MEDICATION AND DIET. Nutritional Asmnt/Malnutr-PDOC - Dietary Evaluation Malnutrition Findings (Please click <Entered> for more info): Nutritional Asmnt/Malnutrition Start: 05/06/18 13: 55 Text: Status: Complete Freq: Protocol: Document 05/06/18 14:29 LCHENG (Rec: 05/06/18 14:41 [email or web address] Nutritional Asmnt/Malnutrition Patient General Information Nutritional Screening Moderate Risk Diagnosis psychosis Pertinent Medical Hx/Surgical Hx HTN, BPH, anemia, dementia Subjective Information pt seen in his room, confused. Per EMR, PO intake 100%. Current Diet Order/ Nutrition Support low sodium, mech soft chopped Pertinent Medications vit C, colace, iron, theragran , seroquel Pertinent Labs 05/01 BUN 39, Cr 1.4, glucose 97 , alb 3.9 05/02 POC 312 Nutritional Hx/Data Height 1.85 m Height (Calculated Centimeters) 185.4 Current Weight (lbs) 76.204 kg Weight (Calculated Kilograms) 76.2 Weight (Calculated Grams) 71696.5 [place] Body Weight 184 Body Mass Index (BMI) 22.1 Weight Status Approriate GI Symptoms GI Symptoms None Last BM 05/05 Difficult in: None Skin Integrity/Comment: intact Current %PO Good (75-100%) Estimated Nutritional Goals BEE in Kcals: Using Current wt Calories/Kcals/Kg 25-30 Kcals Calculated 3924-8168 Protein: Using Current wt Protein g/k Protein Calculated 76 Fluid: ml 1900-2280ml (1ml/kcal) Nutritional Problem No current Nutrition Prob Problem N/A Malnutrition Alert Is there a minimum of two criteria No selected? Query Text:Check all the applicable criteria. A minimum of two criteria are recommended for diagnosis of either severe or non-severe malnutrition. Malnutrition Related to Morbid Obesity Malnutrition related to morbid obesity No Intervention/Recommendation Comments 1. Continue with current diet as ordered. 2. Monitor PO intake, wt, labs and skin integrity 3. F/U as low risk in 7 days, 05/13 Expected Outcomes/Goals Expected Outcomes/Goals 1. PO intake to meet at least 75% of nutritional needs. 2. Wt stability, skin to remain intact, labs to approach WNL.
--- NOTE | 2018-05-17 06:51 | Progress Notes ---
DATE: 05/17/2018 SUBJECTIVE: The patient disoriented, does not know where he is, does not know the year, believes is 2009. Does not know the month or the place, does not know why he is here. The patient states he is in [place]. The patient is rambling, difficult to understand, difficult to fully comprehend, initially admitted to the hospital due to increased disorganized thoughts, agitation. The patient slept about 4 hours, still mumbling, forgetful, walking around, sometimes naked. ASSESSMENT: The patient is hyperverbal, restless and kept wandering around, naked at times. PLAN: We will continue to monitor, titrate and adjust medications. Medications were reviewed. Recent dose increase of Seroquel in the past 24 hours. JOB# [id number]
[2018-05-17] MEDS: Ferrous Sulfate 325 MG TAB PO SCH (08:04)
[2018-05-17] MEDS: Magnesium Hydroxide (MOM) 30 mL UDC PO SCH (08:04)
[2018-05-17] MEDS: Multivitamin Tab PO SCH (08:04)
[2018-05-17] MEDS: NIFEdipine 30 mg ER Tab PO SCH (08:07)
--- NOTE | 2018-05-17 12:34 | Diagnostic Imaging Report ---
CT scan of the brain without intravenous contrast HISTORY: There is post fall Total DLP equals 729 CTDI equals 37.0 Axial sections were obtained from the base of the skull to the vertex. There is prominence/enlargement of the ventricular system size. Associated enlargement of cerebral sulci and subarachnoid cisterns. Findings are consistent with changes of generalized cerebral atrophy. No acute parenchymal abnormalities. No acute cerebral hemorrhage. There is evidence of previous right frontal craniotomy cardiac to be changes. Hypodensity is seen within the supratentorial white matter regions without mass effect. 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 No extra-axial masses or abnormal fluid collections. Mucosal thickening is noted through at sinuses. IMPRESSION: 1. No acute abnormalities 2. Cerebral atrophy 3. Supratentorial white matter changes that may reflect chronic small vessel ischemic disease
== END 2018-05-17 10:40 | disposition short-term general hospital (02) | DRG 885 ==
LOC: ER 20:48 → GERO 22:10
PROVIDERS: ADMIT Psychiatry & Neurology Psychiatry; ATTEND Psychiatry & Neurology Psychiatry
DX: F29 Unspecified psychosis not due to a substance or known physiological condition (principal); N18.9 Chronic kidney disease, unspecified; F03.91 Unspecified dementia, unspecified severity, with behavioral disturbance; N13.8 Other obstructive and reflux uropathy; D64.9 Anemia, unspecified; M19.90 Unspecified osteoarthritis, unspecified site; F32.9 Major depressive disorder, single episode, unspecified; F41.1 Generalized anxiety disorder; N40.1 Benign prostatic hyperplasia with lower urinary tract symptoms; I12.9 Hypertensive chronic kidney disease with stage 1 through stage 4 chronic kidney disease, or unspecified chronic kidney disease; M62.50 Muscle wasting and atrophy, not elsewhere classified, unspecified site; R26.9 Unspecified abnormalities of gait and mobility; F10.10 Alcohol abuse, uncomplicated; R13.12 Dysphagia, oropharyngeal phase; J44.9 Chronic obstructive pulmonary disease, unspecified
CPT/HCPCS: 36415-UA; 70450-TC; 80053-TC; 80061-TC; 80307; 80329-TC; 81001-TC; 82948-90; 83036-90; 83735-TC; 84100-TC; 85025-TC; 90899; G0410; Z7610

== ENCOUNTER 2018-05-17 11:21 | Inpatient (IN) | payer MEDICARE, MEDICAID ==
[2018-05-17] MEDS ORDERED: D5-0.45NS w/20 mEq KCL 1,000 ML IV SCH (11:30)
[2018-05-17] MEDS: D5-0.9NS w/KCL 20mEq 1,000 ML IV SCH (12:08)
[2018-05-17 12:28] LABS: % EOSINOPHILS 2.6 % (0.0-5.0); % LYMPHOCYTES 14.5 % (20.0-50.0); % MONOCYTES 5.9 % (2.0-10.0); EOSINOPHILE ABSOLUTE 0.2 Th/cmm (0.1-0.4); HEMATOCRIT 34.9 % (41.0-60); HEMOGLOBIN 11.6 gm/dL (12-16); LYMPHOCYTE ABSOLUTE 0.9 Th/cmm (1.5-3.0); MEAN CORPUSCULAR HEMOGLOBIN 30.7 pg (27.0-31.0); MEAN CORPUSCULAR HGB CONC 33.3 pg (28.0-36.0); MEAN PLATELET VOLUME 7.1 fl; MONOCYTE ABSOLUTE 0.4 Th/cmm (0.3-1.0); PLATELET COUNT 193 Th/cmm (150-400); RED BLOOD COUNT 3.79 Mil/cmm (3.80-5.80); RED CELL DISTRIBUTION WIDTH 14.6 % (11.5-20.0); WHITE BLOOD COUNT 6.5 Th/cmm (4.8-10.8)
[2018-05-17 12:33] VITALS: BP 129/58
[2018-05-17 12:46] LABS: ALB/GLOB RATIO 1.5 (1.0-1.8); ALKALINE PHOSPHATASE 125 U/L (34-104); ANION GAP 9.8 (7.0-16.0); BILIRUBIN,TOTAL 0.3 mg/dL (0.3-1.0); BUN - UREA NITROGEN 30 mg/dL (7-25); CALCIUM SERUM 9.6 mg/dL (8.6-10.3); CARBON DIOXIDE 29.4 mEq/L (21.0-31.0); CHLORIDE 100 mEq/L (98-107); CREATININE - SERUM 1.3 mg/dL (0.7-1.3); GFR AFRICAN-AMERICAN > 60.0 ml/min (>90); GFR NON AFRICAN-AMERICAN 58.5 ml/min; GLUCOSE 132 mg/dL (70-105); MAGNESIUM 2.7 mg/dL (1.9-2.7); POTASSIUM SERUM 4.2 mEq/L (3.5-5.1); SGOT 11 U/L (13-39); SGPT/ALT 9 U/L (7-52); SODIUM SERUM 135 mEq/L (136-145); TOTAL PROTEIN,SERUM 6.7 gm/dL (6.0-8.3)
[2018-05-17] MEDS ORDERED: VTE Chemical Prophylaxis Screen/Admission MC PRN (14:08)
--- NOTE | 2018-05-17 19:27 | History & Physical ---
ADMIT DATE: 05/17/2018 CHIEF COMPLAINT: Syncope with a closed head injury and laceration of the forehead skin. HISTORY OF PRESENT ILLNESS: The patient is a 67-year-old male with long history of hypertension, benign prostatic hypertrophy, dementia, psychosis, resident at [facility], had a fall and lacerated skin of the forehead and also the patient was found with severe bradycardia, transferred to the ICU, started on IV fluid. CT of the head negative for intracranial hemorrhage. Cardiac consultation obtained. The patient is a poor historian. No nausea, no vomiting, no chest pain, no fever, no chills. His heart rate on the monitor running around 70s. PAST MEDICAL HISTORY: Significant for hypertension, benign prostatic hypertrophy, dementia, and psychosis. PAST SURGICAL HISTORY: No recent surgery. ALLERGIES: None. MEDICATIONS: Follow admission reconciliation. SOCIAL HISTORY: Chronic smoker. No alcohol or drugs. FAMILY HISTORY: Noncontributory. REVIEW OF SYSTEMS: RENAL SYSTEM: No history of chronic renal disorder. CARDIOVASCULAR SYSTEM: History of hypertension. ENDOCRINE SYSTEM: No diabetes or thyroid problem. GASTROINTESTINAL SYSTEM: No upper or lower gastrointestinal bleed. NEUROLOGICAL SYSTEM: No seizure disorder. SKELETOMUSCULAR SYSTEM: No muscular dystrophy. HEMATOLOGICAL SYSTEM: No bleeding tendencies. RESPIRATORY SYSTEM: No asthma. GENITOURINARY SYSTEM: No dysuria or hematuria. PHYSICAL EXAMINATION: GENERAL: He is awake, not coherent. VITAL SIGNS: Temperature is 97.6, heart rate 70, blood pressure is 178/72. HEENT: Normocephalic. Pupils reacting to light and accommodation. Sclerae clear. NECK: Supple. Negative for lymphadenopathy, JVD or bruit. CHEST: Bilaterally normal. No rhonchi or wheezing. HEART: S1, S2 normal. No murmur or gallop rhythm. ABDOMEN: Soft, bowel sounds positive. EXTREMITIES: No edema. BACK: No vertebral tenderness. SKIN: Skin laceration of the forehead. NEUROLOGIC: He is awake, alert, not fully oriented. LABORATORY DATA: White blood cells 6.5, hemoglobin 11.6, hematocrit 34.9, platelets 193. Sodium 135, potassium 4.2, BUN is 30, creatinine 0.3. ASSESSMENT: 1. Syncope. 2. Acute S1 severe bradycardia. 3. Skin laceration of the forehead. 4. History of hypertension. 5. History of chronic obstructive pulmonary disease. 6. History of benign prostatic hypertrophy. 7. Dementia. 8. Psychosis. PLAN: The patient in the hospital under Dr. Ho's service. Start him on IV fluid, regular diet. The patient will resume his medication and diet. Cardiac consultation obtained. Echocardiogram ordered. The patient is a full code. JOB# [id number]
[2018-05-17] MEDS: Nicotine 21 mg/24 hr Tdm TD SCH (20:07)
[2018-05-17] MEDS ORDERED: MELATONIN PO SCH (21:00)
[2018-05-17] MEDS ORDERED: PYRIDOXINE HCL PO SCH (21:00)
[2018-05-17] MEDS ORDERED: D5-0.9NS w/KCL 20mEq 1,000 ML IV ONE (23:04)
[2018-05-18] MEDS: D5-0.9NS w/KCL 20mEq 1,000 ML IV SCH ×2 (00:46→15:00)
--- NOTE | 2018-05-18 04:37 | Consultation ---
DATE OF CONSULTATION: 05/17/2018 HISTORY OF PRESENT ILLNESS: This 67-year-old male was seen and examined at the courtesy of Dr. Ho. This is a patient who was transferred here from [facility] with problem of high blood pressure, then low blood pressure, and sinus bradycardia. The patient does have history of schizophrenia, psychosis, dementia, also has a history of hypertension, anemia, and benign prostatic hypertrophy. There is not much history available from the patient. On questioning him, he denied any chest pains. No history of shortness of breath. No history of PND. No history of orthopnea. No history of any dizziness. No history of headache. No history of seizures. No history of syncope. No history of abdominal pain, nausea, or vomiting. No history of hematemesis. No history of melena. No history of bleeding per rectum. No history of change in bowel habits. No history of swelling over the legs. No history of intermittent claudication. No history of phlebitis. PAST MEDICAL HISTORY: Not available from the patient. SOCIAL HISTORY: Not available from the patient. FAMILY HISTORY: Not available from the patient. REVIEW OF SYSTEMS: Basically as mentioned above. PHYSICAL EXAMINATION: VITAL SIGNS: Heart rate was 56 and blood pressure was 153/72. SKIN: Normal. HEENT: Head: Normocephalic. Eyes: Conjunctivae were pink. There is no icterus in the eyes. Pupils reacting to light. NECK: There was no increased jugular venous distention, no thyromegaly, and no lymphadenopathy. Carotids equal both sides. CHEST: Bilaterally symmetrical, moved well with respiration. Respiratory movements equal both sides. Trachea is central. There is note to percussion. Breath sounds, few scattered rales. CARDIOVASCULAR SYSTEM: PMI not well localized. There is no pulsation or thrill. No parasternal heave. S1 normal. S2 physiologic. There were no S3, no rub. ABDOMEN: Soft, no tenderness, no rigidity, no guarding, no organomegaly. Bowel sounds normal. EXTREMITIES: There is no edema, no calf tenderness. Peripheral pulses slightly diminished. LABORATORY AND DIAGNOSTIC DATA: On reviewing the labs: WBC was 6.5, hemoglobin 11.6, hematocrit 34.9, and platelet count was 193. Sodium was 135, potassium 4.2, chloride 100, CO2 29.4, BUN 30, creatinine 1.3, glucose was 132, and GFR was 58.5, calcium was 9.6, total protein 6.7, albumin 4, bilirubin total was 1.5, SGOT 11, magnesium 2.7, alkaline phosphatase 125. CAT scan of the head was done because of history of fall. The patient showed no acute abnormalities, cerebral atrophy, supratentorial white matter changes that may reflect chronic small vessel ischemic changes. Rhythm strip shows sinus rhythm with sinus bradycardia. Echocardiogram was done which showed that the patient's ejection fraction was 72%, consistent with normal left ventricular systolic function. This also shows LVH, RVH, mitral valve annular calcification, mild MR and TR, right ventricular systolic pressure was 23.3. IMPRESSION: Hypertension uncontrolled, sinus bradycardia, anemia, benign prostatic hypertrophy, dementia, schizophrenia and psychosis. PLAN: Suggest to get an EKG, also to get lipid profile in a.m., TSH in a.m. and repeat CBC, CMP and mag in the morning, chest x-ray if not done. The patient is on Procardia-XL 30. We will increase the Procardia-XL to 60, to continue Lopressor 25 mg daily, also add Cozaar 50 mg daily, especially when the patient has history of hypertension and LVH. Thank you Dr. Edmond Echevarria. We will be following him from the morning now. JOB# [id number]
[2018-05-18 04:43] LABS: HEMATOCRIT 37.6 % (41.0-60); HEMOGLOBIN 12.7 gm/dL (12-16); MEAN CELL VOLUME 91.1 fl (80-99); MEAN CORPUSCULAR HEMOGLOBIN 30.9 pg (27.0-31.0); MEAN CORPUSCULAR HGB CONC 33.9 pg (28.0-36.0); MEAN PLATELET VOLUME 7.7 fl; PLATELET COUNT 185 Th/cmm (150-400); RED BLOOD COUNT 4.13 Mil/cmm (3.80-5.80); RED CELL DISTRIBUTION WIDTH 14.9 % (11.5-20.0); WHITE BLOOD COUNT 9.2 Th/cmm (4.8-10.8)
[2018-05-18 06:51] LABS: ANION GAP 16.7 (7.0-16.0); BUN - UREA NITROGEN 30 mg/dL (7-25); CALCIUM SERUM 9.6 mg/dL (8.6-10.3); CARBON DIOXIDE 19.8 mEq/L (21.0-31.0); CHLORIDE 108 mEq/L (98-107); CHOLESTEROL 182 mg/dL (<200); CREATININE - SERUM 1.3 mg/dL (0.7-1.3); GFR AFRICAN-AMERICAN > 60.0 ml/min (>90); GFR NON AFRICAN-AMERICAN 58.5 ml/min; GLUCOSE 97 mg/dL (70-105); HDL -HIGH DENSITY LIPOPROTEIN 61 mg/dL (23-92); MAGNESIUM 2.5 mg/dL (1.9-2.7); POTASSIUM SERUM 4.5 mEq/L (3.5-5.1); SODIUM SERUM 140 mEq/L (136-145); TRIGLYCERIDES 70 mg/dL (<150)
[2018-05-18 07:59] LABS: BAND NEUTROPHILE 1 % (0-10); BASOPHIL 0 % (0-3); EOSINOPHIL 2 % (0-5); LYMPHOCYTE 26 % (20-50); MONOCYTE 5 % (2-10); NEUTROPHILS 66 % (40-80)
[2018-05-18] MEDS: NIFEdipine 30 mg ER Tab PO SCH (08:07)
[2018-05-18] MEDS: Magnesium Hydroxide (MOM) 30 mL UDC PO SCH (08:07)
[2018-05-18] MEDS: Ferrous Sulfate 325 MG TAB PO SCH (08:08)
[2018-05-18] MEDS: Nicotine 21 mg/24 hr Tdm TD SCH (08:10)
--- NOTE | 2018-05-18 08:35 | Diagnostic Imaging Report ---
Portable chest x-ray HISTORY: Pain The heart size is normal. Atherosclerotic calcification seen in the aorta. No acute focal pulmonary processes. IMPRESSION: 1. No acute abnormalities 2. Atherosclerotic vascular changes
[2018-05-18] MEDS ORDERED: Nicotine 21 mg/24 hr Tdm TD SCH (09:00)
[2018-05-18] MEDS ORDERED: NIFEdipine 30 mg ER Tab PO SCH (09:00)
[2018-05-18] MEDS: Multivitamin Tab PO SCH (09:50)
--- NOTE | 2018-05-18 13:35 | Cardiology ---
05/17/[address] Ho. M-MODE ECHOCARDIOGRAM: Mitral valve, anterior leaflet of mitral valve shows normal excursion, EF velocity. Posterior leaflet of mitral valve shows normal excursion. Left ventricular posterior wall shows increased thickness, normal excursion. Interventricular septum shows increased thickness, normal excursion, hypertrophy of the left ventricle, ejection fraction 72%. Left atrium normal. Aortic root shows normal dimension, normal excursion of aortic leaflets. CONCLUSION: Hypertrophy of the left ventricle, ejection fraction 72%. 2D ECHO: Long axis view showed normal sized left ventricle with hypertrophy of the left ventricle. Left atrium normal. Aortic root shows normal dimension, normal excursion of aortic leaflets. Short axis view of mitral valve normal. Short axis view of aortic valve normal. Apical four chamber view showed normal sized left ventricle, left atrium, right ventricle, right atrium, tricuspid and mitral valve. CONCLUSION: Hypertrophy of the left ventricle, ejection fraction 72%. Doppler study shows trace mitral regurgitation, trace tricuspid regurgitation, right ventricular systolic pressure 23 mmHg. [facility]# [id number]
--- NOTE | 2018-05-18 22:19 | Internal Medicine Prog Note ---
Internal Medicine Subjective - Subjective Service Date: 05/18/18 Patient seen and examined:: with staff Patient is:: awake, in bed, confused Per staff patient has:: no adverse event Internal Medicine Objective - Results Result Diagrams: 05/18/18 04:20 05/18/18 04:20 Recent Labs: Laboratory Last Values WBC 9.2 Th/cmm (4.8-10.8) 05/18/18 04:20 RBC 4.13 Mil/cmm (3.80-5.80) 05/18/18 04:20 Hgb 12.7 gm/dL (12-16) 05/18/18 04:20 Hct 37.6 % (41.0-60) L 05/18/18 04:20 MCV 91.1 fl (80-99) 05/18/18 04:20 MCH 30.9 pg (27.0-31.0) 05/18/18 04:20 MCHC Differential 33.9 pg (28.0-36.0) 05/18/18 04:20 RDW 14.9 % (11.5-20.0) 05/18/18 04:20 Plt Count 185 Th/cmm (150-400) 05/18/18 04:20 MPV 7.7 fl 05/18/18 04:20 Add Manual Diff YES 05/18/18 04:20 Neutrophils % 77.0 % (40.0-80.0) 05/17/18 12:15 Band Neutrophils % 1 % (0-10) 05/18/18 04:20 Lymphocytes % 14.5 % (20.0-50.0) L 05/17/18 12:15 Monocytes % 5.9 % (2.0-10.0) 05/17/18 12:15 Eosinophils % 2.6 % (0.0-5.0) 05/17/18 12:15 Basophils % 0.0 % (0.0-2.0) 05/17/18 12:15 Neutrophils (Manual) 66 % (40-80) 05/18/18 04:20 Lymphocytes 26 % (20-50) 05/18/18 04:20 Monocytes 5 % (2-10) 05/18/18 04:20 Eosinophils 2 % (0-5) 05/18/18 04:20 Basophils 0 % (0-3) 05/18/18 04:20 Sodium 140 mEq/L (136-145) 05/18/18 04:20 Potassium 4.5 mEq/L (3.5-5.1) 05/18/18 04:20 Chloride 108 mEq/L (98-107) H 05/18/18 04:20 Carbon Dioxide 19.8 mEq/L (21.0-31.0) L 05/18/18 04:20 Anion Gap 16.7 (7.0-16.0) H 05/18/18 04:20 BUN 30 mg/dL (7-25) H 05/18/18 04:20 Creatinine 1.3 mg/dL (0.7-1.3) 05/18/18 04:20 Est GFR ( Amer) > 60.0 ml/min (>90) 05/18/18 04:20 Est GFR (Non-Af Amer) 58.5 ml/min 05/18/18 04:20 BUN/Creatinine Ratio 23.1 05/18/18 04:20 Glucose 97 mg/dL (70-105) 05/18/18 04:20 Calcium 9.6 mg/dL (8.6-10.3) 05/18/18 04:20 Magnesium 2.5 mg/dL (1.9-2.7) 05/18/18 04:20 Total Bilirubin 0.3 mg/dL (0.3-1.0) 05/17/18 12:15 AST 11 U/L (13-39) L 05/17/18 12:15 ALT 9 U/L (7-52) 05/17/18 12:15 Alkaline Phosphatase 125 U/L (34-104) H 05/17/18 12:15 Total Protein 6.7 gm/dL (6.0-8.3) 05/17/18 12:15 Albumin 4.0 gm/dL (4.2-5.5) L 05/17/18 12:15 Globulin 2.7 gm/dL 05/17/18 12:15 Albumin/Globulin Ratio 1.5 (1.0-1.8) 05/17/18 12:15 Triglycerides 70 mg/dL (<150) 05/18/18 04:20 Cholesterol 182 mg/dL (<200) 05/18/18 04:20 LDL Cholesterol Direct 103 mg/dL (75-193) 05/18/18 04:20 HDL Cholesterol 61 mg/dL (23-92) 05/18/18 04:20 - Physical Exam Vitals and I&O: Vital Signs Temp 98.6 F 05/18/18 20:00 Pulse 87 05/18/18 20:00 Resp 18 05/18/18 20:00 BP 98/79 05/18/18 20:00 Pulse Ox 97 05/18/18 20:00 Intake & Output 05/18/18 05/18/18 05/19/18 06:59 18:59 06:59 Intake Total 1297.5 2800 Output Total 1200 1600 Balance 97.5 1200 Weight (lbs) 79.016 kg 78.727 kg Intake: Intake, IV Amount 947.5 1000 D5-0.9NS w/KCL 20mEq 1, 947.5 1000 000 ml @ 75 mls/hr IV . [id number] [facility] Rx#:[id number] Oral 350 1800 Output: Urine 1200 1600 Other: # Bowel Movements 3 2 Stool Characteristics Soft Brown Weight Source Bedscale Bedscale Active Medications: Current Medications Acetaminophen (Tylenol) 650 mg PO Q4HR PRN PRN Reason: Pain (Mild) Stop: 07/16/18 18:46 Ascorbic Acid (Vitamin C) 500 mg PO BID [facility] Stop: 07/17/18 08:59 Last Admin: 05/18/18 16:27 Dose: 500 mg Docusate Sodium (Colace) 250 mg PO DAILY [facility] Stop: 07/17/18 08:59 Last Admin: 05/18/18 08:07 Dose: 250 mg Donepezil HCl (Aricept) 5 mg PO HS [facility] Stop: 07/16/18 20:59 Last Admin: 05/18/18 21:12 Dose: 5 mg Enalaprilat (Vasotec) 1.25 mg IVP Q6H PRN PRN Reason: sbp above 160 Stop: 07/16/18 12:53 Last Admin: 05/18/18 11:42 Dose: 1.25 mg Ferrous Sulfate (Iron) 325 mg PO DAILY [facility] Stop: 07/17/18 08:59 Last Admin: 05/18/18 08:08 Dose: 325 mg Heparin Sodium (Porcine) (Heparin) 5,000 units SUBQ Q12HR [facility] Stop: 07/16/18 20:59 Last Admin: 05/18/18 21:08 Dose: 5,000 units Potassium Chloride/Dextrose/Sod Cl (D5-0.9ns W/Kcl 20meq) 1,000 mls @ 75 mls/ hr IV .[id number] [facility] Stop: 07/16/18 11:44 Last Admin: 05/18/18 15:00 Dose: 75 mls/hr Losartan Potassium (Cozaar) 50 mg PO DAILY [facility] Stop: 07/17/18 08:59 Last Admin: 05/18/18 08:07 Dose: 50 mg Magnesium Hydroxide (Milk Of Magnesia) 30 ml PO DAILY [facility] Stop: 07/17/18 08:59 Last Admin: 05/18/18 08:07 Dose: 30 ml Miscellaneous (Vte Chemical Prophylaxis Screen/ Admission) 1 [facility] PRN PRN PRN Reason: PROTOCOL Stop: 07/16/18 14:07 Miscellaneous (Melatonin/Pyridoxine Hcl (B6) [Melatonin 3 Mg Tablet]) 1 tab PO HS [facility] Stop: 07/16/18 20:59 Multivitamins/Vitamin C (Theragran) 1 tab PO DAILY [facility] Stop: 07/17/18 08:59 Last Admin: 05/18/18 09:50 Dose: 1 tab Nicotine (Nicotine Transdermal System) 21 mg TD DAILY [facility] Stop: 07/16/18 19:03 Last Admin: 05/18/18 08:10 Dose: 21 mg Nifedipine (Procardia Xl) 60 mg PO DAILY [facility] Stop: 07/17/18 08:59 Last Admin: 05/18/18 08:07 Dose: 60 mg Quetiapine Fumarate (Seroquel) 50 mg PO BID [facility] Stop: 07/17/18 16:59 Last Admin: 05/18/18 16:27 Dose: 50 mg Tamsulosin HCl (Flomax) 0.4 mg PO HS [facility] Stop: 07/16/18 20:59 Last Admin: 05/18/18 21:12 Dose: 0.4 mg General: demented HEENT: NC/AT, PERRLA, EOMI, anicteric sclerae, throat clear Neck: Supple, No JVD, No thyromegaly, +2 carotid pulse wo bruit, No LAD Cardiovascular: Normal S1, Normal S2, without murmur Abdomen: soft, non-tender, non-distended Extremities: clear Neurological: no change Internal Medicine Assmt/Plan - Assessment Assessment: 1.SYNCOPE. 2.HTN. 3.DEMENTIA. 4.PSYCHOSIS. - Plan Plan: CONTINUE ON CURRENT MEDICATION AND DIET.
--- NOTE | 2018-05-18 23:08 | Consultation ---
DATE OF CONSULTATION: 05/18/2018 LOCATION: The patient was seen in the ICU on 05/18/2018. The patient was admitted there on 05/17/2018. The patient was transferred from [facility] on 05/17/2018. IDENTIFYING INFORMATION: The patient is a 67-year-old male. HISTORY OF PRESENT ILLNESS: This is a patient, who was at [facility]; apparently, he sustained a closed head injury, laceration to his forehead skin after having a syncope attack. The patient is mumbling, talking to himself, unable to participate in a team conversation or make safe plan for his self-care with history of episodes of agitation and irritability. PAST PSYCHIATRIC HISTORY: He has irritability, agitation, dementia, and psychosis. MEDICAL HISTORY: The patient has sustained a fall to his closed head injury, laceration of the forehead skin. He has syncope attack. The patient also has long history of hypertension and benign prostatic hypertrophy. He had a CT scan of the head that was negative for intracranial hemorrhage. Cardiac consultation was obtained. The patient was a poor historian. ALLERGIES: He has no known drug allergies. FAMILY AND SOCIAL HISTORY: The patient resides at [facility] for a long time. No further information is obtainable from the patient or available. MENTAL STATUS EXAMINATION: The patient is alert, unable to participate in meaningful conversation or tell me his name, where he is, why he is here. He is unable to participate in memory testing. He is psychotic, internally preoccupied, demented, and confused. Long and short term is poor. Insight and judgment is impaired. IMPRESSION: AXIS I: Psychosis, not otherwise specified, dementia. MEDICAL DIAGNOSES: Status post closed head injury, hypertension, and benign prostatic hypertrophy. PLAN: I would recommend to restart the Seroquel. His EKG is within normal range. CT scan is within normal range. I will follow up with the patient. Thank you very much for allowing me to participate in the care of this most interesting gentleman. JOB# [id number]
[2018-05-19] MEDS: D5-0.9NS w/KCL 20mEq 1,000 ML IV SCH (02:53)
[2018-05-19] MEDS: Nicotine 21 mg/24 hr Tdm TD SCH (08:36)
[2018-05-19] MEDS: Ferrous Sulfate 325 MG TAB PO SCH (08:38)
[2018-05-19] MEDS: Multivitamin Tab PO SCH (08:38)
[2018-05-19] MEDS: NIFEdipine 30 mg ER Tab PO SCH (08:38)
[2018-05-19] MEDS: Magnesium Hydroxide (MOM) 30 mL UDC PO SCH (08:39)
--- NOTE | 2018-05-19 17:19 | Progress Notes ---
DATE: 05/19/2018 Case was discussed with staff of the patient and reviewed records. The patient continues to be confused. He is currently in telemetry. Continues to be unpredictable, impulsive. The patient continues to have poor insight. Unable to participate in meaningful conversation or make safe plan for self-care. The patient can go back to [facility] when medically cleared. Thank you very much for allowing me to participate in the care of this most interesting gentleman. JOB# [id number]
--- NOTE | 2018-05-19 18:38 | Internal Medicine Prog Note ---
Internal Medicine Subjective - Subjective Service Date: 05/19/18 Patient seen and examined:: with staff Patient is:: awake, in bed, confused Per staff patient has:: no adverse event Internal Medicine Objective - Results Result Diagrams: 05/18/18 04:20 05/18/18 04:20 Recent Labs: Laboratory Last Values WBC 9.2 Th/cmm (4.8-10.8) 05/18/18 04:20 RBC 4.13 Mil/cmm (3.80-5.80) 05/18/18 04:20 Hgb 12.7 gm/dL (12-16) 05/18/18 04:20 Hct 37.6 % (41.0-60) L 05/18/18 04:20 MCV 91.1 fl (80-99) 05/18/18 04:20 MCH 30.9 pg (27.0-31.0) 05/18/18 04:20 MCHC Differential 33.9 pg (28.0-36.0) 05/18/18 04:20 RDW 14.9 % (11.5-20.0) 05/18/18 04:20 Plt Count 185 Th/cmm (150-400) 05/18/18 04:20 MPV 7.7 fl 05/18/18 04:20 Add Manual Diff YES 05/18/18 04:20 Neutrophils % 77.0 % (40.0-80.0) 05/17/18 12:15 Band Neutrophils % 1 % (0-10) 05/18/18 04:20 Lymphocytes % 14.5 % (20.0-50.0) L 05/17/18 12:15 Monocytes % 5.9 % (2.0-10.0) 05/17/18 12:15 Eosinophils % 2.6 % (0.0-5.0) 05/17/18 12:15 Basophils % 0.0 % (0.0-2.0) 05/17/18 12:15 Neutrophils (Manual) 66 % (40-80) 05/18/18 04:20 Lymphocytes 26 % (20-50) 05/18/18 04:20 Monocytes 5 % (2-10) 05/18/18 04:20 Eosinophils 2 % (0-5) 05/18/18 04:20 Basophils 0 % (0-3) 05/18/18 04:20 Sodium 140 mEq/L (136-145) 05/18/18 04:20 Potassium 4.5 mEq/L (3.5-5.1) 05/18/18 04:20 Chloride 108 mEq/L (98-107) H 05/18/18 04:20 Carbon Dioxide 19.8 mEq/L (21.0-31.0) L 05/18/18 04:20 Anion Gap 16.7 (7.0-16.0) H 05/18/18 04:20 BUN 30 mg/dL (7-25) H 05/18/18 04:20 Creatinine 1.3 mg/dL (0.7-1.3) 05/18/18 04:20 Est GFR ( Amer) > 60.0 ml/min (>90) 05/18/18 04:20 Est GFR (Non-Af Amer) 58.5 ml/min 05/18/18 04:20 BUN/Creatinine Ratio 23.1 05/18/18 04:20 Glucose 97 mg/dL (70-105) 05/18/18 04:20 Calcium 9.6 mg/dL (8.6-10.3) 05/18/18 04:20 Magnesium 2.5 mg/dL (1.9-2.7) 05/18/18 04:20 Total Bilirubin 0.3 mg/dL (0.3-1.0) 05/17/18 12:15 AST 11 U/L (13-39) L 05/17/18 12:15 ALT 9 U/L (7-52) 05/17/18 12:15 Alkaline Phosphatase 125 U/L (34-104) H 05/17/18 12:15 Total Protein 6.7 gm/dL (6.0-8.3) 05/17/18 12:15 Albumin 4.0 gm/dL (4.2-5.5) L 05/17/18 12:15 Globulin 2.7 gm/dL 05/17/18 12:15 Albumin/Globulin Ratio 1.5 (1.0-1.8) 05/17/18 12:15 Triglycerides 70 mg/dL (<150) 05/18/18 04:20 Cholesterol 182 mg/dL (<200) 05/18/18 04:20 LDL Cholesterol Direct 103 mg/dL (75-193) 05/18/18 04:20 HDL Cholesterol 61 mg/dL (23-92) 05/18/18 04:20 - Physical Exam Vitals and I&O: Vital Signs Temp 99 F 05/19/18 15:58 Pulse 74 05/19/18 15:58 Resp 18 05/19/18 15:58 BP 146/80 05/19/18 15:58 Pulse Ox 98 05/19/18 15:58 Intake & Output 05/18/18 05/19/18 05/19/18 18:59 06:59 18:59 Intake Total 2800 991.25 500 Output Total 1600 1000 Balance 1200 -8.75 500 Weight (lbs) 78.727 kg 77.337 kg 77.111 kg Intake: Intake, IV Amount 1000 891.25 D5-0.9NS w/KCL 20mEq 1, 1000 891.25 000 ml @ 75 mls/hr IV . [id number] [facility] Rx#:[id number] Oral 1800 100 500 Output: Urine 1600 1000 Other: # Voids 3 3 # Bowel Movements 2 0 Stool Characteristics Soft Brown Weight Source Bedscale Bedscale Bedscale Active Medications: Current Medications Acetaminophen (Tylenol) 650 mg PO Q4HR PRN PRN Reason: Pain (Mild) Stop: 07/16/18 18:46 Ascorbic Acid (Vitamin C) 500 mg PO BID [facility] Stop: 07/17/18 08:59 Last Admin: 05/19/18 16:24 Dose: 500 mg Docusate Sodium (Colace) 250 mg PO DAILY [facility] Stop: 07/17/18 08:59 Last Admin: 05/19/18 08:38 Dose: 250 mg Donepezil HCl (Aricept) 5 mg PO HS [facility] Stop: 07/16/18 20:59 Last Admin: 05/18/18 21:12 Dose: 5 mg Enalaprilat (Vasotec) 1.25 mg IVP Q6H PRN PRN Reason: sbp above 160 Stop: 07/16/18 12:53 Last Admin: 05/19/18 04:31 Dose: 1.25 mg Ferrous Sulfate (Iron) 325 mg PO DAILY [facility] Stop: 07/17/18 08:59 Last Admin: 05/19/18 08:38 Dose: 325 mg Heparin Sodium (Porcine) (Heparin) 5,000 units SUBQ Q12HR [facility] Stop: 07/16/18 20:59 Last Admin: 05/19/18 08:56 Dose: Not Given Potassium Chloride/Dextrose/Sod Cl (D5-0.9ns W/Kcl 20meq) 1,000 mls @ 75 mls/ hr IV .[id number] [facility] Stop: 07/16/18 11:44 Last Admin: 05/19/18 02:53 Dose: 75 mls/hr Losartan Potassium (Cozaar) 50 mg PO DAILY [facility] Stop: 07/17/18 08:59 Last Admin: 05/19/18 08:38 Dose: 50 mg Magnesium Hydroxide (Milk Of Magnesia) 30 ml PO DAILY [facility] Stop: 07/17/18 08:59 Last Admin: 05/19/18 08:39 Dose: 30 ml Miscellaneous (Vte Chemical Prophylaxis Screen/ Admission) 1 [facility] PRN PRN PRN Reason: PROTOCOL Stop: 07/16/18 14:07 Miscellaneous (Melatonin/Pyridoxine Hcl (B6) [Melatonin 3 Mg Tablet]) 1 tab PO HS [facility] Stop: 07/16/18 20:59 Multivitamins/Vitamin C (Theragran) 1 tab PO DAILY [facility] Stop: 07/17/18 08:59 Last Admin: 05/19/18 08:38 Dose: 1 tab Nicotine (Nicotine Transdermal System) 21 mg TD DAILY [facility] Stop: 07/16/18 19:03 Last Admin: 05/19/18 08:36 Dose: 21 mg Nifedipine (Procardia Xl) 60 mg PO DAILY [facility] Stop: 07/17/18 08:59 Last Admin: 05/19/18 08:38 Dose: 60 mg Quetiapine Fumarate (Seroquel) 50 mg PO BID [facility] Stop: 07/17/18 16:59 Last Admin: 05/19/18 16:24 Dose: 50 mg Tamsulosin HCl (Flomax) 0.4 mg PO HS [facility] Stop: 07/16/18 20:59 Last Admin: 05/18/18 21:12 Dose: 0.4 mg General: demented HEENT: NC/AT, PERRLA, EOMI, anicteric sclerae, throat clear Neck: Supple, No JVD, No thyromegaly, +2 carotid pulse wo bruit, No LAD Cardiovascular: Normal S1, Normal S2, without murmur Abdomen: soft, non-tender, non-distended Extremities: clear Neurological: no change Internal Medicine Assmt/Plan - Assessment Assessment: 1.SYNCOPE. 2.HTN. 3.DEMENTIA. 4.PSYCHOSIS. 5.SKIN LACERATION OF FOREHEAD. - Plan Plan: CONTINUE ON CURRENT MEDICATION AND DIET.HE IS STABLE TO BE MOVED TO [facility].
--- NOTE | 2018-06-15 20:19 | Discharge Summary ---
DATE OF DISCHARGE: 05/19/2018 FINAL DIAGNOSES: 1. Syncope. 2. Symptomatic bradycardia. 3. Skin laceration of the forehead. 4. Hypertension. 5. Chronic obstructive pulmonary disease. 6. Benign prostatic hypertrophy. 7. Dementia. REVIEW OF HISTORY: The patient is a 68-year-old male with long history of hypertension, benign prostatic hypertrophy, dementia, psychosis, currently at [facility] at the [facility], had a fall after he had an episode of syncope. The patient transferred to the ICU and Initial workup significant for symptomatic bradycardia. The patient sustained acute severe laceration of the frontal head of the scalp. PHYSICAL EXAMINATION: VITAL SIGNS: Temperature was 97.6, heart rate 70, blood pressure 178/72. HEENT: Significant for skin laceration of the scalp. CHEST: Clear to auscultation. ABDOMEN: Soft, bowel sounds positive. LABORATORY DATA: White blood 6.5, hemoglobin 11.6. Sodium 135, potassium 4.2. The patient started on IV fluid. CT of the head ordered, echocardiogram. Cardiology consultation obtained. COURSE OF HOSPITALIZATION: During hospitalization, the patient was seen by Dr. Kendell Echevarria, pier runner and on the 05/18/2018, the patient was more awake, more alert. On 05/19/2018, the patient was cleared by pier runner to go back to the [facility]. DISPOSITION: On 05/19/2018, the patient transferred back to [facility] Department. Continue his medication and diet. CONDITION ON DISCHARGE: Stable. MEDICATIONS: Follow discharge reconciliation. JOB# [id number]
== END 2018-05-19 20:58 | DRG 310 ==
LOC: ICU 11:21 → TELE 05-18 12:00
PROVIDERS: ADMIT Family Medicine; ATTEND Family Medicine
DX: I49.9 Cardiac arrhythmia, unspecified (principal); S01.81XA Laceration without foreign body of other part of head, initial encounter; J44.9 Chronic obstructive pulmonary disease, unspecified; N40.0 Benign prostatic hyperplasia without lower urinary tract symptoms; F03.90 Unspecified dementia, unspecified severity, without behavioral disturbance, psychotic disturbance, mood disturbance, and anxiety; F29 Unspecified psychosis not due to a substance or known physiological condition; I10 Essential (primary) hypertension; D64.9 Anemia, unspecified; F17.210 Nicotine dependence, cigarettes, uncomplicated; W18.30XA Fall on same level, unspecified, initial encounter; Y93.89 Activity, other specified; Y92.89 Other specified places as the place of occurrence of the external cause; Y99.8 Other external cause status
CPT/HCPCS: 36415-UA; 71045-TC; 80048-TC; 80053-TC; 80061-TC; 83735-TC; 85007-TC; 85025-TC; 93005; J1644; Z7610

== ENCOUNTER 2018-05-19 21:02 | Inpatient (IN) | payer MEDICARE, MEDICAID ==
[2018-05-19 22:31] VITALS: BP 133/81
[2018-05-20 06:49] LABS: CHOLESTEROL 183 mg/dL (<200); HDL -HIGH DENSITY LIPOPROTEIN 59 mg/dL (23-92); TRIGLYCERIDES 64 mg/dL (<150)
--- NOTE | 2018-05-20 09:19 | Psychiatric Evaluation ---
DATE OF SERVICE: 05/19/2018 IDENTIFYING INFORMATION: The patient is a 67-year-old male. CHIEF COMPLAINT: "No answers." HISTORY OF PRESENT ILLNESS: The patient was transferred back from the medical floor. He was transferred first to the ICU because he had a closed head injury with laceration to his scalp and then he had a syncope attack. He was later transferred to telemetry for a while. While he was on there, he was acting out, he was yelling, he was talking to himself, unpredictable, impulsive, and needing redirection. The patient is unable to participate in meaningful conversation or make safe plan for his self-care. He is on Aricept 5 mg at bedtime and Seroquel 50 mg twice a day that was reinstated on the ICU because of his behavior. The patient is well known to me from treatment at [facility]. He is sleeping well and eating well. No side effects to the medication, no sedation, no nausea, no extrapyramidal symptoms. PAST PSYCHIATRIC HISTORY: Multiple prior admissions to this facility for similar reasons with history of aggressive behavior. MEDICAL HISTORY: Anemia, hypertension, syncope attack, benign prostatic hypertrophy. ALLERGIES: No known drug allergy. FAMILY AND SOCIAL HISTORY: The patient is not able to give information. MENTAL STATUS EXAMINATION: The patient is appropriately dressed, not well groomed. His mood is depressed. Affect is constricted. Thoughts are concrete. He was mumbling to himself. He was unable to find a meaningful conversation, unable to question regarding how he is doing or give any reasonable information. Long and short term memory is poor, unable to tell his age, where he is, why he is here. When asked, he seems to be internally preoccupied and responding to internal stimuli. When asked about suicide and homicide, he would not answer. Insight and judgment are questionable. IMPRESSION: AXIS I: Psychosis, not otherwise specified, dementia. MEDICAL DIAGNOSES: Benign prostatic hypertrophy, hypertension, history of syncope attack, and anemia. His assets, he is accepting treatment. Negative, poor coping skills and demented. PLAN: The patient will continue on medication, we will adjust the medication as needed. We will do group therapy, milieu therapy, and individual therapy. ESTIMATED LENGTH OF STAY: 3-7 days. DISCHARGE CRITERIA: Decrease in psychosis and agitation after discharge. JOB# [id number]
[2018-05-20] MEDS: Ferrous Sulfate 325 MG TAB PO SCH (09:26)
[2018-05-20] MEDS: Magnesium Hydroxide (MOM) 30 mL UDC PO SCH (09:27)
[2018-05-20] MEDS: Multivitamin Tab PO SCH (09:28)
[2018-05-20] MEDS: NIFEdipine 30 mg ER Tab PO SCH (09:28)
--- NOTE | 2018-05-20 20:52 | History & Physical ---
ADMIT DATE: 05/19/2018 HISTORY OF PRESENT ILLNESS: The patient was initially admitted. The patient is a 67-year-old male with past medical history significant for hypertension and dementia, was initially admitted to the acute hospital unit after apparent syncopal episode. The patient was evaluated with a CAT scan and did not have any evidence of stroke or bleed. The patient did sustain a laceration on his scalp, which did not require any sutures. Once medically cleared, has been sent for further psychiatric evaluation. The patient is seen in sitting wheelchair, does not appear to be in any distress. He is a poor historian. Denies any headache or nausea. PAST MEDICAL HISTORY: The patient has history of benign prostatic hypertrophy, hypertension, and dementia. MEDICATIONS: The patient takes Aricept, iron, Cozaar, Lopressor, Procardia, Seroquel, Flomax, and Ambien as needed. ALLERGIES: No known drug allergies. SOCIAL HISTORY: No known tobacco, alcohol, or illicit drug use. FAMILY HISTORY: Noncontributory. REVIEW OF SYSTEMS: IMMUNOLOGIC: No recurrent infection. CARDIOVASCULAR: The patient has no known heart disease. X-rays showed evidence of arthrosclerosis. The patient has hypertension. GASTROINTESTINAL: Denies nausea, vomiting, diarrhea. ENDOCRINE: No diabetes or thyroid disorder. NEUROLOGIC: No seizure or stroke. HEMATOLOGIC: No bleeding or clotting disorder. PHYSICAL EXAMINATION: GENERAL: The patient is awake, alert, in no acute distress. VITAL SIGNS: Temperature 97.4, pulse 68, respiration 20, and blood pressure 111/70. HEENT: Pupils equally round, anicteric sclerae. NECK: Supple, no JVD, mass, or bruit. LUNGS: Clear to auscultation. HEART: S1 and S2. Regular rate and rhythm. ABDOMEN: Soft, nontender, positive bowel sounds. EXTREMITIES: No clubbing, cyanosis or edema. SKIN: The patient has a 4-inch superficial laceration on the anterior scalp, which is scabbed over. NEUROLOGIC: Moves all extremities equally. The patient does not cooperate with neuro examination. IMPRESSION: 1. Dementia. 2. Hypertension. 3. Benign prostatic hypertrophy. 4. Scalp laceration. PLAN: The patient has been admitted for further psychiatric evaluation to the Geropsych Unit. We will continue the patient's home medications. The patient is receiving wound care for his laceration. We will continue to monitor the patient's vital and blood pressure. JOB# [id number]
[2018-05-20] MEDS ORDERED: PYRIDOXINE HCL PO SCH (21:00)
[2018-05-20] MEDS ORDERED: MELATONIN PO SCH (21:00)
[2018-05-21] MEDS: Magnesium Hydroxide (MOM) 30 mL UDC PO SCH (08:56)
[2018-05-21] MEDS: Multivitamin Tab PO SCH (08:56)
[2018-05-21] MEDS: Ferrous Sulfate 325 MG TAB PO SCH (08:57)
[2018-05-21] MEDS: NIFEdipine 30 mg ER Tab PO SCH (09:00)
--- NOTE | 2018-05-21 13:15 | Progress Notes ---
DATE: 05/21/2018 Case was discussed with staff of the patient, reviewed records. The patient continues to be confused, demented. Continues to be unable to make safe plan for self-care. Continues to have poor insight. Unable to take care of himself. He restarted on Seroquel after it was stopped for a few days and started becoming to hallucinate; talked to himself, agitated. No side effects of the medication. No sedation, no nausea and no extrapyramidal symptoms. We will continue outpatient group therapy, milieu therapy, adjust the medications as needed. JOB# [id number]
--- NOTE | 2018-05-21 20:25 | General Progress Note ---
Subjective - Review of Systems Service Date: 05/21/18 Subjective: resting comfortably no distress Objective - Results Recent Labs: Laboratory Last Values POC Glucose 102 MG/DL (70 - 105) 05/19/18 22:03 Triglycerides 64 mg/dL (<150) 05/20/18 06:00 Cholesterol 183 mg/dL (<200) 05/20/18 06:00 LDL Cholesterol Direct 104 mg/dL (75-193) 05/20/18 06:00 HDL Cholesterol 59 mg/dL (23-92) 05/20/18 06:00 - Physical Exam Vitals and I&O: Vital Signs Temp 98.4 F 05/21/18 14:00 Pulse 76 05/21/18 14:00 Resp 20 05/21/18 14:00 BP 138/76 05/21/18 14:00 Pulse Ox 97 05/21/18 14:00 Intake & Output 05/21/18 05/21/18 05/22/18 06:59 18:59 06:59 Intake Total 120 1100 Balance 120 1100 Intake: Oral 120 1100 Other: # Voids 3 1 Active Medications: Current Medications Acetaminophen (Tylenol) 650 mg PO Q4HR PRN PRN Reason: Pain (Mild) 1-3 Stop: 07/18/18 22:45 Ascorbic Acid (Vitamin C) 500 mg PO BID [facility] Stop: 07/19/18 08:59 Last Admin: 05/21/18 16:31 Dose: 500 mg Docusate Sodium (Colace) 250 mg PO DAILY [facility] Stop: 07/19/18 08:59 Last Admin: 05/21/18 08:56 Dose: 250 mg Donepezil HCl (Aricept) 5 mg PO HS [facility] Stop: 07/19/18 20:59 Last Admin: 05/20/18 21:34 Dose: 5 mg Ferrous Sulfate (Iron) 325 mg PO DAILY [facility] Stop: 07/19/18 08:59 Last Admin: 05/21/18 08:57 Dose: 325 mg Lorazepam (Ativan) 0.5 mg PO Q6HR PRN; Protocol PRN Reason: Anxiety Stop: 07/19/18 00:28 Last Admin: 05/20/18 21:35 Dose: 0.5 mg Losartan Potassium (Cozaar) 50 mg PO DAILY [facility] Stop: 07/19/18 08:59 Last Admin: 05/21/18 08:58 Dose: 50 mg Magnesium Hydroxide (Milk Of Magnesia) 30 ml PO DAILY [facility] Stop: 07/19/18 08:59 Last Admin: 05/21/18 08:56 Dose: 30 ml Metoprolol Tartrate (Lopressor) 25 mg PO DAILY [facility] Stop: 07/19/18 08:59 Last Admin: 05/21/18 09:11 Dose: 25 mg Multivitamins/Vitamin C (Theragran) 1 tab PO DAILY [facility] Stop: 07/19/18 08:59 Last Admin: 05/21/18 08:56 Dose: 1 tab Nifedipine (Procardia Xl) 30 mg PO DAILY [facility] Stop: 07/19/18 08:59 Last Admin: 05/21/18 09:00 Dose: 30 mg Pyridoxine HCl (Vitamin B6) 50 mg PO DAILY [facility] Stop: 07/20/18 08:59 Last Admin: 05/21/18 09:10 Dose: 50 mg Quetiapine Fumarate (Seroquel) 50 mg PO BID [facility]; Protocol Stop: 07/19/18 08:59 Last Admin: 05/21/18 16:31 Dose: 50 mg Tamsulosin HCl (Flomax) 0.4 mg PO HS [facility] Stop: 07/19/18 20:59 Last Admin: 05/20/18 21:34 Dose: 0.4 mg Zolpidem Tartrate (Ambien) 5 mg PO HS PRN PRN Reason: Insomnia Stop: 07/19/18 00:30 General: No acute distress HEENT: PERRLA, EOMI Neck: Supple, JVD, Thyromegaly Cardiovascular: Regular rate, Normal S1, Normal S2 Lungs: Clear to auscultation Abdomen: Bowel sounds, Soft Assessment/Plan - Assessment Assessment: dementia HTN BPH scalp laceration - Plan Plan: continue current treatment
[2018-05-22] MEDS: Multivitamin Tab PO SCH (10:19)
[2018-05-22] MEDS: Ferrous Sulfate 325 MG TAB PO SCH (10:19)
[2018-05-22] MEDS: NIFEdipine 30 mg ER Tab PO SCH (10:19)
[2018-05-22] MEDS: Magnesium Hydroxide (MOM) 30 mL UDC PO SCH (10:20)
--- NOTE | 2018-05-22 20:32 | General Progress Note ---
Subjective - Review of Systems Service Date: 05/22/18 Subjective: resting comfortably no distress Objective - Results Recent Labs: Laboratory Last Values POC Glucose 102 MG/DL (70 - 105) 05/19/18 22:03 Triglycerides 64 mg/dL (<150) 05/20/18 06:00 Cholesterol 183 mg/dL (<200) 05/20/18 06:00 LDL Cholesterol Direct 104 mg/dL (75-193) 05/20/18 06:00 HDL Cholesterol 59 mg/dL (23-92) 05/20/18 06:00 - Physical Exam Vitals and I&O: Vital Signs Temp 98.1 F 05/22/18 14:00 Pulse 69 05/22/18 14:00 Resp 20 05/22/18 14:00 BP 115/62 05/22/18 14:00 Pulse Ox 98 05/22/18 14:00 Intake & Output 05/22/18 05/22/18 05/23/18 06:59 18:59 06:59 Intake Total 500 1200 Balance 500 1200 Intake: Oral 500 1200 Other: # Voids 4 # Bowel Movements 0 1 Active Medications: Current Medications Acetaminophen (Tylenol) 650 mg PO Q4HR PRN PRN Reason: Pain (Mild) 1-3 Stop: 07/18/18 22:45 Ascorbic Acid (Vitamin C) 500 mg PO BID [facility] Stop: 07/19/18 08:59 Last Admin: 05/22/18 16:33 Dose: 500 mg Docusate Sodium (Colace) 250 mg PO DAILY [facility] Stop: 07/19/18 08:59 Last Admin: 05/22/18 10:18 Dose: 250 mg Donepezil HCl (Aricept) 5 mg PO HS [facility] Stop: 07/19/18 20:59 Last Admin: 05/22/18 20:14 Dose: 5 mg Ferrous Sulfate (Iron) 325 mg PO DAILY [facility] Stop: 07/19/18 08:59 Last Admin: 05/22/18 10:19 Dose: 325 mg Lorazepam (Ativan) 0.5 mg PO Q6HR PRN; Protocol PRN Reason: Anxiety Stop: 07/19/18 00:28 Last Admin: 05/22/18 20:14 Dose: 0.5 mg Losartan Potassium (Cozaar) 50 mg PO DAILY [facility] Stop: 07/19/18 08:59 Last Admin: 05/22/18 10:20 Dose: Not Given Magnesium Hydroxide (Milk Of Magnesia) 30 ml PO DAILY [facility] Stop: 07/19/18 08:59 Last Admin: 05/22/18 10:20 Dose: Not Given Metoprolol Tartrate (Lopressor) 25 mg PO DAILY [facility] Stop: 07/19/18 08:59 Last Admin: 05/22/18 10:19 Dose: 25 mg Multivitamins/Vitamin C (Theragran) 1 tab PO DAILY [facility] Stop: 07/19/18 08:59 Last Admin: 05/22/18 10:19 Dose: 1 tab Nifedipine (Procardia Xl) 30 mg PO DAILY [facility] Stop: 07/19/18 08:59 Last Admin: 05/22/18 10:19 Dose: 30 mg Pyridoxine HCl (Vitamin B6) 50 mg PO DAILY [facility] Stop: 07/20/18 08:59 Last Admin: 05/22/18 10:18 Dose: 50 mg Quetiapine Fumarate (Seroquel) 50 mg PO BID [facility]; Protocol Stop: 07/19/18 08:59 Last Admin: 05/22/18 16:33 Dose: 50 mg Tamsulosin HCl (Flomax) 0.4 mg PO HS [facility] Stop: 07/19/18 20:59 Last Admin: 05/22/18 20:14 Dose: 0.4 mg Zolpidem Tartrate (Ambien) 5 mg PO HS PRN PRN Reason: Insomnia Stop: 07/19/18 00:30 Last Admin: 05/22/18 01:48 Dose: 5 mg General: No acute distress HEENT: PERRLA, EOMI Neck: Supple, JVD, Thyromegaly Cardiovascular: Regular rate, Normal S1, Normal S2 Lungs: Clear to auscultation Abdomen: Bowel sounds, Soft Assessment/Plan - Assessment Assessment: dementia HTN BPH scalp laceration - Plan Plan: continue current treatment
--- NOTE | 2018-05-22 21:32 | Progress Notes ---
DATE: 05/22/2018 SUBJECTIVE: Case was discussed with staff of the patient, reviewed records. The patient continues to have poor insight, unpredictable, impulsive, needing redirection. Continues to be unable to participate in meaningful conversation or make safe plan for self-care. Mumbling to himself, sleeping well, eating well. No side effects to the medication, no sedation or nausea, no extrapyramidal symptoms. We will continue to work with the patient in group therapy, milieu therapy, and adjust the medication as needed. JOB# [id number]
[2018-05-23] MEDS: Multivitamin Tab PO SCH (08:28)
[2018-05-23] MEDS: NIFEdipine 30 mg ER Tab PO SCH (08:28)
[2018-05-23] MEDS: Ferrous Sulfate 325 MG TAB PO SCH (08:29)
[2018-05-23] MEDS: Magnesium Hydroxide (MOM) 30 mL UDC PO SCH (08:31)
--- NOTE | 2018-05-23 09:48 | Progress Notes ---
DATE: 05/23/2018 Dr. Aldana covering for Dr. Yanez. SUBJECTIVE: Chart reviewed and the patient interviewed. Also discussed the patient's condition with the staff and reviewed records and labs. The patient still had episodes of agitation and irritability, but seems to be less than before. The patient also is cooperative with his treatment and he has been compliant with taking his medications. The patient also is easy to direct him. The patient also denies any side effects of medications. ASSESSMENT: The patient is showing some improvement. TREATMENT PLAN: Continue monitoring his medications and adjusting psychotropic medications. Also, continue to work on his behavior issues and continue to follow up. JOB# [id number]
--- NOTE | 2018-05-23 13:44 | General Progress Note ---
Subjective - Review of Systems Service Date: 05/23/18 Subjective: resting comfortably no distress Objective - Results Recent Labs: Laboratory Last Values POC Glucose 102 MG/DL (70 - 105) 05/19/18 22:03 Triglycerides 64 mg/dL (<150) 05/20/18 06:00 Cholesterol 183 mg/dL (<200) 05/20/18 06:00 LDL Cholesterol Direct 104 mg/dL (75-193) 05/20/18 06:00 HDL Cholesterol 59 mg/dL (23-92) 05/20/18 06:00 - Physical Exam Vitals and I&O: Vital Signs Temp 97.1 F 05/23/18 06:34 Pulse 71 05/23/18 08:30 Resp 20 05/23/18 06:34 BP 153/89 05/23/18 08:30 Pulse Ox 96 05/23/18 06:34 Intake & Output 05/22/18 05/23/18 05/23/18 18:59 06:59 18:59 Intake Total 1200 Balance 1200 Intake: Oral 1200 Other: # Bowel Movements 1 Active Medications: Current Medications Acetaminophen (Tylenol) 650 mg PO Q4HR PRN PRN Reason: Pain (Mild) 1-3 Stop: 07/18/18 22:45 Ascorbic Acid (Vitamin C) 500 mg PO BID [facility] Stop: 07/19/18 08:59 Last Admin: 05/23/18 08:30 Dose: 500 mg Docusate Sodium (Colace) 250 mg PO DAILY [facility] Stop: 07/19/18 08:59 Last Admin: 05/23/18 08:28 Dose: 250 mg Donepezil HCl (Aricept) 5 mg PO HS [facility] Stop: 07/19/18 20:59 Last Admin: 05/22/18 20:14 Dose: 5 mg Ferrous Sulfate (Iron) 325 mg PO DAILY [facility] Stop: 07/19/18 08:59 Last Admin: 05/23/18 08:29 Dose: 325 mg Lorazepam (Ativan) 0.5 mg PO Q6HR PRN; Protocol PRN Reason: Anxiety Stop: 07/19/18 00:28 Last Admin: 05/22/18 20:14 Dose: 0.5 mg Losartan Potassium (Cozaar) 50 mg PO DAILY [facility] Stop: 07/19/18 08:59 Last Admin: 05/23/18 08:30 Dose: 50 mg Magnesium Hydroxide (Milk Of Magnesia) 30 ml PO DAILY [facility] Stop: 07/19/18 08:59 Last Admin: 05/23/18 08:31 Dose: 30 ml Metoprolol Tartrate (Lopressor) 25 mg PO DAILY [facility] Stop: 07/19/18 08:59 Last Admin: 05/23/18 08:29 Dose: 25 mg Multivitamins/Vitamin C (Theragran) 1 tab PO DAILY [facility] Stop: 07/19/18 08:59 Last Admin: 05/23/18 08:28 Dose: 1 tab Nifedipine (Procardia Xl) 30 mg PO DAILY [facility] Stop: 07/19/18 08:59 Last Admin: 05/23/18 08:28 Dose: 30 mg Pyridoxine HCl (Vitamin B6) 50 mg PO DAILY [facility] Stop: 07/20/18 08:59 Last Admin: 05/23/18 08:28 Dose: 50 mg Quetiapine Fumarate (Seroquel) 50 mg PO BID [facility]; Protocol Stop: 07/19/18 08:59 Last Admin: 05/23/18 08:29 Dose: 50 mg Tamsulosin HCl (Flomax) 0.4 mg PO HS [facility] Stop: 07/19/18 20:59 Last Admin: 05/22/18 20:14 Dose: 0.4 mg Zolpidem Tartrate (Ambien) 5 mg PO HS PRN PRN Reason: Insomnia Stop: 07/19/18 00:30 Last Admin: 05/22/18 22:40 Dose: 5 mg General: No acute distress HEENT: PERRLA, EOMI Neck: Supple, JVD, Thyromegaly Cardiovascular: Regular rate, Normal S1, Normal S2 Lungs: Clear to auscultation Abdomen: Bowel sounds, Soft Assessment/Plan - Assessment Assessment: dementia HTN BPH scalp laceration - Plan Plan: continue current treatment Nutritional Asmnt/Malnutr-PDOC - Dietary Evaluation Malnutrition Findings (Please click <Entered> for more info): Nutritional Asmnt/Malnutrition Start: 05/23/18 10: 04 Text: Status: Active Freq: Protocol: Document 05/23/18 10:04 PALAK (Rec: 05/23/18 10:27 PALAK PATEL- [email or web address]) Nutritional Asmnt/Malnutrition Patient General Information Nutritional Screening Moderate Risk Diagnosis Psychosis Pertinent Medical Hx/Surgical Hx Hypertension, dementia, benign prostatic hypertrophy. Subjective Information Per nursing notes, patient is easily agitated, irritable and hyperverbal. Oral intake remains adequate without difficulty. Current Diet Order/ Nutrition Support 2gm Sodium Patient / S.O Not Indicated Pertinent Medications Vitamin C, Colace, Iron, Cozaar, MOM, Theragran, Vitamin B6 Pertinent Labs WNL Nutritional Hx/Data Height 1.85 m Height (Calculated Centimeters) 185.4 Current Weight (lbs) 77.111 kg Weight (Calculated Kilograms) 77.1 Weight (Calculated Grams) 71645.7 [place] Body Weight 184 % [place] Body Weight 92 Body Mass Index (BMI) 22.4 Recent Weight Change No Weight Status Approriate GI Symptoms GI Symptoms None Last BM 05/22 x 1 Difficult in: None Food Allergies No Cultural/Ethnic/Taoist Belief None indicated Usual diet at home unknown Skin Integrity/Comment: Mal 21, area of concern vertical laceration on forehead approximately 2 inch Current %PO Good (75-100%) Estimated Nutritional Goals BEE in Kcals: Using Current wt Calories/Kcals/Kg 25-30 kcal/kg using CBW 77.2kg Kcals Calculated ~6563-4183 kcal/day Protein: Using Current wt Protein g/k-1.2 gm/kg using CBW Protein Calculated ~75-90gm/day Fluid: ml ~8408-3687 ml/day (1 ml/kcal) Nutritional Problem 1. Problem Problem No nutrition diagnosis at this time Intervention/Recommendation Comments 1. Continue low sodium diet due to hx of hypertension as tolerated by patient. Expected Outcomes/Goals Expected Outcomes/Goals Oral intake >75% of meals, weight stable, nutrition related labs WNL.
[2018-05-24] MEDS: Ferrous Sulfate 325 MG TAB PO SCH (08:36)
[2018-05-24] MEDS: Multivitamin Tab PO SCH (08:38)
[2018-05-24] MEDS: NIFEdipine 30 mg ER Tab PO SCH (08:38)
[2018-05-24] MEDS: Magnesium Hydroxide (MOM) 30 mL UDC PO SCH (08:39)
--- NOTE | 2018-05-24 17:29 | General Progress Note ---
Subjective - Review of Systems Service Date: 05/24/18 Subjective: resting comfortably no distress Objective - Results Recent Labs: Laboratory Last Values POC Glucose 102 MG/DL (70 - 105) 05/19/18 22:03 Triglycerides 64 mg/dL (<150) 05/20/18 06:00 Cholesterol 183 mg/dL (<200) 05/20/18 06:00 LDL Cholesterol Direct 104 mg/dL (75-193) 05/20/18 06:00 HDL Cholesterol 59 mg/dL (23-92) 05/20/18 06:00 - Physical Exam Vitals and I&O: Vital Signs Temp 97.8 F 05/24/18 14:00 Pulse 88 05/24/18 14:00 Resp 20 05/24/18 14:00 BP 135/72 05/24/18 14:00 Pulse Ox 96 05/24/18 14:00 Intake & Output 05/23/18 05/24/18 05/24/18 18:59 06:59 18:59 Intake Total 1200 Balance 1200 Intake: Oral 1200 Other: # Bowel Movements 1 Active Medications: Current Medications Acetaminophen (Tylenol) 650 mg PO Q4HR PRN PRN Reason: Pain (Mild) 1-3 Stop: 07/18/18 22:45 Ascorbic Acid (Vitamin C) 500 mg PO BID [facility] Stop: 07/19/18 08:59 Last Admin: 05/24/18 08:36 Dose: 500 mg Docusate Sodium (Colace) 250 mg PO DAILY [facility] Stop: 07/19/18 08:59 Last Admin: 05/24/18 08:37 Dose: 250 mg Donepezil HCl (Aricept) 5 mg PO HS [facility] Stop: 07/19/18 20:59 Last Admin: 05/23/18 20:11 Dose: 5 mg Ferrous Sulfate (Iron) 325 mg PO DAILY [facility] Stop: 07/19/18 08:59 Last Admin: 05/24/18 08:36 Dose: 325 mg Lorazepam (Ativan) 0.5 mg PO Q6HR PRN; Protocol PRN Reason: Anxiety Stop: 07/19/18 00:28 Last Admin: 05/24/18 08:38 Dose: 0.5 mg Losartan Potassium (Cozaar) 50 mg PO DAILY [facility] Stop: 07/19/18 08:59 Last Admin: 05/24/18 08:37 Dose: 50 mg Magnesium Hydroxide (Milk Of Magnesia) 30 ml PO DAILY [facility] Stop: 07/19/18 08:59 Last Admin: 05/24/18 08:39 Dose: 30 ml Metoprolol Tartrate (Lopressor) 25 mg PO DAILY [facility] Stop: 07/19/18 08:59 Last Admin: 05/23/18 08:29 Dose: 25 mg Multivitamins/Vitamin C (Theragran) 1 tab PO DAILY [facility] Stop: 07/19/18 08:59 Last Admin: 05/24/18 08:38 Dose: 1 tab Nifedipine (Procardia Xl) 30 mg PO DAILY [facility] Stop: 07/19/18 08:59 Last Admin: 05/24/18 08:38 Dose: 30 mg Pyridoxine HCl (Vitamin B6) 50 mg PO DAILY [facility] Stop: 07/20/18 08:59 Last Admin: 05/24/18 08:40 Dose: 50 mg Quetiapine Fumarate (Seroquel) 50 mg PO BID [facility]; Protocol Stop: 07/19/18 08:59 Last Admin: 05/24/18 08:38 Dose: 50 mg Tamsulosin HCl (Flomax) 0.4 mg PO HS [facility] Stop: 07/19/18 20:59 Last Admin: 05/23/18 20:11 Dose: 0.4 mg Zolpidem Tartrate (Ambien) 5 mg PO HS PRN PRN Reason: Insomnia Stop: 07/19/18 00:30 Last Admin: 05/23/18 20:11 Dose: 5 mg General: No acute distress HEENT: PERRLA, EOMI Neck: Supple, JVD, Thyromegaly Cardiovascular: Regular rate, Normal S1, Normal S2 Lungs: Clear to auscultation Abdomen: Bowel sounds, Soft Assessment/Plan - Assessment Assessment: dementia HTN BPH scalp laceration - Plan Plan: continue current treatment Nutritional Asmnt/Malnutr-PDOC - Dietary Evaluation Malnutrition Findings (Please click <Entered> for more info): Nutritional Asmnt/Malnutrition Start: 05/23/18 10: 04 Text: Status: Complete Freq: Protocol: Document 05/23/18 10:04 PALAK (Rec: 05/23/18 10:27 PALAK PATEL- [email or web address]) Nutritional Asmnt/Malnutrition Patient General Information Nutritional Screening Moderate Risk Diagnosis Psychosis Pertinent Medical Hx/Surgical Hx Hypertension, dementia, benign prostatic hypertrophy. Subjective Information Per nursing notes, patient is easily agitated, irritable and hyperverbal. Oral intake remains adequate without difficulty. Current Diet Order/ Nutrition Support 2gm Sodium Patient / S.O Not Indicated Pertinent Medications Vitamin C, Colace, Iron, Cozaar, MOM, Theragran, Vitamin B6 Pertinent Labs WNL Nutritional Hx/Data Height 1.85 m Height (Calculated Centimeters) 185.4 Current Weight (lbs) 77.111 kg Weight (Calculated Kilograms) 77.1 Weight (Calculated Grams) 88515.7 [place] Body Weight 184 % [place] Body Weight 92 Body Mass Index (BMI) 22.4 Recent Weight Change No Weight Status Approriate GI Symptoms GI Symptoms None Last BM 05/22 x 1 Difficult in: None Food Allergies No Cultural/Ethnic/Adventism Belief None indicated Usual diet at home unknown Skin Integrity/Comment: Mal 21, area of concern vertical laceration on forehead approximately 2 inch Current %PO Good (75-100%) Estimated Nutritional Goals BEE in Kcals: Using Current wt Calories/Kcals/Kg 25-30 kcal/kg using CBW 77.2kg Kcals Calculated ~1808-2075 kcal/day Protein: Using Current wt Protein g/k-1.2 gm/kg using CBW Protein Calculated ~75-90gm/day Fluid: ml ~2421-5032 ml/day (1 ml/kcal) Nutritional Problem 1. Problem Problem No nutrition diagnosis at this time Intervention/Recommendation Comments 1. Continue low sodium diet due to hx of hypertension as tolerated by patient. Expected Outcomes/Goals Expected Outcomes/Goals Oral intake >75% of meals, weight stable, nutrition related labs WNL.
--- NOTE | 2018-05-25 07:11 | Progress Notes ---
DATE: SUBJECTIVE: Chart reviewed and the patient interviewed. Also discussed the patient's condition with the staff and reviewed records and labs. The patient is still confused. There is still pacing up and down and seems to be responding to stimuli. The patient still have episodes of yelling, but seems to be less than before. Also is compliant with taking his medications with no side effects of medications. ASSESSMENT: The patient is still psychotic, but showing improvement. TREATMENT PLAN: Continue monitoring his behavior and his condition closely. Also, continue adjusting psychotropic medications and working on discharge plans. JOB# [id number]
[2018-05-25] MEDS: Multivitamin Tab PO SCH (09:12)
[2018-05-25] MEDS: NIFEdipine 30 mg ER Tab PO SCH (09:12)
[2018-05-25] MEDS: Magnesium Hydroxide (MOM) 30 mL UDC PO SCH (09:12)
[2018-05-25] MEDS: Ferrous Sulfate 325 MG TAB PO SCH (09:13)
--- NOTE | 2018-05-25 17:20 | General Progress Note ---
Subjective - Review of Systems Service Date: 05/25/18 Subjective: resting comfortably no distress Objective - Results Recent Labs: Laboratory Last Values POC Glucose 102 MG/DL (70 - 105) 05/19/18 22:03 Triglycerides 64 mg/dL (<150) 05/20/18 06:00 Cholesterol 183 mg/dL (<200) 05/20/18 06:00 LDL Cholesterol Direct 104 mg/dL (75-193) 05/20/18 06:00 HDL Cholesterol 59 mg/dL (23-92) 05/20/18 06:00 - Physical Exam Vitals and I&O: Vital Signs Temp 97.6 F 05/25/18 14:00 Pulse 66 05/25/18 14:00 Resp 20 05/25/18 14:00 BP 108/68 05/25/18 14:00 Pulse Ox 97 05/25/18 14:00 Intake & Output 05/24/18 05/25/18 05/25/18 18:59 06:59 18:59 Intake Total 120 Balance 120 Intake: Oral 120 Other: # Voids 3 # Bowel Movements 1 0 Active Medications: Current Medications Acetaminophen (Tylenol) 650 mg PO Q4HR PRN PRN Reason: Pain (Mild) 1-3 Stop: 07/18/18 22:45 Ascorbic Acid (Vitamin C) 500 mg PO BID [facility] Stop: 07/19/18 08:59 Last Admin: 05/25/18 09:13 Dose: 500 mg Docusate Sodium (Colace) 250 mg PO DAILY [facility] Stop: 07/19/18 08:59 Last Admin: 05/25/18 09:12 Dose: 250 mg Donepezil HCl (Aricept) 5 mg PO HS [facility] Stop: 07/19/18 20:59 Last Admin: 05/24/18 20:30 Dose: 5 mg Ferrous Sulfate (Iron) 325 mg PO DAILY [facility] Stop: 07/19/18 08:59 Last Admin: 05/25/18 09:13 Dose: 325 mg Lorazepam (Ativan) 0.5 mg PO Q6HR PRN; Protocol PRN Reason: Anxiety Stop: 07/19/18 00:28 Last Admin: 05/25/18 09:12 Dose: 0.5 mg Losartan Potassium (Cozaar) 50 mg PO DAILY [facility] Stop: 07/19/18 08:59 Last Admin: 05/25/18 09:13 Dose: 50 mg Magnesium Hydroxide (Milk Of Magnesia) 30 ml PO DAILY [facility] Stop: 07/19/18 08:59 Last Admin: 05/25/18 09:12 Dose: 30 ml Metoprolol Tartrate (Lopressor) 25 mg PO DAILY [facility] Stop: 07/19/18 08:59 Last Admin: 05/25/18 09:12 Dose: 25 mg Multivitamins/Vitamin C (Theragran) 1 tab PO DAILY [facility] Stop: 07/19/18 08:59 Last Admin: 05/25/18 09:12 Dose: 1 tab Nifedipine (Procardia Xl) 30 mg PO DAILY [facility] Stop: 07/19/18 08:59 Last Admin: 05/25/18 09:12 Dose: 30 mg Pyridoxine HCl (Vitamin B6) 50 mg PO DAILY [facility] Stop: 07/20/18 08:59 Last Admin: 05/25/18 09:12 Dose: 50 mg Quetiapine Fumarate (Seroquel) 50 mg PO BID [facility]; Protocol Stop: 07/19/18 08:59 Last Admin: 05/25/18 09:12 Dose: 50 mg Tamsulosin HCl (Flomax) 0.4 mg PO HS [facility] Stop: 07/19/18 20:59 Last Admin: 05/24/18 20:30 Dose: 0.4 mg Zolpidem Tartrate (Ambien) 5 mg PO HS PRN PRN Reason: Insomnia Stop: 07/19/18 00:30 Last Admin: 05/24/18 20:30 Dose: 5 mg General: No acute distress HEENT: PERRLA, EOMI Neck: Supple, JVD, Thyromegaly Cardiovascular: Regular rate, Normal S1, Normal S2 Lungs: Clear to auscultation Abdomen: Bowel sounds, Soft Assessment/Plan - Assessment Assessment: dementia HTN BPH scalp laceration - Plan Plan: continue current treatment Nutritional Asmnt/Malnutr-PDOC - Dietary Evaluation Malnutrition Findings (Please click <Entered> for more info): Nutritional Asmnt/Malnutrition Start: 05/23/18 10: 04 Text: Status: Complete Freq: Protocol: Document 05/23/18 10:04 PALAK (Rec: 05/23/18 10:27 PALAK PATEL- FNS1) Nutritional Asmnt/Malnutrition Patient General Information Nutritional Screening Moderate Risk Diagnosis Psychosis Pertinent Medical Hx/Surgical Hx Hypertension, dementia, benign prostatic hypertrophy. Subjective Information Per nursing notes, patient is easily agitated, irritable and hyperverbal. Oral intake remains adequate without difficulty. Current Diet Order/ Nutrition Support 2gm Sodium Patient / S.O Not Indicated Pertinent Medications Vitamin C, Colace, Iron, Cozaar, MOM, Theragran, Vitamin B6 Pertinent Labs WNL Nutritional Hx/Data Height 1.85 m Height (Calculated Centimeters) 185.4 Current Weight (lbs) 77.111 kg Weight (Calculated Kilograms) 77.1 Weight (Calculated Grams) 67160.7 [place] Body Weight 184 % [place] Body Weight 92 Body Mass Index (BMI) 22.4 Recent Weight Change No Weight Status Approriate GI Symptoms GI Symptoms None Last BM 05/22 x 1 Difficult in: None Food Allergies No Cultural/Ethnic/Sabianist Belief None indicated Usual diet at home unknown Skin Integrity/Comment: Mal 21, area of concern vertical laceration on forehead approximately 2 inch Current %PO Good (75-100%) Estimated Nutritional Goals BEE in Kcals: Using Current wt Calories/Kcals/Kg 25-30 kcal/kg using CBW 77.2kg Kcals Calculated ~7205-6005 kcal/day Protein: Using Current wt Protein g/k-1.2 gm/kg using CBW Protein Calculated ~75-90gm/day Fluid: ml ~2151-7934 ml/day (1 ml/kcal) Nutritional Problem 1. Problem Problem No nutrition diagnosis at this time Intervention/Recommendation Comments 1. Continue low sodium diet due to hx of hypertension as tolerated by patient. Expected Outcomes/Goals Expected Outcomes/Goals Oral intake >75% of meals, weight stable, nutrition related labs WNL.
--- NOTE | 2018-05-26 03:42 | Progress Notes ---
DATE: 05/25/2018 SUBJECTIVE: The patient transferred from the ICU, closed head injury, laceration to the scalp, acting out, yelling, talking to himself, unpredictable, impulsive. Multiple prior admissions in the past for ongoing aggressive behaviors. On [id number], the patient yelling, does not know why he is here, telling me he wants to go to his apartment. Unclear if he can live on his own. He remains confused, pacing up and down, responding to internal stimuli, somewhat calmer since his admission; however, medications were noted. ASSESSMENT: The patient remains impulsive, unpredictable, easily agitated, anxious, not following directions at times, other times requiring emergency medications. Fully oriented. Given his ongoing symptoms, he is not safe for discharge. JOB# [id number]
[2018-05-26] MEDS: Magnesium Hydroxide (MOM) 30 mL UDC PO SCH (09:28)
[2018-05-26] MEDS: NIFEdipine 30 mg ER Tab PO SCH (09:28)
[2018-05-26] MEDS: Multivitamin Tab PO SCH (09:28)
[2018-05-26] MEDS: Ferrous Sulfate 325 MG TAB PO SCH (09:28)
--- NOTE | 2018-05-26 16:49 | General Progress Note ---
Subjective - Review of Systems Service Date: 05/26/18 Subjective: resting comfortably no distress Objective - Results Recent Labs: Laboratory Last Values POC Glucose 102 MG/DL (70 - 105) 05/19/18 22:03 Triglycerides 64 mg/dL (<150) 05/20/18 06:00 Cholesterol 183 mg/dL (<200) 05/20/18 06:00 LDL Cholesterol Direct 104 mg/dL (75-193) 05/20/18 06:00 HDL Cholesterol 59 mg/dL (23-92) 05/20/18 06:00 - Physical Exam Vitals and I&O: Vital Signs Temp 97.6 F 05/26/18 14:00 Pulse 65 05/26/18 14:00 Resp 20 05/26/18 14:00 BP 108/75 05/26/18 14:00 Pulse Ox 97 05/26/18 14:00 Intake & Output 05/25/18 05/26/18 05/26/18 18:59 06:59 18:59 Intake Total 1400 600 Balance 1400 600 Intake: Oral 1400 600 Other: # Voids 4 2 # Bowel Movements 1 1 Active Medications: Current Medications Acetaminophen (Tylenol) 650 mg PO Q4HR PRN PRN Reason: Pain (Mild) 1-3 Stop: 07/18/18 22:45 Ascorbic Acid (Vitamin C) 500 mg PO BID [facility] Stop: 07/19/18 08:59 Last Admin: 05/26/18 16:12 Dose: 500 mg Docusate Sodium (Colace) 250 mg PO DAILY [facility] Stop: 07/19/18 08:59 Last Admin: 05/26/18 09:28 Dose: 250 mg Donepezil HCl (Aricept) 5 mg PO HS [facility] Stop: 07/19/18 20:59 Last Admin: 05/25/18 21:16 Dose: 5 mg Ferrous Sulfate (Iron) 325 mg PO DAILY [facility] Stop: 07/19/18 08:59 Last Admin: 05/26/18 09:28 Dose: 325 mg Lorazepam (Ativan) 0.5 mg PO Q6HR PRN; Protocol PRN Reason: Anxiety Stop: 07/19/18 00:28 Last Admin: 05/25/18 09:12 Dose: 0.5 mg Losartan Potassium (Cozaar) 50 mg PO DAILY [facility] Stop: 07/19/18 08:59 Last Admin: 05/26/18 09:29 Dose: 50 mg Magnesium Hydroxide (Milk Of Magnesia) 30 ml PO DAILY [facility] Stop: 07/19/18 08:59 Last Admin: 05/26/18 09:28 Dose: 30 ml Metoprolol Tartrate (Lopressor) 25 mg PO DAILY [facility] Stop: 07/19/18 08:59 Last Admin: 05/26/18 09:29 Dose: 25 mg Multivitamins/Vitamin C (Theragran) 1 tab PO DAILY [facility] Stop: 07/19/18 08:59 Last Admin: 05/26/18 09:28 Dose: 1 tab Nifedipine (Procardia Xl) 30 mg PO DAILY [facility] Stop: 07/19/18 08:59 Last Admin: 05/26/18 09:28 Dose: 30 mg Pyridoxine HCl (Vitamin B6) 50 mg PO DAILY [facility] Stop: 07/20/18 08:59 Last Admin: 05/26/18 09:29 Dose: 50 mg Quetiapine Fumarate (Seroquel) 50 mg PO BID [facility]; Protocol Stop: 07/19/18 08:59 Last Admin: 05/26/18 16:12 Dose: 50 mg Tamsulosin HCl (Flomax) 0.4 mg PO HS [facility] Stop: 07/19/18 20:59 Last Admin: 05/25/18 21:16 Dose: 0.4 mg Zolpidem Tartrate (Ambien) 5 mg PO HS PRN PRN Reason: Insomnia Stop: 07/19/18 00:30 Last Admin: 05/25/18 21:16 Dose: 5 mg General: No acute distress HEENT: PERRLA, EOMI Neck: Supple, JVD, Thyromegaly Cardiovascular: Regular rate, Normal S1, Normal S2 Lungs: Clear to auscultation Abdomen: Bowel sounds, Soft Assessment/Plan - Assessment Assessment: dementia HTN BPH scalp laceration - Plan Plan: continue current treatment Nutritional Asmnt/Malnutr-PDOC - Dietary Evaluation Malnutrition Findings (Please click <Entered> for more info): Nutritional Asmnt/Malnutrition Start: 05/23/18 10: 04 Text: Status: Complete Freq: Protocol: Document 05/23/18 10:04 PALAK (Rec: 05/23/18 10:27 PALAK MAURER [email or web address]) Nutritional Asmnt/Malnutrition Patient General Information Nutritional Screening Moderate Risk Diagnosis Psychosis Pertinent Medical Hx/Surgical Hx Hypertension, dementia, benign prostatic hypertrophy. Subjective Information Per nursing notes, patient is easily agitated, irritable and hyperverbal. Oral intake remains adequate without difficulty. Current Diet Order/ Nutrition Support 2gm Sodium Patient / S.O Not Indicated Pertinent Medications Vitamin C, Colace, Iron, Cozaar, MOM, Theragran, Vitamin B6 Pertinent Labs WNL Nutritional Hx/Data Height 1.85 m Height (Calculated Centimeters) 185.4 Current Weight (lbs) 77.111 kg Weight (Calculated Kilograms) 77.1 Weight (Calculated Grams) 65536.7 [place] Body Weight 184 % [place] Body Weight 92 Body Mass Index (BMI) 22.4 Recent Weight Change No Weight Status Approriate GI Symptoms GI Symptoms None Last BM 05/22 x 1 Difficult in: None Food Allergies No Cultural/Ethnic/Druze Belief None indicated Usual diet at home unknown Skin Integrity/Comment: Mal 21, area of concern vertical laceration on forehead approximately 2 inch Current %PO Good (75-100%) Estimated Nutritional Goals BEE in Kcals: Using Current wt Calories/Kcals/Kg 25-30 kcal/kg using CBW 77.2kg Kcals Calculated ~7796-7647 kcal/day Protein: Using Current wt Protein g/k-1.2 gm/kg using CBW Protein Calculated ~75-90gm/day Fluid: ml ~2948-3333 ml/day (1 ml/kcal) Nutritional Problem 1. Problem Problem No nutrition diagnosis at this time Intervention/Recommendation Comments 1. Continue low sodium diet due to hx of hypertension as tolerated by patient. Expected Outcomes/Goals Expected Outcomes/Goals Oral intake >75% of meals, weight stable, nutrition related labs WNL.
--- NOTE | 2018-05-26 19:04 | Progress Notes ---
DATE: 05/26/2018 The patient is currently in the hospital. The patient acting out yelling, unpredictable, impulsive, agitated. On [id number], the patient remains bizarre, odd ideations, not making any sense, rambling, loud, confused, oriented to self only, disorganized, labile, easily irritable, easily agitated, compliant with medications, able to follow simple commands. MEDICATIONS: Reviewed. ASSESSMENT: The patient remains bizarre, yelling, odd ideations, irritable, ongoing concerns about his impulsivity, lashing out behaviors. PLAN: We will continue to monitor, titrate and adjust medications. Given ongoing symptoms, he is not safe for discharge at this time. [facility]# [id number]
[2018-05-27] MEDS: Multivitamin Tab PO SCH (08:34)
[2018-05-27] MEDS: NIFEdipine 30 mg ER Tab PO SCH (08:34)
[2018-05-27] MEDS: Ferrous Sulfate 325 MG TAB PO SCH (08:35)
[2018-05-27] MEDS: Magnesium Hydroxide (MOM) 30 mL UDC PO SCH (08:36)
--- NOTE | 2018-05-27 11:03 | General Progress Note ---
Subjective - Review of Systems Service Date: 05/27/18 Subjective: resting comfortably no distress Objective - Results Recent Labs: Laboratory Last Values POC Glucose 102 MG/DL (70 - 105) 05/19/18 22:03 Triglycerides 64 mg/dL (<150) 05/20/18 06:00 Cholesterol 183 mg/dL (<200) 05/20/18 06:00 LDL Cholesterol Direct 104 mg/dL (75-193) 05/20/18 06:00 HDL Cholesterol 59 mg/dL (23-92) 05/20/18 06:00 - Physical Exam Vitals and I&O: Vital Signs Temp 97.7 F 05/27/18 06:16 Pulse 71 05/27/18 08:35 Resp 20 05/27/18 06:16 BP 140/75 05/27/18 08:35 Pulse Ox 97 05/27/18 06:16 Intake & Output 05/26/18 05/27/18 05/27/18 18:59 06:59 18:59 Intake Total 1000 120 Balance 1000 120 Intake: Oral 1000 120 Other: # Voids 4 3 # Bowel Movements 1 Stool Characteristics Soft Soft Active Medications: Current Medications Acetaminophen (Tylenol) 650 mg PO Q4HR PRN PRN Reason: Pain (Mild) 1-3 Stop: 07/18/18 22:45 Ascorbic Acid (Vitamin C) 500 mg PO BID [facility] Stop: 07/19/18 08:59 Last Admin: 05/27/18 08:35 Dose: 500 mg Docusate Sodium (Colace) 250 mg PO DAILY [facility] Stop: 07/19/18 08:59 Last Admin: 05/26/18 09:28 Dose: 250 mg Donepezil HCl (Aricept) 5 mg PO HS [facility] Stop: 07/19/18 20:59 Last Admin: 05/26/18 20:36 Dose: 5 mg Ferrous Sulfate (Iron) 325 mg PO DAILY [facility] Stop: 07/19/18 08:59 Last Admin: 05/27/18 08:35 Dose: 325 mg Lorazepam (Ativan) 0.5 mg PO Q6HR PRN; Protocol PRN Reason: Anxiety Stop: 07/19/18 00:28 Last Admin: 05/25/18 09:12 Dose: 0.5 mg Losartan Potassium (Cozaar) 50 mg PO DAILY [facility] Stop: 07/19/18 08:59 Last Admin: 05/27/18 08:35 Dose: 50 mg Magnesium Hydroxide (Milk Of Magnesia) 30 ml PO DAILY [facility] Stop: 07/19/18 08:59 Last Admin: 05/27/18 08:36 Dose: 30 ml Metoprolol Tartrate (Lopressor) 25 mg PO DAILY [facility] Stop: 07/19/18 08:59 Last Admin: 05/27/18 08:35 Dose: 25 mg Multivitamins/Vitamin C (Theragran) 1 tab PO DAILY [facility] Stop: 07/19/18 08:59 Last Admin: 05/27/18 08:34 Dose: 1 tab Nifedipine (Procardia Xl) 30 mg PO DAILY [facility] Stop: 07/19/18 08:59 Last Admin: 05/27/18 08:34 Dose: 30 mg Pyridoxine HCl (Vitamin B6) 50 mg PO DAILY [facility] Stop: 07/20/18 08:59 Last Admin: 05/27/18 08:34 Dose: 50 mg Quetiapine Fumarate (Seroquel) 50 mg PO BID [facility]; Protocol Stop: 07/19/18 08:59 Last Admin: 05/27/18 08:34 Dose: 50 mg Tamsulosin HCl (Flomax) 0.4 mg PO HS [facility] Stop: 07/19/18 20:59 Last Admin: 05/26/18 20:36 Dose: 0.4 mg Zolpidem Tartrate (Ambien) 5 mg PO HS PRN PRN Reason: Insomnia Stop: 07/19/18 00:30 Last Admin: 05/26/18 20:36 Dose: 5 mg General: No acute distress HEENT: PERRLA, EOMI Neck: Supple, JVD, Thyromegaly Cardiovascular: Regular rate, Normal S1, Normal S2 Lungs: Clear to auscultation Abdomen: Bowel sounds, Soft Assessment/Plan - Assessment Assessment: dementia HTN BPH scalp laceration - Plan Plan: continue current treatment Nutritional Asmnt/Malnutr-PDOC - Dietary Evaluation Malnutrition Findings (Please click <Entered> for more info): Nutritional Asmnt/Malnutrition Start: 05/23/18 10: 04 Text: Status: Complete Freq: Protocol: Document 05/23/18 10:04 PALAK (Rec: 05/23/18 10:27 PALAK PATEL- FNS1) Nutritional Asmnt/Malnutrition Patient General Information Nutritional Screening Moderate Risk Diagnosis Psychosis Pertinent Medical Hx/Surgical Hx Hypertension, dementia, benign prostatic hypertrophy. Subjective Information Per nursing notes, patient is easily agitated, irritable and hyperverbal. Oral intake remains adequate without difficulty. Current Diet Order/ Nutrition Support 2gm Sodium Patient / S.O Not Indicated Pertinent Medications Vitamin C, Colace, Iron, Cozaar, MOM, Theragran, Vitamin B6 Pertinent Labs WNL Nutritional Hx/Data Height 1.85 m Height (Calculated Centimeters) 185.4 Current Weight (lbs) 77.111 kg Weight (Calculated Kilograms) 77.1 Weight (Calculated Grams) 15870.7 [place] Body Weight 184 % [place] Body Weight 92 Body Mass Index (BMI) 22.4 Recent Weight Change No Weight Status Approriate GI Symptoms GI Symptoms None Last BM 05/22 x 1 Difficult in: None Food Allergies No Cultural/Ethnic/Buddhism Belief None indicated Usual diet at home unknown Skin Integrity/Comment: Mal 21, area of concern vertical laceration on forehead approximately 2 inch Current %PO Good (75-100%) Estimated Nutritional Goals BEE in Kcals: Using Current wt Calories/Kcals/Kg 25-30 kcal/kg using CBW 77.2kg Kcals Calculated ~8992-8727 kcal/day Protein: Using Current wt Protein g/k-1.2 gm/kg using CBW Protein Calculated ~75-90gm/day Fluid: ml ~7792-6050 ml/day (1 ml/kcal) Nutritional Problem 1. Problem Problem No nutrition diagnosis at this time Intervention/Recommendation Comments 1. Continue low sodium diet due to hx of hypertension as tolerated by patient. Expected Outcomes/Goals Expected Outcomes/Goals Oral intake >75% of meals, weight stable, nutrition related labs WNL.
--- NOTE | 2018-05-27 22:02 | Progress Notes ---
DATE: 05/27/2018 SUBJECTIVE: The patient pacing the rodriguez, does not want to talk to me and noted to be irritable and independent with ADLs. No agitation. Slept for about 5 hours, has a slurred voice, difficult to understand, does not want to talk to me today, he is noted to be irritable. The patient is somewhat disorganized, irritable, easily agitated, impulsive, unpredictable. MEDICATIONS: Reviewed including doses and frequencies, seems to be calmer with current dosing of Seroquel. ASSESSMENT: The patient remains symptomatic, ongoing concerns about impulsivity, irritability. PLAN: We will continue to monitor, titrate and adjust medications. JOB# [id number]
[2018-05-28] MEDS: Multivitamin Tab PO SCH (09:22)
[2018-05-28] MEDS: NIFEdipine 30 mg ER Tab PO SCH (09:23)
[2018-05-28] MEDS: Ferrous Sulfate 325 MG TAB PO SCH (09:23)
[2018-05-28] MEDS: Magnesium Hydroxide (MOM) 30 mL UDC PO SCH (09:24)
--- NOTE | 2018-05-28 15:48 | General Progress Note ---
Subjective - Review of Systems Service Date: 05/28/18 Subjective: resting comfortably no distress Objective - Results Recent Labs: Laboratory Last Values POC Glucose 102 MG/DL (70 - 105) 05/19/18 22:03 Triglycerides 64 mg/dL (<150) 05/20/18 06:00 Cholesterol 183 mg/dL (<200) 05/20/18 06:00 LDL Cholesterol Direct 104 mg/dL (75-193) 05/20/18 06:00 HDL Cholesterol 59 mg/dL (23-92) 05/20/18 06:00 - Physical Exam Vitals and I&O: Vital Signs Temp 98.2 F 05/28/18 14:00 Pulse 70 05/28/18 14:00 Resp 18 05/28/18 14:00 BP 116/58 05/28/18 14:00 Pulse Ox 97 05/28/18 14:00 Intake & Output 05/27/18 05/28/18 05/28/18 18:59 06:59 18:59 Intake Total 1200 500 Output Total 3 Balance 1200 497 Intake: Oral 1200 500 Output: Urine 3 Other: # Bowel Movements 1 Stool Characteristics Soft Active Medications: Current Medications Acetaminophen (Tylenol) 650 mg PO Q4HR PRN PRN Reason: Pain (Mild) 1-3 Stop: 07/18/18 22:45 Ascorbic Acid (Vitamin C) 500 mg PO BID [facility] Stop: 07/19/18 08:59 Last Admin: 05/28/18 09:22 Dose: 500 mg Docusate Sodium (Colace) 250 mg PO DAILY [facility] Stop: 07/19/18 08:59 Last Admin: 05/28/18 09:23 Dose: 250 mg Donepezil HCl (Aricept) 5 mg PO HS [facility] Stop: 07/19/18 20:59 Last Admin: 05/27/18 21:00 Dose: 5 mg Ferrous Sulfate (Iron) 325 mg PO DAILY [facility] Stop: 07/19/18 08:59 Last Admin: 05/28/18 09:23 Dose: 325 mg Losartan Potassium (Cozaar) 50 mg PO DAILY [facility] Stop: 07/19/18 08:59 Last Admin: 05/28/18 09:23 Dose: 50 mg Magnesium Hydroxide (Milk Of Magnesia) 30 ml PO DAILY [facility] Stop: 07/19/18 08:59 Last Admin: 05/28/18 09:24 Dose: 30 ml Metoprolol Tartrate (Lopressor) 25 mg PO DAILY [facility] Stop: 07/19/18 08:59 Last Admin: 05/28/18 09:22 Dose: 25 mg Multivitamins/Vitamin C (Theragran) 1 tab PO DAILY [facility] Stop: 07/19/18 08:59 Last Admin: 05/28/18 09:22 Dose: 1 tab Nifedipine (Procardia Xl) 30 mg PO DAILY [facility] Stop: 07/19/18 08:59 Last Admin: 05/28/18 09:23 Dose: 30 mg Pyridoxine HCl (Vitamin B6) 50 mg PO DAILY [facility] Stop: 07/20/18 08:59 Last Admin: 05/28/18 09:22 Dose: 50 mg Quetiapine Fumarate (Seroquel) 50 mg PO BID [facility]; Protocol Stop: 07/19/18 08:59 Last Admin: 05/28/18 09:22 Dose: 50 mg Tamsulosin HCl (Flomax) 0.4 mg PO HS [facility] Stop: 07/19/18 20:59 Last Admin: 05/27/18 21:00 Dose: 0.4 mg General: No acute distress HEENT: PERRLA, EOMI Neck: Supple, JVD, Thyromegaly Cardiovascular: Regular rate, Normal S1, Normal S2 Lungs: Clear to auscultation Abdomen: Bowel sounds, Soft Assessment/Plan - Assessment Assessment: dementia HTN BPH scalp laceration - Plan Plan: continue current treatment Nutritional Asmnt/Malnutr-PDOC - Dietary Evaluation Malnutrition Findings (Please click <Entered> for more info): Nutritional Asmnt/Malnutrition Start: 05/23/18 10: 04 Text: Status: Complete Freq: Protocol: Document 05/23/18 10:04 PALAK (Rec: 05/23/18 10:27 PALAK PATEL- FNS1) Nutritional Asmnt/Malnutrition Patient General Information Nutritional Screening Moderate Risk Diagnosis Psychosis Pertinent Medical Hx/Surgical Hx Hypertension, dementia, benign prostatic hypertrophy. Subjective Information Per nursing notes, patient is easily agitated, irritable and hyperverbal. Oral intake remains adequate without difficulty. Current Diet Order/ Nutrition Support 2gm Sodium Patient / S.O Not Indicated Pertinent Medications Vitamin C, Colace, Iron, Cozaar, MOM, Theragran, Vitamin B6 Pertinent Labs WNL Nutritional Hx/Data Height 1.85 m Height (Calculated Centimeters) 185.4 Current Weight (lbs) 77.111 kg Weight (Calculated Kilograms) 77.1 Weight (Calculated Grams) 91790.7 [place] Body Weight 184 % [place] Body Weight 92 Body Mass Index (BMI) 22.4 Recent Weight Change No Weight Status Approriate GI Symptoms GI Symptoms None Last BM 05/22 x 1 Difficult in: None Food Allergies No Cultural/Ethnic/Anglican Belief None indicated Usual diet at home unknown Skin Integrity/Comment: Mal 21, area of concern vertical laceration on forehead approximately 2 inch Current %PO Good (75-100%) Estimated Nutritional Goals BEE in Kcals: Using Current wt Calories/Kcals/Kg 25-30 kcal/kg using CBW 77.2kg Kcals Calculated ~5625-3099 kcal/day Protein: Using Current wt Protein g/k-1.2 gm/kg using CBW Protein Calculated ~75-90gm/day Fluid: ml ~6542-7909 ml/day (1 ml/kcal) Nutritional Problem 1. Problem Problem No nutrition diagnosis at this time Intervention/Recommendation Comments 1. Continue low sodium diet due to hx of hypertension as tolerated by patient. Expected Outcomes/Goals Expected Outcomes/Goals Oral intake >75% of meals, weight stable, nutrition related labs WNL.
--- NOTE | 2018-05-29 00:45 | Progress Notes ---
DATE: 05/28/2018 Dr. Aldana covering for Dr. Anglin. SUBJECTIVE: Chart reviewed and the patient interviewed. Also discussed the patient's condition with the staff and reviewed records and labs. The patient is still easily irritable and agitated and he is pacing up and down the unit and wanted to be left alone. His level of agitation seems to be slightly less. The patient also is still rambling and thought processes are disorganized. The patient denies any hallucinations or delusions. The patient also denies any intention to harm himself or others, but the patient at the same time is easily irritable and agitated and have disorganized thoughts. ASSESSMENT: The patient is still psychotic and confused, but seems to be less agitated. TREATMENT PLAN: Continue monitoring his behavior and his condition closely. Also, continue adjusting psychotropic medication and working on behavioral modification. JOB# [id number]
--- NOTE | 2018-05-29 07:04 | Progress Notes ---
DATE: SUBJECTIVE: Chart reviewed and the patient interviewed. Also discussed the patient's condition with the staff and reviewed records and labs. The patient is still pacing up and down the unit. The patient also still seems to be slightly confused. Also, is still drinking a lot of water according to staff. He also needs redirections. Otherwise, no major behavioral problems and the patient is compliant with taking his medications with no side effects of medications. ASSESSMENT: The patient is still psychotic and agitated. TREATMENT PLAN: Continue to monitor his behavior and his condition closely. Also, continue adjusting psychotropic medications and follow up. Also, the patient continues to take Seroquel in a dose of 50 mg twice a day with no side effects. [facility]# [id number]
[2018-05-29] MEDS: Magnesium Hydroxide (MOM) 30 mL UDC PO SCH (08:21)
[2018-05-29] MEDS: Ferrous Sulfate 325 MG TAB PO SCH (08:21)
[2018-05-29] MEDS: Multivitamin Tab PO SCH (08:21)
[2018-05-29] MEDS: NIFEdipine 30 mg ER Tab PO SCH (08:23)
--- NOTE | 2018-05-29 15:27 | General Progress Note ---
Subjective - Review of Systems Service Date: 05/29/18 Subjective: resting comfortably no distress Objective - Results Recent Labs: Laboratory Last Values POC Glucose 102 MG/DL (70 - 105) 05/19/18 22:03 Triglycerides 64 mg/dL (<150) 05/20/18 06:00 Cholesterol 183 mg/dL (<200) 05/20/18 06:00 LDL Cholesterol Direct 104 mg/dL (75-193) 05/20/18 06:00 HDL Cholesterol 59 mg/dL (23-92) 05/20/18 06:00 - Physical Exam Vitals and I&O: Vital Signs Temp 97.6 F 05/29/18 06:16 Pulse 80 05/29/18 08:23 Resp 20 05/29/18 06:16 BP 124/68 05/29/18 08:23 Pulse Ox 97 05/29/18 06:16 Intake & Output 05/28/18 05/29/18 05/29/18 18:59 06:59 18:59 Intake Total 960 Balance 960 Intake: Oral 960 Other: # Voids 2 # Bowel Movements 1 Active Medications: Current Medications Acetaminophen (Tylenol) 650 mg PO Q4HR PRN PRN Reason: Pain (Mild) 1-3 Stop: 07/18/18 22:45 Ascorbic Acid (Vitamin C) 500 mg PO BID [facility] Stop: 07/19/18 08:59 Last Admin: 05/29/18 08:21 Dose: 500 mg Docusate Sodium (Colace) 250 mg PO DAILY [facility] Stop: 07/19/18 08:59 Last Admin: 05/29/18 08:21 Dose: 250 mg Donepezil HCl (Aricept) 5 mg PO HS [facility] Stop: 07/19/18 20:59 Last Admin: 05/28/18 21:29 Dose: 5 mg Ferrous Sulfate (Iron) 325 mg PO DAILY [facility] Stop: 07/19/18 08:59 Last Admin: 05/29/18 08:21 Dose: 325 mg Losartan Potassium (Cozaar) 50 mg PO DAILY [facility] Stop: 07/19/18 08:59 Last Admin: 05/29/18 08:21 Dose: 50 mg Magnesium Hydroxide (Milk Of Magnesia) 30 ml PO DAILY [facility] Stop: 07/19/18 08:59 Last Admin: 05/29/18 08:21 Dose: 30 ml Metoprolol Tartrate (Lopressor) 25 mg PO DAILY [facility] Stop: 07/19/18 08:59 Last Admin: 05/29/18 08:22 Dose: 25 mg Multivitamins/Vitamin C (Theragran) 1 tab PO DAILY [facility] Stop: 07/19/18 08:59 Last Admin: 05/29/18 08:21 Dose: 1 tab Nifedipine (Procardia Xl) 30 mg PO DAILY [facility] Stop: 07/19/18 08:59 Last Admin: 05/29/18 08:23 Dose: 30 mg Pyridoxine HCl (Vitamin B6) 50 mg PO DAILY [facility] Stop: 07/20/18 08:59 Last Admin: 05/29/18 08:21 Dose: 50 mg Quetiapine Fumarate (Seroquel) 50 mg PO BID [facility]; Protocol Stop: 07/19/18 08:59 Last Admin: 05/29/18 08:21 Dose: 50 mg Tamsulosin HCl (Flomax) 0.4 mg PO HS [facility] Stop: 07/19/18 20:59 Last Admin: 05/28/18 21:29 Dose: 0.4 mg General: No acute distress HEENT: PERRLA, EOMI Neck: Supple, JVD, Thyromegaly Cardiovascular: Regular rate, Normal S1, Normal S2 Lungs: Clear to auscultation Abdomen: Bowel sounds, Soft Assessment/Plan - Assessment Assessment: dementia HTN BPH scalp laceration - Plan Plan: continue current treatment Nutritional Asmnt/Malnutr-PDOC - Dietary Evaluation Malnutrition Findings (Please click <Entered> for more info): Nutritional Asmnt/Malnutrition Start: 05/23/18 10: 04 Text: Status: Complete Freq: Protocol: Document 05/23/18 10:04 PALAK (Rec: 05/23/18 10:27 PALAK PATEL- FNS1) Nutritional Asmnt/Malnutrition Patient General Information Nutritional Screening Moderate Risk Diagnosis Psychosis Pertinent Medical Hx/Surgical Hx Hypertension, dementia, benign prostatic hypertrophy. Subjective Information Per nursing notes, patient is easily agitated, irritable and hyperverbal. Oral intake remains adequate without difficulty. Current Diet Order/ Nutrition Support 2gm Sodium Patient / S.O Not Indicated Pertinent Medications Vitamin C, Colace, Iron, Cozaar, MOM, Theragran, Vitamin B6 Pertinent Labs WNL Nutritional Hx/Data Height 1.85 m Height (Calculated Centimeters) 185.4 Current Weight (lbs) 77.111 kg Weight (Calculated Kilograms) 77.1 Weight (Calculated Grams) 76936.7 [place] Body Weight 184 % [place] Body Weight 92 Body Mass Index (BMI) 22.4 Recent Weight Change No Weight Status Approriate GI Symptoms GI Symptoms None Last BM 05/22 x 1 Difficult in: None Food Allergies No Cultural/Ethnic/Jewish Belief None indicated Usual diet at home unknown Skin Integrity/Comment: Mal 21, area of concern vertical laceration on forehead approximately 2 inch Current %PO Good (75-100%) Estimated Nutritional Goals BEE in Kcals: Using Current wt Calories/Kcals/Kg 25-30 kcal/kg using CBW 77.2kg Kcals Calculated ~2117-9302 kcal/day Protein: Using Current wt Protein g/k-1.2 gm/kg using CBW Protein Calculated ~75-90gm/day Fluid: ml ~1622-3401 ml/day (1 ml/kcal) Nutritional Problem 1. Problem Problem No nutrition diagnosis at this time Intervention/Recommendation Comments 1. Continue low sodium diet due to hx of hypertension as tolerated by patient. Expected Outcomes/Goals Expected Outcomes/Goals Oral intake >75% of meals, weight stable, nutrition related labs WNL.
[2018-05-30] MEDS: Multivitamin Tab PO SCH (09:00)
[2018-05-30] MEDS: Magnesium Hydroxide (MOM) 30 mL UDC PO SCH (09:00)
[2018-05-30] MEDS: Ferrous Sulfate 325 MG TAB PO SCH (09:00)
[2018-05-30] MEDS: NIFEdipine 30 mg ER Tab PO SCH (16:09)
--- NOTE | 2018-05-30 20:04 | Internal Medicine Prog Note ---
Internal Medicine Subjective - Subjective Service Date: 05/30/18 Patient seen and examined:: with staff Patient is:: awake, non-verbal, in bed, confused Per staff patient has:: no adverse event Internal Medicine Objective - Results Recent Labs: Laboratory Last Values POC Glucose 102 MG/DL (70 - 105) 05/19/18 22:03 Triglycerides 64 mg/dL (<150) 05/20/18 06:00 Cholesterol 183 mg/dL (<200) 05/20/18 06:00 LDL Cholesterol Direct 104 mg/dL (75-193) 05/20/18 06:00 HDL Cholesterol 59 mg/dL (23-92) 05/20/18 06:00 - Physical Exam Vitals and I&O: Vital Signs Temp 97.8 F 05/30/18 14:00 Pulse 71 05/30/18 16:09 Resp 18 05/30/18 14:00 BP 143/75 05/30/18 16:09 Pulse Ox 97 05/30/18 14:00 Intake & Output 05/30/18 05/30/18 05/31/18 06:59 18:59 06:59 Intake Total 2400 Balance 2400 Intake: Oral 2400 Other: # Voids 4 # Bowel Movements 1 Active Medications: Current Medications Acetaminophen (Tylenol) 650 mg PO Q4HR PRN PRN Reason: Pain (Mild) 1-3 Stop: 07/18/18 22:45 Ascorbic Acid (Vitamin C) 500 mg PO BID [facility] Stop: 07/19/18 08:59 Last Admin: 05/30/18 16:11 Dose: 500 mg Docusate Sodium (Colace) 250 mg PO DAILY [facility] Stop: 07/19/18 08:59 Last Admin: 05/30/18 09:00 Dose: 250 mg Donepezil HCl (Aricept) 5 mg PO HS [facility] Stop: 07/19/18 20:59 Last Admin: 05/29/18 21:25 Dose: 5 mg Ferrous Sulfate (Iron) 325 mg PO DAILY [facility] Stop: 07/19/18 08:59 Last Admin: 05/30/18 09:00 Dose: 325 mg Losartan Potassium (Cozaar) 50 mg PO DAILY [facility] Stop: 07/19/18 08:59 Last Admin: 05/30/18 09:00 Dose: 50 mg Magnesium Hydroxide (Milk Of Magnesia) 30 ml PO DAILY [facility] Stop: 07/19/18 08:59 Last Admin: 05/30/18 09:00 Dose: 30 ml Metoprolol Tartrate (Lopressor) 25 mg PO DAILY [facility] Stop: 07/19/18 08:59 Last Admin: 05/30/18 16:08 Dose: 25 mg Multivitamins/Vitamin C (Theragran) 1 tab PO DAILY [facility] Stop: 07/19/18 08:59 Last Admin: 05/30/18 09:00 Dose: 1 tab Nifedipine (Procardia Xl) 30 mg PO DAILY [facility] Stop: 07/19/18 08:59 Last Admin: 05/30/18 16:09 Dose: 30 mg Pyridoxine HCl (Vitamin B6) 50 mg PO DAILY [facility] Stop: 07/20/18 08:59 Last Admin: 05/30/18 09:00 Dose: 50 mg Quetiapine Fumarate (Seroquel) 50 mg PO BID [facility]; Protocol Stop: 07/19/18 08:59 Last Admin: 05/30/18 16:11 Dose: 50 mg Tamsulosin HCl (Flomax) 0.4 mg PO HS [facility] Stop: 07/19/18 20:59 Last Admin: 05/29/18 21:25 Dose: 0.4 mg General: demented HEENT: anicteric sclerae, throat clear Neck: No thyromegaly, +2 carotid pulse wo bruit, No LAD Lungs: CTAB Cardiovascular: RRR, Normal S1, Normal S2, without murmur Abdomen: non-tender, non-distended Extremities: clear Neurological: no change Internal Medicine Assmt/Plan - Assessment Assessment: 1.HTN. 2.BPH. 3.DEMENTIA. - Plan Plan: CONTINUE ON CURRENT MEDICATION AND DIET. Nutritional Asmnt/Malnutr-PDOC - Dietary Evaluation Malnutrition Findings (Please click <Entered> for more info): Nutritional Asmnt/Malnutrition Start: 05/23/18 10: 04 Text: Status: Complete Freq: Protocol: Document 05/23/18 10:04 PALAK (Rec: 05/23/18 10:27 PALAK PATEL- FNS1) Nutritional Asmnt/Malnutrition Patient General Information Nutritional Screening Moderate Risk Diagnosis Psychosis Pertinent Medical Hx/Surgical Hx Hypertension, dementia, benign prostatic hypertrophy. Subjective Information Per nursing notes, patient is easily agitated, irritable and hyperverbal. Oral intake remains adequate without difficulty. Current Diet Order/ Nutrition Support 2gm Sodium Patient / S.O Not Indicated Pertinent Medications Vitamin C, Colace, Iron, Cozaar, MOM, Theragran, Vitamin B6 Pertinent Labs WNL Nutritional Hx/Data Height 1.85 m Height (Calculated Centimeters) 185.4 Current Weight (lbs) 77.111 kg Weight (Calculated Kilograms) 77.1 Weight (Calculated Grams) 79115.7 [place] Body Weight 184 % [place] Body Weight 92 Body Mass Index (BMI) 22.4 Recent Weight Change No Weight Status Approriate GI Symptoms GI Symptoms None Last BM 05/22 x 1 Difficult in: None Food Allergies No Cultural/Ethnic/Presybeterian Belief None indicated Usual diet at home unknown Skin Integrity/Comment: Mal 21, area of concern vertical laceration on forehead approximately 2 inch Current %PO Good (75-100%) Estimated Nutritional Goals BEE in Kcals: Using Current wt Calories/Kcals/Kg 25-30 kcal/kg using CBW 77.2kg Kcals Calculated ~6925-1427 kcal/day Protein: Using Current wt Protein g/k-1.2 gm/kg using CBW Protein Calculated ~75-90gm/day Fluid: ml ~2847-2677 ml/day (1 ml/kcal) Nutritional Problem 1. Problem Problem No nutrition diagnosis at this time Intervention/Recommendation Comments 1. Continue low sodium diet due to hx of hypertension as tolerated by patient. Expected Outcomes/Goals Expected Outcomes/Goals Oral intake >75% of meals, weight stable, nutrition related labs WNL.
--- NOTE | 2018-05-30 21:41 | Progress Notes ---
DATE: 05/30/2018 SUBJECTIVE: Chart reviewed and the patient interviewed. Also, discussed the patient's condition with the staff and reviewed records and labs. The patient is still pacing and is still anxious and in irritable mood. The patient also still needs redirections. He also is still suspicious and paranoid at times. Otherwise, the patient is compliant with taking his medications. The patient seems to be slightly calmer than yesterday since I increased his Seroquel to 50 mg twice a day. ASSESSMENT: The patient is still psychotic, but slightly calmer. TREATMENT PLAN: Continue to monitor his behavior and his condition closely. Also, continue to work on his irritability and continue to follow up. JOB# [id number]
[2018-05-31] MEDS: Magnesium Hydroxide (MOM) 30 mL UDC PO SCH (08:30)
[2018-05-31] MEDS: Ferrous Sulfate 325 MG TAB PO SCH (08:31)
[2018-05-31] MEDS: Multivitamin Tab PO SCH (08:32)
[2018-05-31] MEDS: NIFEdipine 30 mg ER Tab PO SCH (08:38)
--- NOTE | 2018-05-31 17:18 | Progress Notes ---
DATE: 05/31/2018 SUBJECTIVE: Chart reviewed and the patient interviewed. Also, discussed the patient's condition with the staff and reviewed records and labs. The patient is still reporting auditory hallucinations and he is still hearing voices telling him different things. The patient also is still having episodes of agitation and irritability, but in general seems to be calmer than before. The patient also is compliant with taking his medications with no side effects of medications. ASSESSMENT: The patient is still psychotic, but seems to be calmer. TREATMENT PLAN: Continue monitoring his behavior and continue current psychotropic medications and work on behavioral modification. JOB# [id number]
--- NOTE | 2018-05-31 22:29 | Internal Medicine Prog Note ---
Internal Medicine Subjective - Subjective Service Date: 05/31/18 Patient seen and examined:: without staff Patient is:: awake, non-verbal, in bed, confused Per staff patient has:: no adverse event Internal Medicine Objective - Results Recent Labs: Laboratory Last Values POC Glucose 102 MG/DL (70 - 105) 05/19/18 22:03 Triglycerides 64 mg/dL (<150) 05/20/18 06:00 Cholesterol 183 mg/dL (<200) 05/20/18 06:00 LDL Cholesterol Direct 104 mg/dL (75-193) 05/20/18 06:00 HDL Cholesterol 59 mg/dL (23-92) 05/20/18 06:00 - Physical Exam Vitals and I&O: Vital Signs Temp 97.6 F 05/31/18 20:00 Pulse 78 05/31/18 20:00 Resp 20 05/31/18 20:00 BP 134/82 05/31/18 20:00 Pulse Ox 98 05/31/18 20:00 Intake & Output 05/31/18 05/31/18 06/01/18 06:59 18:59 06:59 Intake Total 120 1800 Balance 120 1800 Intake: Oral 120 1800 Other: # Voids 3 4 # Bowel Movements 1 Active Medications: Current Medications Acetaminophen (Tylenol) 650 mg PO Q4HR PRN PRN Reason: Pain (Mild) 1-3 Stop: 07/18/18 22:45 Ascorbic Acid (Vitamin C) 500 mg PO BID [facility] Stop: 07/19/18 08:59 Last Admin: 05/31/18 16:31 Dose: 500 mg Docusate Sodium (Colace) 250 mg PO DAILY [facility] Stop: 07/19/18 08:59 Last Admin: 05/31/18 08:31 Dose: 250 mg Donepezil HCl (Aricept) 5 mg PO HS [facility] Stop: 07/19/18 20:59 Last Admin: 05/31/18 21:22 Dose: 5 mg Ferrous Sulfate (Iron) 325 mg PO DAILY [facility] Stop: 07/19/18 08:59 Last Admin: 05/31/18 08:31 Dose: 325 mg Lorazepam (Ativan) 1 mg PO Q4HR PRN; Protocol PRN Reason: Agitation Stop: 07/30/18 18:43 Losartan Potassium (Cozaar) 50 mg PO DAILY [facility] Stop: 07/19/18 08:59 Last Admin: 10/07/18 08:39 Dose: 50 mg Magnesium Hydroxide (Milk Of Magnesia) 30 ml PO DAILY [facility] Stop: 07/19/18 08:59 Last Admin: 05/31/18 08:30 Dose: 30 ml Metoprolol Tartrate (Lopressor) 25 mg PO DAILY [facility] Stop: 07/19/18 08:59 Last Admin: 05/31/18 08:38 Dose: 25 mg Multivitamins/Vitamin C (Theragran) 1 tab PO DAILY [facility] Stop: 07/19/18 08:59 Last Admin: 05/31/18 08:32 Dose: 1 tab Nifedipine (Procardia Xl) 30 mg PO DAILY [facility] Stop: 07/19/18 08:59 Last Admin: 05/31/18 08:38 Dose: 30 mg Pyridoxine HCl (Vitamin B6) 50 mg PO DAILY [facility] Stop: 07/20/18 08:59 Last Admin: 05/31/18 08:31 Dose: 50 mg Quetiapine Fumarate (Seroquel) 50 mg PO BID [facility]; Protocol Stop: 07/19/18 08:59 Last Admin: 05/31/18 16:31 Dose: 50 mg Tamsulosin HCl (Flomax) 0.4 mg PO HS [facility] Stop: 07/19/18 20:59 Last Admin: 05/31/18 21:22 Dose: 0.4 mg General: demented HEENT: anicteric sclerae, throat clear Neck: No thyromegaly, +2 carotid pulse wo bruit, No LAD Lungs: CTAB Cardiovascular: RRR, Normal S1, Normal S2, without murmur Abdomen: non-tender, non-distended Extremities: clear Neurological: no change Internal Medicine Assmt/Plan - Assessment Assessment: 1.HTN. 2.BPH. 3.DEMENTIA. - Plan Plan: CONTINUE ON CURRENT MEDICATION AND DIET. Nutritional Asmnt/Malnutr-PDOC - Dietary Evaluation Malnutrition Findings (Please click <Entered> for more info): Nutritional Asmnt/Malnutrition Start: 05/23/18 10: 04 Text: Status: Complete Freq: Protocol: Document 05/23/18 10:04 PALAK (Rec: 05/23/18 10:27 PALAK PATEL- FNS1) Nutritional Asmnt/Malnutrition Patient General Information Nutritional Screening Moderate Risk Diagnosis Psychosis Pertinent Medical Hx/Surgical Hx Hypertension, dementia, benign prostatic hypertrophy. Subjective Information Per nursing notes, patient is easily agitated, irritable and hyperverbal. Oral intake remains adequate without difficulty. Current Diet Order/ Nutrition Support 2gm Sodium Patient / S.O Not Indicated Pertinent Medications Vitamin C, Colace, Iron, Cozaar, MOM, Theragran, Vitamin B6 Pertinent Labs WNL Nutritional Hx/Data Height 1.85 m Height (Calculated Centimeters) 185.4 Current Weight (lbs) 77.111 kg Weight (Calculated Kilograms) 77.1 Weight (Calculated Grams) 89772.7 [place] Body Weight 184 % [place] Body Weight 92 Body Mass Index (BMI) 22.4 Recent Weight Change No Weight Status Approriate GI Symptoms GI Symptoms None Last BM 05/22 x 1 Difficult in: None Food Allergies No Cultural/Ethnic/Catholic Belief None indicated Usual diet at home unknown Skin Integrity/Comment: Mal 21, area of concern vertical laceration on forehead approximately 2 inch Current %PO Good (75-100%) Estimated Nutritional Goals BEE in Kcals: Using Current wt Calories/Kcals/Kg 25-30 kcal/kg using CBW 77.2kg Kcals Calculated ~8340-1507 kcal/day Protein: Using Current wt Protein g/k-1.2 gm/kg using CBW Protein Calculated ~75-90gm/day Fluid: ml ~2666-1458 ml/day (1 ml/kcal) Nutritional Problem 1. Problem Problem No nutrition diagnosis at this time Intervention/Recommendation Comments 1. Continue low sodium diet due to hx of hypertension as tolerated by patient. Expected Outcomes/Goals Expected Outcomes/Goals Oral intake >75% of meals, weight stable, nutrition related labs WNL.
[2018-06-01] MEDS: NIFEdipine 30 mg ER Tab PO SCH (09:56)
[2018-06-01] MEDS: Ferrous Sulfate 325 MG TAB PO SCH (09:58)
[2018-06-01] MEDS: Multivitamin Tab PO SCH (09:58)
[2018-06-01] MEDS: Magnesium Hydroxide (MOM) 30 mL UDC PO SCH (10:00)
--- NOTE | 2018-06-01 17:44 | Internal Medicine Prog Note ---
Internal Medicine Subjective - Subjective Service Date: 06/01/18 Patient seen and examined:: with staff Patient is:: awake, non-verbal, in bed, confused Per staff patient has:: no adverse event Internal Medicine Objective - Results Recent Labs: Laboratory Last Values POC Glucose 102 MG/DL (70 - 105) 05/19/18 22:03 Triglycerides 64 mg/dL (<150) 05/20/18 06:00 Cholesterol 183 mg/dL (<200) 05/20/18 06:00 LDL Cholesterol Direct 104 mg/dL (75-193) 05/20/18 06:00 HDL Cholesterol 59 mg/dL (23-92) 05/20/18 06:00 - Physical Exam Vitals and I&O: Vital Signs Temp 98.1 F 06/01/18 14:00 Pulse 60 06/01/18 14:00 Resp 20 06/01/18 14:00 BP 138/69 06/01/18 14:00 Pulse Ox 95 06/01/18 14:00 Intake & Output 05/31/18 06/01/18 06/01/18 18:59 06:59 18:59 Intake Total 1800 120 Balance 1800 120 Intake: Oral 1800 120 Other: # Voids 4 3 # Bowel Movements 1 Active Medications: Current Medications Acetaminophen (Tylenol) 650 mg PO Q4HR PRN PRN Reason: Pain (Mild) 1-3 Stop: 07/18/18 22:45 Ascorbic Acid (Vitamin C) 500 mg PO BID [facility] Stop: 07/19/18 08:59 Last Admin: 06/01/18 16:47 Dose: 500 mg Docusate Sodium (Colace) 250 mg PO DAILY [facility] Stop: 07/19/18 08:59 Last Admin: 06/01/18 09:57 Dose: 250 mg Donepezil HCl (Aricept) 10 mg PO HS [facility] Stop: 07/31/18 20:59 Ferrous Sulfate (Iron) 325 mg PO DAILY [facility] Stop: 07/19/18 08:59 Last Admin: 06/01/18 09:58 Dose: 325 mg Lorazepam (Ativan) 1 mg PO Q4HR PRN; Protocol PRN Reason: Agitation Stop: 07/30/18 18:43 Last Admin: 06/01/18 16:47 Dose: 1 mg Losartan Potassium (Cozaar) 50 mg PO DAILY [facility] Stop: 07/19/18 08:59 Last Admin: 06/01/18 09:59 Dose: 50 mg Magnesium Hydroxide (Milk Of Magnesia) 30 ml PO DAILY [facility] Stop: 07/19/18 08:59 Last Admin: 06/01/18 10:00 Dose: 30 ml Metoprolol Tartrate (Lopressor) 25 mg PO DAILY [facility] Stop: 07/19/18 08:59 Last Admin: 06/01/18 09:59 Dose: 25 mg Multivitamins/Vitamin C (Theragran) 1 tab PO DAILY [facility] Stop: 07/19/18 08:59 Last Admin: 06/01/18 09:58 Dose: 1 tab Nifedipine (Procardia Xl) 30 mg PO DAILY [facility] Stop: 07/19/18 08:59 Last Admin: 06/01/18 09:56 Dose: 30 mg Pyridoxine HCl (Vitamin B6) 50 mg PO DAILY [facility] Stop: 07/20/18 08:59 Last Admin: 06/01/18 09:58 Dose: 50 mg Quetiapine Fumarate (Seroquel) 75 mg PO BID [facility]; Protocol Stop: 07/31/18 16:59 Last Admin: 06/01/18 16:47 Dose: 75 mg Tamsulosin HCl (Flomax) 0.4 mg PO HS [facility] Stop: 07/19/18 20:59 Last Admin: 05/31/18 21:22 Dose: 0.4 mg General: demented HEENT: anicteric sclerae, throat clear Neck: No thyromegaly, +2 carotid pulse wo bruit, No LAD Lungs: CTAB Cardiovascular: RRR, Normal S1, Normal S2, without murmur Abdomen: non-tender, non-distended Extremities: clear Neurological: no change Internal Medicine Assmt/Plan - Assessment Assessment: 1.HTN. 2.BPH. 3.DEMENTIA. - Plan Plan: CONTINUE ON CURRENT MEDICATION AND DIET. Nutritional Asmnt/Malnutr-PDOC - Dietary Evaluation Malnutrition Findings (Please click <Entered> for more info): Nutritional Asmnt/Malnutrition Start: 05/23/18 10: 04 Text: Status: Complete Freq: Protocol: Document 05/23/18 10:04 PALAK (Rec: 05/23/18 10:27 PALAK PATEL- FNS1) Nutritional Asmnt/Malnutrition Patient General Information Nutritional Screening Moderate Risk Diagnosis Psychosis Pertinent Medical Hx/Surgical Hx Hypertension, dementia, benign prostatic hypertrophy. Subjective Information Per nursing notes, patient is easily agitated, irritable and hyperverbal. Oral intake remains adequate without difficulty. Current Diet Order/ Nutrition Support 2gm Sodium Patient / S.O Not Indicated Pertinent Medications Vitamin C, Colace, Iron, Cozaar, MOM, Theragran, Vitamin B6 Pertinent Labs WNL Nutritional Hx/Data Height 1.85 m Height (Calculated Centimeters) 185.4 Current Weight (lbs) 77.111 kg Weight (Calculated Kilograms) 77.1 Weight (Calculated Grams) 26453.7 [place] Body Weight 184 % [place] Body Weight 92 Body Mass Index (BMI) 22.4 Recent Weight Change No Weight Status Approriate GI Symptoms GI Symptoms None Last BM 05/22 x 1 Difficult in: None Food Allergies No Cultural/Ethnic/Baptist Belief None indicated Usual diet at home unknown Skin Integrity/Comment: Mal 21, area of concern vertical laceration on forehead approximately 2 inch Current %PO Good (75-100%) Estimated Nutritional Goals BEE in Kcals: Using Current wt Calories/Kcals/Kg 25-30 kcal/kg using CBW 77.2kg Kcals Calculated ~1120-7448 kcal/day Protein: Using Current wt Protein g/k-1.2 gm/kg using CBW Protein Calculated ~75-90gm/day Fluid: ml ~6581-9799 ml/day (1 ml/kcal) Nutritional Problem 1. Problem Problem No nutrition diagnosis at this time Intervention/Recommendation Comments 1. Continue low sodium diet due to hx of hypertension as tolerated by patient. Expected Outcomes/Goals Expected Outcomes/Goals Oral intake >75% of meals, weight stable, nutrition related labs WNL.
--- NOTE | 2018-06-01 20:04 | Progress Notes ---
DATE: 06/01/2018 SUBJECTIVE: Case was discussed with staff of the patient, reviewed records. The patient continues to have episodes of agitation and irritability. He continues to be responding to internal stimuli, unable to express himself very well. He continues to have poor insight. No side effects with the medication, no sedation, no nausea, and no extrapyramidal symptoms. I will be increasing his Aricept to 10 mg at bedtime and also I will be increasing his Seroquel to 75 mg twice a day to improve his agitation, irritability, and psychotic, agitated, and angry behavior. We will continue to work the patient in group therapy, milieu therapy, and adjust the medications as needed. JOB# [id number]
[2018-06-02] MEDS: Ferrous Sulfate 325 MG TAB PO SCH (08:41)
[2018-06-02] MEDS: NIFEdipine 30 mg ER Tab PO SCH (08:43)
[2018-06-02] MEDS: Multivitamin Tab PO SCH (08:43)
[2018-06-02] MEDS: Magnesium Hydroxide (MOM) 30 mL UDC PO SCH (08:47)
--- NOTE | 2018-06-02 20:52 | Internal Medicine Prog Note ---
Internal Medicine Subjective - Subjective Service Date: 06/02/18 Patient seen and examined:: with staff Patient is:: awake, non-verbal, in bed, confused Per staff patient has:: no adverse event Internal Medicine Objective - Results Recent Labs: Laboratory Last Values POC Glucose 102 MG/DL (70 - 105) 05/19/18 22:03 Triglycerides 64 mg/dL (<150) 05/20/18 06:00 Cholesterol 183 mg/dL (<200) 05/20/18 06:00 LDL Cholesterol Direct 104 mg/dL (75-193) 05/20/18 06:00 HDL Cholesterol 59 mg/dL (23-92) 05/20/18 06:00 - Physical Exam Vitals and I&O: Vital Signs Temp 98.2 F 06/02/18 14:59 Pulse 76 06/02/18 14:59 Resp 20 06/02/18 14:59 BP 106/58 06/02/18 14:59 Pulse Ox 98 06/02/18 14:59 Intake & Output 06/02/18 06/02/18 06/03/18 06:59 18:59 06:59 Intake Total 1000 Balance 1000 Intake: Oral 1000 Other: # Voids 4 # Bowel Movements 1 Active Medications: Current Medications Acetaminophen (Tylenol) 650 mg PO Q4HR PRN PRN Reason: Pain (Mild) 1-3 Stop: 07/18/18 22:45 Ascorbic Acid (Vitamin C) 500 mg PO BID [facility] Stop: 07/19/18 08:59 Last Admin: 06/02/18 17:55 Dose: 500 mg Docusate Sodium (Colace) 250 mg PO DAILY [facility] Stop: 07/19/18 08:59 Last Admin: 06/02/18 08:40 Dose: 250 mg Donepezil HCl (Aricept) 10 mg PO HS [facility] Stop: 07/31/18 20:59 Last Admin: 06/01/18 22:00 Dose: Not Given Ferrous Sulfate (Iron) 325 mg PO DAILY [facility] Stop: 07/19/18 08:59 Last Admin: 06/02/18 08:41 Dose: 325 mg Lorazepam (Ativan) 1 mg PO Q4HR PRN; Protocol PRN Reason: Agitation Stop: 07/30/18 18:43 Last Admin: 06/02/18 17:54 Dose: 1 mg Losartan Potassium (Cozaar) 50 mg PO DAILY [facility] Stop: 07/19/18 08:59 Last Admin: 06/02/18 08:41 Dose: 50 mg Magnesium Hydroxide (Milk Of Magnesia) 30 ml PO DAILY [facility] Stop: 07/19/18 08:59 Last Admin: 06/02/18 08:47 Dose: Not Given Metoprolol Tartrate (Lopressor) 25 mg PO DAILY [facility] Stop: 07/19/18 08:59 Last Admin: 06/02/18 08:40 Dose: 25 mg Multivitamins/Vitamin C (Theragran) 1 tab PO DAILY [facility] Stop: 07/19/18 08:59 Last Admin: 06/02/18 08:43 Dose: 1 tab Nifedipine (Procardia Xl) 30 mg PO DAILY [facility] Stop: 07/19/18 08:59 Last Admin: 06/02/18 08:43 Dose: 30 mg Pyridoxine HCl (Vitamin B6) 50 mg PO DAILY [facility] Stop: 07/20/18 08:59 Last Admin: 06/02/18 08:41 Dose: 50 mg Quetiapine Fumarate (Seroquel) 75 mg PO BID [facility]; Protocol Stop: 07/31/18 16:59 Last Admin: 06/02/18 17:55 Dose: 75 mg Tamsulosin HCl (Flomax) 0.4 mg PO HS [facility] Stop: 07/19/18 20:59 Last Admin: 06/01/18 22:00 Dose: Not Given General: demented HEENT: anicteric sclerae, throat clear Neck: No thyromegaly, +2 carotid pulse wo bruit, No LAD Lungs: CTAB Cardiovascular: RRR, Normal S1, Normal S2, without murmur Abdomen: non-tender, non-distended Extremities: clear Neurological: no change Internal Medicine Assmt/Plan - Assessment Assessment: 1.HTN. 2.BPH. 3.DEMENTIA. - Plan Plan: CONTINUE ON CURRENT MEDICATION AND DIET. Nutritional Asmnt/Malnutr-PDOC - Dietary Evaluation Malnutrition Findings (Please click <Entered> for more info): Nutritional Asmnt/Malnutrition Start: 05/23/18 10: 04 Text: Status: Complete Freq: Protocol: Document 05/23/18 10:04 PALAK (Rec: 05/23/18 10:27 PALAK PATEL- [email or web address]) Nutritional Asmnt/Malnutrition Patient General Information Nutritional Screening Moderate Risk Diagnosis Psychosis Pertinent Medical Hx/Surgical Hx Hypertension, dementia, benign prostatic hypertrophy. Subjective Information Per nursing notes, patient is easily agitated, irritable and hyperverbal. Oral intake remains adequate without difficulty. Current Diet Order/ Nutrition Support 2gm Sodium Patient / S.O Not Indicated Pertinent Medications Vitamin C, Colace, Iron, Cozaar, MOM, Theragran, Vitamin B6 Pertinent Labs WNL Nutritional Hx/Data Height 1.85 m Height (Calculated Centimeters) 185.4 Current Weight (lbs) 77.111 kg Weight (Calculated Kilograms) 77.1 Weight (Calculated Grams) 61068.7 [place] Body Weight 184 % [place] Body Weight 92 Body Mass Index (BMI) 22.4 Recent Weight Change No Weight Status Approriate GI Symptoms GI Symptoms None Last BM 05/22 x 1 Difficult in: None Food Allergies No Cultural/Ethnic/Baptist Belief None indicated Usual diet at home unknown Skin Integrity/Comment: Mal 21, area of concern vertical laceration on forehead approximately 2 inch Current %PO Good (75-100%) Estimated Nutritional Goals BEE in Kcals: Using Current wt Calories/Kcals/Kg 25-30 kcal/kg using CBW 77.2kg Kcals Calculated ~6287-2001 kcal/day Protein: Using Current wt Protein g/k-1.2 gm/kg using CBW Protein Calculated ~75-90gm/day Fluid: ml ~6871-6380 ml/day (1 ml/kcal) Nutritional Problem 1. Problem Problem No nutrition diagnosis at this time Intervention/Recommendation Comments 1. Continue low sodium diet due to hx of hypertension as tolerated by patient. Expected Outcomes/Goals Expected Outcomes/Goals Oral intake >75% of meals, weight stable, nutrition related labs WNL.
--- NOTE | 2018-06-02 21:55 | Progress Notes ---
DATE: 06/02/2018 Case was discussed with staff of the patient, reviewed records. The patient continues to have episodes of agitation, irritability, acting out. Continues to have poor insight. I increased his Seroquel dose to 75 mg twice a day to help with agitation, out of control behavior. Continues to be unable to verbalize a safe plan for self-care, unpredictable, impulsive. His lab work showed blood sugar 102, triglyceride and lipid profile within normal range and we will continue the patient in group therapy, milieu therapy, and adjust medications as needed. JOB# [id number]
[2018-06-03] MEDS: Magnesium Hydroxide (MOM) 30 mL UDC PO SCH (08:39)
[2018-06-03] MEDS: NIFEdipine 30 mg ER Tab PO SCH (08:40)
[2018-06-03] MEDS: Ferrous Sulfate 325 MG TAB PO SCH (08:40)
[2018-06-03] MEDS: Multivitamin Tab PO SCH (08:40)
--- NOTE | 2018-06-03 11:11 | Progress Notes ---
DATE: 06/03/2018 FOLLOW-UP PROGRESS NOTE PROGRESS ON THE UNIT: Case was discussed with staff of the patient with treatment plans and goals. The patient is doing better, sleeping well, eating well. He is a little bit more ____. Speech is hard to understand. The staff reports responding better to redirection. He tolerated the increase in his dose of Seroquel 75 mg twice a day and with no side effects, no sedation, no nausea, no extrapyramidal symptoms. His lipid profile is within normal range. Blood sugar within normal range. No other lab work was available in the chart. PLAN: We will work with the patient in group therapy and milieu therapy, adjust the medications as needed. JOB# [id number]
--- NOTE | 2018-06-03 19:58 | Internal Medicine Prog Note ---
Internal Medicine Subjective - Subjective Service Date: 06/03/18 Patient seen and examined:: with staff Patient is:: awake, non-verbal, in bed, confused Per staff patient has:: no adverse event Internal Medicine Objective - Results Recent Labs: Laboratory Last Values POC Glucose 102 MG/DL (70 - 105) 05/19/18 22:03 Triglycerides 64 mg/dL (<150) 05/20/18 06:00 Cholesterol 183 mg/dL (<200) 05/20/18 06:00 LDL Cholesterol Direct 104 mg/dL (75-193) 05/20/18 06:00 HDL Cholesterol 59 mg/dL (23-92) 05/20/18 06:00 - Physical Exam Vitals and I&O: Vital Signs Temp 98.2 F 06/03/18 14:00 Pulse 65 06/03/18 14:00 Resp 20 06/03/18 19:50 BP 115/55 06/03/18 14:00 Pulse Ox 96 06/03/18 14:00 Intake & Output 06/03/18 06/03/18 06/04/18 06:59 18:59 06:59 Intake Total 280 2400 Balance 280 2400 Intake: Oral 280 2400 Other: # Voids 2 4 # Bowel Movements 1 1 Active Medications: Current Medications Acetaminophen (Tylenol) 650 mg PO Q4HR PRN PRN Reason: Pain (Mild) 1-3 Stop: 07/18/18 22:45 Ascorbic Acid (Vitamin C) 500 mg PO BID [facility] Stop: 07/19/18 08:59 Last Admin: 06/03/18 16:54 Dose: 500 mg Docusate Sodium (Colace) 250 mg PO DAILY [facility] Stop: 07/19/18 08:59 Last Admin: 06/03/18 08:39 Dose: 250 mg Donepezil HCl (Aricept) 10 mg PO HS [facility] Stop: 07/31/18 20:59 Last Admin: 06/02/18 21:03 Dose: 10 mg Ferrous Sulfate (Iron) 325 mg PO DAILY [facility] Stop: 07/19/18 08:59 Last Admin: 06/03/18 08:40 Dose: 325 mg Lorazepam (Ativan) 1 mg PO Q4HR PRN; Protocol PRN Reason: Agitation Stop: 07/30/18 18:43 Last Admin: 06/02/18 17:54 Dose: 1 mg Losartan Potassium (Cozaar) 50 mg PO DAILY [facility] Stop: 07/19/18 08:59 Last Admin: 06/03/18 08:41 Dose: 50 mg Magnesium Hydroxide (Milk Of Magnesia) 30 ml PO DAILY [facility] Stop: 07/19/18 08:59 Last Admin: 06/03/18 08:39 Dose: 30 ml Metoprolol Tartrate (Lopressor) 25 mg PO DAILY [facility] Stop: 07/19/18 08:59 Last Admin: 06/03/18 08:40 Dose: 25 mg Multivitamins/Vitamin C (Theragran) 1 tab PO DAILY [facility] Stop: 07/19/18 08:59 Last Admin: 06/03/18 08:40 Dose: 1 tab Nifedipine (Procardia Xl) 30 mg PO DAILY [facility] Stop: 07/19/18 08:59 Last Admin: 06/03/18 08:40 Dose: 30 mg Pyridoxine HCl (Vitamin B6) 50 mg PO DAILY [facility] Stop: 07/20/18 08:59 Last Admin: 06/03/18 08:40 Dose: 50 mg Quetiapine Fumarate (Seroquel) 75 mg PO BID [facility]; Protocol Stop: 07/31/18 16:59 Last Admin: 06/03/18 16:53 Dose: 75 mg Tamsulosin HCl (Flomax) 0.4 mg PO HS [facility] Stop: 07/19/18 20:59 Last Admin: 06/02/18 21:03 Dose: 0.4 mg General: demented HEENT: anicteric sclerae, throat clear Neck: No thyromegaly, +2 carotid pulse wo bruit, No LAD Lungs: CTAB Cardiovascular: RRR, Normal S1, Normal S2, without murmur Abdomen: non-tender, non-distended Extremities: clear Neurological: no change Internal Medicine Assmt/Plan - Assessment Assessment: 1.HTN. 2.BPH. 3.DEMENTIA. - Plan Plan: CONTINUE ON CURRENT MEDICATION AND DIET. Nutritional Asmnt/Malnutr-PDOC - Dietary Evaluation Malnutrition Findings (Please click <Entered> for more info): Nutritional Asmnt/Malnutrition Start: 05/23/18 10: 04 Text: Status: Complete Freq: Protocol: Document 05/23/18 10:04 PALAK (Rec: 05/23/18 10:27 PALAK MAURER [email or web address]) Nutritional Asmnt/Malnutrition Patient General Information Nutritional Screening Moderate Risk Diagnosis Psychosis Pertinent Medical Hx/Surgical Hx Hypertension, dementia, benign prostatic hypertrophy. Subjective Information Per nursing notes, patient is easily agitated, irritable and hyperverbal. Oral intake remains adequate without difficulty. Current Diet Order/ Nutrition Support 2gm Sodium Patient / S.O Not Indicated Pertinent Medications Vitamin C, Colace, Iron, Cozaar, MOM, Theragran, Vitamin B6 Pertinent Labs WNL Nutritional Hx/Data Height 1.85 m Height (Calculated Centimeters) 185.4 Current Weight (lbs) 77.111 kg Weight (Calculated Kilograms) 77.1 Weight (Calculated Grams) 69349.7 [employer] Body Weight 184 % [employer] Body Weight 92 Body Mass Index (BMI) 22.4 Recent Weight Change No Weight Status Approriate GI Symptoms GI Symptoms None Last BM 05/22 x 1 Difficult in: None Food Allergies No Cultural/Ethnic/Jainism Belief None indicated Usual diet at home unknown Skin Integrity/Comment: Mal 21, area of concern vertical laceration on forehead approximately 2 inch Current %PO Good (75-100%) Estimated Nutritional Goals BEE in Kcals: Using Current wt Calories/Kcals/Kg 25-30 kcal/kg using CBW 77.2kg Kcals Calculated ~6557-8467 kcal/day Protein: Using Current wt Protein g/k-1.2 gm/kg using CBW Protein Calculated ~75-90gm/day Fluid: ml ~0489-0588 ml/day (1 ml/kcal) Nutritional Problem 1. Problem Problem No nutrition diagnosis at this time Intervention/Recommendation Comments 1. Continue low sodium diet due to hx of hypertension as tolerated by patient. Expected Outcomes/Goals Expected Outcomes/Goals Oral intake >75% of meals, weight stable, nutrition related labs WNL.
[2018-06-04] MEDS: Magnesium Hydroxide (MOM) 30 mL UDC PO SCH (09:36)
[2018-06-04] MEDS: Multivitamin Tab PO SCH (09:36)
[2018-06-04] MEDS: Ferrous Sulfate 325 MG TAB PO SCH (09:36)
[2018-06-04] MEDS: NIFEdipine 30 mg ER Tab PO SCH (09:38)
--- NOTE | 2018-06-04 19:33 | Internal Medicine Prog Note ---
Internal Medicine Subjective - Subjective Service Date: 06/04/18 Patient seen and examined:: with staff Patient is:: awake, non-verbal, in bed, confused Per staff patient has:: no adverse event Internal Medicine Objective - Results Recent Labs: Laboratory Last Values POC Glucose 102 MG/DL (70 - 105) 05/19/18 22:03 Triglycerides 64 mg/dL (<150) 05/20/18 06:00 Cholesterol 183 mg/dL (<200) 05/20/18 06:00 LDL Cholesterol Direct 104 mg/dL (75-193) 05/20/18 06:00 HDL Cholesterol 59 mg/dL (23-92) 05/20/18 06:00 - Physical Exam Vitals and I&O: Vital Signs Temp 98.0 F 06/04/18 14:00 Pulse 60 06/04/18 14:00 Resp 20 06/04/18 14:00 BP 137/73 06/04/18 14:00 Pulse Ox 98 06/04/18 14:00 Intake & Output 06/04/18 06/04/18 06/05/18 06:59 18:59 06:59 Intake Total 120 1200 Balance 120 1200 Intake: Oral 120 1200 Other: # Voids 3 4 # Bowel Movements 1 Active Medications: Current Medications Acetaminophen (Tylenol) 650 mg PO Q4HR PRN PRN Reason: Pain (Mild) 1-3 Stop: 07/18/18 22:45 Ascorbic Acid (Vitamin C) 500 mg PO BID [facility] Stop: 07/19/18 08:59 Last Admin: 06/04/18 17:37 Dose: 500 mg Docusate Sodium (Colace) 250 mg PO DAILY [facility] Stop: 07/19/18 08:59 Last Admin: 06/04/18 09:36 Dose: 250 mg Donepezil HCl (Aricept) 10 mg PO HS [facility] Stop: 07/31/18 20:59 Last Admin: 06/03/18 21:28 Dose: 10 mg Ferrous Sulfate (Iron) 325 mg PO DAILY [facility] Stop: 07/19/18 08:59 Last Admin: 06/04/18 09:36 Dose: 325 mg Lorazepam (Ativan) 1 mg PO Q4HR PRN; Protocol PRN Reason: Agitation Stop: 07/30/18 18:43 Last Admin: 06/04/18 17:37 Dose: 1 mg Losartan Potassium (Cozaar) 50 mg PO DAILY [facility] Stop: 07/19/18 08:59 Last Admin: 06/04/18 09:37 Dose: 50 mg Magnesium Hydroxide (Milk Of Magnesia) 30 ml PO DAILY [facility] Stop: 07/19/18 08:59 Last Admin: 06/04/18 09:36 Dose: 30 ml Metoprolol Tartrate (Lopressor) 25 mg PO DAILY [facility] Stop: 07/19/18 08:59 Last Admin: 06/04/18 09:37 Dose: 25 mg Multivitamins/Vitamin C (Theragran) 1 tab PO DAILY [facility] Stop: 07/19/18 08:59 Last Admin: 06/04/18 09:36 Dose: 1 tab Nifedipine (Procardia Xl) 30 mg PO DAILY [facility] Stop: 07/19/18 08:59 Last Admin: 06/04/18 09:38 Dose: 30 mg Pyridoxine HCl (Vitamin B6) 50 mg PO DAILY [facility] Stop: 07/20/18 08:59 Last Admin: 06/04/18 09:36 Dose: 50 mg Quetiapine Fumarate (Seroquel) 75 mg PO BID [facility]; Protocol Stop: 07/31/18 16:59 Last Admin: 06/04/18 17:36 Dose: 75 mg Tamsulosin HCl (Flomax) 0.4 mg PO HS [facility] Stop: 07/19/18 20:59 Last Admin: 06/03/18 21:28 Dose: 0.4 mg General: demented HEENT: anicteric sclerae, throat clear Neck: No thyromegaly, +2 carotid pulse wo bruit, No LAD Lungs: CTAB Cardiovascular: RRR, Normal S1, Normal S2, without murmur Abdomen: non-tender, non-distended Extremities: clear Neurological: no change Internal Medicine Assmt/Plan - Assessment Assessment: 1.HTN. 2.BPH. 3.DEMENTIA. - Plan Plan: CONTINUE ON CURRENT MEDICATION AND DIET. Nutritional Asmnt/Malnutr-PDOC - Dietary Evaluation Malnutrition Findings (Please click <Entered> for more info): Nutritional Asmnt/Malnutrition Start: 05/23/18 10: 04 Text: Status: Complete Freq: Protocol: Document 05/23/18 10:04 PALAK (Rec: 05/23/18 10:27 PALAK MAURER FNS1) Nutritional Asmnt/Malnutrition Patient General Information Nutritional Screening Moderate Risk Diagnosis Psychosis Pertinent Medical Hx/Surgical Hx Hypertension, dementia, benign prostatic hypertrophy. Subjective Information Per nursing notes, patient is easily agitated, irritable and hyperverbal. Oral intake remains adequate without difficulty. Current Diet Order/ Nutrition Support 2gm Sodium Patient / S.O Not Indicated Pertinent Medications Vitamin C, Colace, Iron, Cozaar, MOM, Theragran, Vitamin B6 Pertinent Labs WNL Nutritional Hx/Data Height 1.85 m Height (Calculated Centimeters) 185.4 Current Weight (lbs) 77.111 kg Weight (Calculated Kilograms) 77.1 Weight (Calculated Grams) 38244.7 [place] Body Weight 184 % [place] Body Weight 92 Body Mass Index (BMI) 22.4 Recent Weight Change No Weight Status Approriate GI Symptoms GI Symptoms None Last BM 05/22 x 1 Difficult in: None Food Allergies No Cultural/Ethnic/Caodaism Belief None indicated Usual diet at home unknown Skin Integrity/Comment: Mal 21, area of concern vertical laceration on forehead approximately 2 inch Current %PO Good (75-100%) Estimated Nutritional Goals BEE in Kcals: Using Current wt Calories/Kcals/Kg 25-30 kcal/kg using CBW 77.2kg Kcals Calculated ~3287-8335 kcal/day Protein: Using Current wt Protein g/k-1.2 gm/kg using CBW Protein Calculated ~75-90gm/day Fluid: ml ~2538-2316 ml/day (1 ml/kcal) Nutritional Problem 1. Problem Problem No nutrition diagnosis at this time Intervention/Recommendation Comments 1. Continue low sodium diet due to hx of hypertension as tolerated by patient. Expected Outcomes/Goals Expected Outcomes/Goals Oral intake >75% of meals, weight stable, nutrition related labs WNL.
--- NOTE | 2018-06-04 21:17 | Progress Notes ---
DATE: 06/04/2018 SUBJECTIVE: Case was discussed with staff of the patient, reviewed records. The patient continues to get agitated, especially when he is trying to talk and people cannot understand him. However, in general is starting to show progress. He is sleeping better and eating better. He continues to have mumbled speech; though, he is a little bit more able to understand sometimes. He is compliant with the medication with no side effects, no sedation, no nausea, and no extrapyramidal symptoms. He did tolerate the increase in his dose of Seroquel to 75 mg twice a day and no sedation, no nausea, and no extrapyramidal symptoms. We will continue to work with the patient in group therapy, milieu therapy, and adjust the medications as needed. JOB# [id number]
[2018-06-05] MEDS: Magnesium Hydroxide (MOM) 30 mL UDC PO SCH (09:16)
[2018-06-05] MEDS: Multivitamin Tab PO SCH (09:16)
[2018-06-05] MEDS: Ferrous Sulfate 325 MG TAB PO SCH (09:17)
[2018-06-05] MEDS: NIFEdipine 30 mg ER Tab PO SCH (09:18)
--- NOTE | 2018-06-05 12:01 | Discharge Summary ---
DATE OF DISCHARGE: 06/05/2018 IDENTIFYING INFORMATION: The patient is a 68-year-old male. CHIEF COMPLAINT: No answer. HISTORY OF PRESENT ILLNESS: The patient was transferred back from the medical floor. He was transferred to ICU because he had closed head injury with laceration to the scalp and then had a syncope attack. He was transferred to telemetry for a while and then he was brought here. He was acting out, yelling and screaming, talking to himself, unpredictable, impulsive, needing redirection, unable to participate in meaningful conversation or make safe plan for self-care. He was on Aricept 5 mg at bedtime, Seroquel 50 mg twice a day that was used in ICU because of his behavior in ICU, was very agitated. The patient has been treated by id at [place]. He has not been sleeping or eating well. PAST PSYCHIATRIC HISTORY: Multiple prior psychiatric hospitalizations for similar reasons with history of aggressive behavior. MEDICAL HISTORY: Anemia, hypertension, syncope attack, and benign prostatic hypertrophy. ALLERGIES: He has no known drug allergy. COURSE IN THE HOSPITAL: The patient was started back on the Seroquel, the dose was increased to 75 mg twice a day. He was continued with the Aricept and increase the dose to 10 mg at bedtime, also he was continued with metoprolol, docusate, ascorbic acid, pyridoxine and Flomax for benign prostatic hypertrophy. The patient ____ improved, though he still had some episodes where he will be yelling, but in general, he was redirectable. So as he improved, we felt he could be discharged to a lesser level of care. FINAL DIAGNOSES: Psychosis, not otherwise specified, dementia. MEDICAL DIAGNOSES: Benign prostatic hypertrophy, hypertension and anemia. The patient will be going to [place]. We will follow up with the psychiatrist, primary care physician there. EXPECTED OUTCOME: Stable if the patient complies. JOB# [id number]
--- NOTE | 2018-06-05 20:44 | Internal Medicine Prog Note ---
Internal Medicine Subjective - Subjective Service Date: 06/05/18 Patient seen and examined:: with staff Patient is:: awake, non-verbal, in bed, confused Per staff patient has:: no adverse event Internal Medicine Objective - Results Recent Labs: Laboratory Last Values POC Glucose 102 MG/DL (70 - 105) 05/19/18 22:03 Triglycerides 64 mg/dL (<150) 05/20/18 06:00 Cholesterol 183 mg/dL (<200) 05/20/18 06:00 LDL Cholesterol Direct 104 mg/dL (75-193) 05/20/18 06:00 HDL Cholesterol 59 mg/dL (23-92) 05/20/18 06:00 - Physical Exam Vitals and I&O: Vital Signs Temp 97.9 F 06/05/18 20:00 Pulse 75 06/05/18 20:00 Resp 19 06/05/18 20:00 BP 135/67 06/05/18 20:00 Pulse Ox 95 06/05/18 20:00 Intake & Output 06/05/18 06/05/18 06/06/18 06:59 18:59 06:59 Intake Total 360 Balance 360 Intake: Oral 360 Other: # Voids 2 Stool Characteristics Soft Active Medications: Current Medications Acetaminophen (Tylenol) 650 mg PO Q4HR PRN PRN Reason: Pain (Mild) 1-3 Stop: 07/18/18 22:45 Ascorbic Acid (Vitamin C) 500 mg PO BID [facility] Stop: 07/19/18 08:59 Last Admin: 06/05/18 16:39 Dose: 500 mg Docusate Sodium (Colace) 250 mg PO DAILY [facility] Stop: 07/19/18 08:59 Last Admin: 06/05/18 09:16 Dose: 250 mg Donepezil HCl (Aricept) 10 mg PO HS [facility] Stop: 07/31/18 20:59 Last Admin: 06/04/18 20:15 Dose: 10 mg Ferrous Sulfate (Iron) 325 mg PO DAILY [facility] Stop: 07/19/18 08:59 Last Admin: 06/05/18 09:17 Dose: 325 mg Lorazepam (Ativan) 1 mg PO Q4HR PRN; Protocol PRN Reason: Agitation Stop: 07/30/18 18:43 Last Admin: 06/04/18 17:37 Dose: 1 mg Losartan Potassium (Cozaar) 50 mg PO DAILY [facility] Stop: 07/19/18 08:59 Last Admin: 06/05/18 09:20 Dose: 50 mg Magnesium Hydroxide (Milk Of Magnesia) 30 ml PO DAILY [facility] Stop: 07/19/18 08:59 Last Admin: 06/05/18 09:16 Dose: 30 ml Metoprolol Tartrate (Lopressor) 25 mg PO DAILY [facility] Stop: 07/19/18 08:59 Last Admin: 06/05/18 09:19 Dose: 25 mg Multivitamins/Vitamin C (Theragran) 1 tab PO DAILY [facility] Stop: 07/19/18 08:59 Last Admin: 06/05/18 09:16 Dose: 1 tab Nifedipine (Procardia Xl) 30 mg PO DAILY [facility] Stop: 07/19/18 08:59 Last Admin: 06/05/18 09:18 Dose: 30 mg Pyridoxine HCl (Vitamin B6) 50 mg PO DAILY [facility] Stop: 07/20/18 08:59 Last Admin: 06/05/18 09:17 Dose: 50 mg Quetiapine Fumarate (Seroquel) 75 mg PO BID [facility]; Protocol Stop: 07/31/18 16:59 Last Admin: 06/05/18 16:39 Dose: 75 mg Tamsulosin HCl (Flomax) 0.4 mg PO HS [facility] Stop: 07/19/18 20:59 Last Admin: 06/04/18 20:15 Dose: 0.4 mg General: demented HEENT: anicteric sclerae, throat clear Neck: No thyromegaly, +2 carotid pulse wo bruit, No LAD Lungs: CTAB Cardiovascular: RRR, Normal S1, Normal S2, without murmur Abdomen: non-tender, non-distended Extremities: clear Neurological: no change Internal Medicine Assmt/Plan - Assessment Assessment: 1.HTN. 2.BPH. 3.DEMENTIA. - Plan Plan: CONTINUE ON CURRENT MEDICATION AND DIET. Nutritional Asmnt/Malnutr-PDOC - Dietary Evaluation Malnutrition Findings (Please click <Entered> for more info): Nutritional Asmnt/Malnutrition Start: 05/23/18 10: 04 Text: Status: Complete Freq: Protocol: Document 05/23/18 10:04 PALAK (Rec: 05/23/18 10:27 PALAK PATEL- FNS1) Nutritional Asmnt/Malnutrition Patient General Information Nutritional Screening Moderate Risk Diagnosis Psychosis Pertinent Medical Hx/Surgical Hx Hypertension, dementia, benign prostatic hypertrophy. Subjective Information Per nursing notes, patient is easily agitated, irritable and hyperverbal. Oral intake remains adequate without difficulty. Current Diet Order/ Nutrition Support 2gm Sodium Patient / S.O Not Indicated Pertinent Medications Vitamin C, Colace, Iron, Cozaar, MOM, Theragran, Vitamin B6 Pertinent Labs WNL Nutritional Hx/Data Height 1.85 m Height (Calculated Centimeters) 185.4 Current Weight (lbs) 77.111 kg Weight (Calculated Kilograms) 77.1 Weight (Calculated Grams) 65670.7 [place] Body Weight 184 % [place] Body Weight 92 Body Mass Index (BMI) 22.4 Recent Weight Change No Weight Status Approriate GI Symptoms GI Symptoms None Last BM 05/22 x 1 Difficult in: None Food Allergies No Cultural/Ethnic/Pentecostalism Belief None indicated Usual diet at home unknown Skin Integrity/Comment: Mal 21, area of concern vertical laceration on forehead approximately 2 inch Current %PO Good (75-100%) Estimated Nutritional Goals BEE in Kcals: Using Current wt Calories/Kcals/Kg 25-30 kcal/kg using CBW 77.2kg Kcals Calculated ~9894-2328 kcal/day Protein: Using Current wt Protein g/k-1.2 gm/kg using CBW Protein Calculated ~75-90gm/day Fluid: ml ~0571-0647 ml/day (1 ml/kcal) Nutritional Problem 1. Problem Problem No nutrition diagnosis at this time Intervention/Recommendation Comments 1. Continue low sodium diet due to hx of hypertension as tolerated by patient. Expected Outcomes/Goals Expected Outcomes/Goals Oral intake >75% of meals, weight stable, nutrition related labs WNL.
[2018-06-06] MEDS: NIFEdipine 30 mg ER Tab PO SCH (09:06)
[2018-06-06] MEDS: Multivitamin Tab PO SCH (09:06)
[2018-06-06] MEDS: Magnesium Hydroxide (MOM) 30 mL UDC PO SCH (09:06)
[2018-06-06] MEDS: Ferrous Sulfate 325 MG TAB PO SCH (09:07)
--- NOTE | 2018-06-06 09:50 | General Progress Note ---
Subjective - Review of Systems Service Date: 06/06/18 Subjective: resting comfortably no distress Objective - Results Recent Labs: Laboratory Last Values POC Glucose 102 MG/DL (70 - 105) 05/19/18 22:03 Triglycerides 64 mg/dL (<150) 05/20/18 06:00 Cholesterol 183 mg/dL (<200) 05/20/18 06:00 LDL Cholesterol Direct 104 mg/dL (75-193) 05/20/18 06:00 HDL Cholesterol 59 mg/dL (23-92) 05/20/18 06:00 - Physical Exam Vitals and I&O: Vital Signs Temp 95.9 F 06/06/18 06:39 Pulse 69 06/06/18 09:08 Resp 20 06/06/18 06:39 BP 137/76 06/06/18 09:08 Pulse Ox 98 06/06/18 06:39 Intake & Output 06/05/18 06/06/18 06/06/18 18:59 06:59 18:59 Other: Stool Characteristics Soft Soft Soft Active Medications: Current Medications Acetaminophen (Tylenol) 650 mg PO Q4HR PRN PRN Reason: Pain (Mild) 1-3 Stop: 07/18/18 22:45 Ascorbic Acid (Vitamin C) 500 mg PO BID [facility] Stop: 07/19/18 08:59 Last Admin: 06/06/18 09:07 Dose: 500 mg Docusate Sodium (Colace) 250 mg PO DAILY [facility] Stop: 07/19/18 08:59 Last Admin: 06/06/18 09:06 Dose: 250 mg Donepezil HCl (Aricept) 10 mg PO HS [facility] Stop: 07/31/18 20:59 Last Admin: 06/05/18 21:06 Dose: 10 mg Ferrous Sulfate (Iron) 325 mg PO DAILY [facility] Stop: 07/19/18 08:59 Last Admin: 06/06/18 09:07 Dose: 325 mg Lorazepam (Ativan) 1 mg PO Q4HR PRN; Protocol PRN Reason: Agitation Stop: 07/30/18 18:43 Last Admin: 06/06/18 04:15 Dose: 1 mg Losartan Potassium (Cozaar) 50 mg PO DAILY [facility] Stop: 07/19/18 08:59 Last Admin: 06/06/18 09:07 Dose: 50 mg Magnesium Hydroxide (Milk Of Magnesia) 30 ml PO DAILY [facility] Stop: 07/19/18 08:59 Last Admin: 06/06/18 09:06 Dose: 30 ml Metoprolol Tartrate (Lopressor) 25 mg PO DAILY [facility] Stop: 07/19/18 08:59 Last Admin: 06/06/18 09:08 Dose: 25 mg Multivitamins/Vitamin C (Theragran) 1 tab PO DAILY [facility] Stop: 07/19/18 08:59 Last Admin: 06/06/18 09:06 Dose: 1 tab Nifedipine (Procardia Xl) 30 mg PO DAILY [facility] Stop: 07/19/18 08:59 Last Admin: 06/06/18 09:06 Dose: 30 mg Pyridoxine HCl (Vitamin B6) 50 mg PO DAILY [facility] Stop: 07/20/18 08:59 Last Admin: 06/06/18 09:06 Dose: 50 mg Quetiapine Fumarate (Seroquel) 75 mg PO BID [facility]; Protocol Stop: 07/31/18 16:59 Last Admin: 06/06/18 09:07 Dose: 75 mg Tamsulosin HCl (Flomax) 0.4 mg PO HS [facility] Stop: 07/19/18 20:59 Last Admin: 06/05/18 21:06 Dose: 0.4 mg General: No acute distress HEENT: PERRLA, EOMI Neck: Supple, JVD, Thyromegaly Cardiovascular: Regular rate, Normal S1, Normal S2 Lungs: Clear to auscultation Abdomen: Bowel sounds, Soft Assessment/Plan - Assessment Assessment: dementia HTN BPH scalp laceration - Plan Plan: continue current treatment Nutritional Asmnt/Malnutr-PDOC - Dietary Evaluation Malnutrition Findings (Please click <Entered> for more info): Nutritional Asmnt/Malnutrition Start: 05/23/18 10: 04 Text: Status: Complete Freq: Protocol: Document 05/23/18 10:04 PALAK (Rec: 05/23/18 10:27 PALAK PATEL- [id number]) Nutritional Asmnt/Malnutrition Patient General Information Nutritional Screening Moderate Risk Diagnosis Psychosis Pertinent Medical Hx/Surgical Hx Hypertension, dementia, benign prostatic hypertrophy. Subjective Information Per nursing notes, patient is easily agitated, irritable and hyperverbal. Oral intake remains adequate without difficulty. Current Diet Order/ Nutrition Support 2gm Sodium Patient / S.O Not Indicated Pertinent Medications Vitamin C, Colace, Iron, Cozaar, MOM, Theragran, Vitamin B6 Pertinent Labs WNL Nutritional Hx/Data Height 1.85 m Height (Calculated Centimeters) 185.4 Current Weight (lbs) 77.111 kg Weight (Calculated Kilograms) 77.1 Weight (Calculated Grams) 21061.7 [place] Body Weight 184 % [place] Body Weight 92 Body Mass Index (BMI) 22.4 Recent Weight Change No Weight Status Approriate GI Symptoms GI Symptoms None Last BM 05/22 x 1 Difficult in: None Food Allergies No Cultural/Ethnic/Hoahaoism Belief None indicated Usual diet at home unknown Skin Integrity/Comment: Mal 21, area of concern vertical laceration on forehead approximately 2 inch Current %PO Good (75-100%) Estimated Nutritional Goals BEE in Kcals: Using Current wt Calories/Kcals/Kg 25-30 kcal/kg using CBW 77.2kg Kcals Calculated ~1968-7818 kcal/day Protein: Using Current wt Protein g/k-1.2 gm/kg using CBW Protein Calculated ~75-90gm/day Fluid: ml ~5949-0850 ml/day (1 ml/kcal) Nutritional Problem 1. Problem Problem No nutrition diagnosis at this time Intervention/Recommendation Comments 1. Continue low sodium diet due to hx of hypertension as tolerated by patient. Expected Outcomes/Goals Expected Outcomes/Goals Oral intake >75% of meals, weight stable, nutrition related labs WNL.
--- NOTE | 2018-06-06 14:28 | Discharge Summary ---
DATE OF DISCHARGE: 06/06/2018 The patient was evaluated on 05/01/2018 and transferred to ICU because of falling and laceration to his scalp. IDENTIFYING INFORMATION: The patient is a 68-year-old male. CHIEF COMPLAINT: Disorganized thought processes, ____ admission, the patient was brought because of his disorganized thought process, increasing agitation. The patient unable to make safe plan for self-care. He was disorganized. He make it very difficult, need a lot of direction, unable to come up with original answer, mumbling to himself and walks away. He is a well-known case to me as I have seen him for a long time at [facility]. PAST PSYCHIATRIC HISTORY: Dementia. MEDICAL HISTORY: COPD, now he has hypertension, amount of gait instability, unsteady, dysphagia and psychiatric history of depression, generalized anxiety, dementia, and psychosis. COURSE IN THE HOSPITAL: The patient was kept on Aricept 5 mg at bedtime and melatonin, Flomax, metoprolol, multivitamin, Seroquel 50 mg twice a day. The patient continued to be agitated; however, on 05/17/2018, had to be transferred to ICU because he sustained a fall and has a laceration with sutures. The brain scan was within normal limit. FINAL DIAGNOSES: Schizoaffective disorder and dementia. MEDICAL DIAGNOSES: Status post fall, laceration to the scalp with benign prostatic hypertrophy, mild anemia, hypertension. The patient was transferred to ICU. The patient will be transferred back if he is still agitated. EXPECTED OUTCOME: Stable if the patient complies with the above. [facility]# [id number]
--- NOTE | 2018-06-07 01:35 | Progress Notes ---
DATE: 06/06/2018 SUBJECTIVE: Case was discussed with staff of the patient, reviewed records. The patient was supposed to be discharged yesterday and I am not sure exactly the reason why he was not discharged. The patient, however, today was in the isolation room. He was knocking on the doors in a very aggressive manner. He seems to be out of control, unpredictable, impulsive, needing redirection. PLAN OF CARE: I will be increasing Seroquel to 100 mg twice a day to improve his behavior. He is sleeping and eating well. No side effects with the medication, no sedation, no nausea, no extrapyramidal symptoms. We will continue to work with the patient in group therapy, milieu therapy, adjust medication as needed. JOB# [id number]
[2018-06-07] MEDS: NIFEdipine 30 mg ER Tab PO SCH (10:09)
[2018-06-07] MEDS: Ferrous Sulfate 325 MG TAB PO SCH (10:11)
[2018-06-07] MEDS: Multivitamin Tab PO SCH (10:12)
[2018-06-07] MEDS: Magnesium Hydroxide (MOM) 30 mL UDC PO SCH (10:13)
--- NOTE | 2018-06-07 13:38 | Progress Notes ---
DATE: 06/07/2018 PROGRESS ON THE UNIT: Case was discussed with staff of the patient, reviewed records. The patient continues to be easily agitated, hyperverbal, unpredictable, but he is out of the observation room yesterday; he was knocking very hard on the glass, almost broke it. He continues to have poor insight, unpredictable, impulsive; however, we are not sure if this is probably his basic level of functioning. He is sleeping well and eating well. No side effects with the medication, no sedation, no nausea, no extrapyramidal symptoms. PLAN: We will continue to work with the patient in group therapy and milieu therapy, adjust medications as needed. JOB# [id number]
--- NOTE | 2018-06-07 18:36 | General Progress Note ---
Subjective - Review of Systems Service Date: 06/07/18 Subjective: resting comfortably no distress Objective - Results Recent Labs: Laboratory Last Values POC Glucose 102 MG/DL (70 - 105) 05/19/18 22:03 Triglycerides 64 mg/dL (<150) 05/20/18 06:00 Cholesterol 183 mg/dL (<200) 05/20/18 06:00 LDL Cholesterol Direct 104 mg/dL (75-193) 05/20/18 06:00 HDL Cholesterol 59 mg/dL (23-92) 05/20/18 06:00 - Physical Exam Vitals and I&O: Vital Signs Temp 98.3 F 06/07/18 14:00 Pulse 97 06/07/18 14:00 Resp 20 06/07/18 14:00 BP 127/83 06/07/18 14:00 Pulse Ox 97 06/07/18 14:00 Intake & Output 06/06/18 06/07/18 06/07/18 18:59 06:59 18:59 Intake Total 1400 1400 Balance 1400 1400 Intake: Oral 1400 1400 Other: # Voids 4 3 4 # Bowel Movements 2 0 1 Stool Characteristics Soft Soft Soft Active Medications: Current Medications Acetaminophen (Tylenol) 650 mg PO Q4HR PRN PRN Reason: Pain (Mild) 1-3 Stop: 07/18/18 22:45 Ascorbic Acid (Vitamin C) 500 mg PO BID [facility] Stop: 07/19/18 08:59 Last Admin: 06/07/18 18:12 Dose: 500 mg Docusate Sodium (Colace) 250 mg PO DAILY [facility] Stop: 07/19/18 08:59 Last Admin: 06/07/18 10:08 Dose: 250 mg Donepezil HCl (Aricept) 10 mg PO HS [facility] Stop: 07/31/18 20:59 Last Admin: 06/06/18 20:46 Dose: 10 mg Ferrous Sulfate (Iron) 325 mg PO DAILY [facility] Stop: 07/19/18 08:59 Last Admin: 06/07/18 10:11 Dose: 325 mg Lorazepam (Ativan) 1 mg PO Q4HR PRN; Protocol PRN Reason: Agitation Stop: 07/30/18 18:43 Last Admin: 06/07/18 18:12 Dose: 1 mg Losartan Potassium (Cozaar) 50 mg PO DAILY [facility] Stop: 07/19/18 08:59 Last Admin: 06/07/18 10:11 Dose: 50 mg Magnesium Hydroxide (Milk Of Magnesia) 30 ml PO DAILY [facility] Stop: 07/19/18 08:59 Last Admin: 06/07/18 10:13 Dose: 30 ml Metoprolol Tartrate (Lopressor) 25 mg PO DAILY [facility] Stop: 07/19/18 08:59 Last Admin: 06/07/18 10:10 Dose: 25 mg Multivitamins/Vitamin C (Theragran) 1 tab PO DAILY [facility] Stop: 07/19/18 08:59 Last Admin: 06/07/18 10:12 Dose: 1 tab Nifedipine (Procardia Xl) 30 mg PO DAILY [facility] Stop: 07/19/18 08:59 Last Admin: 06/07/18 10:09 Dose: 30 mg Pyridoxine HCl (Vitamin B6) 50 mg PO DAILY [facility] Stop: 07/20/18 08:59 Last Admin: 06/07/18 10:12 Dose: 50 mg Quetiapine Fumarate (Seroquel) 100 mg PO BID [facility]; Protocol Stop: 08/05/18 16:59 Last Admin: 06/07/18 18:12 Dose: 100 mg Tamsulosin HCl (Flomax) 0.4 mg PO HS [facility] Stop: 07/19/18 20:59 Last Admin: 06/06/18 20:46 Dose: 0.4 mg General: No acute distress HEENT: PERRLA, EOMI Neck: Supple, JVD, Thyromegaly Cardiovascular: Regular rate, Normal S1, Normal S2 Lungs: Clear to auscultation Abdomen: Bowel sounds, Soft Assessment/Plan - Assessment Assessment: dementia HTN BPH scalp laceration - Plan Plan: continue current treatment Nutritional Asmnt/Malnutr-PDOC - Dietary Evaluation Malnutrition Findings (Please click <Entered> for more info): Nutritional Asmnt/Malnutrition Start: 05/23/18 10: 04 Text: Status: Complete Freq: Protocol: Document 05/23/18 10:04 PALAK (Rec: 05/23/18 10:27 PALAK PATEL- FNS1) Nutritional Asmnt/Malnutrition Patient General Information Nutritional Screening Moderate Risk Diagnosis Psychosis Pertinent Medical Hx/Surgical Hx Hypertension, dementia, benign prostatic hypertrophy. Subjective Information Per nursing notes, patient is easily agitated, irritable and hyperverbal. Oral intake remains adequate without difficulty. Current Diet Order/ Nutrition Support 2gm Sodium Patient / S.O Not Indicated Pertinent Medications Vitamin C, Colace, Iron, Cozaar, MOM, Theragran, Vitamin B6 Pertinent Labs WNL Nutritional Hx/Data Height 1.85 m Height (Calculated Centimeters) 185.4 Current Weight (lbs) 77.111 kg Weight (Calculated Kilograms) 77.1 Weight (Calculated Grams) 85925.7 [place] Body Weight 184 % [place] Body Weight 92 Body Mass Index (BMI) 22.4 Recent Weight Change No Weight Status Approriate GI Symptoms GI Symptoms None Last BM 05/22 x 1 Difficult in: None Food Allergies No Cultural/Ethnic/Orthodox Belief None indicated Usual diet at home unknown Skin Integrity/Comment: Mal 21, area of concern vertical laceration on forehead approximately 2 inch Current %PO Good (75-100%) Estimated Nutritional Goals BEE in Kcals: Using Current wt Calories/Kcals/Kg 25-30 kcal/kg using CBW 77.2kg Kcals Calculated ~2024-8714 kcal/day Protein: Using Current wt Protein g/k-1.2 gm/kg using CBW Protein Calculated ~75-90gm/day Fluid: ml ~0349-8458 ml/day (1 ml/kcal) Nutritional Problem 1. Problem Problem No nutrition diagnosis at this time Intervention/Recommendation Comments 1. Continue low sodium diet due to hx of hypertension as tolerated by patient. Expected Outcomes/Goals Expected Outcomes/Goals Oral intake >75% of meals, weight stable, nutrition related labs WNL.
[2018-06-08] MEDS: NIFEdipine 30 mg ER Tab PO SCH (08:45)
[2018-06-08] MEDS: Multivitamin Tab PO SCH (08:45)
[2018-06-08] MEDS: Ferrous Sulfate 325 MG TAB PO SCH (08:48)
[2018-06-08] MEDS: Magnesium Hydroxide (MOM) 30 mL UDC PO SCH (08:49)
--- NOTE | 2018-06-08 14:46 | Discharge Summary ---
DATE OF DISCHARGE: 06/08/2018 Discharge was postponed because they have no beds. The patient did have some outbursts over the weekend. Medications were adjusted. The Seroquel was increased to 100 mg twice a day for the last 2 days since the last episode was Friday. On Friday, yesterday, he was doing well. He is not acting out. He is sleeping well, eating well, no longer meeting criteria for further inpatient treatment. DISCHARGE DIAGNOSES: Same. PLAN: Same. The patient will be going back to [place] and I will follow up with the patient there and expected outcome is stable if the patient complies with the above. JOB# [id number]
== END 2018-06-08 14:15 | DRG 885 ==
LOC: GERO 21:02
PROVIDERS: ADMIT Psychiatry & Neurology Psychiatry; ATTEND Psychiatry & Neurology Psychiatry
DX: F25.9 Schizoaffective disorder, unspecified (principal); F29 Unspecified psychosis not due to a substance or known physiological condition; N40.0 Benign prostatic hyperplasia without lower urinary tract symptoms; I10 Essential (primary) hypertension; D64.9 Anemia, unspecified; R55 Syncope and collapse; F03.90 Unspecified dementia, unspecified severity, without behavioral disturbance, psychotic disturbance, mood disturbance, and anxiety; J44.9 Chronic obstructive pulmonary disease, unspecified; F41.9 Anxiety disorder, unspecified; R13.10 Dysphagia, unspecified; S01.01XA Laceration without foreign body of scalp, initial encounter; W18.30XA Fall on same level, unspecified, initial encounter; Y93.89 Activity, other specified; Y92.89 Other specified places as the place of occurrence of the external cause; Y99.8 Other external cause status
CPT/HCPCS: 36415-UA; 80061-TC; 82948-90; 83036-90; 90899; G0410; Z7610